=== PATIENT | female | born 2000 | race Caucasian/White ===

== ENCOUNTER 2024-02-28 20:05 | Inpatient (IN) ==
--- NOTE | 2024-02-28 20:31 | Emergency Department Note ---
Impression & Plan Recurrent seizures, Acute UTI (urinary tract infection), Acute hypokalemia, Elevated lactic acid level ED Provider Note HISTORY OF PRESENT ILLNESS: Patient is a 23-year-old female presenting with recurrent seizures. Patient reports that she has had 15-20 seizures today. She reports that she is on Dilantin. Reports she missed her dose earlier this afternoon and route to the hospital. She states that her last seizure was in the back of the car coming to [facility]. She states that she went to [facility] 3 times in the last week for the same issue. She states she was just there last night and "they did not do anything." She states that she has "grand mall seizures." She does not follow with a neurologist. Reports that her Dilantin as prescribed by her psychiatrist. She states that her last EEG was "a few months ago at [facility]." Denies any recent medication changes. Denies any chest pain or shortness of breath. Denies any nausea or vomiting. Denies any recent head injury or chiropractic manipulation of her neck. She denies any bowel or bladder incontinence during the seizure episodes. Reportedly comes to shortly after the seizure. Only has about 60 seconds of "confusion." Patient denies any abdominal pain. Denies any recent fevers. ROS: as above PHYSICAL EXAM: Constitutional: Patient appears in no acute distress. HENT: Head: Normocephalic and atraumatic. Eyes: EOMI, PERRL Mouth/Throat: Mucous membranes moist. Neck: Trachea midline. Neck supple. Cardiovascular: RRR, No murmurs, rubs or gallops. Intact distal pulses. Pulmonary/Chest: No respiratory distress. Breath sounds clear and equal bilaterally. No wheezes or rales. Abdominal: Abdomen soft, no tenderness, rebound or guarding. Musculoskeletal: No edema, tenderness or deformity noted. Skin: Warm and dry. No rash, erythema, pallor or cyanosis Psychiatric: Appropriate mood and affect for situation. Neurological: Alert and keenly responsive. CN II-XII grossly intact, moving all extremities equally and fully. MDM: - Vitals signs showed hypertension - History obtained via patient. History as above. - Chronic conditions affecting care: Seizure disorder - Differential diagnoses include, but are not limited to: PNES; epilepsy; electrolyte abnormality; dysrhythmia; status epilepticus; missed medication; intracranial hemorrhage - Order placed for continuous cardiac monitoring. At this time, monitor showed rate of 88 bpm with normal sinus rhythm, per my interpretation. - External medical records reviewed. Showed [facility] ER visit note dated 02/27/2024 was reviewed. Patient was seen there for seizure activity during fireworks. Also reviewed a note from 02/25/2024 in which the patient had 5 seizures on 24 February. - EKG interpreted by myself showed normal sinus rhythm. Rate 71 bpm. QT 370. No acute ischemic changes. - Laboratory workup interpreted by myself showed normal WBC; normal PT/INR; hypokalemia (K 3.1); elevated lactate (2.1); normal troponin; normal lipase; negative hCG - UA showed evidence of infection. Given 2g IV rocephin - UDS negative - VBG normal - CXR negative for pneumonia, per my interpretation - I was called to patient's bedside by nursing staff, as they report the patient was having a seizure. She reportedly had a 10-second episode of "jerking motion." On my arrival to the room, the patient was no longer having any shaking. She was answering questions and alert and orientated immediately after the episode. -On review of patient's [facility] chart, she has not had an EEG in their system. It has been ordered but she has not been able to make it. When prompted about this, the patient reports he has not had transport to the hospital for the EEG. - Patient given 10 mEq IV potassium for electrolyte replacement and 1L NS. - Given patient's recurrent seizures today, her family is uncomfortable with taking her home. Will admit to hospital service for neurology consult and potential EEG in the morning. - Discussion was had with caser in about patient's case and need for admission - Hospitalist, Dr. Aviles, consulted for admission - Patient admitted to [facility] service for further evaluation and management. ASSESSMENT AND PLAN: Diagnosis: Recurrent seizures; acute hypokalemia; elevated lactic acid; acute UTI Plan: Admit Past Med/Surg History Problem List (Updated 02/28/24 @ 23:26 by Yu Van MD) Elevated lactic acid level (Acute) Acute hypokalemia (Acute) Acute UTI (urinary tract infection) (Acute) Recurrent seizures (Acute) Social History Smoking Status: Current every day smoker Tobacco Type: E-cigarettes / Vaping Preferred Language: Montserratian Feels Safe at Home: Yes Allergies Allergies Allergy/AdvReac Type Severity Reaction Status Date / Time honey Allergy Severe Anaphylaxis Verified 02/28/24 21:51 bee pollen Allergy Unknown Verified 02/28/24 21:51 bee venom protein (honey bee) Allergy Unknown Verified 02/28/24 21:51 bupropion [From Wellbutrin] Allergy Unknown Verified 02/28/24 21:51 Sulfa (Sulfonamide Allergy Unknown Verified 02/28/24 21:51 Antibiotics) levetiracetam AdvReac Vomiting Verified 02/28/24 21:51 Home Meds Home Medications Medication Instructions Recorded Confirmed albuterol sulfate 90 mcg/actuation 2 puff inhalation Q4 PRN 02/28/24 02/28/24 aerosol inhaler cough,wheezing or SOB epinephrine 0.3 mg/0.3 mL 0.3 mg IM UD PRN severe reaction 02/28/24 02/28/24 injection, auto-injector (EpiPen 2-Obie) escitalopram oxalate 5 mg tablet 5 mg PO QAM 02/28/24 02/28/24 ondansetron HCl 4 mg tablet 4 mg PO Q6H PRN Nausea 02/28/24 02/28/24 phenytoin sodium extended 100 mg 200 mg PO TID 02/28/24 02/28/24 capsule potassium chloride 20 mEq 20 meq PO AMHS 02/28/24 02/28/24 tablet,extended release(part/cryst) trazodone 50 mg tablet 50 mg PO HS 02/28/24 02/28/24 Results & Data (ED) Vital Signs Vital Signs - 24 hr 02/28/24 20:11 02/28/24 20:31 02/28/24 21:15 Temperature 36.4 C L Temperature Source Temporal Artery Scan Pulse Rate 94 H 82 Pulse Rate [Apical] Respiratory Rate 20 Blood Pressure 93/64 L Blood Pressure [Left Arm] Blood Pressure Mean 73 Blood Pressure Mean [Left Arm] Blood Pressure Position [Left Arm] Pulse Oximetry 96 97 Oxygen Delivery Method Room Air Room Air Sepsis Recent Fever Within 48 Hours No Sepsis New/Unexplained Change in Mental Status No Sepsis Action Taken by Nursing No Action Required 02/28/24 21:15 02/28/24 22:28 Temperature Temperature Source Pulse Rate 71 Pulse Rate [Apical] 88 Respiratory Rate 18 20 Blood Pressure Blood Pressure [Left Arm] 97/62 L Blood Pressure Mean Blood Pressure Mean [Left Arm] 73 Blood Pressure Position [Left Arm] Lying Pulse Oximetry 97 98 Oxygen Delivery Method Room Air Room Air Sepsis Recent Fever Within 48 Hours Sepsis New/Unexplained Change in Mental Status Sepsis Action Taken by Nursing Laboratory Data 02/28/24 20:35 02/28/24 21:33 Lab Results 02/28/24 02/28/24 02/28/24 Range/Units 20:35 20:47 21:33 WBC 7.61 (4.8-10.8) K/ul RBC 4.92 (4.20-5.40) M/uL Hgb 14.2 (12.0-16.0) g/dl Hct 42.3 (37.0-47.0) % MCV 86.0 (80.0-100.0) fL MCH 28.9 (25.0-34.0) pg MCHC 33.6 (32.0-36.0) g/dL RDW Std Deviation 37.3 (36.4-46.3) fL RDW Coeff of Denisa 11.9 (11.5-14.5) % Plt Count 233 (130-400) K/uL MPV 10.3 (9.4-12.4) fL Immature Gran % (Auto) 0.1 % Neut % (Auto) 42.6 % Lymph % (Auto) 45.3 % [place] % (Auto) 5.7 % Eos % (Auto) 5.8 % Baso % (Auto) 0.5 % Neut # (Auto) 3.24 (1.40-6.50) K/uL Lymph # (Auto) 3.45 H (1.20-3.40) K/uL [place] # (Auto) 0.43 (0.11-0.59) K/uL Eos # (Auto) 0.44 (0.00-0.50) K/uL Baso # (Auto) 0.04 (0.00-0.20) K/uL Immature Gran # (Auto) 0.01 (0.01-0.20) K/uL PT Cancelled 10.9 INR Cancelled 1.0 VBG pH 7.38 (7.36-7.41) VBG pCO2 44 (38-50) mmHg VBG pO2 50 mmHg VBG HCO3 26 mmol/L VBG O2 Saturation 83.0 % VBG Base Excess 0.5 mEq/L Sodium 142 (136-145) mmol/L Potassium TNP 3.1 L Chloride 107 (98-107) mmol/L Carbon Dioxide 26 (21-32) mmol/L Anion Gap 9 (3-11) BUN 8 (6-23) mg/dl Creatinine 0.71 (0.6-1.2) mg/dl Est Cr Clr Drug Dosing Not Reportable Est GFR ( Amer) 138.2 ml/min Est GFR (Non-Af Amer) 119.2 ml/min BUN/Creatinine Ratio 11.3 (10-20) Glucose 110 H (70-99(Fasting)) mg/dl Lactate 2.1 H* (0.4-2.0) mmol/L Calcium 9.5 (8.6-10.3) mg/dl Magnesium 2.0 (1.7-2.4) mg/dl Total Bilirubin 0.2 (0.2-1.0) mg/dl AST TNP 18 ALT 23 (7-52) U/L Alkaline Phosphatase 89 (34-104) U/L Troponin I High Sens < 2.3 (0-14) pg/ml Total Protein 7.2 (6.0-8.3) gm/dl Albumin 4.6 (3.4-5.0) gm/dl Globulin 2.6 (2.5-4.0) gm/dl Albumin/Globulin Ratio 1.8 (0.9-2) Lipase 26 (11-82) U/L HCG, Qual Negative (Negative) Urine Color Dark Yellow Urine Appearance Cloudy A (Clear) Urine pH 5.5 (4.5-7.5) Ur Specific [place] 1.028 (1.000-1.030) Urine Protein Trace H (Negative) Urine Glucose (UA) Negative (Negative) Urine Ketones 1+ H (Negative) Urine Blood Negative (Negative) Urine Nitrite Negative (Negative) Urine Bilirubin 1+ H (Negative) Urine Urobilinogen Negative (Negative) Ur Leukocyte Esterase Trace H (Negative) Urine WBC (Auto) 6-10 H (0-5) /hpf Urine RBC (Auto) 0-2 (0-2) /hpf U Hyaline Cast (Auto) 0-2 (0-2) /lpf U Epithel Cells (Auto) 6-10 H (0-2) /hpf Urine Bacteria (Auto) 2+ H (None Seen) Urine Opiates Screen Neg (Neg) Ur Methadone, Qual Neg (Neg) Urine Fentanyl Screen Neg (Neg) Urine Barbiturates Neg (Neg) Ur Phencyclidine (PCP) Neg (Neg) U Amphetamin/Meth Scrn Neg (Neg) MDMA (Ecstasy) Screen Neg (Neg) U Benzodiazepines Scrn Neg (Neg) Ur Cocaine Metabolite Neg (Neg) U Marijuana (THC) Screen Neg (Neg) Administered Medications Discontinued Medications Sodium Chloride (Nss) 1,000 mls @ 999 mls/hr IV .Q1H1M ONE Stop: 02/28/24 22:25 Last Infusion: 02/28/24 22:27 Dose: Infused Documented By: Admin: 02/28/24 21:46 Dose: 999 mls/hr Documented By: Ceftriaxone Sodium (Rocephin) 2,000 mg in 50 mls @ 100 mls/hr IV NOW STA Stop: 02/28/24 21:54 Last Infusion: 02/28/24 22:27 Dose: Infused Documented By: Admin: 02/28/24 21:50 Dose: 100 mls/hr Documented By: Discharge Plan Visit Data Chief Complaint: Seizure Stated Complaint: SEIZURES/RECENT, FOAMING OUT MOUTH ED Provider: Yu Van Discharge Problem: Recurrent seizures, Acute UTI (urinary tract infection), Acute hypokalemia, Elevated lactic acid level Forms Stand Alone Forms: My [facility] Prescriptions Prescriptions: No Action trazodone 50 mg Tablet 50 mg PO HS ondansetron HCl 4 mg Tablet 4 mg PO Q6H PRN (Reason: Nausea) phenytoin sodium extended 100 mg Capsule 200 mg PO TID Rx Instructions: take 2 capsules in the morning,afternoon and evening potassium chloride 20 mEq Tablet,Er Particles/Crystals 20 meq PO AMHS escitalopram oxalate 5 mg Tablet 5 mg PO QAM epinephrine [EpiPen 2-Obie] 0.3 mg/0.3 mL Auto-Injector 0.3 mg IM UD PRN (Reason: severe reaction) albuterol sulfate 90 mcg/actuation Hfa Aerosol Inhaler 2 puff INHALATION Q4 PRN (Reason: cough,wheezing or SOB) Referrals Referrals: PCP,NO [Physician] -
[2024-02-28 20:55] LABS: Basophils # (auto) 0.04 K/uL (0.00-0.20); Basophils % (auto) 0.5 %; Eosinophils # (auto) 0.44 K/uL (0.00-0.50); Eosinophils % (auto) 5.8 %; Hematocrit (blood only) 42.3 % (37.0-47.0); Hemoglobin 14.2 g/dl (12.0-16.0); Immature Granulocytes # (auto) 0.01 K/uL (0.01-0.20); Immature Granulocytes % (auto) 0.1 %; Lymphocytes # (auto) 3.45 K/uL (1.20-3.40); Lymphocytes % (auto) 45.3 %; Mean Corpuscular Hemoglobin 28.9 pg (25.0-34.0); Mean Corpuscular Hgb Conc 33.6 g/dL (32.0-36.0); Mean Platelet Volume 10.3 fL (9.4-12.4); Monocytes # (auto) 0.43 K/uL (0.11-0.59); Monocytes % (auto) 5.7 %; Neutrophils # (auto) 3.24 K/uL (1.40-6.50); Neutrophils % (auto) 42.6 %; Platelet Count 233 K/uL (130-400); RDW Coefficient of Variation 11.9 % (11.5-14.5); RDW Standard Deviation 37.3 fL (36.4-46.3); Red Blood Count 4.92 M/uL (4.20-5.40); White Blood Count 7.61 K/ul (4.8-10.8)
[2024-02-28 21:05] LABS: Pregnancy Test, Serum Negative (Negative)
[2024-02-28 21:07] LABS: Appearance Urine Cloudy (Clear); Bacteria Urine Automated 2+ (None Seen); Bilirubin Urine 1+ (Negative); Blood Urine Negative (Negative); Cast Urine Automated 0-2 /lpf (0-2); Color Urine Dark Yellow; Glucose Urine UA Negative (Negative); Ketones Urine 1+ (Negative); Leukocyte Esterase Urine Trace (Negative); Nitrite Urine Negative (Negative); Protein Urine Trace (Negative); RBC Urine Automated 0-2 /hpf (0-2); Specific Gravity Urine 1.028 (1.000-1.030); Urobilinogen Urine Negative (Negative); pH Urine 5.5 (4.5-7.5)
[2024-02-28 21:12] LABS: Alanine Aminotransferase 23 U/L (7-52); Albumin Globulin Ratio 1.8 (0.9-2); Albumin Level 4.6 gm/dl (3.4-5.0); Alkaline Phosphatase 89 U/L (34-104); Anion Gap 9 (3-11); BUN Creatinine Ratio 11.3 (10-20); Bilirubin,Total 0.2 mg/dl (0.2-1.0); Blood Urea Nitrogen 8 mg/dl (6-23); Calcium 9.5 mg/dl (8.6-10.3); Carbon Dioxide 26 mmol/L (21-32); Chloride 107 mmol/L (98-107); Est GFR (African American) 138.2 ml/min; Est GFR (Non-African American) 119.2 ml/min; Globulin 2.6 gm/dl (2.5-4.0); Glucose 110 mg/dl (70-99(Fasting)); Lipase 26 U/L (11-82); Sodium 142 mmol/L (136-145); Total Protein 7.2 gm/dl (6.0-8.3)
[2024-02-28 21:23] LABS: Troponin I High Sensitivity < 2.3 pg/ml (0-14)
[2024-02-28 21:34] LABS: Amphetamines+Metham, Urine Neg (Neg); Barbiturates, Urine Neg (Neg); Benzodiazepine, Urine Neg (Neg); Cocaine, Urine Neg (Neg); Fentanyl, Urine Neg (Neg); MDMA (Ecstacy), Urine Neg (Neg); Marijuana, Urine Neg (Neg); Methadone, Urine Neg (Neg); Opiate, Urine Neg (Neg); Phencyclidine, Urine Neg (Neg)
[2024-02-28] MEDS: SODIUM CHLORIDE 0.9% 1,000 ML IV ONE (21:46)
[2024-02-28] MEDS: cefTRIAXone SODIUM 2,000 MG/50 ML BAG IV STA (21:50)
[2024-02-28 21:51] LABS: Base Excess VBG 0.5 mEq/L; HCO3 VBG 26 mmol/L; PCO2 VBG 44 mmHg (38-50); PO2 VBG 50 mmHg; pH VBG 7.38 (7.36-7.41)
[2024-02-28 22:40] LABS: Potassium 3.1 mmol/L (3.5-5.1)
[2024-02-28 23:03] LABS: Prothrombin Time 10.9 Seconds (9.0-12.0)
[2024-02-29] MEDS: POTASSIUM CHLORIDE / WTR 10 MEQ/100 ML PLCT IV SCH (00:05)
[2024-02-29] MEDS ORDERED: ALBUTEROL HFA 8 GM INHALER INH PRN (00:11)
[2024-02-29] MEDS ORDERED: POLYETHYLENE (MIRALAX) 17 GM PACK PO PRN (00:11)
[2024-02-29] MEDS ORDERED: LORazepam 1 MG in SYRINGE 0.5 ML IV PRN (00:11)
[2024-02-29] MEDS ORDERED: NITROGLYCERIN SL 0.4 MG/TAB TAB SL PRN (00:11)
[2024-02-29] MEDS ORDERED: ACETAMINOPHEN 325 MG TAB PO PRN (00:11)
--- NOTE | 2024-02-29 00:11 | History & Physical Report ---
Date of Service February 28, 2024 Assessment & Plan (1) Recurrent seizures: Plan: 23-year-old female with past medical history significant for malnutrition of moderate degree, non-intractable epilepsy, mixed hearing loss bilateral, iron deficiency anemia, attention deficit hyperactive disorder, tobacco disorder, opiate use, borderline personal disorder, PTSD, autism spectrum disorder, history of substance abuse, depression bipolar 2 disorder, presents with seizure episodes. Patient states recently having lot of seizures. She was yesterday in [facility] after she experienced seizure during fireworks.She was discharged home from ER. Family States she was in the ER 3 times in last 1 week. Today she she had 15-20 seizures as per family. Seems shakes her extremities and head during the episodes. No biting of tongue or incontinence during episode. As per family after seizure is over she comes back to normal then again she goes back to another seizure episode. En route to the hospital she had couple episodes.Patient says sometimes she looses consciousness and sometimes not during the episodes She did not take her tonight Dilantin dose. States otherwise she is taking her medications regularly. Currently alert and oriented. Family in the room. Has some headache. Denies any dizziness. No blurred visions. Has some stuffy nose. Currently no cough. No difficulty swallowing. Appetite is not great. Denies any shortness of breath. Currently no chest pain. No nausea. No abdominal pain. Normal bowel and bladder movements. Hemodynamics are okay. Recurrent seizures currently alert and oriented we will continue home Dilantin. IV Ativan as needed for breakthrough seizures will check Dilantin levels seizure precautions EEG in a.m. neurology consult in a.m. further recommendations elevated lactic acid will follow repeat levels IV fluids UTI Rocephin will follow cultures. bipolar depression PTSD continue home Lexapro and trazodone follow-up with psychiatry DVT prophylaxis SCDs disposition telemetry full code History of Present Illness Chief Complaint: Seizures Primary Care Provider: GELACIO Emery 23-year-old female with past medical history significant for malnutrition of moderate degree, non-intractable epilepsy, mixed hearing loss bilateral, iron deficiency anemia, attention deficit hyperactive disorder, tobacco disorder, opiate use, borderline personal disorder, PTSD, autism spectrum disorder, history of substance abuse, depression bipolar 2 disorder, presents with seizure episodes. Patient states recently having lot of seizures. She was yesterday in [facility] after she experienced seizure during fireworks.She was discharged home from ER. Family States she was in the ER 3 times in last 1 week. Today she she had 15-20 seizures as per family. Seems shakes her extremities and head during the episodes. No biting of tongue or incontinence during episode. As per family after seizure is over she comes back to normal then again she goes back to another seizure episode. En route to the hospital she had couple episodes.Patient says sometimes she looses consciousness and sometimes not during the episodes She did not take her tonight Dilantin dose. States otherwise she is taking her medications regularly. Currently alert and oriented. Family in the room. Has some headache. Denies any dizziness. No blurred visions. Has some stuffy nose. Currently no cough. No difficulty sw allowing. Appetite is not great. Denies any shortness of breath. Currently no chest pain. No nausea. No abdominal pain. Normal bowel and bladder movements. Hemodynamics are okay. Past medical history. As mentioned above past surgical history. Tonsillectomy and adenoidectomy. Social history. Former smoker smoked 1 pack a day for 0.3 years. Not drinking alcohol currently. History of methamphetamines and marijuana. Currently not using. As per recent PCP Notes 2 years clean from methamphetamine. Allergies Allergy/AdvReac Type Severity Reaction Status Date / Time honey Allergy Severe Anaphylaxis Verified 02/28/24 21:51 bee pollen Allergy Unknown Verified 02/28/24 21:51 bee venom protein (honey bee) Allergy Unknown Verified 02/28/24 21:51 bupropion [From Wellbutrin] Allergy Unknown Verified 02/28/24 21:51 Sulfa (Sulfonamide Allergy Unknown Verified 02/28/24 21:51 Antibiotics) levetiracetam AdvReac Vomiting Verified 02/28/24 21:51 Home Medications Medication Instructions Recorded Confirmed Type albuterol sulfate 90 mcg/actuation 2 puff inhalation Q4 PRN 02/28/24 02/28/24 History aerosol inhaler cough,wheezing or SOB epinephrine 0.3 mg/0.3 mL 0.3 mg IM UD PRN severe reaction 02/28/24 02/28/24 History injection, auto-injector (EpiPen 2-Obie) escitalopram oxalate 5 mg tablet 5 mg PO QAM 02/28/24 02/28/24 History ondansetron HCl 4 mg tablet 4 mg PO Q6H PRN Nausea 02/28/24 02/28/24 History phenytoin sodium extended 100 mg 200 mg PO TID 02/28/24 02/28/24 History capsule potassium chloride 20 mEq 20 meq PO AMHS 02/28/24 02/28/24 History tablet,extended release(part/cryst) trazodone 50 mg tablet 50 mg PO HS 02/28/24 02/28/24 History Past Med/Surg History Problem List (Updated 02/28/24 @ 23:26 by Yu Van MD) Elevated lactic acid level (Acute) Acute hypokalemia (Acute) Acute UTI (urinary tract infection) (Acute) Recurrent seizures (Acute) Social History Smoking Status: Current every day smoker Tobacco Type: E-cigarettes / Vaping Second Hand Exposure: Yes; Do You Dip or Chew Tobacco: No; Hx Alcohol Use: No Hx Substance Use: No Preferred Language: Tamazight Chemical Preparer Required: No Beliefs That Will Affect Care: None Current Living Situation: Significant Other Other Information That Helps Us Care for You: No Feels Safe at Home: Yes Safety Concerns: Feels Safe At This Time Assistive Devices: Glasses Review of Systems Review of Systems: All systems reviewed & are unremarkable except as noted in HPI & below Physical Exam Physical Exam: General- Not in distress Head- atraumatic Eyes- PERRL. ENT- oropharynx clear Neck- supple, no JVD. Lungs- clear to auscultation no wheezing or crackles. Heart- regular rate and rhythm; no murmur, no gallop. Abdomen- normal bowel sounds, soft, nontender, no distension. Extremities- no pretibial edema, no erythema seen. Neuro- alert, oriented x 3; PERRL, no facial palsy; no dysarthria; co ordination of movements normal. moves extremities. Results & Data Results & Data Vital Signs (Past 12 Hours) Vital Signs Temp Pulse Pulse Resp BP BP Pulse Ox 02/28/24 22:28 88 20 97/62 L 98 02/28/24 21:15 71 18 97 02/28/24 21:15 97 02/28/24 20:31 82 02/28/24 20:11 36.4 C L 94 H 20 93/64 L 96 O2 Del Method 02/28/24 22:28 Room Air 02/28/24 21:15 Room Air 02/28/24 21:15 Room Air 02/28/24 20:31 02/28/24 20:11 Room Air Diagnostic Findings Laboratory Results WBC 7.61 K/ul (4.8-10.8) 02/28/24 20:35 RBC 4.92 M/uL (4.20-5.40) 02/28/24 20:35 Hgb 14.2 g/dl (12.0-16.0) 02/28/24 20:35 Hct 42.3 % (37.0-47.0) 02/28/24 20:35 MCV 86.0 fL (80.0-100.0) 02/28/24 20:35 MCH 28.9 pg (25.0-34.0) 02/28/24 20:35 MCHC 33.6 g/dL (32.0-36.0) 02/28/24 20:35 RDW Std Deviation 37.3 fL (36.4-46.3) 02/28/24 20:35 RDW Coeff of Denisa 11.9 % (11.5-14.5) 02/28/24 20:35 Plt Count 233 K/uL (130-400) 02/28/24 20:35 MPV 10.3 fL (9.4-12.4) 02/28/24 20:35 Immature Gran % (Auto) 0.1 % 02/28/24 20:35 Neut % (Auto) 42.6 % 02/28/24 20:35 Lymph % (Auto) 45.3 % 02/28/24 20:35 [place] % (Auto) 5.7 % 02/28/24 20:35 Eos % (Auto) 5.8 % 02/28/24 20:35 Baso % (Auto) 0.5 % 02/28/24 20:35 Neut # (Auto) 3.24 K/uL (1.40-6.50) 02/28/24 20:35 Lymph # (Auto) 3.45 K/uL (1.20-3.40) H 02/28/24 20:35 [place] # (Auto) 0.43 K/uL (0.11-0.59) 02/28/24 20:35 Eos # (Auto) 0.44 K/uL (0.00-0.50) 02/28/24 20:35 Baso # (Auto) 0.04 K/uL (0.00-0.20) 02/28/24 20:35 Immature Gran # (Auto) 0.01 K/uL (0.01-0.20) 02/28/24 20:35 PT 10.9 Seconds (9.0-12.0) 02/28/24 21:33 INR 1.0 (0.9-1.1) 02/28/24 21:33 VBG pH 7.38 (7.36-7.41) 02/28/24 21:33 VBG pCO2 44 mmHg (38-50) 02/28/24 21:33 VBG pO2 50 mmHg 02/28/24 21:33 VBG HCO3 26 mmol/L 02/28/24 21:33 VBG O2 Saturation 83.0 % 02/28/24 21:33 VBG Base Excess 0.5 mEq/L 02/28/24 21:33 Sodium 142 mmol/L (136-145) 02/28/24 20:35 Potassium 3.1 mmol/L (3.5-5.1) L 02/28/24 21:33 Chloride 107 mmol/L (98-107) 02/28/24 20:35 Carbon Dioxide 26 mmol/L (21-32) 02/28/24 20:35 Anion Gap 9 (3-11) 02/28/24 20:35 BUN 8 mg/dl (6-23) 02/28/24 20:35 Creatinine 0.71 mg/dl (0.6-1.2) 02/28/24 20:35 Est Cr Clr Drug Dosing Not Reportable 02/28/24 20:35 Est GFR ( Amer) 138.2 ml/min 02/28/24 20:35 Est GFR (Non-Af Amer) 119.2 ml/min 02/28/24 20:35 BUN/Creatinine Ratio 11.3 (10-20) 02/28/24 20:35 Glucose 110 mg/dl (70-99(Fasting)) H 02/28/24 20:35 Lactate 2.1 mmol/L (0.4-2.0) H* 02/28/24 21:33 Calcium 9.5 mg/dl (8.6-10.3) 02/28/24 20:35 Magnesium 2.0 mg/dl (1.7-2.4) 02/28/24 20:35 Total Bilirubin 0.2 mg/dl (0.2-1.0) 02/28/24 20:35 AST 18 U/L (13-39) 02/28/24 21:33 ALT 23 U/L (7-52) 02/28/24 20:35 Alkaline Phosphatase 89 U/L (34-104) 02/28/24 20:35 Troponin I High Sens < 2.3 pg/ml (0-14) 02/28/24 20:35 Total Protein 7.2 gm/dl (6.0-8.3) 02/28/24 20:35 Albumin 4.6 gm/dl (3.4-5.0) 02/28/24 20:35 Globulin 2.6 gm/dl (2.5-4.0) 02/28/24 20:35 Albumin/Globulin Ratio 1.8 (0.9-2) 02/28/24 20:35 Lipase 26 U/L (11-82) 02/28/24 20:35 HCG, Qual Negative (Negative) 02/28/24 20:35 Urine Color Dark Yellow 02/28/24 20:47 Urine Appearance Cloudy (Clear) A 02/28/24 20:47 Urine pH 5.5 (4.5-7.5) 02/28/24 20:47 Ur Specific [place] 1.028 (1.000-1.030) 02/28/24 20:47 Urine Protein Trace (Negative) H 02/28/24 20:47 Urine Glucose (UA) Negative (Negative) 02/28/24 20:47 Urine Ketones 1+ (Negative) H 02/28/24 20:47 Urine Blood Negative (Negative) 02/28/24 20:47 Urine Nitrite Negative (Negative) 02/28/24 20:47 Urine Bilirubin 1+ (Negative) H 02/28/24 20:47 Urine Urobilinogen Negative (Negative) 02/28/24 20:47 Ur Leukocyte Esterase Trace (Negative) H 02/28/24 20:47 Urine WBC (Auto) 6-10 /hpf (0-5) H 02/28/24 20:47 Urine RBC (Auto) 0-2 /hpf (0-2) 02/28/24 20:47 U Hyaline Cast (Auto) 0-2 /lpf (0-2) 02/28/24 20:47 U Epithel Cells (Auto) 6-10 /hpf (0-2) H 02/28/24 20:47 Urine Bacteria (Auto) 2+ (None Seen) H 02/28/24 20:47 Urine Opiates Screen Neg (Neg) 02/28/24 20:47 Ur Methadone, Qual Neg (Neg) 02/28/24 20:47 Urine Fentanyl Screen Neg (Neg) 02/28/24 20:47 Urine Barbiturates Neg (Neg) 02/28/24 20:47 Ur Phencyclidine (PCP) Neg (Neg) 02/28/24 20:47 U Amphetamin/Meth Scrn Neg (Neg) 02/28/24 20:47 MDMA (Ecstasy) Screen Neg (Neg) 02/28/24 20:47 U Benzodiazepines Scrn Neg (Neg) 02/28/24 20:47 Ur Cocaine Metabolite Neg (Neg) 02/28/24 20:47 U Marijuana (THC) Screen Neg (Neg) 02/28/24 20:47 ECG Additional Comments: ECG normal sinus rhythm with sinus arrhythmia rate of 71. Nonspecific T wave abnormality. QTc 402. Code Status & VTE Plan VTE Prophylaxis Plan VTE Prophylaxis will be ordered: Yes
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
--- OUTSIDE RECORDS SUMMARY | 2024-02-29 00:16 | External Medical Summary ---
Author Name Unknown Address Unknown Organization : Laboratory Report Ordering Provider Test Date Status SIGRID FONSECA 02/27/2024 23:05:24 Final Observation Date Value Abnormality Reference (Units ) Status Glucose Point of Care 02/27/2024 23:05:24 92 70-120 (mg/dL) Final Performing Location
--- OUTSIDE RECORDS SUMMARY | 2024-02-29 00:17 | External Medical Summary ---
Author Name Unknown Address Unknown Organization K1F:LABORATORY [facility] - [address] [address] Laboratory Report Ordering Provider Test Date Status DARLINE FONSECACHARLYTony 02/25/2024 21:08:00 Final Observation Date Value Abnormality Reference (Units ) Status WBC, Total 02/25/2024 21:08:00 7.32 4.00-10.80 (K/uL) Final RBC 02/25/2024 21:08:00 4.66 3.85-5.15 (M/uL) Final Hemoglobin 02/25/2024 21:08:00 13.5 12.0-15.3 (g/dL) Final HCT 02/25/2024 21:08:00 39.7 36.0-45.2 (%) Final MCV 02/25/2024 21:08:00 85.2 81.5-97.5 (fL) Final MCH 02/25/2024 21:08:00 29.0 27.0-34.0 (pg) Final MCHC 02/25/2024 21:08:00 34.0 32.0-36.0 (g/dL) Final RDW 02/25/2024 21:08:00 11.9 11.5-15.5 (%) Final Platelets 02/25/2024 21:08:00 231 140-400 (K/uL) Final MPV 02/25/2024 21:08:00 9.6 6.6-11.1 (fL) Final Nucleated erythrocytes/100 leukocytes [Ratio] in Blood by Automated count 02/25/2024 21:08:00 0 <=0 (/100 WBCs) Final Performing Location LABORATORY [facility] - [address] [place] [address]
--- OUTSIDE RECORDS SUMMARY | 2024-02-29 00:17 | External Medical Summary ---
Author Name Unknown Address Unknown Organization K1F:LABORATORY [facility] - [address] [place] [address] Laboratory Report Ordering Provider Test Date Status FIDEL WALLS 02/18/2024 20:17:00 Final Observation Date Value Abnormality Reference (Units ) Status Lipase 02/18/2024 20:17:00 44 13-60 (U/L ) Final Performing Location LABORATORY [facility] - [address] [address]
--- OUTSIDE RECORDS SUMMARY | 2024-02-29 00:17 | External Medical Summary ---
Author Name Unknown Address Unknown Organization K1F:LABORATORY [facility] - [address] [facility] [place] [address] Laboratory Report Ordering Provider Test Date Status SIGRID FONSECA 02/25/2024 22:09:04 Final Observation Date Value Abnormality Reference (Units ) Status Color of Urine by Auto 02/25/2024 22:09:04 Yellow Colorless, Light Yellow, Yellow, Dark Yellow Final Clarity, Urine 02/25/2024 22:09:04 Clear Clear Final Glucose [Mass/volume] in Urine by Automated test strip 02/25/2024 22:09:04 Negative Negative (mg/dL) Final Bilirubin.total [Presence] in Urine by Automated test strip 02/25/2024 22:09:04 Negative Negative Final Ketones [Mass/volume] in Urine by Automated test strip 02/25/2024 22:09:04 Negative Negative (mg/dL) Final Specific gravity, Urine 02/25/2024 22:09:04 1.016 1.003-1.030 Final Hemoglobin [Presence] in Urine by Automated test strip 02/25/2024 22:09:04 Small Abnormal Negative Final pH, Urine 02/25/2024 22:09:04 6.0 5.0-7.5 (Units) Final Protein [Mass/volume] in Urine by Automated test strip 02/25/2024 22:09:04 Negative Negative (mg/dL) Final Urobilinogen [Mass/volume] in Urine by Automated test strip 02/25/2024 22:09:04 0.2 0.2, 1.0 (mg/dL) Final Nitrite [Presence] in Urine by Automated test strip 02/25/2024 22:09:04 Negative Negative Final Leukocyte esterase [Presence] in Urine by Automated test strip 02/25/2024 22:09:04 Small Abnormal Negative Final RBC, Urine 02/25/2024 22:09:04 0-2 0-2 (/HPF) Final WBC, Urine 02/25/2024 22:09:04 6-9 Abnormal 0-2 (/HPF) Final Bacteria [#/area] in Urine sediment by Microscopy high power field 02/25/2024 22:09:04 >200 Abnormal 0-25 (/HPF) Final Epithelial cells.squamous [#/area] in Urine sediment by Microscopy high power field 02/25/2024 22:09:04 Many Abnormal None (/HPF) Final CULTURE, URINE - [facility] 02/25/2024 22:09:04 Final Quantitative urine culture t o be performed Performing Location LABORATORY [facility] - [address] [place] [address] [place] [address]
--- OUTSIDE RECORDS SUMMARY | 2024-02-29 00:17 | External Medical Summary ---
Author Name Unknown Address Unknown Organization K1F:LABORATORY [facility] - [address] [facility] [place] [address] Laboratory Report Ordering Provider Test Date Status FIDEL WALLS 02/18/2024 21:23:25 Final Observation Date Value Abnormality Reference (Units ) Status Color of Urine by Auto 02/18/2024 21:23:25 Yellow Light Yellow, Yellow, Dark Yellow Final Clarity, Urine 02/18/2024 21:23:25 Clear Clear Final Glucose [Mass/volume] in Urine by Automated test strip 02/18/2024 21:23:25 Negative Negative (mg/dL) Final Bilirubin.total [Presence] in Urine by Automated test strip 02/18/2024 21:23:25 Negative Negative Final Ketones [Mass/volume] in Urine by Automated test strip 02/18/2024 21:23:25 Negative Negative (mg/dL) Final Specific gravity, Urine 02/18/2024 21:23:25 1.020 1.003-1.030 Final Hemoglobin [Presence] in Urine by Automated test strip 02/18/2024 21:23:25 Negative Negative Final pH, Urine 02/18/2024 21:23:25 6.0 5.0-7.5 (Units) Final Protein [Mass/volume] in Urine by Automated test strip 02/18/2024 21:23:25 Negative Negative (mg/dL) Final Urobilinogen [Mass/volume] in Urine by Automated test strip 02/18/2024 21:23:25 0.2 0.2, 1.0 (mg/dL) Final Nitrite [Presence] in Urine by Automated test strip 02/18/2024 21:23:25 Negative Negative Final Leukocyte esterase [Presence] in Urine by Automated test strip 02/18/2024 21:23:25 Negative Negative Final RBC, Urine 02/18/2024 21:23:25 0-2 0-2 (/HPF) Final WBC, Urine 02/18/2024 21:23:25 3-5 Abnormal 0-2 (/HPF) Final Bacteria [#/area] in Urine sediment by Microscopy high power field 02/18/2024 21:23:25 26-50 Abnormal 0-25 (/HPF) Final Epithelial cells.squamous [#/area] in Urine sediment by Microscopy high power field 02/18/2024 21:23:25 Many Abnormal None (/HPF) Final Mucus, Urine 02/18/2024 21:23:25 Many Abnormal None (/HPF) Final CULTURE, URINE - [facility] 02/18/2024 21:23:25 Final Quantitative urine culture t o be performed Performing Location LABORATORY [facility] - [address] [place], [place] [address] [place] [address]
--- OUTSIDE RECORDS SUMMARY | 2024-02-29 00:17 | External Medical Summary | Summary of Care ---
Author Name Unknown Organization [facility] Address [address] [place] [address] Phone [phone] Care Team Providers Care Director Learning And Development Name Role Phone RizzoShannen Primary Care Provider Reason for Visit * Reason Comments Abdominal Pain * Auth/Cert Specialty Diagnoses / Procedures Referred By Contchloe t Referred To Contact [facility] [address] [place] [address] Phone: [phone] Emergency Medicine [facility] [address] [place] [address] Referral ID Status Reason Start Date Expiration Date Visits Re quested Visits Authorized [id number] Encounter Details Date Type Department Care Team (Late st Contact Info) Description 02/18/2024 7:27 PM EDT - 02/18/2024 9:47 PM EDT Emergency [facility] Emergency Department ([facility]) [address] [place] [address] Emerson Briggs MD [address] [place] [address] Acute gastroenteritis (Primary Dx) Discharge Disposition: Home - Self Care Allergies Active Allergy Reactions Criticality Noted Date Comments Bee Pollen 08/13/2020 Bee Venom 05/01/2015 Honey Anaphylaxis High 02/12/2019 Levetiracetam 01/14/2021 Other reaction(s): Vomiting Sulfa Antibiotics 12/17/2022 Bupropion 12/17/2022 documented as of this encounter (statuses as of 02/19/2024) Medications Medication Sig Dispensed Refills Start Date End Date Status EpiPen 2-Obie 0.3 MG/0.3ML Injection Solution Auto-injector For a severe reaction: Inject in outer thigh following instructions on package and go to the Emergency room. 2 Each 12/25/2023 Active Escitalopram Oxalate 10 MG Oral Tablet (Lexapro) Take 1 Tablet by mouth in the morning. 5 Tablet 02/09/2024 Active traZODone HCl 50 MG Oral Tablet [...] needed for Nausea. 20 Tablet 02/18/2024 Active documented as of this encounter (statuses as of 02/19/2024) Active Problems Problem Noted Date Diagnosed Date [...] States she was being seen in [place] per discussions with [facility], she had only shown for anatomy US, cancelled/no showed all her visits Anemia of mother in , antepartum, third trimester 12/17/2022 Overview: Blood management referral for venofer Vitmain b12 1000mcg daily Trichomonal vulvovaginitis 12/17/2022 Overview: Treated 12/17/22 Positive 01/26/23 treated THANG due 39w Chlamydia infection affecting in secon d trimester 12/17/2022 Overview: Noted in labs from [place], unsure if she was treated. 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 Overview: Last use 11/23/22 per patient Seizure 07/30/2020 03/19/2023 Recurrent major depressive disorder 02/12/2019 03/30/2023 CHR SEROUS OM NEC 05/25/2006 01/08/2023 documented as of this encounter (statuses as of 02/19/2024) Immunizations Name Administration Dates Next Due HPV Vaccine, 4-Valent 07/24/2011,01/22/2011,10/23 Hepatitis A, Ped/Adol., 18 y ear and below, 2-Dose 04/11/2009,10/08/2008,05/07/2000 Hepatitis B, 0-19 yrs 05/07/2000,1999 IPV - Polio Virus Vaccine (Inact) 2003,12/02/2000,01/27/2000,11/21 MMR - Measles/Mumps/Rubella Vaccine 07/25/2004,0 12/02/2000 Meningococcal B, OMV AJD, 2- Dose Series (BEXSERO) 07/01/2016,05/28/2016 Meningococcal MCV4P Conjugat e Vaccine (Menactra) 05/28/2016,11/11/2010 PPD 11/06/2022,12/01/2021,09/29/2021 Rabies Vaccine (Rabavert) 02/22/2018,,02/11/2018,06/18 /2018 Seasonal Influenza Virus Vac cine, Unspecified Formulation [...] money to get more. Never true 03/19/2023 Bristow Depression Scale Answer Date Recorded Bristow Depression Scale Total 22 07/08/2023 The thought [...] Sign Reading Time Taken Comments Blood Pressure 103/70 02/18/2024 9:45 PM EDT Pulse 68 02/18/2024 9:45 PM EDT Temperature 36.5 C (97.7 F) 02/18/2024 9:45 PM ED T Respiratory Rate 18 02/18/2024 9:45 PM EDT Oxygen Saturation 100% 02/18/2024 9:45 PM EDT Inhaled Oxygen Concentration - - Weight 52.3 kg (115 lb 4.8 oz) 02/18/2024 7:21 P M EDT Height 149.9 cm (4' 11") 02/18/2024 7:21 PM EDT Body Mass Index 23.29 02/18/2024 7:21 PM EDT documented in this encounter Functional [...] this encounter Discharge Instructions * Discharge Instructions* Emerson Briggs MD - 02/18/2024 9:38 PM EDT Tylenol may be used for pain documented in this encounter ED Notes * Emerson Briggs MD - 02/18/2024 7:37 PM EDT HISTORY OF PRESENT ILLNESS Yu Lopez is a 23 year old female who presents to the ED for evaluation of Abdominal Pain. The patient was seen at 02/18/24 1933. Patient reports onset of illness yesterday. Vomiting with 5 episodes today. Diarrhea with multiple episodes today. A diffuse abdominal pain. She also notes that she had a home positive test. She has never had any surgery in her belly. No urgency frequency dysuria hematuria. She has a painin her lower belly which seems to radiate to her back NVD starting yesterday. Generalized Abd pain all over and lower back pain bilaterally. Reports weakness started today as well. Reports she may be , unknown. Pt reports home test was +. DeniesUTI symptoms. +gallbladder. +appendix. Denies fevers or chills. Abdominal Pain Review of Systems Gastrointestinal: Positive for abdominal pain. The patient's allergies, past history, and medications were reviewed. PHYSICAL EXAM Initial Vitals (see all): BP 105/62 | Pulse 72 | Resp 19 | Temp 97.7 | O2 98 %, Room Air, None | Weight 52.3 kg | Height 149.9 cm | BMI 23.29 kg/m2 Initial Pain Assessment (see all): 8 (severe pain)/10 ([facility] Adult Scale 0-10) General: Alert. appropriate for age. no acute distress. nontoxic. Skin: Warm, dry. Head: Atraumatic. Neck: trachea midline. No distended neck veins supple Eye: Normal conjunctiva. PERRL, EOMI, Ears, nose, mouth and throat: airway patent. No inflammation Cardiovascular: Normal peripheral perfusion. Regular rate and rhythm without murmurs or extra sounds. No distended neck veins. . Respiratory: no respiratory distress. The lungs are clear to auscultation without rales wheezes or rhonchi. Breath sounds equal and present bilaterally. Gastrointestinal: Non distended. Abdomen is soft and minimally diffusely tender. No guarding. No rebound. No organomegaly. Musculoskeletal: No deformity. Neurological: No focal neurological deficit observed. alert. Psychiatric: Cooperative. Differential diagnosis Gastroenteritis, dehydration, PROCEDURES AND TREATMENTS ED Orders | ED Results MEDICAL DECISION MAKING Nursing notes and vital signs were reviewed. ED Course as of 02/18/242138 Jewels Feb 18, 20241940 EKG reviewed by ER physician. Normal sinus rhythm [DR] ED Course User Index [DR] Emerson Briggs MD Risk Prescription drug management. Clinical Impressions Acute gastroenteritis Disposition Discharged. The patient's condition at disposition was: stable. Discharge Medications Disp Refills Start End Ondansetron HCl 4 MG Oral Tablet (Zofran) 20 Tablet 0 02/18/2024 -- Sig - Route: Take 1 Tablet by mouth every 6 hours as needed for Nausea. - Oral Class: ePrescribing Renewals Renewal requests to authorizing provider (Emerson Briggs MD) <b>prohibited</b> Emerson Briggs * Lisa Almodovar RN - 02/18/2024 7:21 PM EDT NVD starting yesterday. Generalized Abd pain all over and lower back pain bilaterally. Reports weakness started today as well. Reports she may be , unknown. Pt reports home test was +. DeniesUTI symptoms. +gallbladder. +appendix. Denies fevers or chills. documented in this encounter Miscellaneous Notes * Pt Handout (on AVS) - Emerson Briggs MD - 02/18/2024 9:38 PM EDT Images from the original note were not included. [id number] Viral Gastroenteritis (Adult) Gastroenteritis is often called the stomach flu. But it has nothing to do with influenza. It's mostoften caused by a virus that affects the stomach and intestinal tract. Most bouts last from 2 to 7 days. Common viruses causing gastroenteritis include norovirus, rotavirus, and hepatitis A. Nonviralcauses of gastroenteritis include bacteria, parasites, and toxins. The danger from repeated vomiting or diarrhea is dehydration. This is when the body loses too much fluid. When this occurs, you must replace the body fluids. Antibiotics aren't an effective treatment for this condition because it's caused by a virus. Symptoms of viral gastroenteritis may include: Watery, loose stools Stomach pain or belly (abdominal) cramps Fever and chills Nausea and vomiting Loss of bowel control Headache Home care Gastroenteritis is spread by contact with the stool or vomit of an infected person. This can occur from person to person or from contact with a contaminated surface. Follow these guidelines when caring for yourself at home: If symptoms are severe, rest at home for the next 24 hours or until you are feeling better. Wash your hands with soap and clean, running water or use alcohol-based cash management coordinator to prevent thespread of infection. Wash your hands after touching anyone who is sick. Wash your hands or use alcohol-based cash management coordinator after using the toilet and before meals. Clean the toilet after each use. Remember these tips when preparing food: People with diarrhea should not prepare or serve food to others. When preparing foods, wash yourhands before and after. Wash your hands after using cutting boards, counter tops, knives, or utensils that have been in contact with raw food. Dry your hands with a single-use disposable towel. Keep uncooked meats away from cooked and kemam-jc-pia foods. Medicine Use acetaminophen or nonsteroidal anti-inflammatory drugs (NSAID) such as ibuprofen or naproxen to control fever, unless another medicine was given. If you have chronic liver or kidney disease, talk with your healthcare provider before using these medicines. Also talk with your provider if you've had a stomach ulcer or gastrointestinal bleeding. Don't give aspirin to anyone under 18 years of age who is ill with a fever. It may result in a serious illness called Nataly syndrome that may cause severe liver damage or even . Don't use NSAIDS if you're already taking one for another condition (like arthritis) or are on aspirin (such as for heart disease or after a stroke). If medicines for vomiting or diarrhea are prescribed, take these only as directed. Nausea and diarrhea medicines are generally OK unless you have bleeding, fever, or severe abdominal pain. Diet Follow these guidelines for food: Water and liquids are important so you don't get dehydrated. Drink small amounts often or suck on ice chips as tolerated if you are vomiting. If you eat, stay away from fatty, greasy, spicy, or fried foods. Don't eat dairy if you have diarrhea. This can make diarrhea worse. Avoid tobacco, alcohol, and caffeine. These may worsen symptoms. During the first 24 hours (the first full day), follow the diet below: Beverages. Sip sports drinks, soft drinks without caffeine, callie charu, mineral water (plain or flavored), decaffeinated tea and coffee. If you are very dehydrated, sports drinks aren't a good choice. They have too much sugar and not enough electrolytes. In this case, use products called oral rehydration solutions. You can buy these at pharmacies and grocery stores. Soups. Eat clear broth, consomm, and bouillon. Desserts. Eat gelatin, ice pops, and fruit juice bars. During the next 24 hours (the second day), you may add the following to the above: Hot cereal, plain toast, bread, rolls, and crackers Plain noodles, rice, mashed potatoes, chicken noodle or rice soup Unsweetened canned fruit (avoid pineapple), bananas Limit fat intake to less than 15 grams per day. Do this by avoiding margarine, butter, oils, mayonnaise, sauces, gravies, fried foods, peanut butter, meat, poultry, and fish. Limit fiber and avoid raw or cooked vegetables, fresh fruits (except bananas), and bran cereals. Limit caffeine and chocolate. Don't use spices or seasonings other than salt. Limit dairy products. Avoid alcohol. During the next 24 hours: Gradually resume a normal diet as you feel better and your symptoms improve. If at any time it starts getting worse again, go back to clear liquids until you feel better. Follow-up care Follow up with your healthcare provider, or as advised. Call your provider if you don't get better within 24 hours or if diarrhea lasts more than a few days. It's also important to follow up if you can't keep down liquids, which can lead to becoming dehydrated. If a stool (diarrhea) sample was taken, call as directed for the results. Call 911 Call 911 if any of these occur: Trouble breathing Chest pain Confused Severe drowsiness or trouble awakening Fainting or loss of consciousness Rapid heart rate Seizure Stiff neck When to get medical advice Call your healthcare provider right away if any of these occur: Abdominal pain that gets worse Continued vomiting (can't keep liquids down) Frequent diarrhea (more than 5 times a day) Blood in vomit or stool (black or red color) Dark urine, reduced urine output, or extreme thirst Weakness or dizziness Drowsiness Fever of 100.4F (38C) or higher, or as advised by your provider New rash Last Reviewed Date: 10/22/202119994843-9271 [employer]. All rights reserved. This information is not intended as a substitute for professional medical care. Always follow your healthcare professional's instructions. * ED Thread Cutter Note - Katja Doyle LPN - 02/18/2024 8:07 PM EDT Patient presents with complaints of back pain, nausea, vomiting, and diarrhea. States she Vomited 5x today.States the nausea vomiting and diarrhea started yesterday. Denies chest pain or shortness ofbreath. State that is a possibility. Assessment completed, see flowsheets for complete details. Patient oriented to surroundings and call sánchez system. 2024: Patient medicated per OCT by Criss PHAM see OCT for details. 2119: Rounded on patient, nausea has improved since administration of Zofran. UA collected and sentper order. 2145: PIV removed. Reviewed discharge instructions with patient. Patient verbalized understanding of information provided. documented in this encounter Plan of Treatment Upcoming Encounters Date Type Department Care Team ([facility] st Contact Info) Description 09/19/2024 2:00 PM EST [facility] [address] [id number] Shannen Rizzo CRNP [address] [id number] Pending Results Name Type Priority Associated Diagnoses Date /Time CULTURE, URINE, QUANTITATIVE Lab STAT 02/18/2024 9:23 PM EDT Scheduled Orders Name Type Priority Associated Diagnoses Orde r Schedule CULTURE, URINE, QUANTITATIVE Lab STAT One Time for 1 Occurrences starting 02/18/2024 until 02/18/2024 Health Maintenance Due Date Last Done Comments Pneumococcal Vaccine: Pediat rics (0 to 5 Years) and At-Risk Patients (6 to 64 Years) (1 of 2 - PCV) 2005 COVID-19 Vaccine ( - 2022-2 4 season) 2023 Gonorrhea / Chlamydia Screen 10/01/202403/2024, 09/17/2023, 08/19/2023, Additional history exists Pap Smear 04/08/2026 04/08/2023 DTaP,Tdap,and Td Vaccines (3 - Td or Tdap) 01/22/2033 01/22/2023, 02/08/2018 Hepatitis B Completed 05/07/2000, 10/24, 1999 GARDASIL-HPV IMMUNIZATION SERIES Completed 07/24/2011, 01/22/2011, 11/11/2010 MENINGOCOCCAL (MENACTRA/MENVEO) Completed , 11/11/2010 Influenza Vaccine (FLU shot) Completed 06/2023, 05/25/2020, 06/14/2019, Additional history exists documented as of this encounter Medical Devices Not on filedocumented as of this encounter Procedures Procedure Name Priority Date/Time Associated Diagnosis Comments URINALYSIS, REFLEX TO CULTURE STAT 02/18/2024 9:23 PM EDT URINALYSIS, REFLEX TO CULTURE (CUP ONLY) STAT 02/18/2024 9:23 PM EDT URINALYSIS, REFLEX TO CULTURE (NOT FOR NEUTROPENIC PATIENTS) STAT 02/18/2024 9:23 PM EDT EXTRA VILLANUEVA TOP Routine 02/18/2024 8:17 PM EDT EXTRA LIGHT BLUE TOP STAT 02/18/2024 8:17 PM EDT EXTRA TUBES Routine 02/18/2024 8:17 PM EDT DIFFERENTIAL, AUTOMATED STAT 02/18/2024 8:17 PM EDT BETA-HCG, QUANTITATIVE STAT 8:17 PM EDT COMPREHENSIVE METABOLIC PANEL STAT 02/18/2024 8:17 PM EDT CBC STAT 02/18/2024 8:17 PM EDT LIPASE STAT 02/18/2024 8:17 PM EDT CBC STAT 02/18/2024 8:17 PM EDT documented in this encounter Results * (ABNORMAL) URINALYSIS, REFLEX TO CULTURE (02/18/2024 9:23 PM EDT) Color, Urine Yellow Light Yellow, Yellow, Dark Yellow 02/18/2024 9:42 PM EDT LABORATORY [facility] Clarity, Urine Clear Clear 02/18/2024 9:42 PM EDT [facility] Glucose, Urine Negative Negative mg/dL 02/18/2024 9:42 PM EDT LAB[facility] Bilirubin, Urine Negative Negative 02/18/2024 9:42 PM EDT [facility] Ketone, Urine Negative Negative mg/dL 02/18/2024 9:42 PM EDT LAB[facility] Specific [place], Urine 1.020 1.003 - 1.030 02/18/2024 9:42 PM EDT LABORATORY [facility] Blood, Urine Negative Negative 02/18/2024 9:42 PM EDT LABORATORY [facility] pH, Urine 6.0 5.0 - 7.5 Units 02/18/2024 9:42 PM EDT LABORATORY [facility] Protein, Urine Negative Negative mg/dL 02/18/2024 9:42 PM EDT LABORATORY [facility] Urobilinogen, Urine 0.2 0.2, 1.0 mg/dL 02/18/2024 9:42 PM EDT LABORATORY [facility] Nitrite, Urine Negative Negative 02/18/2024 9:42 PM EDT LABORATORY [facility] Esterase, Urine Negative Negative 02/18/2024 9:42 PM EDT LABORATORY [facility] RBC, Urine 0-2 0 - 2 /HPF 02/18/2024 9:42 PM EDT LABORATORY [facility] WBC, Urine 3-5(A) 0 - 2 /HPF 02/18/2024 9:42 PM EDT LABORATORY [facility] Bacteria, Urine 26-50(A) 0 - 25 /HPF 02/18/2024 9:42 PM EDT LABORATORY [facility] Squamous Epithelial Cells, Urine Many(A) None /HPF 02/18/2024 9:42 PM EDT LABORATORY [facility] Mucus, Urine Many(A) None /HPF 02/18/2024 9:42 PM EDT LABORATORY [facility] Culture, Urine 02/18/2024 9:42 PM EDT LABORATORY [facility] Comment:Quantitative urine c ulture to be performed Urine Urine specimen / Unknown Non-blood Collection / Unknown 02/18/2024 9:23 PM EDT 02/18/2024 9:28 PM EDT Chase Shukla MD LAB URINE ORDERABLES LABORATORY [facility] [address] [place] [address] * URINALYSIS, REFLEX TO CULTURE (CUP ONLY) (02/18/2024 9:23 PM EDT) Urinalysis, Reflex to Culture Specimen Specimen collected and received 02/18/2024 11:02 PM EDT LABORATORY [facility] Urine Urine specimen / Unknown Non-blood Collection / Unknown 02/18/2024 9:23 PM EDT 02/18/2024 9:28 PM EDT Chase Shukla MD LAB URINE ORDERABLES Performing Organization Address City/[facility]/ZIP Co de Phone Number LABORATORY [address] [address] * EXTRA VILLANUEVA TOP (02/18/2024 8:17 PM EDT) Blood Venous blood specimen / Unknown 02/18/2024 8:17 PM EDT 02/18/2024 8:20 PM EDT Emerson Briggs MD LAB BLOOD ORDERABLES Performing Organization Address City/[facility]/ZIP Co de Phone Number LABORATORY [address] [address] * (ABNORMAL) DIFFERENTIAL, AUTOMATED (02/18/2024 8:17 PM EDT) WBC 8.62 4.00 - 10.80 K/uL 02/18/2024 8:25 PM EDT LABORATORY [facility] Neutrophils % 45.4 40.0 - 75.0 % 02/18/2024 8:25 PM EDT LABORATORY [facility] Lymphocytes % 43.9(H) 18.0 - 42.0 % 02/18/2024 8:25 PM EDT LABORATORY [facility] Monocytes % 5.8 1.0 - 11.0 % 02/18/2024 8:25 PM EDT LABORATORY [facility] Eosinophils % 4.1 0.0 - 6.0 % 02/18/2024 8:25 PM EDT LAB[facility]ATORY [facility] Basophils % 0.6 0.0 - 2.0 % 02/18/2024 8:25 PM EDT LABORATORY GL Immature Granulocytes % 0.2 0.0 - 2.0 % 02/18/2024 8:25 PM EDT LABORATORY [facility] Absolute Neutrophils 3.92 1.80 - 7.70 K/uL 02/18/2024 8:25 PM EDT LABORATORY [facility] Absolute Lymphocytes 3.78 1.00 - 4.80 K/ul 02/18/2024 8:25 PM EDT LABORATORY [facility] Absolute Monocytes 0.50 0.00 - 1.10 K/uL 02/18/2024 8:25 PM EDT LABORATORY [facility] Absolute Eosinophils 0.35 0.00 - 0.70 K/uL 02/18/2024 8:25 PM EDT LABORATORY [facility] Absolute Basophils 0.05 0.00 - 0.20 K/uL 02/18/2024 8:25 PM EDT LABORATORY [facility] Absolute Immature Granulocytes 0.02 0.00 - 0.20 K/uL 02/18/2024 8:25 PM EDT LABORATORY [facility] Blood Venous blood specimen / Unknown Venipuncture / Unknown 02/18/2024 8:17 PM EDT 02/18/2024 8:20 PM EDT Chase Shukla MD LAB BLOOD ORDERABLES LABORATORY [facility] [address] [place] [address] * CBC (02/18/2024 8:17 PM EDT) Pathologist [facility] WBC 8.62 4.00 - 10.80 K/uL 02/18/2024 8:25 PM EDT LABORATORY [facility] RBC 4.82 3.85 - 5.15 M/uL 02/18/2024 8:25 PM EDT LABORATORY [facility] HGB 14.4 12.0 - 15.3 g/dL 02/18/2024 8:25 PM EDT LABORATORY [facility] HCT 41.8 36.0 - 45.2 % 02/18/2024 8:25 PM EDT LABORATORY [facility] MCV 86.7 81.5 - 97.5 fL 02/18/2024 8:25 PM EDT LABORATORY [facility] MCH 29.9 27.0 - 34.0 pg 02/18/2024 8:25 PM EDT LABORATORY [facility] MCHC 34.4 32.0 - 36.0 g/dL 02/18/2024 8:25 PM EDT LABORATORY [facility] RDW 12.0 11.5 - 15.5 % 02/18/2024 8:25 PM EDT LABORATORY [facility] PLT 298 140 - 400 K/uL 02/18/2024 8:25 PM EDT LABORATORY [facility] MPV 9.4 6.6 - 11.1 fL 02/18/2024 8:25 PM EDT LABORATORY [facility] nRBCs 0 <=0 /100 WBCs 02/18/2024 8:25 PM EDT LABORATORY [facility] Blood Venous blood specimen / Unknown Venipuncture / Unknown 02/18/2024 8:17 PM EDT 02/18/2024 8:20 PM EDT Chase Shukla MD LAB BLOOD ORDERABLES Performing Organization Address [facility] Co de Phone Number LABORATORY [address] [address] * BETA-HCG, QUANTITATIVE (02/18/2024 8:17 PM EDT) [facility] Beta-HCG, Quantitative <0.3 <=1.0 mIU/mL 02/18/2024 8:48 PM EDT LABORATORY [facility] Blood Venous blood specimen / Unknown Venipuncture / Unknown 02/18/2024 8:17 PM EDT 02/18/2024 8:20 PM EDT Narrative LABORATORY [facility] - 02/18/2024 8:48 PM EDT hCG can serve as a screening assay for . However, early may not give a positive hCG test result. In addition, some non- women may have a hCG result slightly higher than the reference limit. Careful interpretation of the hCG with clinical history is required to determine whether the patient may be . Chase Shukla MD LAB BLOOD ORDERABLES Performing Organization Address [facility] de Phone Number LABORATORY [address] [address] * EXTRA LIGHT BLUE TOP (02/18/2024 8:17 PM EDT) Blood Venous blood specimen / Unknown Venipuncture / Unknown 02/18/2024 8:17 PM EDT 02/18/2024 8:20 PM EDT Chase Shukla MD LAB BLOOD ORDERABLES Performing Organization Address City/[facility] Co de Phone Number LABORATORY [address] [address] * LIPASE (02/18/2024 8:17 PM EDT) Pathologist [facility] Lipase 44 13 - 60 U/L 02/18/2024 8:43 PM EDT LABORATORY [facility] Blood Venous blood specimen / Unknown Venipuncture / Unknown 02/18/2024 8:17 PM EDT 02/18/2024 8:20 PM EDT Chase Shukla MD LAB BLOOD ORDERABLES LABORATORY [facility] [address] [place], [place] [id number] * COMPREHENSIVE METABOLIC PANEL (02/18/2024 8:17 PM EDT) Pathologist [facility] BUN 11 6 - 20 mg/dL 02/18/2024 8:43 PM EDT LAB[facility]ATORY [facility] Creatinine 0.8 0.5 - 1.0 mg/dL 02/18/2024 8:43 PM EDT LAB[facility] Estimated Glomerular Filtration Rate >90 >=60 mL/min 02/18/2024 8:43 PM EDT LAB[facility] Comment:eGFR is calculated b ased on the CKD-EPI 2020 equation Sodium 141 135 - 146 mmol/L 02/18/2024 8:43 PM EDT LAB[facility] Potassium 3.8 3.5 - 5.1 mmol/L 02/18/2024 8:43 PM EDT LAB[facility] Chloride 105 98 - 107 mmol/L 02/18/2024 8:43 PM EDT LAB[facility]ATORY [facility] CO2 23 22 - 32 mmol/L 02/18/2024 8:43 PM EDT LAB[facility]ATORY [facility] Anion Gap 13 7 - 15 mmol/L 02/18/2024 8:43 PM EDT LAB[facility]ATORY [facility] Glucose 99 70 - 120 mg/dL 02/18/2024 8:43 PM EDT [facility] Albumin 4.3 3.8 - 5.0 g/dL 02/18/2024 8:43 PM EDT [facility] AST 15 10 - 35 U/L 02/18/2024 8:43 PM EDT [facility] Alkaline Phosphatase 91 35 - 130 U/L 02/18/2024 8:43 PM EDT [facility] Bilirubin, Total <0.2 <=1.2 mg/dL 02/18/2024 8:43 PM EDT [facility] Calcium 9.1 8.4 - 10.2 mg/dL 02/18/2024 8:43 PM EDT [facility] Protein 6.9 6.0 - 8.3 g/dL 02/18/2024 8:43 PM EDT [facility] ALT 33 10 - 35 U/L 02/18/2024 8:43 PM EDT [facility] Blood Venous blood specimen / Unknown Venipuncture / Unknown 02/18/2024 8:17 PM EDT 02/18/2024 8:20 PM EDT Chase Shukla MD LAB BLOOD ORDERABLES [facility] [address] [place] [address] documented in this encounter Visit Diagnoses Diagnosis Acute gastroenteritis- Primary Other and unspecified noninfectious gastroenteritis and colitis documented in this encounter Administered Medications Inactive Administered Medications - up to 3 most recent administrations Medication Order MAR Action Action Date Dose Rate Site NSS 0.9% 1,000 mL bolus infusion Peripheral IV, at 1,000 mL/hr Administer over 60 Minutes, Administer entire volume within 60 minutes or less., ONCE, 1 dose, On Jewels 02/18/24 at 2014 New Bag 02/18/2024 8:25 PM EDT 1,000 mL 1000 mL/hr ondansetron (Zofran) inj 4 mg 4 mg, IV Push, ONCE, On Jewels 02/18/24 at 2014, For 1 dose Given 02/18/2024 8:25 PM EDT 4 mg documented in this encounter Active and Recently Administered Medications Times are shown in EDT. Scheduled Medication Order 02/16/2024 02/17/2024 02/18/2024 NSS 0.9% 1,000 mL bolus infusion (COMPLETED) Peripheral IV, at 1,000 mL/hr Administer over 60 Minutes, Administer entire volume within 60 minutes or less., ONCE, 1 dose, On Jewels 02/18/24 at 2014 2024 (New Bag - Prov ider: Larisa Gomez RN)[id number] (Stopped - Provider: Katja Doyle LPN) ondansetron (Zofran) inj 4 mg (COMPLETED) 4 mg, IV Push, ONCE, On Jewels 02/18/24 at 2014, For 1 dose 2024 (Given - Provid er: Larisa Gomez RN) documented in this encounter Advance Directives * [...] the patient have Health Care Power of Import Export Coordinator? No * Full Code Date Activated Date Inactivated Comments 03/27/2023 10:31 PM 04/01/2023 5:17 PM This order re flects the patients wishes and were consensually agreed upon. Question Answer Comments Discussion of Advance Direct deisy occurred with: Not Discussed due to patient's condition Does the patient have a Living Will? No Does the patient have Health Care Power of Import Export Coordinator? No * Full Code Date Activated Date Inactivated Comments 02/22/2023 3:52 PM 02/24/2023 9:44 PM This order ref lects the patients wishes and were consensually agreed upon. Question Answer Comments Discussion of Advance Direct deisy occurred with: Not Discussed due to patient's condition Does the patient have a Living Will? No Does the patient have Health Care Power of Import Export Coordinator? No Care Teams Director Learning And Development Relationship Specialty Start Date End Date Shannen Rizzo CRNP [address] [id number] PCP - General Nurse Practitioner 04/20/23 documented as of this encounter
--- OUTSIDE RECORDS SUMMARY | 2024-02-29 00:17 | External Medical Summary ---
Author Name Unknown Address Unknown Organization K1F:[facility] - [address] [facility]. [place] [address] Laboratory Report Ordering Provider Test Date Status RAYMUNDOSIGRID 02/25/2024 21:08:00 Final Observation Date Value Abnormality Reference (Units ) Status BUN 02/25/2024 21:08:00 8 6-20 (mg/dL) Final Creatinine 02/25/2024 21:08:00 0.7 0.5-1.0 (mg/dL) Final Glomerular filtration rate/1.73 sq M.predicted [Volume Rate/Area] in Serum, Plasma or Blood by Creatinine-based formula (CKD-EPI) 02/25/2024 21:08:00 >90 >=60 (mL/min) Final eGFR is calculated based on the CKD-EPI 2020 equation Sodium 02/25/2024 21:08:00 142 135-146 (m mol/L) Final Potassium 02/25/2024 21:08:00 3.0 Below low normal 3.5 -5.1 (mmol/L) Final Cl 02/25/2024 21:08:00 107 98-107 (mm ol/L) Final CO2 02/25/2024 21:08:00 25 22-32 (mmo l/L) Final Anion gap 02/25/2024 21:08:00 10 7-15 (mmol /L) Final Glucose 02/25/2024 21:08:00 91 70-120 (mg /dL) Final Albumin 02/25/2024 21:08:00 4.2 3.8-5.0 (g /dL) Final AST (Aspartate aminotransferase) 02/25/2024 21:08:00 19 10-35 (U/L) Fin al Alk Phos 02/25/2024 21:08:00 96 35-130 (U/ L) Final Bilirubin, Total 02/25/2024 21:08:00 0.4 <=1 .2 (mg/dL) Final Calcium 02/25/2024 21:08:00 9.0 8.4-10.2 ( mg/dL) Final Protein 02/25/2024 21:08:00 6.6 6.0-8.3 (g /dL) Final ALT (Alanine aminotransferase) 02/25/2024 21:08:00 18 10-35 (U/L) Sudhir arias Performing Location LAB[facility]ATORY [facility] - [address] [place], [place] [address] [id number]
--- OUTSIDE RECORDS SUMMARY | 2024-02-29 00:17 | External Medical Summary ---
Author Name Unknown Address Unknown Organization K1F:LABORATORY [facility] - [address] [facility] [address] Laboratory Report Ordering Provider Test Date Status SIGRID FONSECA 02/25/2024 21:08:00 Final hCG can serve as a screening assay for . However, early may not give a positive hCG test result. In addition, some non- women may have a hCG result slightly higher than the reference limit. Careful interpretation of the hCG with clinical history is required to determine whether the patient may be . Observation Date Value Abnormality Reference (Units ) Status Choriogonadotropin.intact +Beta subunit [Units/volume] in Serum or Plasma 02/25/2024 21:08:00 <0.3 <=1.0 (mIU/mL) Final Performing [facility] [address] [facility] [address]
--- OUTSIDE RECORDS SUMMARY | 2024-02-29 00:17 | External Medical Summary | Summary of Care ---
Author Name Unknown Organization [facility] Address [address] [place] [address] Phone [phone] Care Team Providers Care Snow Shoveler Name Role Phone Shannen Rizzo Primary Care Provider Reason for Referral * Evaluate & Treat - Unlimited Visits (Within 3 days (urgent)) - Authorized Specialty Diagnoses / Procedures Referred By Rosanna stinson Referred To Contact Neurology Diagnoses Recurrent seizures (HCC) Hypokalemia Lennox Rivas MD [address] [place] [id number] Referral ID Status Reason Start Date Expiration Date Visits Requested Visits Authorized [id number] Authorized Specialty Services Required 02/25/2024 999 [id number] Question Answer Referral Priority Within 3 days (urgent) Where should this appointment be scheduled? [facility] This patient already has care established with Neurology. Do not place this order. Please use Ask A Doc to expedite care. Acknowledge Is this referral being placed for insurance purposes ONLY No, patient needs appointment [facility] NE[facility]OLOGY REFERRAL QUESTIONS Seizure If this is for an initial diagnosis of a new seizure disorder, please place an order for an updated EEG Routine [[id number]] Acknowledge Comments To [facility] ER on February 25, 2024 reporting what bystanders described as generalized seizures lasting about a minute in duration total of 6 episodes in past 24 hours at times only 30 seconds between episodes. Patient reports sometimes she is unresponsive during these episodes and sometimes she retains alertness during these episodes. Takes phenytoin for seizure control. Historical phenytoin levels have all been subtherapeutic to date in our system, this has been since March 2023. Patient aware that neurology client care consultant recommended to stay in the hospital to accelerate workup but she decided to go home instead preferring to re-attempt outpatient office consultation, most recent scheduled office Neurology consultation was a missed appointment. Given additional phenytoin 300 mg orally this visit and phenytoin 200 mg a.m. phenytoin 100 mg noon phenytoin 100 mg p.m. to remain unchanged pending requested appointment. Discharge Order Reason for Visit * Reason Comments Seizure * Auth/Cert Specialty Diagnoses / Procedures Referred By Contac t Referred To Contact [address] [address] Phone: [phone] Emergency Medicine [address] [address] Referral ID Status Reason Start Date Expiration Date Visits Re quested Visits Authorized [id number] Encounter Details Date Type Department Care Team (Late st Contact Info) Description 02/25/2024 7:14 PM EDT - 02/26/2024 12:11 AM EDT Emergency [facility] Emergency Department ([facility]) [address] [place] [id number] Lennox Rivas MD [address] [place] [address] [id number] Recurrent seizures (HCC) (Primary Dx); Hypokalemia; Medication side effect Discharge Disposition: Home - Self Care Allergies Active Allergy Reactions Criticality Noted Date Comments Bee Pollen 08/13/2020 Bee Venom 05/01/2015 Honey Anaphylaxis High 02/12/2019 Levetiracetam 01/14/2021 Other reaction(s): Vomiting Sulfa Antibiotics 12/17/2022 Bupropion 12/17/2022 documented as of this encounter (statuses as of 02/26/2024) Medications Medication Sig Dispensed Refills Start Date [...] HFA 108 (90 Base) MCG/ACT Inhalation Aerosol SolutionIndicatio ns:Intermittent asthma with reliever use up to twice per week without complication Inhale 2 Puffs by mouth every 4 hours as needed for Wheezing, Shortness of Breath or Cough. 18 g 02/09/2024 Active Phenytoin Sodium Extended 100 MG Oral Capsule (Dilantin)Indicat ions:Nonintractab le epilepsy without status epilepticus, unspecified epilepsy type [...] in the morning. 30 Tablet 02/25/2024 Active Escitalopram Oxalate 10 MG Oral Tablet (Lexapro) Take 1 Tablet by mouth in the morning. 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 Never true 03/19/2023 Kinsey Depression Scale Answer Date Recorded Kinsey Depression Scale Total 22 07/08/2023 The thought [...] Sign Reading Time Taken Comments Blood Pressure 107/82 02/26/2024 12:08 AM EDT Pulse 66 02/26/2024 12:08 AM EDT Temperature 36.7 C (98.1 F) 02/26/2024 12:08 AM E DT Respiratory Rate 19 02/26/2024 12:08 AM EDT Oxygen Saturation 99% 02/26/2024 12:08 AM EDT Inhaled Oxygen Concentration - - Weight - - Height - - Body Mass Index - - documented in this encounter Functional Status Functional [...] (15 years old or older) No 05/20/20 Cognitive Status Response Date of Assessm ent Because of a physical, menta l, or emotional condition, do you have serious difficulty concentrating, remembering, or making decisions? (5 years old or older) No 05/20/2020 documented as of this encounter Discharge Instructions * Discharge Instructions* Lennox Rivas MD - 02/25/2024 11:49 PM EDT The ER doctor recommended that she be admitted to the hospital. You decided to go home instead and see neurologist at the office. Keep your phenytoin dosing unchanged (the seizure medicine). The ER doctor asked for a office consultation with Neurology about sure seizures, call the office if they donot call you next business day to arrange that. Eat more bananas, avocados and potatoes to get more potassium in your diet. Have your doctor recheck your potassium level this week Additionally you just started Lexapro/escitalopram recently, which can make it easier for you to have seizures, this is why the ER doctor reduced your dose from 10 mg to 5 mg per day To your primary care this week to review recent symptoms and test results. Back to ER if any warning signs or problems. documented in this encounter ED Notes * Lesley Del Rio RN - 02/25/2024 7:14 PM EDT FAME ALS Report: Reports she had 5 seizures today. Witnessed by fiance and family. EMS arrived during 5th seizure, described as "twitching". Pt Aox3 on arrival. Takes Dilantin. BS 100 documented in this encounter Miscellaneous Notes * Pt Handout (on AVS) - Lennox Rivas MD - 02/26/2024 12:00 AM EDT Images from the original note were [...] the video go to this web address: [email or web address] Or, scan this QR code with your smart phone Last Reviewed Date: 2019 [employer]. All rights reserved. This information is not intended as a substitute for professional medical care. Always follow your healthcare professional's instructions. * Pt Handout (on AVS) - Lennox Rivas MD - 02/26/2024 12:00 AM EDT Images from the original note were not included. [id number] Safety During a Seizure Safety during a [...] Alcohol or drug withdrawal Last Reviewed Date: 03/24/202219990948-7256 [employer]. All rights reserved. This information is not intended as a substitute for professional medical care. Always follow your healthcare professional's instructions. * Pt Handout (on AVS) - Lennox Rivas MD - 02/26/2024 12:00 AM EDT [id number] Hypokalemia Hypokalemia means a low level of potassium in the blood. This most often occurs in people who take water pills (diuretics). It can also result from severe vomiting or diarrhea. You may also have it if you take laxatives for long periods of time. It sometimes happens if you have low magnesium (hypoma gnesemia). If you have this, your healthcare provider will treat the low magnesium first. A mild case of hypokalemia often causes no symptoms. It is only found with blood testing. More severe potassium loss causes: Overall weakness Muscle or stomach cramps Rapid or irregular heartbeats (heart palpitations) Low blood pressure Muscle weakness Short-term paralysis in some people Home care Take any potassium supplements as prescribed. Eat foods rich in potassium. High amounts of potassium are found in baked potatoes, baked sweet potatoes, spinach, cantaloupe, cod, halibut, salmon, and scallops. White, red, or joseph beans are also very good sources. So are avocados, orange juice, bananas, and tomato juice. If you take certain types of diuretics, you will also need to take potassium supplements. Talk with your healthcare provider. Follow-up care Follow up with your healthcare provider for a repeat blood test within the next week, or as advisedby our staff. When to get medical advice Call your healthcare provider right away if you have: Increased weakness, fatigue, or muscle cramps Dizziness Call 911 Call 911 if you have: Irregular heartbeat, extra beats, or very fast heart rate Loss of consciousness Last Reviewed Date: 07/24/202219997702-4719 [employer]. All rights reserved. This information is not intended as a substitute for professional medical care. Always follow your healthcare professional's instructions. * Communication - Pop Abbott MD - 02/25/2024 10:43 PM EDT Contacted by Dr. Rivas re: Ms. Lopez, 23 F with recurrent seizure-like spells starting in 2019, some of which have been terminated by telling her to stop, and with an EEG in May 2023 that showed occasional 3 Hz sharply-contoured and frontally-predominant bursts of activity. She carries a diagnosis of epilepsy (along with diagnoses of autism spectrum disorder, substance abuse, and a variety of mental health diagnoses of uncertain origins), but it's unclear how that diagnosis was made. She has only by seen by neurology once in 2019, which was for unrelated L arm numbness. She takes phenytoin 200mg in the morning/100mg midday/100mg at night. Today she reportedly had six spells characterized as eyes rolled back with bilateral arm jerking lasting ~1 minute, sometimes occurring in clusters with ~30 seconds between the events. Reportedly hadpreserved consciousness with some of these. Denies missed doses of phenytoin, changes in sleep, infection, or other stressors. Back to baseline in ED. Normal labs, including normal WBC and CO2 (lactate not sent). PHT level was drawn but will not be processed until the morning. Dr. Rivas reports that she has sustained end-gaze nystagmus but no beka ataxia. She does not want to stay for observation. Impression: Possible seizures vs PNEA. Preserved consciousness with bilateral convulsive movements would not be typical for epileptic events, although this could describe some frontal motor seizures. - Give a single supplemental dose of phenytoin 300mg. Can resume her normal dosing tomorrow. - Should be referred to neurology as an outpatient. Asked Dr. Rivas to impress upon her how important it is that she keep this appointment. - ED to submit initial reporting form to Megan and advise her of seizure precautions. * ED Fitter Mechanic Note - Katja Doyle LPN - 02/25/2024 7:15 PM EDT Patient presents, states she had a total of 5 seizures today. States she does have a history of seizures, takes dilantin. Denies missing any doses. Denies drug or alcohol use. Patient unsure of when last seizure occurred today, or how long any of the seizures lasted. Patient unsure of when her lastseizure was prior to today. VS assessed and patient placed on CCM. Assessment completed, see flowsheets for details. EKG obtained. Patient does c/o mild dyspnea at rest. States she used her inhaler four times today d/t asthma flare up. PIV started 20 g R. AC. Patient complaining of left shrestha pain, bruise is noted to shrestha, states she can feel the bone "popping out" Patient oriented to [facility] call sánchez system, call sánchez within reach and use reinforced. 2207: Patient medicated per OCT. See MAR for details. 2218: Patient medicated per MAR. See MAR for details. 2317: Patient medicated per MAR see MAR for details. 0005: PIV removed, cath intact. Reviewed discharge instructions with patient. Patient verbalized understanding of information provided. documented in this encounter Plan of Treatment Upcoming Encounters Date Type Department Care Team (Late st Contact Info) Description 09/19/2024 2:00 PM EST Office Visit [facility] [address] [phone] Shannen Rizzo CRNP [address] [id number] Pending Results Name Type Priority Associated Diagnoses Date /Time PHENYTOIN LEVEL Lab STAT 9:08 PM EDT CULTURE, URINE, QUANTITATIVE Lab STAT 02/25/2024 10:09 PM EDT Scheduled Orders Name Type Priority Associated Diagnoses Orde r Schedule PHENYTOIN LEVEL Lab STAT Perform N ow for 1 Occurrences starting 02/25/2024 until 02/25/2024 CULTURE, URINE, QUANTITATIVE Lab STAT One Time for 1 Occurrences starting 02/25/2024 until 02/25/2024 EEG ROUTINE Procedures Routine Recurrent seizures (HCC) Ordered: 02/25/2024 Scheduled Referrals Name Type Priority Associated Diagnoses Orde r Schedule ADULT NEUROLOGY REFERRAL OP Referral Within 3 days (urgent) Recurrent seizures (HCC) Hypokalemia Ordered: 02/25/2024 Health Maintenance Due Date Last Done Comments [...] 05/07/2000, 1999, 1999 HPV (Gardasil) Vaccine Completed 1, 01/22/2011, 11/11/2010 MENINGOCOCCAL (MENACTRA/MENVEO) Completed 6, 11/11/2010 documented as of this encounter Medical Devices Not on filedocumented as of this encounter Procedures Procedure Name Priority Date/Time Associated Diagnosis Comments URINALYSIS, REFLEX TO CULTURE STAT 02/25/2024 10:09 PM EDT URINALYSIS, REFLEX TO CULTURE (CUP ONLY) STAT 02/25/2024 10:09 PM EDT URINALYSIS, REFLEX TO CULTURE (NOT FOR NEUTROPENIC PATIENTS) STAT 02/25/2024 10:09 PM EDT TOXICOLOGY, URINESCREEN W/O CONFIRMATION STAT 02/25/2024 10:09 PM EDT DIFFERENTIAL, AUTOMATED STAT 02/25/2024 9:08 PM EDT BETA-HCG, QUANTITATIVE STAT 9:08 PM EDT COMPREHENSIVE METABOLIC PANEL STAT 02/25/2024 9:08 PM EDT CBC STAT 02/25/2024 9:08 PM EDT PHOSPHORUS Routine 02/25/2024 9:08 PM EDT ETHANOL, MEDICAL STAT 02/25/2024 9:08 PM EDT CBC STAT 02/25/2024 9:08 PM EDT MAGNESIUM STAT 02/25/2024 9:08 PM EDT documented in this encounter Results * (ABNORMAL) URINALYSIS, REFLEX TO CULTURE (02/25/2024 10:09 PM EDT) Color, Urine Yellow Colorless, Light Yellow, Yellow, Dark Yellow 02/25/2024 11:02 PM EDT [facility] Clarity, Urine Clear Clear 02/25/2024 11:02 PM EDT [facility] Glucose, Urine Negative Negative mg/dL 02/25/2024 11:02 PM EDT [facility] Bilirubin, Urine Negative Negative 02/25/2024 11:02 PM EDT [facility] Ketone, Urine Negative Negative mg/dL 02/25/2024 11:02 PM EDT [facility] Specific [place], Urine 1.016 1.003 - 1.030 02/25/2024 11:02 PM EDT [facility] Blood, Urine Small(A) Negative 02/25/2024 11:02 PM EDT [facility] pH, Urine 6.0 5.0 - 7.5 Units 02/25/2024 11:02 PM EDT [facility] Protein, Urine Negative Negative mg/dL 02/25/2024 11:02 PM EDT [facility] Urobilinogen, Urine 0.2 0.2, 1.0 mg/dL 02/25/2024 11:02 PM EDT [facility] Nitrite, Urine Negative Negative 02/25/2024 11:02 PM EDT [facility] Esterase, Urine Small(A) Negative 02/25/2024 11:02 PM EDT [facility] RBC, Urine 0-2 0 - 2 /HPF 02/25/2024 11:02 PM EDT [facility] WBC, Urine 6-9(A) 0 - 2 /HPF 02/25/2024 11:02 PM EDT [facility] Bacteria, Urine >200(A) 0 - 25 /HPF 02/25/2024 11:02 PM EDT [facility] Squamous Epithelial Cells, Urine Many(A) None /HPF 02/25/2024 11:02 PM EDT [facility] Culture, Urine 02/25/2024 11:02 PM EDT [facility] Comment:Quantitative urine c ulture to be performed Urine Urine specimen obtained by clean catch procedure / Unknown Non-blood Collection / Unknown 02/25/2024 10:09 PM EDT 02/25/2024 10:15 PM EDT Lennox Rivas MD LAB URINE ORDER DEMARCO Performing Organization Address City/[facility]/ZIP Co de Phone Number LABORATORY [address] [address] * URINALYSIS, REFLEX TO CULTURE (CUP ONLY) (02/25/2024 10:09 PM EDT) Urinalysis, Reflex to Culture Specimen Specimen collected and received 02/26/2024 12:01 AM EDT [facility] Urine Urine specimen obtained by clean catch procedure / Unknown Non-blood Collection / Unknown 02/25/2024 10:09 PM EDT 02/25/2024 10:15 PM EDT Lennox Rivas MD LAB URINE ORDER DEMARCO Performing Organization Address [facility] Co de Phone Number LABORATORY [address] [address] * TOXICOLOGY, URINESCREEN W/O CONFIRMATION (02/25/2024 10:09 PM EDT) Amphetamines Screen, U Negative Negative 02/25/2024 11:06 PM EDT [facility] Benzodiazepines Screen, U Negative Negative 02/25/2024 11:06 PM EDT [facility] Cannabinoids Screen, U Negative Negative 02/25/2024 11:06 PM EDT [facility] Cocaine Metabolite Screen, U Negative Negative 02/25/2024 11:06 PM EDT [facility] Fentanyl Screen, U Negative Negative 2023 11:06 PM EDT [facility] Hydrocodone Screen, U Negative Negative 02/25/2024 11:06 PM EDT [facility] Methadone Metabolite Screen, U Negative Negative 02/25/2024 11:06 PM EDT [facility] Morphine/Codeine Screen, U Negative Negative 02/25/2024 11:06 PM EDT [facility] Oxycodone Screen, U Negative Negative 02/24 11:06 PM EDT [facility] Urine Urine specimen / Unknown Non-blood Collection / Unknown 02/25/2024 10:09 PM EDT 02/25/2024 10:16 PM EDT Narrative [facility] - 02/25/2024 11:06 PM EDT Cutoff Concentrations: Drug Level Amphetamines 500 ng/mL Benzodiazepines 100 ng/mL Cannabinoids 50 ng/mL Cocaine Metabolite 150 ng/mL Fentanyl 1 ng/mL Hydrocodone / Hydromorphone 300 ng/mL Methadone Metabolite 100 ng/mL Morphine / Codeine 300 ng/mL Oxycodone / Oxymorphone 100 ng/mL Screening results are presumptive and can only be used for medical purposes. Confirmatory testing is available upon request. Lennox Rivas MD LAB URINE ORDER DEMARCO [facility] [address] [place] [address] * (ABNORMAL) DIFFERENTIAL, AUTOMATED (02/25/2024 9:08 PM EDT) WBC 7.32 4.00 - 10.80 K/uL 02/25/2024 9:20 PM EDT [facility] Neutrophils % 42.8 40.0 - 75.0 % 02/25/2024 9:20 PM EDT [facility] Lymphocytes % 45.4(H) 18.0 - 42.0 % 02/25/2024 9:20 PM EDT [facility] Monocytes % 6.1 1.0 - 11.0 % 02/25/2024 9:20 PM EDT [facility] Eosinophils % 4.9 0.0 - 6.0 % 02/25/2024 9:20 PM EDT [facility] Basophils % 0.7 0.0 - 2.0 % 02/25/2024 9:20 PM EDT [facility] Immature Granulocytes % 0.1 0.0 - 2.0 % 02/25/2024 9:20 PM EDT [facility] Absolute Neutrophils 3.13 1.80 - 7.70 K/uL 02/25/2024 9:20 PM EDT [facility] Absolute Lymphocytes 3.32 1.00 - 4.80 K/ul 02/25/2024 9:20 PM EDT [facility] Absolute Monocytes 0.45 0.00 - 1.10 K/uL 02/25/2024 9:20 PM EDT [facility] Absolute Eosinophils 0.36 0.00 - 0.70 K/uL 02/25/2024 9:20 PM EDT [facility] Absolute Basophils 0.05 0.00 - 0.20 K/uL 02/25/2024 9:20 PM EDT [facility] Absolute Immature Granulocytes 0.01 0.00 - 0.20 K/uL 02/25/2024 9:20 PM EDT [facility] Blood Venous blood specimen / Unknown Venipuncture / Unknown 02/25/2024 9:08 PM EDT 02/25/2024 9:13 PM EDT Lennox Rivas MD LAB BLOOD ORDER DEMARCO [facility] [address] [place] [address] * CBC (02/25/2024 9:08 PM EDT) WBC 7.32 4.00 - 10.80 K/uL 02/25/2024 9:20 PM EDT [facility] RBC 4.66 3.85 - 5.15 M/uL 02/25/2024 9:20 PM EDT [facility] HGB 13.5 12.0 - 15.3 g/dL 02/25/2024 9:20 PM EDT [facility] HCT 39.7 36.0 - 45.2 % 02/25/2024 9:20 PM EDT [facility] MCV 85.2 81.5 - 97.5 fL 02/25/2024 9:20 PM EDT [facility] MCH 29.0 27.0 - 34.0 pg 02/25/2024 9:20 PM EDT [facility] MCHC 34.0 32.0 - 36.0 g/dL 02/25/2024 9:20 PM EDT [facility] RDW 11.9 11.5 - 15.5 % 02/25/2024 9:20 PM EDT [facility] PLT 231 140 - 400 K/uL 02/25/2024 9:20 PM EDT [facility] MPV 9.6 6.6 - 11.1 fL 02/25/2024 9:20 PM EDT [facility] nRBCs 0 <=0 /100 WBCs 02/25/2024 9:20 PM EDT [facility] Blood Venous blood specimen / Unknown Venipuncture / Unknown 02/25/2024 9:08 PM EDT 02/25/2024 9:13 PM EDT Lennox Rivas MD LAB BLOOD ORDER DEMARCO [facility] [address] [address] * ETHANOL, MEDICAL (02/25/2024 9:08 PM EDT) ETHANOL, MEDICAL Negative Negative 02/25/2024 9:45 PM EDT [facility] Blood Venous blood specimen / Unknown Venipuncture / Unknown 02/25/2024 9:08 PM EDT 02/25/2024 9:13 PM EDT Lennox Rivas MD LAB BLOOD ORDER DEMARCO Performing Organization Address City/[facility]/ZIP Co de Phone Number [facility] [address] [address] * PHOSPHORUS (02/25/2024 9:08 PM EDT) Phosphorus 3.5 2.5 - 4.8 mg/dL 02/25/2024 9:45 PM EDT [facility] Blood Venous blood specimen / Unknown Venipuncture / Unknown 02/25/2024 9:08 PM EDT 02/25/2024 9:13 PM EDT Lennox Rivas MD LAB BLOOD ORDER DEMARCO Performing Organization Address City/[facility]/ZIP Co de Phone Number [facility] [address] [address] * MAGNESIUM (02/25/2024 9:08 PM EDT) Magnesium 2.1 1.5 - 2.6 mg/dL 02/25/2024 9:45 PM EDT [facility] Blood Venous blood specimen / Unknown Venipuncture / Unknown 02/25/2024 9:08 PM EDT 02/25/2024 9:13 PM EDT Lennox Rivas MD LAB BLOOD ORDER DEMARCO [facility] [address] [place] [address] * (ABNORMAL) COMPREHENSIVE METABOLIC PANEL (02/25/2024 9:08 PM EDT) BUN 8 6 - 20 mg/dL 02/25/2024 9:45 PM EDT [facility] Creatinine 0.7 0.5 - 1.0 mg/dL 02/25/2024 9:45 PM EDT [facility] Estimated Glomerular Filtration Rate >90 >=60 mL/min 02/25/2024 9:45 PM EDT [facility] Comment:eGFR is calculated b ased on the CKD-EPI 2020 equation Sodium 142 135 - 146 mmol/L 02/25/2024 9:45 PM EDT [facility] Potassium 3.0(L) 3.5 - 5.1 mmol/L 02/25/2024 9:45 PM EDT [facility] Chloride 107 98 - 107 mmol/L 02/25/2024 9:45 PM EDT [facility] CO2 25 22 - 32 mmol/L 02/25/2024 9:45 PM EDT [facility] Anion Gap 10 7 - 15 mmol/L 02/25/2024 9:45 PM EDT [facility] Glucose 91 70 - 120 mg/dL 02/25/2024 9:45 PM EDT [facility] Albumin 4.2 3.8 - 5.0 g/dL 02/25/2024 9:45 PM EDT [facility] AST 19 10 - 35 U/L 02/25/2024 9:45 PM EDT [facility] Alkaline Phosphatase 96 35 - 130 U/L 02/25/2024 9:45 PM EDT [facility] Bilirubin, Total 0.4 <=1.2 mg/dL 02/25/2024 9:45 PM EDT [facility] Calcium 9.0 8.4 - 10.2 mg/dL 02/25/2024 9:45 PM EDT [facility] Protein 6.6 6.0 - 8.3 g/dL 02/25/2024 9:45 PM EDT [facility] ALT 18 10 - 35 U/L 02/25/2024 9:45 PM EDT [facility] Blood Venous blood specimen / Unknown Venipuncture / Unknown 02/25/2024 9:08 PM EDT 02/25/2024 9:13 PM EDT Lennox Rivas MD LAB BLOOD ORDER DEMARCO Performing Organization Address City/[facility]/ZIP Co de Phone Number [facility] [address] [phone] * BETA-HCG, QUANTITATIVE (02/25/2024 9:08 PM EDT) Beta-HCG, Quantitative <0.3 <=1.0 mIU/mL 02/25/2024 9:53 PM EDT [facility] Blood Venous blood specimen / Unknown Venipuncture / Unknown 02/25/2024 9:08 PM EDT 02/25/2024 9:14 PM EDT [facility]ative [facility] [facility] - 02/25/2024 9:53 PM EDT hCG can serve as a screening assay for . However, early may not give a positive hCG test result. In addition, some non- women may have a hCG result slightly higher than the reference limit. Careful interpretation of the hCG with clinical history is required to determine whether the patient may be . Lennox Rivas MD LAB BLOOD ORDER DEMARCO Performing Organization Address [facility]/ZIP Co de Phone Number LABORATORY [address] [phone] documented in this encounter Visit Diagnoses Diagnosis Recurrent seizures (HCC)- Primary Other forms of epilepsy and recurrent seizures without mention of intractable epilepsy Hypokalemia Hypopotassemia Medication side effect Unspecified adverse effect of unspecified drug, medicinal and biological substance documented in this encounter Administered Medications Inactive Administered Medications - up to 3 most recent administrations Medication Order MAR Action Action Date Dose Rate Site Phenytoin (Dilantin) chew tab 100 mg 100 mg, Oral, ONCE, On Jewels 02/25/24 at 2145, For 1 dose Given 02/25/2024 10:08 PM EDT 100 mg Phenytoin (Dilantin) chew tab 200 mg 200 mg, Oral, ONCE, On Jewels 02/25/24 at 2330, For 1 dose, Total of 300 mg for ER visit Given 02/25/2024 11:17 PM EDT 200 mg potassium chloride ER tab 20 mEq 20 mEq, Oral, ONCE, On Jewels 02/25/24 at 2245, For 1 dose, This med should NOT be Crushed or Chewed Given 02/25/2024 10:19 PM EDT 20 mEq documented in this encounter Active and Recently Administered Medications Times are shown in EDT. Scheduled Medication Order 02/24/2024 02/25/2024 02/26/2024 Phenytoin (Dilantin) chew tab 100 mg (COMPLETED) 100 mg, Oral, ONCE, On Jewels 02/25/24 at 2145, For 1 dose 220 (Given - Provider: Marielos Doyle LPN) Phenytoin (Dilantin) chew tab 200 mg (COMPLETED) 200 mg, Oral, ONCE, On Jewels 02/25/24 at 2330, For 1 dose, Total of 300 mg for ER visit 2317 (Given - Provider: Marielos Doyle LPN) potassium chloride ER tab 20 mEq (COMPLETED) 20 mEq, Oral, ONCE, On Jewels 02/25/24 at 2245, For 1 dose, This med should NOT be Crushed or Chewed 2219 (Given - Provider: Marielos Doyle LPN) documented in this encounter Advance Directives * [...] the patient have Health Care Power of Training And Development Project Leader? No * Full Code Date Activated Date Inactivated Comments 03/27/2023 10:31 PM 04/01/2023 5:17 PM This order re flects the patients wishes and were consensually agreed upon. Question Answer Comments Discussion of Advance Direct deisy occurred with: Not Discussed due to patient's condition Does the patient have a Living Will? No Does the patient have Health Care Power of Training And Development Project Leader? No * Full Code Date Activated Date Inactivated Comments 02/22/2023 3:52 PM 02/24/2023 9:44 PM This order ref lects the patients wishes and were consensually agreed upon. Question Answer Comments Discussion of Advance Direct deisy occurred with: Not Discussed due to patient's condition Does the patient have a Living Will? No Does the patient have Health Care Power of Training And Development Project Leader? No Care Teams Snow Shoveler Relationship Specialty Start Date End Date Shannen Rizzo CRNP [address] [id number] PCP - General Nurse Practitioner 04/20/23 documented as of this encounter
--- OUTSIDE RECORDS SUMMARY | 2024-02-29 00:17 | External Medical Summary ---
Author Name Unknown Address Unknown Organization K1F:LABORATORY [facility] - [address] [facility] [address] Laboratory Report Ordering Provider Test Date Status RAYMUNDOSIGRID 02/25/2024 22:09:04 Final Cutoff Concentrations:
Drug Level
Amphetamines 500 ng/mL
Benzodiazepines 100 ng/mL
Cannabinoids 50 ng/mL
Cocaine Metabolite 150 ng/mL
Fentanyl 1 ng/mL
Hydrocodone / Hydromorphone 300 ng/mL
Methadone Metabolite 100 ng/mL
Morphine / Codeine 300 ng/mL
Oxycodone / Oxymorphone 100 ng/mL

Screening results are presumptive and can only be used for medical purposes. Confirmatory testing is available upon request. Observation Date Value Abnormality Reference (Units ) Status Amphetamines, Urine screen 02/25/2024 22:09:04 Negative Negative Final Benzodiazepines, Urine screen 02/25/2024 22:09:04 Negative Negative Final Cannabinoids, Urine screen 02/25/2024 22:09:04 Negative Negative Final Cocaine Metabolite, Urine screen 02/25/2024 22:09:04 Negative Negative Final fentaNYL [Presence] in Urine by Screen method 02/25/2024 22:09:04 Negative Negative Final HYDROcodone [Presence] in Urine by Screen method 02/25/2024 22:09:04 Negative Negative Final 4-Khdpgmahul-0,5-Dimeth yl-3,3-Diphenylpyrrolid ine (EDDP) [Presence] in Urine 02/25/2024 22:09:04 Negative Negative Final Opiates, Urine screen 02/25/2024 22:09:04 Negative Negative Final oxyCODONE [Presence] in Urine by Screen method 02/25/2024 22:09:04 Negative Negative Final Performing Location LABORATORY [facility] - [address] [place] [address]
--- OUTSIDE RECORDS SUMMARY | 2024-02-29 00:17 | External Medical Summary ---
Author Name Unknown Address Unknown Organization K1F:LABORATORY [facility] - [address] [facility]. [place] [address] Laboratory Report Ordering Provider Test Date Status FIDEL WALLS 02/18/2024 20:17:00 Final Observation Date Value Abnormality Reference (Units ) Status BUN 02/18/2024 20:17:00 11 6-20 (mg/dL) Final Creatinine 02/18/2024 20:17:00 0.8 0.5-1.0 (mg/dL) Final Glomerular filtration rate/1.73 sq M.predicted [Volume Rate/Area] in Serum, Plasma or Blood by Creatinine-based formula (CKD-EPI) 02/18/2024 20:17:00 >90 >=60 (mL/min) Final eGFR is calculated based on the CKD-EPI 2020 equation Sodium 02/18/2024 20:17:00 141 135-146 (m mol/L) Final Potassium 02/18/2024 20:17:00 3.8 3.5-5.1 (m mol/L) Final Cl 02/18/2024 20:17:00 105 98-107 (mm ol/L) Final CO2 02/18/2024 20:17:00 23 22-32 (mmo l/L) Final Anion gap 02/18/2024 20:17:00 13 7-15 (mmol /L) Final Glucose 02/18/2024 20:17:00 99 70-120 (mg /dL) Final Albumin 02/18/2024 20:17:00 4.3 3.8-5.0 (g /dL) Final AST (Aspartate aminotransferase) 02/18/2024 20:17:00 15 10-35 (U/L) Final Alk Phos 02/18/2024 20:17:00 91 35-130 (U/ L) Final Bilirubin, Total 02/18/2024 20:17:00 <0.2 <=1 .2 (mg/dL) Final Calcium 02/18/2024 20:17:00 9.1 8.4-10.2 ( mg/dL) Final Protein 02/18/2024 20:17:00 6.9 6.0-8.3 (g /dL) Final ALT (Alanine aminotransferase) 02/18/2024 20:17:00 33 10-35 (U/L) Final Performing Location LABORATORY [facility] - [address] [place] [address]
--- OUTSIDE RECORDS SUMMARY | 2024-02-29 00:17 | External Medical Summary ---
Author Name Unknown Address Unknown Organization K1F:LABORATORY [facility] - [address] [address] Laboratory Report Ordering Provider Test Date Status SIGRID FONSECA 02/25/2024 21:08:00 Final Observation Date Value Abnormality Reference (Units ) Status Ethanol 02/25/2024 21:08:00 Negative Negative Final Performing Location LABORATORY [facility] - [address] [address]
--- OUTSIDE RECORDS SUMMARY | 2024-02-29 00:17 | External Medical Summary ---
Author Name Unknown Address Unknown Organization K01:LABORATORY [facility] - [address] [place] [address] Laboratory Report Ordering Provider Test Date Status SIGRID FONSECA 02/25/2024 21:08:00 Final Observation Date Value Abnormality Reference (Units ) Status Phenytoin level 02/25/2024 21:08:00 8.6 Below low norm al 10.0-20.0 (ug/mL) Final Performing Location LABORATORY [facility] - [address] [place] [address]
--- OUTSIDE RECORDS SUMMARY | 2024-02-29 00:17 | External Medical Summary ---
Author Name Unknown Address Unknown Organization K1F:LABORATORY [facility] - [address] [address] Laboratory Report Ordering Provider Test Date Status FIDEL WALLS 02/18/2024 20:17:00 Final Observation Date Value Abnormality Reference (Units ) Status WBC, Total 02/18/2024 20:17:00 8.62 4.00-10.80 (K/uL) Final RBC 02/18/2024 20:17:00 4.82 3.85-5.15 (M/uL) Final Hemoglobin 02/18/2024 20:17:00 14.4 12.0-15.3 (g/dL) Final HCT 02/18/2024 20:17:00 41.8 36.0-45.2 (%) Final MCV 02/18/2024 20:17:00 86.7 81.5-97.5 (fL) Final MCH 02/18/2024 20:17:00 29.9 27.0-34.0 (pg) Final MCHC 02/18/2024 20:17:00 34.4 32.0-36.0 (g/dL) Final RDW 02/18/2024 20:17:00 12.0 11.5-15.5 (%) Final Platelets 02/18/2024 20:17:00 298 140-400 (K/uL) Final MPV 02/18/2024 20:17:00 9.4 6.6-11.1 (fL) Final Nucleated erythrocytes/100 leukocytes [Ratio] in Blood by Automated count 02/18/2024 20:17:00 0 <=0 (/100 WBCs) Final Performing Location LABORATORY [facility] - [address] [address]
--- OUTSIDE RECORDS SUMMARY | 2024-02-29 00:17 | External Medical Summary ---
Author Name Unknown Address Unknown Organization K1F:LABORATORY [facility] - [address] [facility]. [place] [address] Laboratory Report Ordering Provider Test Date Status FIDEL WALLS 02/18/2024 20:17:00 Final Observation Date Value Abnormality Reference (Units ) Status SYNC LEUKOCYTES IN BLOOD BY AUTOMATED COUNT 02/18/2024 20:17:00 8.62 4.00-10.80 (K/uL) Final Segs 02/18/2024 20:17:00 45.4 40.0-75.0 (%) Final Lymphs % 02/18/2024 20:17:00 43.9 Above high normal 18.0-42.0 (%) Final Monos 02/18/2024 20:17:00 5.8 1.0-11.0 (%) Final Eosinophils 02/18/2024 20:17:00 4.1 0.0-6.0 (%) Final Basos 02/18/2024 20:17:00 0.6 0.0-2.0 (%) Final Immature Granulocyte, Percent 02/18/2024 20:17:00 0.2 0.0-2.0 (%) Final Absolute Segs 02/18/2024 20:17:00 3.92 1.80-7.70 (K/uL) Final Lymphs, absolute 02/18/2024 20:17:00 3.78 1.00-4.80 (K/ul) Final Monos, Abs 02/18/2024 20:17:00 0.50 0.00-1.10 (K/uL) Final Eos, Abs 02/18/2024 20:17:00 0.35 0.00-0.70 (K/uL) Final Basos, Abs 02/18/2024 20:17:00 0.05 0.00-0.20 (K/uL) Final Immature Granulocytes, Number 02/18/2024 20:17:00 0.02 0.00-0.20 (K/uL) Final Performing Location LABORATORY [facility] - [address] [place] [address]
--- OUTSIDE RECORDS SUMMARY | 2024-02-29 00:17 | External Medical Summary ---
Author Name Unknown Address Unknown Organization K1F:LABORATORY [facility] - [address] [facility] [address] Laboratory Report Ordering Provider Test Date Status TITIFIDEL 02/18/2024 20:17:00 Final hCG can serve as a screening [...] +Beta subunit [Units/volume] in Serum or Plasma 02/18/2024 20:17:00 <0.3 <=1.0 (mIU/mL) Final Performing Location [facility] [address] [facility] [address]
--- OUTSIDE RECORDS SUMMARY | 2024-02-29 00:17 | External Medical Summary ---
Author Name Unknown Address Unknown Organization K01:LABORATORY [facility] - [address] [place] [id number] Laboratory Report Ordering Provider Test Date Status FIDEL WALLS 02/18/2024 21:23:25 Final Observation Date Value Abnormality Reference (Units) Status Bacteria identified in Specimen by Culture 02/18/2024 21:23:25 No significant growth Final Test: Culture, Urine, Quanti tative
Specimen Source: Urine, Unspecified
Specimen Type: Urine
Specimen Date: 02/18/20242122
Result Date: 02/20/2024 0729
Result Status: Final result
Resulting Lab: LABORATORY [facility]
[address]
[place] [address]

CULTURE

No significant growth

null Performing Location LABORATORY [facility] - [address] [facility] [address]
--- OUTSIDE RECORDS SUMMARY | 2024-02-29 00:17 | External Medical Summary ---
Author Name Unknown Address Unknown Organization K1F:LABORATORY [facility] - [address] [address] Laboratory Report Ordering Provider Test Date Status SIGRID FONSECA 02/25/2024 21:08:00 Final Observation Date Value Abnormality Reference (Units ) Status Magnesium 02/25/2024 21:08:00 2.1 1.5-2.6 (m g/dL) Final Performing Location LABORATORY [facility] - [address] [address]
--- OUTSIDE RECORDS SUMMARY | 2024-02-29 00:17 | External Medical Summary ---
Author Name Unknown Address Unknown Organization K01:LABORATORY [facility] - [address] [place] [address] Laboratory Report Ordering Provider Test Date Status SIGRID FONSECA 02/25/2024 22:09:04 Final Observation Date Value Abnormality Reference (Units) Status Bacteria identified in Specimen by Culture 02/25/2024 22:09:04 No significant growth Final Test: Culture, Urine, Quanti tative
Specimen Source: Urine, Clean Catch
Specimen Type: Urine
Specimen Date: 02/25/20242208
Result Date: 02/27/2024738
Result Status: Final result
Resulting Lab: LABORATORY [facility]
[address]
[place] [address]

CULTURE

No significant growth

null Performing Location LABORATORY [facility] - [address] [place] [id number]
--- OUTSIDE RECORDS SUMMARY | 2024-02-29 00:17 | External Medical Summary | Summary of Care ---
Author Name Unknown Organization [facility] Address [address] [place] [address] Phone [phone] Care Team Providers Care Radio Assembler Name Role Phone Shannen Rizzo Primary Care Provider Reason for Visit * Reason Onset Date Comments Hospital Follow-Up [facility] 02/06-02/09 7A Hospital Follow-Up 02/15/2024 Encounter Details Date Type Department Care Team (Late st Contact Info) Description 02/15/2024 9:00 AM EDT [facility] [address] [facility] [address] [phone] Shannen Rizzo CRNP [address] [facility] [place] [address] Hospital discharge follow-up*; Other psychoactive substance dependence, uncomplicated (HCC); History of substance abuse (HCC); Nonintractable epilepsy without status epilepticus, unspecified epilepsy type (HCC) Allergies Active Allergy Reactions Criticality Noted Date Comments Bee Pollen 08/13/2020 Bee Venom 05/01/2015 Honey Anaphylaxis High 02/12/2019 Levetiracetam 01/14/2021 Other reaction(s): Vomiting Sulfa Antibiotics 12/17/2022 Bupropion 12/17/2022 documented as of this encounter (statuses as of 02/15/2024) Medications Medication Sig Dispensed Refills Start Date [...] IN THE EVENING. 24 Capsule 02/15/2024 Active Phenytoin Sodium Extended 100 MG Oral Capsule (Dilantin)Indicat ions:Nonintractab le epilepsy without status epilepticus, unspecified epilepsy type (HCC) TAKE 2 CAPSULES BY MOUTH IN THE MORNING, ONE IN THE AFTERNOON, AND ONE IN THE EVENING. 24 Capsule 02/09/2024 4 Discontinue d(Refill) documented as of this encounter (statuses as of 02/15/2024) Active Problems Problem Noted Date Diagnosed Date [...] 28weeks, States she was being seen in [place] per discussions with [facility], she had only shown for anatomy US, cancelled/no showed all her visits Anemia of mother in , antepartum, third trimester 12/17/2022 Overview: Blood management referral for venofer Vitmain b12 1000mcg daily Trichomonal vulvovaginitis 12/17/2022 Overview: Treated 12/17/22 Positive 01/26/23 treated THANG due 39w Chlamydia infection affecting in secon d trimester 12/17/2022 Overview: Noted in labs from [place], unsure if she was treated. R/p completed [...] as of this encounter (statuses as of 02/15/2024) Resolved Problems Problem Noted Date Diagnosed Date Resolved Date Suicidal ideation 09/04/2023 09/09/2023 Methamphetamine use 12/17/2022 03/19/20 Overview: Last use 11/23/22 per patient Seizure 07/30/2020 03/19/2023 Recurrent major depressive disorder 02/12/2019 03/30/2023 CHR SEROUS OM NEC 05/25/2006 01/08/2023 documented as of this encounter (statuses as of 02/15/2024) Immunizations Name Administration Dates Next Due HPV Vaccine, 4-Valent 07/24/2011,01/22/2011,10/23 Hep A - Hepatitis A (ped/ado le, 1-18 Yrs) 04/11/2009,10/08/2008,05/07/2000 Hepatitis B, 0-19 yrs 05/07/2000,1999 IPV [...] money to get more. Never true 03/19/2023 Stone Depression Scale Answer Date Recorded Stone Depression Scale Total 22 07/08/2023 The thought [...] Sign Reading Time Taken Comments Blood Pressure 102/74 02/15/2024 9:11 AM EDT Pulse 87 02/15/2024 9:11 AM EDT Temperature 36.7 C (98.1 F) 02/15/2024 9:11 AM ED T Respiratory Rate 18 02/15/2024 9:11 AM EDT Oxygen Saturation 98% 02/15/2024 9:11 AM EDT Inhaled Oxygen Concentration - - Weight 52.2 kg (115 lb 1.6 oz) 02/15/2024 9:11 A M EDT Height - - Body Mass Index 23.25 10/01/2023 2:24 PM EST documented in this encounter Functional Status Functional [...] No 05/20/2020 documented as of this encounter Progress Notes * Shannen Rizzo CRNP - 02/15/2024 9:15 AM EDT SUBJECTIVE: Yu Lopez is a 23 year old female. Chief Complaint Patient presents with Hospital Follow-Up [facility] 02/06-02/09 7A Hospital Follow-Up Recent Admission: Patient was recently admitted to [facility]. The date of discharge was 02/10/24. Discharge report received and reviewed. HPI: Yu presents to the clinic for a hospital discharge follow up. She reports that she was in a bad relationship and was being confined to her apartment. She waited until he was sleeping, packeda bag and ran to her cousins house. She told her cousin that she was suicidal and they took her to the ER. In the ER she had bloodwork and she voluntarily signed herself in for treatment. She was admitted to the psychiatric unit where she started taking her normal medications again. She had been off her medication for almost two weeks due to the medication being hidden from her. She feels safe now and is considering having the police involved. She is back in her apartment and her ex is gone. She hasn't been taking her Dilantin because she needs to get it refilled. She has an appointment with [facility] tomorrow and will get her medications refilled. She was started on trazadone for sleep andhas been taking it and it is effective. Patient Active Problem List Diagnosis Mixed hearing loss, bilateral Sensorineural hearing loss, bilateral ADHD (attention deficit hyperactivity disorder), combined type Tobacco use disorder Limited care in third trimester Anemia of mother in , antepartum, third trimester Trichomonal vulvovaginitis Chlamydia infection affecting in second trimester Opiate use Borderline personality disorder (HCC) Impulse control disorder in adult Maternal gonorrhea in second trimester Iron deficiency anemia BV (bacterial vaginosis) Positive GBS test Ultrasound for screening for growth restriction 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) Other psychoactive substance dependence, uncomplicated (HCC) PTSD (post-traumatic stress disorder) Autism spectrum disorder Transient alteration of awareness Abnormal electroencephalogram (EEG) History of substance abuse (HCC) Depressed bipolar II disorder ([facility]) Tobacco use Malnutrition of moderate degree ([facility]) Current Outpatient Medications Medication Sig Dispense Refill Escitalopram Oxalate 10 MG Oral Tablet (Lexapro) Take 1 Tablet by mouth in the morning. 5 Tablet 0 traZODone HCl 50 MG Oral Tablet (Desyrel) Take 1 Tablet by mouth every night at bedtime. 5 Tablet 0 Ventolin HFA 108 (90 Base) MCG/ACT Inhalation Aerosol Solution Inhale 2 Puffs by mouth every 4 hours as needed for Wheezing, Shortness of Breath or Cough. 18 g 0 Phenytoin Sodium Extended 100 MG Oral Capsule (Dilantin) TAKE 2 CAPSULES BY MOUTH IN THE MORNING, ONE IN THE AFTERNOON, AND ONE IN THE EVENING. 24 Capsule 0 EpiPen 2-Obie 0.3 MG/0.3ML Injection Solution Auto-injector For a severe reaction: Inject in outer thigh following instructions on package and go to the Emergency room. 2 Each 0 No current facility-administered medications for this visit. Current and discharge medications have been reconciled. Review of patient's allergies indicates: Allergen Reactions Honey Anaphylaxis Bee Pollen Bee Venom Levetiracetam Other reaction(s): Vomiting Sulfa Antibiotics Wellbutrin [Bupropion] OBJECTIVE: BP 102/74 | Pulse 87 | Temp 36.7 C (98.1 F) (Tympanic) | Resp 18 | Wt 52.2 kg (115 lb 1.6 oz) |LMP 01/22/2024 | SpO2 98% | BMI 23.25 kg/m | BSA 1.47 m REVIEW OF SYSTEMS: Review of Systems Constitutional: Negative for appetite change. Respiratory: Positive for wheezing. Cardiovascular: Negative for chest pain. Neurological: Negative for seizures. Last seizure a few days ago Psychiatric/Behavioral: Negative for behavioral problems and sleep disturbance. The patient is not hyperactive. PHYSICAL EXAM: BP 102/74 | Pulse 87 | Temp 36.7 C (98.1 F) (Tympanic) | Resp 18 | Wt 52.2 kg (115 lb 1.6 oz) |LMP 01/22/2024 | SpO2 98% | BMI 23.25 kg/m | BSA 1.47 m Physical Exam Vitals and nursing note reviewed. Constitutional: Appearance: Normal appearance. HENT: Right Ear: External ear normal. Left Ear: External ear normal. Cardiovascular: Rate and Rhythm: Normal rate and regular rhythm. Pulmonary: Effort: Pulmonary effort is normal. Neurological: Mental Status: She is alert and oriented to person, place, and time. GCS: GCS eye subscore is 4. GCS verbal subscore is 5. GCS motor subscore is 6. Psychiatric: Attention and Perception: Attention normal. Mood and Affect: Mood normal. Speech: Speech normal. Behavior: Behavior normal. Thought Content: Thought content normal. Cognition and Memory: Cognition normal. 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 PLAN: Continue present medication(s):take dilantin as prescribed Follow up as scheduled with Pam and with Shannen for routine follow up I spent a total of 40-54 minutes (exact time 40 mins) minutes on the date of service in preparation, delivery, and documentation of the care provided to Yu Lopez excluding any time spent in performance of separately billed services. GELACIO Short documented in this encounter Nursing Notes * Larisa Sarah LPN - 02/15/2024 9:10 AM EDT Chief Complaint Patient presents with Hospital Follow-Up [facility] 02/06-02/09 7A documented in this encounter Plan of Treatment Upcoming Encounters Date Type Department Care Team (Late st Contact Info) Description 09/19/2024 2:00 PM EST Office Visit [facility] [address] [phone] Shannen Rizzo CRNP [address] [id number] Health Maintenance Due Date Last Done Comments Pneumococcal Vaccine: Pediat rics (0 to 5 Years) and At-Risk Patients (6 to 64 Years) (1 of 2 - PCV) 2005 COVID-19 Vaccine (2022-2 4 season) 2023 Gonorrhea / Chlamydia Screen [...] Not on filedocumented as of this encounter Visit Diagnoses Diagnosis Hospital discharge follow-up- Primary Other follow-up examination Other psychoactive substance dependence, uncomplicated (HCC) History of substance abuse (HCC) Other, mixed, or unspecified nondependent drug abuse, unspecified Nonintractable epilepsy without status epilepticus, unspecified epilepsy type (HCC) documented in this encounter Advance Directives * [...] the patient have Health Care Power of Milk Receiver? No * Full Code Date Activated Date Inactivated Comments 03/27/2023 10:31 PM 04/01/2023 5:17 PM This order re flects the patients wishes and were consensually agreed upon. Question Answer Comments Discussion of Advance Direct deisy occurred with: Not Discussed due to patient's condition Does the patient have a Living Will? No Does the patient have Health Care Power of Milk Receiver? No * Full Code Date Activated Date Inactivated Comments 02/22/2023 3:52 PM 02/24/2023 9:44 PM This order ref lects the patients wishes and were consensually agreed upon. Question Answer Comments Discussion of Advance Direct deisy occurred with: Not Discussed due to patient's condition Does the patient have a Living Will? No Does the patient have Health Care Power of Milk Receiver? No Care Teams Radio Assembler Relationship Specialty Start Date End Date Shannen Rizzo CRNP [address] [id number] PCP - General Nurse Practitioner 04/20/23 documented as of this encounter
--- OUTSIDE RECORDS SUMMARY | 2024-02-29 00:17 | External Medical Summary ---
Author Name Unknown Address Unknown Organization K1F:[facility] - [address] [address] Laboratory Report Ordering Provider Test Date Status SIGRID FONSECA 02/25/2024 21:08:00 Final Observation Date Value Abnormality Reference (Units ) Status Phosphate 02/25/2024 21:08:00 3.5 2.5-4.8 (m g/dL) Final Performing Location [facility] - [address] [address]
--- OUTSIDE RECORDS SUMMARY | 2024-02-29 00:17 | External Medical Summary ---
Author Name Unknown Address Unknown Organization K1F:[facility] - [address] [facility] [place] [address] Laboratory Report Ordering Provider Test Date Status RAYMUNDOSIGRID 02/25/2024 21:08:00 Final Observation Date Value Abnormality Reference (Units ) Status SYNC LEUKOCYTES IN BLOOD BY AUTOMATED COUNT 02/25/2024 21:08:00 7.32 4.00-10.80 (K/uL) Final Segs 02/25/2024 21:08:00 42.8 40.0-75.0 (%) Final Lymphs % 02/25/2024 21:08:00 45.4 Above high normal 18.0-42.0 (%) Final Monos 02/25/2024 21:08:00 6.1 1.0-11.0 (%) Final Eosinophils 02/25/2024 21:08:00 4.9 0.0-6.0 (%) Final Basos 02/25/2024 21:08:00 0.7 0.0-2.0 (%) Final Immature Granulocyte, Percent 02/25/2024 21:08:00 0.1 0.0-2.0 (%) Final Absolute Segs 02/25/2024 21:08:00 3.13 1.80-7.70 (K/uL) Final Lymphs, absolute 02/25/2024 21:08:00 3.32 1.00-4.80 (K/ul) Final Monos, Abs 02/25/2024 21:08:00 0.45 0.00-1.10 (K/uL) Final Eos, Abs 02/25/2024 21:08:00 0.36 0.00-0.70 (K/uL) Final Basos, Abs 02/25/2024 21:08:00 0.05 0.00-0.20 (K/uL) Final Immature Granulocytes, Number 02/25/2024 21:08:00 0.01 0.00-0.20 (K/uL) Final Performing Location [facility]ATORY [facility] - [address] [place] [address]
--- OUTSIDE RECORDS SUMMARY | 2024-02-29 00:18 | External Medical Summary ---
Author Name Unknown Address Unknown Organization K1F:[facility] - [address] [place] [address] Laboratory Report Ordering Provider Test Date Status FIDEL WALLS 02/06/2024 22:21:46 Final Observation Date Value Abnormality Reference (Units ) Status WBC, Total 02/06/2024 22:21:46 6.59 4.00-10.80 (K/uL) Final RBC 02/06/2024 22:21:46 4.69 3.85-5.15 (M/uL) Final Hemoglobin 02/06/2024 22:21:46 13.9 12.0-15.3 (g/dL) Final HCT 02/06/2024 22:21:46 40.8 36.0-45.2 (%) Final MCV 02/06/2024 22:21:46 87.0 81.5-97.5 (fL) Final MCH 02/06/2024 22:21:46 29.6 27.0-34.0 (pg) Final MCHC 02/06/2024 22:21:46 34.1 32.0-36.0 (g/dL) Final RDW 02/06/2024 22:21:46 12.1 11.5-15.5 (%) Final Platelets 02/06/2024 22:21:46 209 140-400 (K/uL) Final MPV 02/06/2024 22:21:46 9.6 6.6-11.1 (fL) Final Nucleated erythrocytes/100 leukocytes [Ratio] in Blood by Automated count 02/06/2024 22:21:46 0 <=0 (/100 WBCs) Final Performing Location [facility] - [address] [address]
--- OUTSIDE RECORDS SUMMARY | 2024-02-29 00:18 | External Medical Summary ---
Author Name Unknown Address Unknown Organization K1F:LABORATORY [facility] - [address] [facility] [address] Laboratory Report Ordering Provider Test Date Status FIDEL WALLS 02/06/2024 22:22:45 Final RAPID SURVEILLANCE Observation Date Value Abnormality Reference (Units ) Status SARS Coronavirus 2 02/06/2024 22:22:45 Negative N egative Final 2018 Novel Coronavirus not d etected.

This express test was developed and its performance characteristics determined by [facility]. It has not been cleared or approved by the U.S. Food and Drug Administration (FDA). FDA does not require this test to go thru premarket FDA review. This test is used for clinical purposes. It should not be regarded as investigational or for research. This laboratory is certified under the Clinical Laboratory Improvement Amendments (CLIA) as qualified to perform high complexity clinical laboratory testing.

This test is a nucleic acid amplification test (NAAT), a reverse transcriptase polymerase chain reaction (RT-PCR) test, or a Centers for Disease Control-acceptable equivalent. The test is performed in a high complexity Clinical Laboratory Improvement Amendments-(CLIA) certified laboratory. The test is acceptable for SARS-CoV-2 diagnosis, surveillance, and travel within the [place] and to most countries. Please check with local testing authorities about requirements before travel.

The validation of bronchial specimens, tracheal aspirates, and sputum for this assay was developed and performance characteristics determined by [facility]. The validation of alternate specimen types has not been cleared or approved by the U.S. Food and Drug Administration (FDA). It has been determined that such clearance is not necessary. Performing Location [facility] [address] [facility] [address]
--- OUTSIDE RECORDS SUMMARY | 2024-02-29 00:18 | External Medical Summary | Summary of Care ---
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 Phone Number LABORATORY [address] [address] * EKG (02/06/2024 10:03 PM EDT) 02/06/2024 10:0 3 PM EDT Narrative Procedure Note Omer Simon DO - 02/06/2024 10:03 PM EDT REASON FOR STUDY: Screening for cardiovascular condition CONCLUSIONS: Normal sinus rhythm Low voltage QRS, consider pulmonary disease, pericardial effusion, ornormal variant Borderline ECG When compared with ECG of 12-Nov-2023 14:48, No significant change was found Ventricular Rate: 83 Atrial Rate: 83 OK Interval: 174 QRS Duration: 72 QT/QTc: 338/397 ms P-R-T [place]: 47 : 12 : 39 degrees Chase Shukla MD EKG [facility] documented in this encounter Visit Diagnoses Diagnosis Depressed bipolar II disorder (HCC)- Primary Other bipolar disorders Screening for cardiovascular condition Screening for other and unspecified cardiovascular conditions Suicidal ideations Suicidal ideation Intermittent asthma with reliever use up to twice per week without complication Nonintractable epilepsy without status epilepticus, unspecified epilepsy type (HCC) Autism spectrum disorder Autistic disorder, current or active state PTSD (post-traumatic stress disorder) Posttraumatic stress disorder Borderline personality disorder (HCC) Borderline personality disorder History of substance abuse (HCC) Other, mixed, or unspecified nondependent drug abuse, unspecified Malnutrition of moderate degree (HCC) Malnutrition of moderate degree documented in this encounter Administered Medications Inactive Administered Medications - up to 3 most recent administrations Medication Order MAR Action Action Date Dose Rate Site Acetaminophen (Tylenol) tab 325 mg 325 mg, Oral, Q4H PRN Pain, Mild, Starting on 02/07/24 at 0005, Until Thu02/10/24 at 1539, Maximum of 4 grams (4000 mg) per day. Acetaminophen (Tylenol) tab 650 mg 650 mg, Oral, Q6H PRN Pain, Moderate, Fever >38C(100.5F), Starting on 02/07/24 at 0005, Until Thu02/10/24 at 1539, Maximum of 4 grams (4000 mg) per day. Given 02/07/2024 4:54 PM EDT 650 mg Acetaminophen (Tylenol) tab 975 mg 975 mg, Oral, ONCE, On 02/06/24 at 2345, For 1 dose, Maximum of 4 grams (4000 mg) per day. Given 02/06/2024 11:18 PM EDT 975 mg Acetaminophen (Tylenol) tab 975 mg 975 mg, Oral, Q6H PRN Pain, Severe, Starting on 02/07/24 at 0005, Until Thu02/10/24 at 1539, Maximum of 4 grams (4000 mg) per day. Given 02/08/2024 12:29 PM EDT 975 mg Given 02/08/2024 6:14 AM EDT 975 mg escitalopram (Lexapro) tab 10 mg 10 mg, Oral, Daily(AM), First dose on 02/07/24 at 1015, Until Discontinued Given 02/10/2024 8:35 AM EDT 10 mg Given 02/09/2024 8:55 AM EDT 10 mg Given 02/08/2024 8:23 AM EDT 10 mg house antacid (Mi-Acid II) oral susp 15 mL 15 mL, Oral, Q4H PRN Indigestion, Nausea, Starting on 02/07/24 at 0004, Until Thu02/10/24 at 1539, SHAKE WELL milk of magnesia (Mom) oral susp 30 mL 30 mL, Oral, DAILY PRN Constipation, Starting on 02/07/24 at 0004, Until Thu02/10/24 at 1539 Nicotine (Nicoderm CQ) 21 MG/24HR patch 1 Patch 1 Patch, Transdermal, ONCE, On 02/07/24 at 0030, For 1 dose, Do NOT cut the patch. Remove any Nicotine patches the patient may currently be wearing prior to applying the new patch. Place on clean hairless area. Remove for patient showers. WASTE INFO: Return packaging and waste medication in zip lock bag to pharmacy [facility] container. Patch Applied 02/07/2024 12:06 AM EDT 1 Patch Deltoid Left Upper Nicotine (Nicoderm CQ) 21 MG/24HR patch 1 Patch 1 Patch, Transdermal, ONCE, On 02/07/24 at 1615, For 1 dose, Do NOT cut the patch. Remove any Nicotine patches the patient may currently be wearing prior to applying the new patch. Place on clean hairless area. Remove for patient showers. WASTE INFO: Return packaging and waste medication in zip lock bag to pharmacy [facility] container. Patch Applied 02/08/2024 8:23 AM EDT 1 Patch Arm Left Upper Patch Applied 02/07/2024 4:53 PM EDT 1 Patch Arm Right Upper Nicotine (Nicoderm CQ) 21 MG/24HR patch 1 Patch 1 Patch, Transdermal, Daily(AM), First dose on 02/08/24 at 0900, Until Discontinued, Do NOT cut the patch. Remove any Nicotine patches the patient may currently be wearing prior to applying the new patch. Place on clean hairless area. Remove for patient showers. WASTE INFO: Return packaging and waste medication in zip lock bag to pharmacy [facility] container. Patch Applied 02/09/2024 8:55 AM EDT 1 Patch Arm Right Upper phenytoin ER (Dilantin) cap 100 mg 100 mg, Oral, BID (INP ADJ TIME), First dose on 02/07/24 at 1400, Until Discontinued Given 02/09/2024 8:16 PM EDT 100 mg Given 02/09/2024 3:27 PM EDT 100 mg Given 02/08/2024 8:42 PM EDT 100 mg phenytoin ER (Dilantin) cap 200 mg 200 mg, Oral, Daily(AM), First dose on 02/07/24 at 1015, Until Discontinued Given 02/10/2024 8:35 AM EDT 200 mg Given 02/09/2024 8:55 AM EDT 200 mg Given 02/08/2024 8:23 AM EDT 200 mg traZODone (Desyrel) tab 50 mg 50 mg, Oral, QHS, First dose on 02/07/24 at 2200, Until Discontinued Given 02/09/2024 8:16 PM EDT 50 mg Given 02/08/2024 8:42 PM EDT 50 mg Given 02/07/2024 8:35 PM EDT 50 mg documented in this encounter Active and Recently Administered Medications Times are shown in EDT. Scheduled Medication Order 02/08/2024 02/09/2024 02/10/2024 escitalopram (Lexapro) tab 10 mg 10 mg, Oral, Daily(AM), First dose on 02/07/24 at 1015, Until Discontinued 0823 (Given - Provider: Matthieu Blackmon RN) 0855 (Given - Provider: Ramón Berg RN) 0835 (Given - Provider: Matthieu Blackmon RN) Nicotine (Nicoderm CQ) 21 MG/24HR patch 1 Patch (COMPLETED) 1 Patch, Transdermal, ONCE, On 02/07/24 at 1615, For 1 dose, Do NOT cut the patch. Remove any Nicotine patches the patient may currently be wearing prior to applying the new patch. Place on clean hairless area. Remove for patient showers. WASTE INFO: Return packaging and waste medication in zip lock bag to pharmacy - [facility] container. 0823 (Patch Applied - Provider: Matthieu Blackmon RN) 0823 (Patch Removed - Provider: Ramón Berg RN) Nicotine (Nicoderm CQ) 21 MG/24HR patch 1 Patch 1 Patch, Transdermal, Daily(AM), First dose on 02/08/24 at 0900, Until Discontinued, Do NOT cut the patch. Remove any Nicotine patches the patient may currently be wearing prior to applying the new patch. Place on clean hairless area. Remove for patient showers. WASTE INFO: Return packaging and waste medication in zip lock bag to pharmacy - [facility] container. 0900 (Not Given - Provider: Matthieu Blackmon RN - Reason: Refused-Notify Provider) 0855 (Patch Applied - Provider: Ramón Berg RN)2016 (Patch Removed - Provider: Emily Lamb RN) 0900 (Not Given - Provider: Matthieu Blackmon RN - Reason: Refused-Notify Provider) phenytoin ER (Dilantin) cap 100 mg(Linked Group 1) 100 mg, Oral, BID (INP ADJ TIME), First dose on 02/07/24 at 1400, Until Discontinued 1453 (Given - Provider: Ramón Berg RN)2041 (Given - Provider: Elizabeth Diaz, RN) 152 (Given - Provider: Ramón Berg RN)2015 (Given - Provider: Emily Lamb, VERO) phenytoin ER (Dilantin) cap 200 mg(Linked Group 1) 200 mg, Oral, Daily(AM), First dose on 02/07/24 at 1015, Until Discontinued 08 (Given - Provider: Matthieu Blackmon RN) 0855 (Given - Provider: Ramón Berg, VERO) 0835 (Given - Provider: Matthieu Blackmon, RN) traZODone (Desyrel) tab 50 mg 50 mg, Oral, QHS, First dose on 02/07/24 at 2200, Until Discontinued 2041 (Given - Provider: Elizabeth Diaz, VERO) 2015 (Given - Provider: Emily Lamb, RN) PRN Medication Order 02/08/2024 02/09/2024 02/10/2024 Acetaminophen (Tylenol) tab 325 mg(Linked Group 2) 325 mg, Oral, Q4H PRN Pain, Mild, Starting on 02/07/24 at 0005, Until 02/10/24 at 1539, Maximum of 4 grams (4000 mg) per day. 0614 (See Alternative - Provider: Willow Stovall RN)1229 (See Alternative - Provider: Ramón H Otis, RN) Acetaminophen (Tylenol) tab 650 mg(Linked Group 2) 650 mg, Oral, Q6H PRN Pain, Moderate, Fever >38C(100.5F), Starting on 02/07/24 at 0005, Until Thu02/10/24 at 1539, Maximum of 4 grams (4000 mg) per day. 06 (See Alternative - Provider: Willow Stovall RN)1228 (See Alternative - Provider: Ramón Berg RN) Acetaminophen (Tylenol) tab 975 mg(Linked Group 2) 975 mg, Oral, Q6H PRN Pain, Severe, Starting on 02/07/24 at 0005, Until Thu02/10/24 at 1539, Maximum of 4 grams (4000 mg) per day. 06 (Given - Provider: Willow Stovall RN)1228 (Given - Provider: Ramón Berg RN) albuterol (VENTOLIN HFA/PROVENTIL HFA) inhaler 2 Puff, Inhalation, Q6H PRN Dyspnea, Starting on 02/07/24 at 0929, Until Thu02/10/24 at 1539, SEND INHALER WITH PATIENT! WASTE INFO ( IF NOT SENT HOME WITH PATIENT) : Return unused medication to pharmacy in zip lock bag for disposal into black container labeled SP. house antacid (Mi-Acid II) oral susp 15 mL 15 mL, Oral, Q4H PRN Indigestion, Nausea, Starting on 02/07/24 at 0004, Until Thu02/10/24 at 1539, SHAKE WELL milk of magnesia (Mom) oral susp 30 mL 30 mL, Oral, DAILY PRN Constipation, Starting on 02/07/24 at 0004, Until Thu02/10/24 at 1539 Linked Groups Order Group 1: phenytoin ER (Dilantin) cap 200 mgJump to med 200 mg, Oral, Daily(AM), First dose on 02/07/24 at 1015, Until Discontinued And phenytoin ER (Dilantin) cap 100 mgJump to med 100 mg, Oral, BID (INP ADJ TIME), First dose on 02/07/24 at 1400, Until Discontinued Group 2: Acetaminophen (Tylenol) tab 325 mgJump to med 325 mg, Oral, Q4H PRN Pain, Mild, Starting on 02/07/24 at 0005, Until 02/10/24 at 1539, Maximum of 4 grams (4000 mg) per day. Or Acetaminophen (Tylenol) tab 650 mgJump to med 650 mg, Oral, Q6H PRN Pain, Moderate, Fever >38C(100.5F), Starting on 02/07/24 at 0005, Until 02/10/24 at 1539, Maximum of 4 grams (4000 mg) per day. Or Acetaminophen (Tylenol) tab 975 mgJump to med 975 mg, Oral, Q6H PRN Pain, Severe, Starting on 02/07/24 at 0005, Until Thu02/10/24 at 1539, Maximum of 4 grams (4000 mg) per day. documented in this encounter Advance Directives * [...] the patient have Health Care Power of Die Setter? No * Full Code Date Activated Date Inactivated Comments 03/27/2023 10:31 PM 04/01/2023 5:17 PM This order re flects the patients wishes and were consensually agreed upon. Question Answer Comments Discussion of Advance Direct deisy occurred with: Not Discussed due to patient's condition Does the patient have a Living Will? No Does the patient have Health Care Power of Die Setter? No * Full Code Date Activated Date Inactivated Comments 02/22/2023 3:52 PM 02/24/2023 9:44 PM This order ref lects the patients wishes and were consensually agreed upon. Question Answer Comments Discussion of Advance Direct deisy occurred with: Not Discussed due to patient's condition Does the patient have a Living Will? No Does the patient have Health Care Power of Die Setter? No Care Teams Campus Recruiter Relationship Specialty Start Date End Date Shannen Rizzo CRNP [address] [id number] PCP - General Nurse Practitioner 04/20/23 documented as of this encounter
--- OUTSIDE RECORDS SUMMARY | 2024-02-29 00:18 | External Medical Summary ---
Author Name Unknown Address Unknown Organization K1F:LABORATORY [facility] - [address] [address] Laboratory Report Ordering Provider Test Date Status FIDEL WALLS 02/06/2024 22:21:46 Final Observation Date Value Abnormality Reference (Units ) Status Salicylates 02/06/2024 22:21:46 <1.0 Below low normal 5 .0-30.0 (mg/dL) Final Performing Location [facility] - [address] [address]
--- OUTSIDE RECORDS SUMMARY | 2024-02-29 00:18 | External Medical Summary ---
Author Name Unknown Address Unknown Organization K1F:LABORATORY [facility] - [address] [facility] [address] Laboratory Report Ordering Provider Test Date Status TITIFIDEL 02/06/2024 22:21:46 Final hCG can serve as a screening [...] +Beta subunit [Units/volume] in Serum or Plasma 02/06/2024 22:21:46 <0.3 <=1.0 (mIU/mL) Final Performing Location [facility] [address] [facility] [facility] [address]
--- OUTSIDE RECORDS SUMMARY | 2024-02-29 00:18 | External Medical Summary ---
Author Name Unknown Address Unknown Organization K1F:LABORATORY [facility] - [address] [address] Laboratory Report Ordering Provider Test Date Status FIDEL WALLS 02/06/2024 22:21:46 Final Observation Date Value Abnormality Reference (Units ) Status Acetaminophen 02/06/2024 22:21:46 <5.0 Below low normal 10.0-30.0 (ug/mL) Final Performing Location [facility] - [address] [address]
--- OUTSIDE RECORDS SUMMARY | 2024-02-29 00:18 | External Medical Summary ---
Author Name Unknown Address Unknown Organization K1F:LABORATORY [facility] - [address] [address] Laboratory Report Ordering Provider Test Date Status FIDEL WALLS 02/06/2024 22:21:46 Final Observation Date Value Abnormality Reference (Units ) Status Ethanol 02/06/2024 22:21:46 Negative Negative Final Performing Location [facility] - [address] [address]
--- OUTSIDE RECORDS SUMMARY | 2024-02-29 00:18 | External Medical Summary ---
Author Name Unknown Address Unknown Organization K1F:LABORATORY [facility] - [address] [facility] [address] Laboratory Report Ordering Provider Test Date Status FIDEL WALLS 02/06/2024 23:19:47 Final Cutoff Concentrations:
Drug Level
Amphetamines 500 [...] Reference (Units ) Status Amphetamines, Urine screen 02/06/2024 23:19:47 Negative Negative Final Benzodiazepines, Urine screen 02/06/2024 23:19:47 Negative Negative Final Cannabinoids, Urine screen 02/06/2024 23:19:47 Negative Negative Final Cocaine Metabolite, Urine screen 02/06/2024 23:19:47 Negative Negative Final fentaNYL [Presence] in Urine by Screen method 02/06/2024 23:19:47 Negative Negative Final HYDROcodone [Presence] in Urine by Screen method 02/06/2024 23:19:47 Negative Negative Final 7-Whhdpxhzuq-5,5-Dimeth yl-3,3-Diphenylpyrrolid ine (EDDP) [Presence] in Urine 02/06/2024 23:19:47 Negative Negative Final Opiates, Urine screen 02/06/2024 23:19:47 Negative Negative Final oxyCODONE [Presence] in Urine by Screen method 02/06/2024 23:19:47 Negative Negative Final Performing Location LAB[facility]ATORY [facility] - [address] [facility] [address]
--- OUTSIDE RECORDS SUMMARY | 2024-02-29 00:18 | External Medical Summary ---
Author Name Unknown Address Unknown Organization K1F:[facility] - [address] [facility]. [place] [address] Laboratory Report Ordering Provider Test Date Status FIDEL WALLS 02/06/2024 22:21:46 Final Observation Date Value Abnormality Reference (Units ) Status BUN 02/06/2024 22:21:46 12 6-20 (mg/dL) Final Creatinine 02/06/2024 22:21:46 0.7 0.5-1.0 (mg/dL) Final Glomerular filtration rate/1.73 sq M.predicted [Volume Rate/Area] in Serum, Plasma or Blood by Creatinine-based formula (CKD-EPI) 02/06/2024 22:21:46 >90 >=60 (mL/min) Final eGFR is calculated based on the CKD-EPI 2020 equation Sodium 02/06/2024 22:21:46 142 135-146 (m mol/L) Final Potassium 02/06/2024 22:21:46 3.4 Below low normal 3.5 -5.1 (mmol/L) Final Cl 02/06/2024 22:21:46 108 Above high normal 98 -107 (mmol/L) Final CO2 02/06/2024 22:21:46 24 22-32 (mmo l/L) Final Anion gap 02/06/2024 22:21:46 10 7-15 (mmol /L) Final Glucose 02/06/2024 22:21:46 113 70-120 (mg /dL) Final Albumin 02/06/2024 22:21:46 4.1 3.8-5.0 (g /dL) Final AST (Aspartate aminotransferase) 02/06/2024 22:21:46 13 10-35 (U/L) Fin al Alk Phos 02/06/2024 22:21:46 65 35-130 (U/ L) Final Bilirubin, Total 02/06/2024 22:21:46 0.4 <=1 .2 (mg/dL) Final Calcium 02/06/2024 22:21:46 9.4 8.4-10.2 ( mg/dL) Final Protein 02/06/2024 22:21:46 6.5 6.0-8.3 (g /dL) Final ALT (Alanine aminotransferase) 02/06/2024 22:21:46 8 Below low normal 10-35 (U/L) Final Performing Location LABORATORY [facility] - [address] [place] [address]
--- OUTSIDE RECORDS SUMMARY | 2024-02-29 00:19 | External Medical Summary ---
Author Name Unknown Address Unknown Organization : Laboratory Report Ordering Provider Test Date Status NO,UNKNOWN 11/12/2023 14:45:22 Final Observation Date Value Abnormality Reference (Units ) Status Glucose Point of Care 11/12/2023 14:45:22 156 Above high normal 70-120 (mg/dL) Final Performing Location
--- OUTSIDE RECORDS SUMMARY | 2024-02-29 00:19 | External Medical Summary | Summary of Care ---
Author Name Unknown Organization [facility] Address [address] [place] [address] Phone [phone] Care Team Providers Care Compliance Auditor Name Role Phone RizzoShannen Primary Care Provider Encounter Details Date Type Department Care Team (Late st Contact Info) Description 10/13/[address] [facility] [address] [facility] [place] [phone] Chuy Galvan MD [address] [place] [place] [address] Allergies Active Allergy Reactions Criticality Noted Date Comments Bee Pollen 08/13/2020 Bee Venom 05/01/2015 Honey Anaphylaxis High 02/12/2019 Levetiracetam 01/14/2021 Other reaction(s): Vomiting Sulfa Antibiotics 12/17/2022 Bupropion 12/17/2022 documented as of this encounter (statuses as of 10/13/2023) Medications Medication Sig Dispensed Refills Start Date End Date Status EpiPen 2-Obie 0.3 MG/0.3ML Injection Solution Auto-injector For a severe reaction: Inject in outer thigh following instructions on package and go to the Emergency room. 2 Each 0 03/21/2023 Active Show Low-3 Fish Oil 1000 MG Oral Capsule (Show Low-3) Take 1 Capsule by mouth in the morning. Do not start before June 12, 2023. 15 Capsule 0 06/12/2023 Active Additional Information Patient not taking.Reported on 09/17/2023 Nitrofurantoin Monohyd Macro 100 MG Oral Capsule (Macrobid) Take 1 Capsule by mouth in the morning and 1 Capsule before bedtime. 1 Capsule 0 09/09/2023 Active Additional Information Patient not taking.Reported on 09/17/2023 Escitalopram Oxalate 10 MG Oral Tablet (Lexapro) Take 1 Tablet by mouth in the morning. 10 Tablet 0 09/09/2023 Active Nicotine 14 MG/24HR Transdermal Patch 24 Hour (Nicoderm CQ) Place 1 Patch over 24 hours topically on the skin in the morning. 0 09/09/2023 Active Additional Information Patient not taking.Reported on 09/17/2023 Ondansetron 4 MG Oral Tablet Disintegrating (Zofran) Place 1 Tablet on tongue every 8 hours as needed for Nausea. dissolve on tongue. 2 Tablet 0 10/01/2023 Active Emtricitabine-Tenofo vir DF 200-300 MG Oral Tablet (Truvada) Take 1 Tablet by mouth in the morning. 30 Tablet 0 10/01/2023 4 Active Raltegravir Potassium 400 MG Oral Tablet (Isentress) Take 1 Tablet by mouth in the morning and 1 Tablet before bedtime. Do all this for 28 days. 56 Tablet 0 10/01/2023 4 Active Ondansetron 4 MG Oral Tablet Disintegrating (Zofran) Place 1 Tablet on tongue every 8 hours as needed for Nausea. dissolve on tongue. 12 Tablet 0 10/01/2023 Active Phenytoin Sodium Extended 100 MG Oral Capsule (Dilantin)Indication s:Nonintractable epilepsy without status epilepticus, unspecified epilepsy type (HCC) TAKE 2 CAPSULES BY MOUTH IN THE MORNING, ONE IN THE AFTERNOON, AND ONE IN THE EVENING. 40 Capsule 0 10/06/2023 Active Cephalexin 500 MG Oral Capsule (Keflex)Indications: Encounter for Nexplanon removal Take 1 Capsule by mouth in the morning and 1 Capsule before bedtime. Do all this for 10 days. Until gone.. 20 Capsule 0 10/08/2023 4 Active documented as of this encounter (statuses as of 10/13/2023) Active Problems Problem Noted Date Diagnosed Date Major depressive disorder, r ecurrent, severe with psychotic symptoms 09/17/2023 Depressed bipolar II disorder 09/04/2023 Tobacco use 09/04/2023 Severe episode of recurrent major depressive disorder, without psychotic features 09/03/2023 Transient alteration of awareness 06/09/2023 Abnormal electroencephalogram [...] 28weeks, States she was being seen in [place] per discussions with [facility], she had only shown for anatomy US, cancelled/no showed all her visits Anemia of mother in , antepartum, third trimester 12/17/2022 Overview: Blood management referral for venofer Vitmain b12 1000mcg daily Trichomonal vulvovaginitis 12/17/2022 Overview: Treated 12/17/22 Positive 01/26/23 treated THANG due 39w Chlamydia infection affecting in secon d trimester 12/17/2022 Overview: Noted in labs from [place], unsure if she was treated. R/p completed [...] as of this encounter (statuses as of 10/13/2023) Resolved Problems Problem Noted Date Diagnosed Date Resolved Date Suicidal ideation 09/04/2023 09/09/2023 History of substance abuse 09/04/2023 0 09/17/2023 Methamphetamine use 12/17/2022 03/19/20 Overview: Last use 11/23/22 per patient Seizure 07/30/2020 03/19/2023 Recurrent major depressive disorder 02/12/2019 03/30/2023 CHR SEROUS OM NEC 05/25/2006 01/08/2023 documented as of this encounter (statuses as of 10/13/2023) Immunizations Name Administration Dates Next Due HPV [...] Tobacco: Former Alcohol Use Standard Drinks/Week Comments Yes 0 (1 standard drink = 0.6 oz pure alcohol) drinnks 6 or more wine coolers "every once in a while" PHQ-2 Answer Date Recorded PHQ Adult Total Score 3 09/09/2023 Hunger Vital Sign Answer Date Recorded Within the past 12 months, y ou worried that your food would run out before you got the money to buy more. Never true 03/19/20 23 Within the past 12 months, t he food you bought just didn't last and you didn't have money to get more. Never true 03/19/2023 [place] Depression Scale Answer Date Recorded [place] Depression Scale Total 22 07/08/2023 The thought of harming myself has occurred to me . Never 07/08/2023 Sex and Gender Information Value Date Recorded Sex Assigned at Female 12/17/2022 11:49 AM EDT Gender Identity Female 12/17/2022 11:49 AM EDT Sexual Orientation Straight 12/17/2022 11 :49 AM EDT Job Start Date Occupation Industry Not on file Not on file Not on file documented as of this encounter Functional Status Functional Status Response [...] No 05/20/2020 documented as of this encounter Plan of Treatment Upcoming Encounters Date Type Department Care Team (Late st Contact Info) Description 10/22/2023 1:00 PM EST Office Visit Neurology, [facility] [address] [place] [id number] Gautam Bragg DO [address] [place] [address] 03/24/2024 3:30 PM EDT Office Visit Oral Maxillofacial Surgery, [facility] [address] [place] [address] Eliseo Ram DDS [address] [place] [address] 09/19/2024 2:00 PM EST Office Visit [facility] [place] [address] [phone] Shannen Rizzo CRNP [address] [address] Health Maintenance Due Date Last Done Comments COVID-19 Vaccine (1 - 2023-24 season) 2023 Depression Screening 09/09/2024 09/09/2023 Gonorrhea / Chlamydia Screen 10/01/202403/2024, 09/17/2023, 08/19/2023, Additional history exists Pap Smear 04/08/2026 04/08/2023 DTaP,Tdap,and Td Vaccines (3 - Td or Tdap) 01/22/2033 01/22/2023, 02/08/2018 Hepatitis B Completed 05/07/2000, 10/24, 1999 GARDASIL-HPV IMMUNIZATION SERIES Completed 07/24/2011, 01/22/2011, 11/11/2010 MENINGOCOCCAL (MENACTRA/MENVEO) Completed 05/28/2016, 11/11/2010 Influenza Vaccine (FLU shot) Completed 06/2023, 05/25/2020, 06/14/2019, Additional history exists Pneumococcal Vaccine: Pediatrics (0 to 5 Years) and At-Risk Patients (6 to 64 Years) Aged Out No longer eligible based on patient's age to complete this topic documented as of this encounter Medical Devices Not on filedocumented as of this encounter Advance Directives Latest Code Status on File Code Status Date Activated Date Inactivated Comments Full Code 09/03/2023 5:43 PM 09/09/2023 3:08 PM This order reflects the patients wishes and were consensually agreed upon. Question Answer Comments Discussion of Advance Directives occurred with: Not Discussed due to patient's condition Code Status History Code Status Date Activated Date Inactivated Comments Full Code 06/06/2023 6:25 PM 06/12/2023 3:15 PM Thi s order reflects the patients wishes and were consensually agreed upon. Question Answer Comments Discussion of Advance Directives occurred with: Not Discussed due to patient's condition Does the patient have a Living Will? No Does the patient have Health Care Power of Wholesale Manager? No Full Code 03/27/2023 10:31 PM 04/01/2023 5:17 PM This o rder reflects the patients wishes and were consensually agreed upon. Question Answer Comments Discussion of Advance Directives occurred with: Not Discussed due to patient's condition Does the patient have a Living Will? No Does the patient have Health Care Power of Wholesale Manager? No Full Code 02/22/2023 3:52 PM 02/24/2023 9:44 PM This or noa reflects the patients wishes and were consensually agreed upon. Question Answer Comments Discussion of Advance Directives occurred with: Not Discussed due to patient's condition Does the patient have a Living Will? No Does the patient have Health Care Power of Wholesale Manager? No Full Code 02/17/2023 12:08 AM 02/17/2023 1:32 PM This order reflects the patients wishes and were consensually agreed upon. Question Answer Comments Discussion of Advance Directives occurred with: Not Discussed due to patient's condition Care Teams Compliance Auditor Relationship Specialty Start Date End Date Shannen Rizzo CRNP [address] [id number] PCP - General Nurse Practitioner 04/20/23 documented as of this encounter
--- OUTSIDE RECORDS SUMMARY | 2024-02-29 00:19 | External Medical Summary | Summary of Care ---
Author Name Unknown Organization [facility] Address [address] [place] [address] Phone [phone] Care Team Providers Care Table Games Shift Manager Name Role Phone Shannen Rizzo Primary Care Provider Reason for Visit * Reason Onset Date Comments Medication Refill 11/11/2023 Encounter Details Date Type Department Care Team (Late st Contact Info) Description 11/11/2023 Refill [facility] [address] [facility] [place] [place] [address] Shannen Rizzo CRNP [address] [place] [address] Nonintractable epilepsy without status epilepticus, unspecified epilepsy type (HCC) Allergies Active Allergy Reactions Criticality Noted Date Comments Bee Pollen 08/13/2020 Bee Venom 05/01/2015 Honey Anaphylaxis High 02/12/2019 Levetiracetam 01/14/2021 Other reaction(s): Vomiting Sulfa Antibiotics 12/17/2022 Bupropion 12/17/2022 documented as of this encounter (statuses as of 11/11/2023) Medications Medication Sig Dispensed Refills Start Date End Date Status EpiPen 2-Obie 0.3 MG/0.3ML Injection Solution Auto-injector For a severe reaction: Inject in outer thigh following instructions on package and go to the Emergency room. 2 Each 0 3 Active Ramona-3 Fish Oil 1000 MG Oral Capsule (Ramona-3) Take 1 Capsule by mouth in the morning. Do not start before June 12, 2023. 15 Capsule 0 3 Active Additional Information Patient not taking.Reported on 09/17/2023 Nitrofurantoin Monohyd Macro 100 MG Oral Capsule (Macrobid) Take 1 Capsule by mouth in the morning and 1 Capsule before bedtime. 1 Capsule 0 4 Active Additional Information Patient not taking.Reported on 09/17/2023 Escitalopram Oxalate 10 MG Oral Tablet (Lexapro) Take 1 Tablet by mouth in the morning. 10 Tablet 0 4 Active Nicotine 14 MG/24HR Transdermal Patch 24 Hour (Nicoderm CQ) Place 1 Patch over 24 hours topically on the skin in the morning. 0 4 Active Additional Information Patient not taking.Reported on 09/17/2023 Ondansetron 4 MG Oral Tablet Disintegrating (Zofran) Place 1 Tablet on tongue every 8 hours as needed for Nausea. dissolve on tongue. 2 Tablet 0 4 Active Ondansetron 4 MG Oral Tablet Disintegrating (Zofran) Place 1 Tablet on tongue every 8 hours as needed for Nausea. dissolve on tongue. 12 Tablet 0 4 Active Phenytoin Sodium Extended 100 MG Oral Capsule (Dilantin)Indicatio ns:Nonintractable epilepsy without status epilepticus, unspecified epilepsy type (HCC) TAKE 2 CAPSULES BY MOUTH IN THE MORNING, ONE IN THE AFTERNOON, AND ONE IN THE EVENING. 120 Capsule 3 4 Active Phenytoin Sodium Extended 100 MG Oral Capsule (Dilantin)Indicatio ns:Nonintractable epilepsy without status epilepticus, unspecified epilepsy type (HCC) TAKE 2 CAPSULES BY MOUTH IN THE MORNING, ONE IN THE AFTERNOON, AND ONE IN THE EVENING. 40 Capsule 0 4 11/11/19 24 Discontinu ed(Refill) documented as of this encounter (statuses as of 11/11/2023) Active Problems Problem Noted Date Diagnosed Date [...] 28weeks, States she was being seen in [place] per discussions with [facility], she had only shown for anatomy US, cancelled/no showed all her visits Anemia of mother in , antepartum, third trimester 12/17/2022 Overview: Blood management referral for venofer Vitmain b12 1000mcg daily Trichomonal vulvovaginitis 12/17/2022 Overview: Treated 12/17/22 Positive 01/26/23 treated THANG due 39w Chlamydia infection affecting in secon d trimester 12/17/2022 Overview: Noted in labs from [place], unsure if she was treated. R/p completed [...] as of this encounter (statuses as of 11/11/2023) Resolved Problems Problem Noted Date Diagnosed Date Resolved Date Suicidal ideation 09/04/2023 09/09/2023 History of substance abuse 09/04/2023 0 09/17/2023 Methamphetamine use 12/17/2022 03/19/20 Overview: Last use 11/23/22 per patient Seizure 07/30/2020 03/19/2023 Recurrent major depressive disorder 02/12/2019 03/30/2023 CHR SEROUS OM NEC 05/25/2006 01/08/2023 documented as of this encounter (statuses as of 11/11/2023) Immunizations Name Administration Dates Next Due HPV [...] money to get more. Never true 03/19/2023 [place] Depression Scale Answer Date Recorded [place] Depression Scale Total 22 07/08/2023 The thought [...] No 05/20/2020 documented as of this encounter Miscellaneous Notes * Telephone Encounter - Herb Quijano MD - 11/11/2023 3:22 PM EDTSigned Prescriptions: Disp Refills Phenytoin Sodium Extended 100 MG Oral Caps*120 Ca*3 Sig: TAKE 2 CAPSULES BY MOUTH IN THE MORNING, ONE IN THE AFTERNOON, AND ONE IN THE EVENING.Authorizing Provider:HERB QUIJANO * Telephone Encounter - Lisa De Santiago block paver - 11/11/2023 3:16 PM EDT Did you pend patient's preferred pharmacy and medication before forwarding?yes Pharmacy: [id number] [facility] Pending Prescriptions: Disp Refills Phenytoin Sodium Extended 100 MG Oral Cap*40 Cap*0 Sig: TAKE 2 CAPSULES BY MOUTH IN THE MORNING, ONE IN THE AFTERNOON, AND ONE IN THE EVENING. Last Visit: 09/17/2023 (in office), Visit date not found (telemedicine) Next Visit: 09/19/2024 If no future appointments scheduled, and last appointment is greater than a year ago, please schedule patient for a follow-up appointment Last date the medication was ordered: 10/06/23 Is this request for a controlled substance?No Urine Drug Screen: Results for orders placed or performed during the hospital encounter of 09/03/23 TOXICOLOGY, URINE SCREEN W/O CONFIRMATION Result Value Amphetamines Screen, U Negative Benzodiazepines Screen, U Negative Cannabinoids Screen, U Negative Cocaine Metabolite Screen, U Negative Fentanyl Screen, U Negative Hydrocodone Screen, U Negative Methadone Metabolite Screen, U Negative Morphine/Codeine Screen, U Negative Oxycodone Screen, U Negative Narrative Cutoff Concentrations: Drug Level Amphetamines 500 ng/mL Benzodiazepines 100 ng/mL Cannabinoids 50 ng/mL Cocaine Metabolite 150 ng/mL Fentanyl 1 ng/mL Hydrocodone / Hydromorphone 300 ng/mL Methadone Metabolite 100 ng/mL Morphine / Codeine 300 ng/mL Oxycodone / Oxymorphone 100 ng/mL Screening results are presumptive and can only be used for medical purposes. Confirmatory testing is available upon request. Results for orders placed or performed during the hospital encounter of 02/22/23 TOXICOLOGY, URINE SCREEN W/ CONFIRMATION Result Value Amphetamines Screen, U Negative Benzodiazepines Screen, U Negative Cannabinoids Screen, U Negative Cocaine Metabolite Screen, U Negative Fentanyl Screen, U Positive (A) Hydrocodone Screen, U Negative Methadone Metabolite Screen, U Negative Morphine/Codeine Screen, U Negative Oxycodone Screen, U Negative Narrative Cutoff Concentrations: Drug Level Amphetamines 500 ng/mL Benzodiazepines 100 ng/mL Cannabinoids 50 ng/mL Cocaine Metabolite 150 ng/mL Fentanyl 1 ng/mL Hydrocodone / Hydromorphone 300 ng/mL Methadone Metabolite 100 ng/mL Morphine / Codeine 300 ng/mL Oxycodone / Oxymorphone 100 ng/mL Screening results are presumptive and can only be used for medical purposes. Positive screening results are reflexed to confirmatory testing. Patient Phone Numbers Labs: Lab Results Component Value Date/Time CREAT 0.8 10/01/2023 02:58 PM CREAT 0.8 07/29/2020 05:42 PM POTASSIUM 3.4 (L) 10/01/2023 02:58 PM POTASSIUM 3.6 07/29/2020 05:42 PM TSH 0.96 09/03/2023 01:35 PM TSH 0.34 06/27/2020 08:52 AM LDLCALC 113 09/03/2023 01:35 PM LDLCALC 153 (H) 05/22/2020 06:47 AM LDLDIRECT NOT APPLICABLE 05/22/2020 06:47 AM ALT 48 (H) 10/01/2023 02:58 PM ALT 37 (H) 06/27/2020 08:52 AM HGBA1C 5.1 09/03/2023 01:35 PM HGBA1C 5.4 05/22/2020 06:47 AM documented in this encounter Plan of Treatment Upcoming Encounters Date Type Department Care Team (Late st Contact Info) Description 09/19/2024 2:00 PM EST [facility] [address] [phone] Shannen Rizzo CRNP [address] [phone] Health Maintenance Due Date Last Done Comments COVID-19 Vaccine (2022- season) 2023 Depression Screening 09/09/2024 09/09/2023 Gonorrhea [...] as of this encounter Visit Diagnoses Diagnosis Nonintractable epilepsy without status epilepticus, unspecified epilepsy type (HCC) documented in this encounter Advance Directives Latest Code Status [...] the patient have Health Care Power of Magazine Designer? No Full Code 03/27/2023 10:31 PM 04/01/2023 5:17 PM This o rder reflects the patients wishes and were consensually agreed upon. Question Answer Comments Discussion of Advance Directives occurred with: Not Discussed due to patient's condition Does the patient have a Living Will? No Does the patient have Health Care Power of Magazine Designer? No Full Code 02/22/2023 3:52 PM 02/24/2023 9:44 PM This or noa reflects the patients wishes and were consensually agreed upon. Question Answer Comments Discussion of Advance Directives occurred with: Not Discussed due to patient's condition Does the patient have a Living Will? No Does the patient have Health Care Power of Magazine Designer? No Full Code 02/17/2023 12:08 AM 02/17/2023 1:32 PM This order reflects the patients wishes and were consensually agreed upon. Question Answer Comments Discussion of Advance Directives occurred with: Not Discussed due to patient's condition Care Teams Table Games Shift Manager Relationship Specialty Start Date End Date Shannen Rizzo CRNP [address] [id number] PCP - General Nurse Practitioner 04/20/23 documented as of this encounter
--- OUTSIDE RECORDS SUMMARY | 2024-02-29 00:19 | External Medical Summary | Summary of Care ---
Author Name Unknown Organization [facility] Address [address] [place] [address] Phone [phone] Care Team Providers Care Etl Informatica Architect Name Role Phone Juan Rizzoori Teressamarlene BRIZUELA Primary Care Provider Reason for Visit * Reason Comments Dizziness * Auth/Cert Specialty Diagnoses / Procedures Referred By Rosanna stinson Referred To Contact [facility] [address] [place] [address] Phone: [phone] Emergency Medicine [facility] [address] [place] [address] Referral ID Status Reason Start Date Expiration Date Visits Re quested Visits Authorized [id number] Encounter Details Date Type Department Care Team ([facility] st Contact Info) Description 11/12/2023 4:01 PM EDT - 11/12/2023 5:22 PM EDT Emergency [facility] Emergency Department ([facility]) [address] [place] [address] Lennox Rivas MD [address], [place] [id number] Near syncope (Primary Dx) Discharge Disposition: Home - Self Care Allergies Active Allergy Reactions Criticality Noted Date Comments Bee Pollen 08/13/2020 Bee Venom 05/01/2015 Honey Anaphylaxis High 02/12/2019 Levetiracetam 01/14/2021 Other reaction(s): Vomiting Sulfa Antibiotics 12/17/2022 Bupropion 12/17/2022 documented as of this encounter (statuses as of 11/13/2023) Medications Medication Sig Dispensed Refills Start Date End Date Status EpiPen 2-Obie 0.3 MG/0.3ML Injection Solution Auto-injector For a severe reaction: Inject in outer thigh following instructions on package and go to the Emergency room. 2 Each 0 03/21/2023 Active [place]-3 Fish Oil 1000 MG Oral Capsule ([place]-3) Take 1 Capsule by mouth in the [...] on tongue. 2 Tablet 0 10/01/2023 Active Ondansetron 4 MG Oral Tablet Disintegrating [...] ONE IN THE EVENING. 120 Capsule 3 11/11/2023 Active documented as of this encounter (statuses as of 11/13/2023) Active Problems Problem Noted Date Diagnosed Date [...] being seen in [place] per discussions with [facility], she had only shown for anatomy US, cancelled/no showed all her visits Anemia of mother in , antepartum, third trimester 12/17/2022 Overview: Blood management referral for venofer Vitmain b12 1000mcg daily Trichomonal vulvovaginitis 12/17/2022 Overview: Treated 12/17/22 Positive 01/26/23 treated THANG due 39w Chlamydia infection affecting in secon d trimester 12/17/2022 Overview: Noted in labs from [place], unsure if she was treated. 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 Never true 03/19/2023 [place] Depression Scale Answer Date Recorded [place] Depression Scale Total 22 07/08/2023 The thought [...] Sign Reading Time Taken Comments Blood Pressure 116/83 11/12/2023 4:56 PM EDT Pulse 98 11/12/2023 4:56 PM EDT Temperature 37.1 C (98.8 F) 11/12/2023 2:46 PM ED T Respiratory Rate 18 11/12/2023 4:56 PM EDT Oxygen Saturation 97% 11/12/2023 4:56 PM EDT Inhaled Oxygen Concentration - - [...] this encounter Discharge Instructions * Discharge Instructions* Neo Talbert PA-C - 11/12/2023 5:19 PM EDT Please make sure you eat and drink throughout the day, least small snacks to help avoid fatigue, dizziness and lightheadedness. Follow-up with her primary care doctor as necessary, should he develop recurrent symptoms, you should sit down rest, eating and drink something, if your symptoms do not improve after this you may report back to the emergency department, report back to the ED sooner should he develop any new concerns. documented in this encounter ED Notes * Andres Muñoz RN - 11/12/2023 2:48 PM EDT Dizzy, was stressed about visiting boyfriend how is admitted to [facility], was on floor and was diaphoretic, on of the staff noticed and placed in wheelchair and took her to the ED documented in this encounter Miscellaneous Notes * Pt Handout (on AVS) - Neo Talbert PA-C - 11/12/2023 5:18 PM EDT [id number] Near-Fainting with Uncertain Cause Fainting (syncope) is a temporary loss of consciousness. It's often called passing out. It happens when blood flow to the brain is reduced. Near-fainting (near-syncope) is like fainting, but you don't fully pass out. Instead, you feel like you are going to pass out, but don't actually lose consciousness. Signs and symptoms These are symptoms of near-fainting or symptoms that can be associated with near-fainting: Feeling lightheaded or like you are going to faint Weak pulse Nausea Sweating Blurred vision or feeling like your vision is fading Palpitations Chest pain Trouble breathing Feeling cool and clammy Causes Fainting typically happens when your blood pressure or heart rate suddenly drops, and not enough blood flows to your brain. Common minor causes include: Sudden emotional stress such as fear, pain, panic, or the sight of blood Straining or overexertion, such as straining while using the toilet, vomiting, coughing, or sneezing Standing up too quickly, or standing up for too long a time More serious causes include: Very slow, fast, or irregular heart rate (arrhythmia) Dehydration Significant blood loss Medicines, or a recent change in medicines. Medicines that can cause fainting include blood pressure or heart medicines. Heart attack Heart valve problems Remember, even minor causes can become serious if you fall and injure yourself, or are driving. Youmay need more tests. It's very important that you follow up with your doctor as advised. Home care These guidelines will help you care for yourself at home: Rest today. You can resume most of your normal activities as soon as you are feeling back to normal. If you become lightheaded or dizzy, lie down right away or sit with your head between your knees. Drink plenty of fluids and don't skip meals. Because the exact cause of your near fainting spell is not known, another spell could occur withoutwarning. To stay safe, don't drive a car or use dangerous equipment. Don't take a bath alone. Don'tswim alone. You can resume these activities when your healthcare provider says that you are no longer in danger of having a near-fainting spell. Follow-up care Follow up with your healthcare provider, or as advised. Call 911 Call 911 or get emergency care if any of the following occur: Another near-fainting or full fainting spell occurs, and it's not explained by the common minor causes listed above Chest, arm, neck, jaw, back or abdominal pain Shortness of breath Weakness, tingling, or numbness in one side of the face, or in one arm or leg Slurred speech, confusion, trouble walking or seeing Seizure When to get medical advice Call your healthcare provider for advice if any of these occur: Changes in your medicines You start to have near fainting on a more frequent basis Last Reviewed Date: 10/22/202119992539-7169 [employer]. All rights reserved. This information is not intended as a substitute for professional medical care. Always follow your healthcare professional's instructions. * ED Soldering Machine Operator Helper Note - Bita Cabezas RN - 11/12/2023 4:58 PM EDT Ortho BP completed. Pt was negative for orthostatic hypotension. Pt independently to the bathroom and back. Pt denied dizziness, lightheadedness, sob, chest pain. Discharge instructions provided. Pt verbalized understanding. Pt rating pain 0/10 at this time. Pt discharged per physician order. Pt ambulated from this ED with steady gait. documented in this encounter Plan of Treatment Upcoming Encounters Date Type Department Care Team (Late st Contact Info) Description 09/19/2024 2:00 PM EST Office Visit Family Paul, [place] [address] [phone] RizzoShannen CRNP [address] [id number] Health Maintenance Due Date Last Done Comments [...] Procedure Name Priority Date/Time Associated Diagnosis Comments URINE SCREEN, POINT OF CARE (ENTER/EDIT) STAT 11/12/2023 5:22 PM EDT DIFFERENTIAL, AUTOMATED STAT 11/12/2023 3:09 PM EDT TROPONIN T, HIGH SENSITIVITY STAT 11/12/2023 3:09 PM EDT BETA-HCG, QUANTITATIVE STAT 3:09 PM EDT COMPREHENSIVE METABOLIC PANEL STAT 11/12/2023 3:09 PM EDT CBC STAT 11/12/2023 3:09 PM EDT CBC STAT 11/12/2023 3:09 PM EDT GLUCOSE METER, POINT OF CARE URSZULA 11/12/2023 2:45 PM EDT documented in this encounter Results * URINE SCREEN, POINT OF CARE (ENTER/EDIT) (11/12/2023 5:22 PM EDT) hCG Beta, Urine Negative Procedural Control Valid? Yes Urine Remedios Aguilar PA-C LAB POINT OF CARE T EST ENTER/EDIT ORDERABLES * DIFFERENTIAL, AUTOMATED (11/12/2023 3:09 PM EDT) WBC 6.80 4.00 - 10.80 K/uL 11/12/2023 3:17 PM EDT LABORATORY [facility] Neutrophils % 49.2 40.0 - 75.0 % 11/12/2023 3:17 PM EDT LAB[facility]ATORY [facility] Lymphocytes % 40.9 18.0 - 42.0 % 11/12/2023 3:17 PM EDT LAB[facility]ORY [facility] Monocytes % 6.9 1.0 - 11.0 % 11/12/2023 3:17 PM EDT LAB[facility]ORY [facility] Eosinophils % 2.5 0.0 - 6.0 % 11/12/2023 3:17 PM EDT LAB[facility]ORY [facility] Basophils % 0.4 0.0 - 2.0 % 11/12/2023 3:17 PM EDT LAB[facility]ATORY [facility] Immature Granulocytes % 0.1 0.0 - 2.0 % 11/12/2023 3:17 PM EDT LAB[facility]ATORY [facility] Absolute Neutrophils 3.34 1.80 - 7.70 K/uL 11/12/2023 3:17 PM EDT LAB[facility]ATORY [facility] Absolute Lymphocytes 2.78 1.00 - 4.80 K/ul 11/12/2023 3:17 PM EDT LABORATORY [facility] Absolute Monocytes 0.47 0.00 - 1.10 K/uL 11/12/2023 3:17 PM EDT LAB[facility]ORY [facility] Absolute Eosinophils 0.17 0.00 - 0.70 K/uL 11/12/2023 3:17 PM EDT LABORATORY [facility] Absolute Basophils 0.03 0.00 - 0.20 K/uL 11/12/2023 3:17 PM EDT LAB[facility]ATORY [facility] Absolute Immature Granulocytes 0.01 0.00 - 0.20 K/uL 11/12/2023 3:17 PM EDT LABORATORY [facility] Blood Venous blood specimen / Unknown Venipuncture / Unknown 11/12/2023 3:09 PM EDT 11/12/2023 3:12 PM EDT Remedios Aguilar PA-C LAB BLOOD ORDERABLE S LABORATORY [address] [address] * CBC (11/12/2023 3:09 PM EDT) WBC 6.80 4.00 - 10.80 K/uL 11/12/2023 3:17 PM EDT LABORATORY [facility] RBC 4.68 3.85 - 5.15 M/uL 11/12/2023 3:17 PM EDT LABORATORY [facility] HGB 13.8 12.0 - 15.3 g/dL 11/12/2023 3:17 PM EDT LABORATORY [facility] HCT 39.9 36.0 - 45.2 % 11/12/2023 3:17 PM EDT LABORATORY GL MCV 85.3 81.5 - 97.5 fL 11/12/2023 3:17 PM EDT LABORATORY GL MCH 29.5 27.0 - 34.0 pg 11/12/2023 3:17 PM EDT LABORATORY GL MCHC 34.6 32.0 - 36.0 g/dL 11/12/2023 3:17 PM EDT LABORATORY [facility] RDW 12.1 11.5 - 15.5 % 11/12/2023 3:17 PM EDT LABORATORY [facility] PLT 272 140 - 400 K/uL 11/12/2023 3:17 PM EDT LABORATORY [facility] MPV 8.9 6.6 - 11.1 fL 11/12/2023 3:17 PM EDT LABORATORY GL nRBCs 0 <=0 /100 WBCs 11/12/2023 3:17 PM EDT LABORATORY [facility] Blood Venous blood specimen / Unknown Venipuncture / Unknown 11/12/2023 3:09 PM EDT 11/12/2023 3:12 PM EDT Remedios Aguilar PA-C LAB BLOOD ORDERABLE S LABORATORY [address] [address] * TROPONIN T, HIGH SENSITIVITY (11/12/2023 3:09 PM EDT) Troponin T, High Sensitivity <6 <=14 ng/L 11/12/2023 3:37 PM EDT LABORATORY [facility] Blood Venous blood specimen / Unknown Venipuncture / Unknown 11/12/2023 3:09 PM EDT 11/12/2023 3:12 PM EDT Remedios Lauren PA-C LAB BLOOD ORDERABLE S LABORATORY [address] [address] * COMPREHENSIVE METABOLIC PANEL (11/12/2023 3:09 PM EDT) BUN 12 6 - 20 mg/dL 11/12/2023 3:42 PM EDT LABORATORY [facility] Creatinine 0.8 0.5 - 1.0 mg/dL 11/12/2023 3:42 PM EDT LABORATORY [facility] Estimated Glomerular Filtration Rate >90 >=60 mL/min 11/12/2023 3:42 PM EDT LABORATORY [facility] Comment:eGFR is calculated b ased on the CKD-EPI 2020 equation Sodium 140 135 - 146 mmol/L 11/12/2023 3:42 PM EDT LABORATORY [facility] Potassium 3.7 3.5 - 5.1 mmol/L 11/12/2023 3:42 PM EDT LAB[facility]ORY [facility] Chloride 106 98 - 107 mmol/L 11/12/2023 3:42 PM EDT LAB[facility]ATORY [facility] CO2 24 22 - 32 mmol/L 11/12/2023 3:42 PM EDT LAB[facility] Anion Gap 10 7 - 15 mmol/L 11/12/2023 3:42 PM EDT LAB[facility] Glucose 99 70 - 120 mg/dL 11/12/2023 3:42 PM EDT LAB[facility] Albumin 4.4 3.8 - 5.0 g/dL 11/12/2023 3:42 PM EDT LAB[facility]ORY [facility] AST 18 10 - 35 U/L 11/12/2023 3:42 PM EDT LAB[facility]ORY [facility] Alkaline Phosphatase 78 35 - 130 U/L 11/12/2023 3:42 PM EDT LAB[facility] Bilirubin, Total 0.5 <=1.2 mg/dL 11/12/2023 3:42 PM EDT LAB[facility] Calcium 9.2 8.4 - 10.2 mg/dL 11/12/2023 3:42 PM EDT LAB[facility]ORY [facility] Protein 6.8 6.0 - 8.3 g/dL 11/12/2023 3:42 PM EDT LAB[facility]ORY [facility] ALT 17 10 - 35 U/L 11/12/2023 3:42 PM EDT LAB[facility]ORY [facility] Blood Venous blood specimen / Unknown Venipuncture / Unknown 11/12/2023 3:09 PM EDT 11/12/2023 3:12 PM EDT Remedios Aguilar PA-C LAB BLOOD ORDERABLE S LAB[facility]ATORY [facility] [address] [place] [address] * BETA-HCG, QUANTITATIVE (11/12/2023 3:09 PM EDT) Beta-HCG, Quantitative <0.1 <=1.0 mIU/mL 11/12/2023 3:47 PM EDT LAB[facility]ATORY [facility] Blood Venous blood specimen / Unknown Venipuncture / Unknown 11/12/2023 3:09 PM EDT 11/12/2023 3:12 PM EDT Narrative LABORATORY [facility] - 11/12/2023 3:47 PM EDT hCG can serve as a screening assay for . However, early may not give a positive hCG test result. In addition, some non- women may have a hCG result slightly higher than the reference limit. Careful interpretation of the hCG with clinical history is required to determine whether the patient may be . Remedios Aguilar PA-C LAB BLOOD ORDERABLE S Performing Organization Address [facility] Co de Phone Number LABORATORY [facility] [address] [place] [address] * (ABNORMAL) GLUCOSE METER, POINT OF CARE (11/12/2023 2:45 PM EDT) [facility] Signature Glucose Meter 156(H) 70 - 120 mg/dL 11/12/2023 2:46 PM EDT [facility] LABOR[facility] Blood Whole blood specimen / Unknown 11/12/2023 2:45 PM EDT 11/12/2023 2:46 PM EDT No Physician Data Unknown LAB POINT OF C ARE TEST DOCKED DEVICE UNSOLICITED RESULTS Performing Organization Address [facility] [[email or web address]] de Phone Number [facility] LABORATORY [address] [place] [phone] documented in this encounter Visit Diagnoses Diagnosis Near syncope- Primary Syncope and collapse documented in this encounter Advance Directives Latest [...] the patient have Health Care Power of Deck Mate? No Full Code 03/27/2023 10:31 PM 04/01/2023 5:17 PM This o rder reflects the patients wishes and were consensually agreed upon. Question Answer Comments Discussion of Advance Directives occurred with: Not Discussed due to patient's condition Does the patient have a Living Will? No Does the patient have Health Care Power of Deck Mate? No Full Code 02/22/2023 3:52 PM 02/24/2023 9:44 PM This or noa reflects the patients wishes and were consensually agreed upon. Question Answer Comments Discussion of Advance Directives occurred with: Not Discussed due to patient's condition Does the patient have a Living Will? No Does the patient have Health Care Power of Deck Mate? No Full Code 02/17/2023 12:08 AM 02/17/2023 1:32 PM This order reflects the patients wishes and were consensually agreed upon. Question Answer Comments Discussion of Advance Directives occurred with: Not Discussed due to patient's condition Care Teams Etl Informatica Architect Relationship Specialty Start Date End Date Shannen Rizzo CRNP [address] [id number] PCP - General Nurse Practitioner 04/20/23 documented as of this encounter
--- OUTSIDE RECORDS SUMMARY | 2024-02-29 00:19 | External Medical Summary | Summary of Care ---
Author Name Unknown Organization [facility] Address [address] [place] [address] Phone [phone] Care Team Providers Care Lathe Machinist Name Role Phone Shannen Martinez Primary Care Provider Reason for Visit * Reason Onset Date Comments Medication Refill 12/25/202312/24 Encounter Details Date Type Department Care Team (Late st Contact Info) Description 12/25/2023 Refill [facility] [address] [facility] [address] [phone] Shannen Martinez CRNP [address] [place] [address] Allergies Active Allergy Reactions Criticality Noted Date Comments Bee Pollen 08/13/2020 Bee Venom 05/01/2015 Honey Anaphylaxis High 02/12/2019 Levetiracetam 01/14/2021 Other reaction(s): Vomiting Sulfa Antibiotics 12/17/2022 Bupropion 12/17/2022 documented as of this encounter (statuses as of 12/25/2023) Medications Medication Sig Dispensed Refills Start Date End Date Status [place]-3 Fish Oil 1000 MG Oral Capsule ([place]-3) Take 1 Capsule by mouth in the morning. Do not start before June 12, 2023. 15 Capsule 0 Active Additional Information Patient not taking.Reported on [...] THE EVENING. 120 Capsule 3 4 Active EpiPen 2-Obie 0.3 MG/0.3ML Injection Solution Auto-injector For a severe reaction: Inject in outer thigh following instructions on package and go to the Emergency room. 2 Each 0 4 Active EpiPen 2-Obie 0.3 MG/0.3ML Injection Solution Auto-injector For a severe reaction: Inject in outer thigh following instructions on package and go to the Emergency room. 2 Each 0 3 12/25/19 24 Discontinu ed(Refill) documented as of this encounter (statuses as of 12/25/2023) Active Problems Problem Noted Date Diagnosed Date [...] seen in [place] per discussions with [facility] center, she had only shown for anatomy US, cancelled/no showed all her visits Anemia of mother in , antepartum, third trimester 12/17/2022 Overview: Blood management referral for venofer Vitmain b12 1000mcg daily Trichomonal vulvovaginitis 12/17/2022 Overview: Treated 12/17/22 Positive 01/26/23 treated THANG due 39w Chlamydia infection affecting in secon d trimester 12/17/2022 Overview: Noted in labs from [place], unsure if she was treated. R/p completed [...] as of this encounter (statuses as of 12/25/2023) Resolved Problems Problem Noted Date Diagnosed Date Resolved Date Suicidal ideation 09/04/2023 09/09/2023 History of substance abuse 09/04/2023 0 09/17/2023 Methamphetamine use 12/17/2022 03/19/20 Overview: Last use 11/23/22 per patient Seizure 07/30/2020 03/19/2023 Recurrent major depressive disorder 02/12/2019 03/30/2023 CHR SEROUS OM NEC 05/25/2006 01/08/2023 documented as of this encounter (statuses as of 12/25/2023) Immunizations Name Administration Dates Next Due HPV [...] money to get more. Never true 03/19/2023 [place] Depression Scale Answer Date Recorded [place] Depression Scale Total 22 07/08/2023 The thought [...] encounter Miscellaneous Notes * Telephone Encounter - Shannen Martinez CRNP - 12/25/2023 1:51 PM EDT Signed Prescriptions: Disp Refills EpiPen 2-Obie 0.3 MG/0.3ML Injection Soluti*2 Each 0 Sig: For a severe reaction: Inject in outer thigh following instructions on package and go to the Emergency room. Authorizing Provider: SHANNEN MARTINEZ * Telephone Encounter - Shabana Cardoza LPN - 12/25/2023 1:27 PM EDT Epi-pen pended, please advise. * Telephone Encounter - Ana Barcenas CPhT - 12/25/2023 1:20 PM EDT Patient calling requesting refills for EpiPen . Upon chart review, medication was last prescribed by emergency room. Pt did schedule a hospital follow up visit. Please advise if you wish to continue this therapy for the patient. Patient is requesting high priority. Thank you, Ana Barcenas CPhT Supervisor [employer] [facility] ( Formerly Telepharmacy) 12/25/2023,1:21 PM documented in this encounter Plan of Treatment Upcoming Encounters Date Type Department Care Team (Late st Contact Info) Description 09/19/2024 2:00 PM EST Office Visit [facility] [address] [phone] Shannen Martinez CRNP [address] [address] Health Maintenance Due Date Last Done Comments COVID-19 Vaccine (2022- season) 2023 Gonorrhea / Chlamydia Screen 10/01/202403/2024, [...] the patient have Health Care Power of Visual Merchandising Manager? No Full Code 03/27/2023 10:31 PM 04/01/2023 5:17 PM This o rder reflects the patients wishes and were consensually agreed upon. Question Answer Comments Discussion of Advance Directives occurred with: Not Discussed due to patient's condition Does the patient have a Living Will? No Does the patient have Health Care Power of Visual Merchandising Manager? No Full Code 02/22/2023 3:52 PM 02/24/2023 9:44 PM This or ona reflects the patients wishes and were consensually agreed upon. Question Answer Comments Discussion of Advance Directives occurred with: Not Discussed due to patient's condition Does the patient have a Living Will? No Does the patient have Health Care Power of Visual Merchandising Manager? No Full Code 02/17/2023 12:08 AM 02/17/2023 1:32 PM This order reflects the patients wishes and were consensually agreed upon. Question Answer Comments Discussion of Advance Directives occurred with: Not Discussed due to patient's condition Care Teams Lathe Machinist Relationship Specialty Start Date End Date Shannen Martinez CRNP [address] [id number] PCP - General Nurse Practitioner 04/20/23 documented as of this encounter
--- OUTSIDE RECORDS SUMMARY | 2024-02-29 00:19 | External Medical Summary ---
Author Name Unknown Address Unknown Organization K1F:LABORATORY [facility] - [address] [facility]. [place] [address] Laboratory Report Ordering Provider Test Date Status JACQUELYN URIBE 11/12/2023 15:09:00 Final Observation Date Value Abnormality Reference (Units ) Status SYNC LEUKOCYTES IN BLOOD BY AUTOMATED COUNT 11/12/2023 15:09:00 6.80 4.00-10.80 (K/uL) Final Segs 11/12/2023 15:09:00 49.2 40.0-75.0 (%) Final Lymphs % 11/12/2023 15:09:00 40.9 18.0-42.0 (%) Final Monos 11/12/2023 15:09:00 6.9 1.0-11.0 (%) Final Eosinophils 11/12/2023 15:09:00 2.5 0.0-6.0 (%) Final Basos 11/12/2023 15:09:00 0.4 0.0-2.0 (%) Final Immature Granulocyte, Percent 11/12/2023 15:09:00 0.1 0.0-2.0 (%) Final Absolute Segs 11/12/2023 15:09:00 3.34 1.80-7.70 (K/uL) Final Lymphs, absolute 11/12/2023 15:09:00 2.78 1.00-4.80 (K/ul) Final Monos, Abs 11/12/2023 15:09:00 0.47 0.00-1.10 (K/uL) Final Eos, Abs 11/12/2023 15:09:00 0.17 0.00-0.70 (K/uL) Final Basos, Abs 11/12/2023 15:09:00 0.03 0.00-0.20 (K/uL) Final Immature Granulocytes, Number 11/12/2023 15:09:00 0.01 0.00-0.20 (K/uL) Final Performing Location LAB[facility]ATORY [facility] - [address] [place], [place] [address]. [place] [id number]
--- OUTSIDE RECORDS SUMMARY | 2024-02-29 00:19 | External Medical Summary ---
Author Name Unknown Address Unknown Organization K1F:LABORATORY [facility] - [address] [facility] [address] Laboratory Report Ordering Provider Test Date Status JACQUELYN URIBE 11/12/2023 15:09:00 Final hCG can serve as a screening [...] +Beta subunit [Units/volume] in Serum or Plasma 11/12/2023 15:09:00 <0.1 <=1.0 (mIU/mL) Final Performing Location LABORATORY [facility] - [address] [place] [address]
--- OUTSIDE RECORDS SUMMARY | 2024-02-29 00:19 | External Medical Summary | Summary of Care ---
Author Name Unknown Organization [facility] Address [address] [place] [address] Phone [phone] Care Team Providers Care Metal Tile Lather Name Role Phone Shannen Rizzo Primary Care Provider Reason for Visit * Reason Comments Acute Pt requesting inhale r for asthma-was mowing grass yesterday and started wheezing/SOB really badHas been getting nauseous and is requesting a test Encounter Details Date Type Department Care Team (Late st Contact Info) Description 01/22/2024 9:40 AM EDT Office Visit [facility] [place] [address] [id number] Sita Todd PA-C [address] [id number] Intermittent asthma with reliever use up to twice per week without complication*; Missed period Allergies Active Allergy Reactions Criticality Noted Date Comments Bee Pollen 08/13/2020 Bee Venom 05/01/2015 Honey Anaphylaxis High 02/12/2019 Levetiracetam 01/14/2021 Other reaction(s): Vomiting Sulfa Antibiotics 12/17/2022 Bupropion 12/17/2022 documented as of this encounter (statuses as of 01/22/2024) Medications Medication Sig Dispensed Refills Start Date End Date Status Escitalopram Oxalate 10 MG Oral Tablet (Lexapro) Take 1 Tablet by mouth in the morning. 10 Tablet 4 Active Ondansetron 4 MG Oral Tablet Disintegrating (Zofran) Place 1 Tablet on tongue every 8 hours as needed for Nausea. dissolve on tongue. 12 Tablet 4 Active Phenytoin Sodium Extended 100 MG [...] the Emergency room. 2 Each 4 Active Ventolin HFA 108 (90 Base) MCG/ACT Inhalation Aerosol SolutionIndications :Intermittent asthma with reliever use up to twice per week without complication Inhale 2 Puffs by mouth every 4 hours as needed for Wheezing, Shortness of Breath or Cough. 18 g 4 Active [place]-3 Fish Oil 1000 MG Oral Capsule ([place]-3) Take 1 Capsule by mouth in the morning. Do not start before June 12, 2023. 15 Capsule 3 01/22/20 24 Discontinu ed(Patient preference /discontin uation) Nitrofurantoin Monohyd Macro 100 MG Oral Capsule (Macrobid) Take 1 Capsule by mouth in the morning and 1 Capsule before bedtime. 1 Capsule 4 01/22/20 24 Discontinu ed(Patient preference /discontin uation) Nicotine 14 MG/24HR Transdermal Patch 24 Hour (Nicoderm CQ) Place 1 Patch over 24 hours topically on the skin in the morning. 4 01/22/20 24 Discontinu ed(Patient preference /discontin uation) Doxycycline Hyclate 100 MG Oral CapsuleIndications: Chlamydia infection Take 1 Capsule by mouth in the morning and 1 Capsule before bedtime. Do all this for 7 days. Until gone.. 14 Capsule 4 01/22/20 24 Discontinu ed(Patient preference /discontin uation) Ondansetron 4 MG Oral Tablet Disintegrating (Zofran) Place 1 Tablet on tongue every 8 hours as needed for Nausea. dissolve on tongue. 2 Tablet 4 01/22/20 24 Discontinu ed(Patient preference /discontin uation) metroNIDAZOLE 500 MG Oral Tablet (Flagyl) Take 1 Tablet by mouth in the morning and 1 Tablet before bedtime. Do all this for 13 doses. 13 Tablet 4 01/22/20 24 Discontinu ed(Patient preference /discontin uation) Doxycycline Hyclate 100 MG Oral Tablet Take 1 Tablet by mouth in the morning and 1 Tablet before bedtime. Do all this for 13 doses. 13 Tablet 4 01/22/20 24 Discontinu ed(Patient preference /discontin uation) Emtricitabine-Tenof ovir DF 200-300 MG Oral Tablet (Truvada) Take 1 Tablet by mouth in the morning. 30 Tablet 4 01/22/20 24 Discontinu ed(Patient preference /discontin uation) Raltegravir Potassium 400 MG Oral Tablet (Isentress) Take 1 Tablet by mouth in the morning and 1 Tablet before bedtime. Do all this for 28 days. 56 Tablet 4 01/22/20 Discontinu ed(Patient preference /discontin uation) Cephalexin 500 MG Oral Capsule (Keflex)Indications :Encounter for Nexplanon removal Take 1 Capsule by mouth in the morning and 1 Capsule before bedtime. Do all this for 10 days. Until gone.. 20 Capsule 4 01/22/20 Discontinu ed(Patient preference /discontin uation) Amoxicillin-Pot Clavulanate 875-125 MG Oral Tablet (Augmentin) Take 1 Tablet by mouth in the morning and 1 Tablet before bedtime. Do all this for 10 days. 20 Tablet 4 01/22/20 Discontinu ed(Patient preference /discontin uation) documented as of this encounter (statuses as of 01/22/2024) Active Problems Problem Noted Date Diagnosed Date [...] 28weeks, States she was being seen in [place] per discussions with [facility], she had only shown for anatomy US, cancelled/no showed all her visits Anemia of mother in , antepartum, third trimester 12/17/2022 Overview: Blood management referral for venofer Vitmain b12 1000mcg daily Trichomonal vulvovaginitis 12/17/2022 Overview: Treated 12/17/22 Positive 01/26/23 treated THANG due 39w Chlamydia infection affecting in secon d trimester 12/17/2022 Overview: Noted in labs from [place], unsure if she was treated. 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 Never true 03/19/2023 Seltzer Depression Scale Answer Date Recorded Seltzer Depression Scale Total 22 07/08/2023 The thought [...] Sign Reading Time Taken Comments Blood Pressure 112/72 01/22/2024 9:19 AM EDT Pulse 94 01/22/2024 9:19 AM EDT Temperature 36.5 C (97.7 F) 01/22/2024 9:19 AM ED T Respiratory Rate 18 01/22/2024 9:19 AM EDT Oxygen Saturation 98% 01/22/2024 9:19 AM EDT Inhaled Oxygen Concentration - - Weight 53.6 kg (118 lb 3.2 oz) 01/22/2024 9:19 A M EDT Height - - Body Mass Index 23.87 10/01/2023 2:24 PM EST documented in this [...] as of this encounter Progress Notes * Sita Todd PA-C - 01/22/2024 9:23 AM EDT Images from the original note were not included. History of Present Illness Chief Complaint Patient presents with Acute Pt requesting inhaler for asthma-was mowing grass yesterday and started wheezing/SOB really bad Has been getting nauseous and is requesting a test Pt presents complaining of wheezing and SOB after mowing grass yesterday. She has had asthma since child. She has never needed a maintenance inhaler. Asthma is triggered by allergies and heat. Pt also vapes a lot. LMP was in November. She didn't have a period in December. She missed Depo shot in November. She has been nauseated and tired. She has had more headaches and she is singleton. These are symptoms are typical for herwhen she is . Current Medications: Ventolin HFA 108 (90 Base) MCG/ACT Inhalation Aerosol Solution Phenytoin Sodium Extended 100 MG Oral Capsule (Dilantin) Escitalopram Oxalate 10 MG Oral Tablet (Lexapro) EpiPen 2-Obie 0.3 MG/0.3ML Injection Solution Auto-injector Ondansetron 4 MG Oral Tablet Disintegrating (Zofran) Physical Exam BP 112/72 | Pulse 94 | Temp 36.5 C (97.7 F) (Tympanic) | Resp 18 | Wt 53.6 kg (118 lb 3.2 oz) |SpO2 98% | BMI 23.87 kg/m | BSA 1.49 m Physical Exam Vitals and nursing note reviewed. Constitutional: General: She is not in acute distress. Appearance: Normal appearance. She is normal weight. She is not ill-appearing, toxic-appearing or diaphoretic. Cardiovascular: Rate and Rhythm: Normal rate and regular rhythm. Heart sounds: Normal heart sounds. Pulmonary: Effort: Pulmonary effort is normal. Breath sounds: Normal breath sounds. Musculoskeletal: Cervical back: Normal range of motion. Right lower leg: No edema. Left lower leg: No edema. Neurological: Mental Status: She is alert and oriented to person, place, and time. Psychiatric: Mood and Affect: Mood normal. Assessment and Plan Intermittent asthma with reliever use up to twice per week without complication Rx sent for albuterol inhaler for PRN use. - Ventolin HFA 108 (90 Base) MCG/ACT Inhalation Aerosol Solution; Inhale 2 Puffs by mouth every 4 hours as needed for Wheezing, Shortness of Breath or Cough. Missed period Pt unable to void today and declined serum HCG. She will go to pharmacy and get urine test. She will also follow up with research associate professor regarding restarting control if she is not . Wrap-Up Return if symptoms worsen or fail to improve. Time: I spent a total of 20-29 minutes (exact time 20 mins) on the date of service in preparation, delivery, and documentation of the care provided to Yu Lopez excluding any time spent in the performance of separately billed services. This note was completed using the dictation program Fluency Direct. As such, there may be misspellings, word substitutions, or other variations that should not change the essence of the clinical content of this encounter note. Please direct questions to me if need for clarification arises. documented in this encounter Plan of Treatment Upcoming Encounters Date Type Department Care Team (Late st Contact Info) Description 09/19/2024 2:00 PM EST Office Visit [facility] [place] [address] [phone] Shannen Rizzo CRNP [address] [id number] Health Maintenance Due Date Last Done Comments [...] as of this encounter Visit Diagnoses Diagnosis Intermittent asthma with reliever use up to twice per week without complication- Primary Missed period Irregular menstrual cycle documented in this encounter Advance Directives * Full Code (Latest Code Status on File) Date Activated Date Inactivated Comments 09/03/2023 5:43 [...] the patient have Health Care Power of Information Systems Security Manager? No * Full Code Date Activated Date Inactivated Comments 03/27/2023 10:31 PM 04/01/2023 5:17 PM This order re flects the patients wishes and were consensually agreed upon. Question Answer Comments Discussion of Advance Direct deisy occurred with: Not Discussed due to patient's condition Does the patient have a Living Will? No Does the patient have Health Care Power of Information Systems Security Manager? No * Full Code Date Activated Date Inactivated Comments 02/22/2023 3:52 PM 02/24/2023 9:44 PM This order ref lects the patients wishes and were consensually agreed upon. Question Answer Comments Discussion of Advance Direct deisy occurred with: Not Discussed due to patient's condition Does the patient have a Living Will? No Does the patient have Health Care Power of Information Systems Security Manager? No * Full Code Date Activated Date Inactivated Comments 02/17/2023 12:08 AM 02/17/2023 1:32 PM This order reflects the patients wishes and were consensually agreed upon. Question Answer Comments Discussion of Advance Direct deisy occurred with: Not Discussed due to patient's condition Care Teams Metal Tile Lather Relationship Specialty Start Date End Date Shannen Rizzo CRNP [address] [id number] PCP - General Nurse Practitioner 04/20/23 documented as of this encounter
--- OUTSIDE RECORDS SUMMARY | 2024-02-29 00:19 | External Medical Summary ---
Author Name Unknown Address Unknown Organization K1[facility] - [address] [place] [address] Laboratory Report Ordering Provider Test Date Status JACQUELYN URIBE 11/12/2023 15:09:00 Final Observation Date Value Abnormality Reference (Units ) Status WBC, Total 11/12/2023 15:09:00 6.80 4.00-10.80 (K/uL) Final RBC 11/12/2023 15:09:00 4.68 3.85-5.15 (M/uL) Final Hemoglobin 11/12/2023 15:09:00 13.8 12.0-15.3 (g/dL) Final HCT 11/12/2023 15:09:00 39.9 36.0-45.2 (%) Final MCV 11/12/2023 15:09:00 85.3 81.5-97.5 (fL) Final MCH 11/12/2023 15:09:00 29.5 27.0-34.0 (pg) Final MCHC 11/12/2023 15:09:00 34.6 32.0-36.0 (g/dL) Final RDW 11/12/2023 15:09:00 12.1 11.5-15.5 (%) Final Platelets 11/12/2023 15:09:00 272 140-400 (K/uL) Final MPV 11/12/2023 15:09:00 8.9 6.6-11.1 (fL) Final Nucleated erythrocytes/100 leukocytes [Ratio] in Blood by Automated count 11/12/2023 15:09:00 0 <=0 (/100 WBCs) Final Performing Location [facility] - [address] [place] [id number]
--- OUTSIDE RECORDS SUMMARY | 2024-02-29 00:19 | External Medical Summary ---
Author Name Unknown Address Unknown Organization K1F:[facility] - [address] [place] [address] Laboratory Report Ordering Provider Test Date Status JACQUELYN URIBE 11/12/2023 15:09:00 Final Observation Date Value Abnormality Reference (Units ) Status Troponin T 11/12/2023 15:09:00 <6 <=14 (ng/ L) Final Performing Location [facility] - [address] [address]
--- OUTSIDE RECORDS SUMMARY | 2024-02-29 00:19 | External Medical Summary | Summary of Care ---
Author Name Unknown Organization [facility] Address [address] [place] [address] Phone [phone] Care Team Providers Care Pharmacometrician Name Role Phone Shannen Rizzo GELACIO Primary Care Provider Reason for Visit * Reason Comments Dog Bite Encounter Details Date Type Department Care Team ([facility] st Contact Info) Description 10/23/2023 4:36 PM EST - 10/23/2023 5:00 PM EST Emergency [facility] Emergency Department ([facility]) [address], [place] [id number] Dog bite, initial encounter (Primary Dx) Discharge Disposition: Home - Self Care Allergies Active Allergy Reactions Criticality Noted Date Comments Bee Pollen 08/13/2020 Bee Venom 05/01/2015 Honey Anaphylaxis High 02/12/2019 Levetiracetam 01/14/2021 Other reaction(s): Vomiting Sulfa Antibiotics 12/17/2022 Bupropion 12/17/2022 documented as of this encounter (statuses as of 10/24/2023) Medications Medication Sig Dispensed Refills Start Date End Date Status EpiPen 2-Obie 0.3 MG/0.3ML Injection Solution Auto-injector For a severe reaction: Inject in outer thigh following instructions on package and go to the Emergency room. 2 Each 0 03/21/2023 Active [place]-3 Fish Oil 1000 MG Oral Capsule ([place]-3) Take 1 Capsule by mouth in the [...] THE EVENING. 40 Capsule 0 10/06/2023 Active Amoxicillin-Pot Clavulanate 875-125 MG Oral Tablet (Augmentin) Take 1 Tablet by mouth in the morning and 1 Tablet before bedtime. Do all this for 10 days. 20 Tablet 0 10/23/2023 4 Active documented as of this encounter (statuses as of 10/24/2023) Active Problems Problem Noted Date Diagnosed Date [...] 28weeks, States she was being seen in [place] per discussions with [facility], she had only shown for [...] as of this encounter (statuses as of 10/24/2023) Resolved Problems Problem Noted Date Diagnosed Date Resolved Date Suicidal ideation 09/04/2023 09/09/2023 History of substance abuse 09/04/2023 0 09/17/2023 Methamphetamine use 12/17/2022 03/19/20 Overview: Last use 11/23/22 per patient Seizure 07/30/2020 03/19/2023 Recurrent major depressive disorder 02/12/2019 03/30/2023 CHR SEROUS OM NEC 05/25/2006 01/08/2023 documented as of this encounter (statuses as of 10/24/2023) Immunizations Name Administration Dates Next Due HPV [...] money to get more. Never true 03/19/2023 [place] Depression Scale Answer Date Recorded [place] Depression Scale Total 22 07/08/2023 The thought [...] Sign Reading Time Taken Comments Blood Pressure 102/76 10/23/2023 4:02 PM EST Pulse 95 10/23/2023 4:02 PM EST Temperature 36.1 C (97 F) 10/23/2023 4:02 PM EST Respiratory Rate 20 10/23/2023 4:02 PM EST Oxygen Saturation 100% 10/23/2023 4:02 PM EST Inhaled Oxygen Concentration - - Weight 55.8 kg (123 lb) 10/23/2023 4:02 PM EST Height - - Body Mass Index 24.84 10/01/2023 2:24 PM EST documented in this [...] this encounter Discharge Instructions * Discharge Instructions* Sury Antony PA-C - 10/23/2023 4:22 PM EST Wash wound twice daily with warm water and soap. Cover with a clean and dry dressing. Do not use antibiotics ointment on the area. Take medications twice daily with food for 10 days. Take a daily probiotics while on antibiotics. Quarantine the dog for 10 days. If the dog becomes ill, dies, runs away, etc, return to the ED for rabies vaccinations. See your PCP in5 days for wound recheck. Return to the Emergency Deparment if symptoms return, persist, or worsen. documented in this encounter ED Notes * Karina Vazquez MD - 10/23/2023 4:26 PM EST Images from the original note were not included. HISTORY OF PRESENT ILLNESS Yu Lopez is a 23 year old female who presents to the ED for evaluation of Dog Bite. The patient was seen at 10/23/23 1607. 23 year old female with PMH significant for epilepsy, borderline personality disorder c/o dog bite to the left thigh. Context: new puppy to her family. Patient was walking dog and it spotted another dog. Patient's boyfriend was attempting to control the dog, and it bit her on the thigh. Symptoms: abrasion, bite. 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 Review of Systems Skin: Positive for wound. The patient's allergies, past history, and medications were reviewed. PHYSICAL EXAM Initial Vitals (see all): BP 102/76 | Pulse 95 | Resp 20 | Temp 97 | O2 100 %Weight 55.79 kg | Height 149.9 cm | BMI 24.84 kg/m2 Initial Pain Assessment (see all): 5 (moderate pain)/10, location: l thigh ([facility] Adult Scale 0-10) Physical Exam Vitals and nursing note reviewed. Constitutional: General: She is awake. She is not in acute distress. Appearance: Normal appearance. She is well-developed and well-groomed. She is not ill-appearing, toxic-appearing or diaphoretic. Cardiovascular: Rate and Rhythm: Normal rate and regular rhythm. Heart sounds: Normal heart sounds. Pulmonary: Effort: Pulmonary effort is normal. Breath sounds: Normal breath sounds and air entry. Abdominal: General: Bowel sounds are normal. Palpations: Abdomen is soft. Tenderness: There is no abdominal tenderness. Musculoskeletal: Legs: Comments: Distal LLE: Sensation intact to light touch. Brisk capillary refill. DP and PT pulses +2 Skin: General: Skin is warm and dry. Capillary Refill: Capillary refill takes less than 2 seconds. Neurological: Mental Status: She is alert and oriented to person, place, and time. Psychiatric: Behavior: Behavior is cooperative. PROCEDURES AND TREATMENTS ED Orders | ED Results MEDICAL DECISION MAKING Nursing notes and vital signs were reviewed. ED Course as of 10/23/231909Oct 23, 2023 1348 Provider interpretation of XR: No acute osseous findings. No FB [JT] 1701 Reviewed recommendations with aptient. Agreeable to quarantining the dog x 10 days. Augmentin x 10 days. PCP Follow up in 5 days. Educated on strict return to ED instructions. Understanding verbalized by patient. [JT] 1702 Educated on wound care. PCP follow up in 5 days. Augmentin bid x 10 days. Educated on strict return to ED instructions. Understanding verbalized by patient. [JT] ED Course User Index [JT] Sury Antony PA-C Differential Diagnoses Based on my history, physical exam, and evaluation, the differential includes, but is not limited, to the following diagnoses: dog bite, open fracture, need for rabies vaccination, retained fB.. Amount and/or Complexity of Data Reviewed Radiology: ordered. Risk Prescription drug management. Clinical Impressions Dog bite, initial encounter Disposition Discharged. The patient's condition at disposition was: stable. - PCP follow up in 5 days. - Educate don quarantine of dog. -Educated on strict return to ED instructions. Understanding verbalized by patient. Discharge Medications Disp Refills Start End Amoxicillin-Pot Clavulanate 875-125 MG Oral Tablet (Augmentin) 20 Tablet 0 10/23/2023 11/02/2023 Sig - Route: Take 1 Tablet by mouth in the morning and 1 Tablet before bedtime. Do all this for 10 days. - Oral Class: ePrescribing Renewals Renewal requests to authorizing provider (Sury Antony PA-C) <b>prohibited</b> Karina Vazquez MD was the attending physician who supervised the care of this patient. Sury Antony PA-C ATTENDING ATTESTATION I reviewed this note. Karina Vazquez MD 10/23/2023 7:10 PM * Sara Cheung RN - 10/23/2023 4:06 PM EST Pt was bit by her dog today on l thigh, documented in this encounter Miscellaneous Notes * ED [employer] Retailer Sales Consultant Note - Sara Cheung RN - 10/23/2023 4:29 PM EST Wound was cleansed with Hibiclens, and dressed pt was given dc instructions, states understanding, pt walked otd w steady gait * Pt Handout (on AVS) - Sury Antony PA-C - 10/23/2023 4:21 PM EST Images from the original note were not included. [id number] Dog Bite A dog bite can cause a wound deep enough to break the skin. In such cases, the wound is cleaned andsometimes closed with stitches (sutures). Wounds would be closed if they're gaping open or in cosmetically important areas, such as the face. If the wound is closed, it usually isn't completely closed. This is so that fluid can drain if the wound becomes infected. Often, wounds will be left open toheal. In addition to wound care, a tetanus shot (injection) may be given, if needed. Home care Wash your hands well with soap and warm water before and after caring for the wound. This helps lower the risk of infection. Care for the wound as directed by your provider. If a dressing was applied to the wound, be sureto change it as directed. If the wound bleeds, place a clean, soft cloth on the wound. Then firmly apply pressure until the bleeding stops. This may take up to 5 minutes. Don't release the pressure and look at the wound during this time. Most wounds heal within 10 days. But an infection can occur even with correct treatment. So be sure to check the wound daily for signs of infection (see below). Antibiotics may be prescribed. These medicines help prevent or treat infection. If you?re given antibiotics, take them as directed. Also be sure to take all of the medicine. Rabies prevention Rabies is a virus that can be carried in certain animals. These can include domestic animals, such as dogs and cats. Pets fully vaccinated against rabies (2 shots) are at very low risk of infection. But because human rabies is almost always fatal, any biting pet should be confined for 10 days as anextra precaution. In general, if there's a risk for rabies, the following steps may need to be taken: If someone?s pet dog has bitten you, it should be kept in a secure area for the next 10 days to watch for signs of illness. (If the pet slat basket maker won?t allow this, contact your local animal control center.) Ask to see the pet's vaccination history records. If the dog becomes ill or dies during that time, contact your local animal control center at once so the animal can be tested for rabies. If the dog stays healthy for the next 10 days, there's no danger of rabies in the animal or you. o If a stray dog bit you, contact your local animal control center. They can give information on capture, quarantine, and animal rabies testing. o If you can?t find the animal that bit you in the next 2 days, and if rabies exists in your area, you may need to receive the rabies vaccine series. Call your healthcare provider or return to the emergency room right away. o All animal bites should be reported to the local animal control center. If you weren't given a form to fill out, you can report it yourself. Follow-up care Follow up with your healthcare provider, or as advised. When to get medical advice Call your provider or get medical care right away if any of these occur: Signs of infection: o Spreading redness or warmth from the wound o Increased pain or swelling o Fever of 100.4F (38C) or higher, or as directed by your provider o Colored fluid or pus draining from the wound Signs of rabies infection. Don't wait for any of the symptoms below to start. If you suspect that the dog that bit you is rabid or if the dog is lost and can't be found, you should get the vaccineseries. o Headache o Confusion o Strange behavior o Increased salivating and drooling o Seizure o Hallucination, anxiety, or agitation o Fever Decreased ability to move any body part near the wound Bleeding that can't be stopped after 5 minutes of firm pressure Last Reviewed Date: 12/22/202119995326-5938 [employer]. All rights reserved. This information is not intended as a substitute for professional medical care. Always follow your healthcare professional's instructions. documented in this encounter Plan of Treatment Upcoming Encounters Date Type Department Care Team (Late st Contact Info) Description 09/19/2024 2:00 PM EST Office Visit [facility], [place] [address] [phone] Shannen Rizzo CRNP [address] [address] Health Maintenance Due Date Last Done Comments COVID-19 Vaccine (2022-24 season) 2023 Depression Screening 09/09/2024 09/09/2023 Gonorrhea [...] Procedure Name Priority Date/Time Associated Diagnosis Comments XR KNEE 1-2 VIEWS Routine 10/23/2023 4:1 5 PM EST documented in this encounter Results * XR KNEE 1-2 VIEWS (10/23/2023 4:15 PM EST) Anatomical Region Laterality Modality Knee, Lower Extremity Digital Ra diography 10/23/2023 4:12 PM EST Impressions 10/23/2023 4:45 PM EST IMPRESSION: No acute osseous findings. No radiopaque foreign body. THIS DOCUMENT HAS BEEN ELECTRONICALLY SIGNED BY JOSE LAU DO Narrative 10/23/2023 4:45 PM EST PROCEDURE INFORMATION: Exam: XR Left Knee Exam date and time: 10/23/2023 4:12 PM Age: 23 years old Clinical indication: Other: Lt knee dog bite; Additional info: Eval for fb TECHNIQUE: Imaging protocol: Radiologic exam of the left knee. Views: 1 or 2 views. COMPARISON: VASC DUPLEX VENOUS LE UNILAT 02/11/2023 4:11 PM FINDINGS: Bones/joints: No acute fracture, dislocation, or bone destruction. Soft tissues: There is no significant soft tissue swelling. No radiopaque foreign body. Procedure Note Jose Lau DO - 10/23/2023 PROCEDURE INFORMATION: Exam: XR Left Knee Exam date and time: 10/23/2023 4:12 PM Age: 23 years old Clinical indication: Other: Lt knee dog bite; Additional info: Eval for fb TECHNIQUE: Imaging protocol: Radiologic exam of the left knee. Views: 1 or 2 views. COMPARISON: VASC DUPLEX VENOUS LE UNILAT 02/11/2023 4:11 PM FINDINGS: Bones/joints: No acute fracture, dislocation, or bone destruction. Soft tissues: There is no significant soft tissue swelling. No radiopaque foreign body. IMPRESSION IMPRESSION: No acute osseous findings. No radiopaque foreign body. THIS DOCUMENT HAS BEEN ELECTRONICALLY SIGNED BY JOSE LAU DO Sury Antony PA-C RADIOLOGY ([facility]) documented in this encounter Visit Diagnoses Diagnosis Dog bite, initial encounter- Primary documented in this encounter Advance Directives Latest [...] the patient have Health Care Power of Lotus Notes Administrator? No Full Code 03/27/2023 10:31 PM 04/01/2023 5:17 PM This o rder reflects the patients wishes and were consensually agreed upon. Question Answer Comments Discussion of Advance Directives occurred with: Not Discussed due to patient's condition Does the patient have a Living Will? No Does the patient have Health Care Power of Lotus Notes Administrator? No Full Code 02/22/2023 3:52 PM 02/24/2023 9:44 PM This or noa reflects the patients wishes and were consensually agreed upon. Question Answer Comments Discussion of Advance Directives occurred with: Not Discussed due to patient's condition Does the patient have a Living Will? No Does the patient have Health Care Power of Lotus Notes Administrator? No Full Code 02/17/2023 12:08 AM 02/17/2023 1:32 PM This order reflects the patients wishes and were consensually agreed upon. Question Answer Comments Discussion of Advance Directives occurred with: Not Discussed due to patient's condition Care Teams Pharmacometrician Relationship Specialty Start Date End Date Shannen Rizzo CRNP [address] [id number] PCP - General Nurse Practitioner 04/20/23 documented as of this encounter
--- OUTSIDE RECORDS SUMMARY | 2024-02-29 00:19 | External Medical Summary ---
Author Name Unknown Address Unknown Organization [facility] [address] [facility]. [place] [id number] Laboratory Report Ordering Provider Test Date Status JACQUELYN URIBE 11/12/2023 15:09:00 Final Observation Date Value Abnormality Reference (Units ) Status BUN 11/12/2023 15:09:00 12 6-20 (mg/dL) Final Creatinine 11/12/2023 15:09:00 0.8 0.5-1.0 (mg/dL) Final Glomerular filtration rate/1.73 sq M.predicted [Volume Rate/Area] in Serum, Plasma or Blood by Creatinine-based formula (CKD-EPI) 11/12/2023 15:09:00 >90 >=60 (mL/min) Final eGFR is calculated based on the CKD-EPI 2020 equation Sodium 11/12/2023 15:09:00 140 135-146 (m mol/L) Final Potassium 11/12/2023 15:09:00 3.7 3.5-5.1 (m mol/L) Final Cl 11/12/2023 15:09:00 106 98-107 (mm ol/L) Final CO2 11/12/2023 15:09:00 24 22-32 (mmo l/L) Final Anion gap 11/12/2023 15:09:00 10 7-15 (mmol /L) Final Glucose 11/12/2023 15:09:00 99 70-120 (mg /dL) Final Albumin 11/12/2023 15:09:00 4.4 3.8-5.0 (g /dL) Final AST (Aspartate aminotransferase) 11/12/2023 15:09:00 18 10-35 (U/L) Final Alk Phos 11/12/2023 15:09:00 78 35-130 (U/ L) Final Bilirubin, Total 11/12/2023 15:09:00 0.5 <=1 .2 (mg/dL) Final Calcium 11/12/2023 15:09:00 9.2 8.4-10.2 ( mg/dL) Final Protein 11/12/2023 15:09:00 6.8 6.0-8.3 (g /dL) Final ALT (Alanine aminotransferase) 11/12/2023 15:09:00 17 10-35 (U/L) Final Performing Location LABORATORY [facility] - [facility] [place]. [place] [id number]
--- OUTSIDE RECORDS SUMMARY | 2024-02-29 00:20 | External Medical Summary | Summary of Care ---
Author Name Unknown Organization [facility] Address [address] [place] [address] Phone [phone] Care Team Providers Care Open Hearth Laborer Name Role Phone Shannen Rizzo GELACIO Primary Care Provider Reason for Visit * Reason Onset Date Comments Abnormal Test Results 10/13/2023 Positive s yphilis testing Encounter Details Date Type Department Care Team (Late st Contact Info) Description 10/13/2023 Telephone [facility] Emergency Department ([facility]) [address] [place] [address] Chase Shukla MD [address], [place] [id number] Abnormal Test Results (Positive syphilis t... Allergies Active Allergy Reactions Criticality Noted Date [...] Emergency room. 2 Each 0 03/21/2023 Active [place]-3 Fish Oil 1000 MG Oral Capsule ([place]-3) Take 1 Capsule by mouth in the [...] 28weeks, States she was being seen in [place] per discussions with [facility] center, she had only shown for anatomy US, cancelled/no showed all her visits Anemia of mother in , antepartum, third trimester 12/17/2022 Overview: Blood management referral for venofer Vitmain b12 1000mcg daily Trichomonal vulvovaginitis 12/17/2022 Overview: Treated 12/17/22 Positive 01/26/23 treated THANG due 39w Chlamydia infection affecting in secon d trimester 12/17/2022 Overview: Noted in labs from [place], unsure if she was treated. R/p completed [...] money to get more. Never true 03/19/2023 [place] Depression Scale Answer Date Recorded [place] Depression Scale Total 22 07/08/2023 The thought [...] encounter Miscellaneous Notes * Telephone Encounter - Chase Shukla MD - 10/13/2023 7:39 AM EST Patient called back after I initially tried to call her with abnormal testing. I informed her of the positive syphilis screening test. Recommended she come back in for evaluationASAP. She states that she has not noticed any lesions on her genitals, but will come back in tomorrow for evaluation. I have informed her that she will need to be examined, and possibly treated for syphilis. We will likely need to discuss this matter with Infectious Disease service as well. Chase Shukla MD Emergency Medicine, [facility] documented in this encounter Plan of Treatment Upcoming Encounters Date Type Department Care Team (Late st Contact Info) Description 10/22/2023 1:00 PM EST Office Visit Neurology, [address] [phone] Gautam Bragg DO [address] [place] [address] 03/24/2024 3:30 PM EDT Office Visit Oral Maxillofacial Surgery, [place] [address] [place] [address] Yo Eliseo Gould, DDS [address] [place] [address] 09/19/2024 2:00 PM EST [facility] [address] [place] [address] Shannen Rizzo CRNP [address] [address] Health Maintenance Due Date Last Done [...] the patient have Health Care Power of Automotive Service Technician? No Full Code 03/27/2023 10:31 PM 04/01/2023 5:17 PM This o rder reflects the patients wishes and were consensually agreed upon. Question Answer Comments Discussion of Advance Directives occurred with: Not Discussed due to patient's condition Does the patient have a Living Will? No Does the patient have Health Care Power of Automotive Service Technician? No Full Code 02/22/2023 3:52 PM 02/24/2023 9:44 PM This or noa reflects the patients wishes and were consensually agreed upon. Question Answer Comments Discussion of Advance Directives occurred with: Not Discussed due to patient's condition Does the patient have a Living Will? No Does the patient have Health Care Power of Automotive Service Technician? No Full Code 02/17/2023 12:08 AM 02/17/2023 1:32 PM This order reflects the patients wishes and were consensually agreed upon. Question Answer Comments Discussion of Advance Directives occurred with: Not Discussed due to patient's condition Care Teams Open Hearth Laborer Relationship Specialty Start Date End Date Shannen Rizzo CRNP [address] [address] PCP - General Nurse Practitioner 04/20/23 documented as of this encounter
--- OUTSIDE RECORDS SUMMARY | 2024-02-29 00:20 | External Medical Summary | Summary of Care ---
Author Name Unknown Organization [facility] Address [address] [place] [address] Phone [phone] Care Team Providers Care Insurance Operations Rep Name Role Phone Shannen RizzoNP Primary Care Provider Encounter Details Date Type Department Care Team (Late st Contact Info) Description 10/01/2023 Orders Only [facility] Emergency Department ([facility]) [address] [place] [address] Chase Shukla MD [address] [place] [address] Allergies Active Allergy Reactions Criticality Noted Date Comments Bee Pollen 08/13/2020 Bee Venom 05/01/2015 Honey Anaphylaxis High 02/12/2019 Levetiracetam 01/14/2021 Other reaction(s): Vomiting Sulfa Antibiotics 12/17/2022 Bupropion 12/17/2022 documented as of this encounter (statuses as of 10/01/2023) Medications Medication Sig Dispensed Refills Start Date End Date Status EpiPen 2-Obie 0.3 MG/0.3ML Injection Solution Auto-injector For a severe reaction: Inject in outer thigh following instructions on package and go to the Emergency room. 2 Each 0 03/21/2023 Active Clark-3 Fish Oil 1000 MG Oral Capsule (Clark-3) Take 1 Capsule by mouth in the [...] Additional Information Patient not taking.Reported on 09/17/2023 Phenytoin Sodium Extended 100 MG Oral Capsule (Dilantin)Indication s:Nonintractable epilepsy without status epilepticus, unspecified epilepsy type (HCC) TAKE 2 CAPSULES BY MOUTH IN THE MORNING, ONE IN THE AFTERNOON, AND ONE IN THE EVENING. 40 Capsule 0 09/17/2023 Active Ondansetron 4 MG Oral Tablet Disintegrating (Zofran) Place 1 Tablet on tongue every 8 hours as needed for Nausea. dissolve on tongue. 2 Tablet 0 10/01/2023 Active metroNIDAZOLE 500 MG Oral Tablet (Flagyl) Take 1 Tablet by mouth in the morning and 1 Tablet before bedtime. Do all this for 13 doses. 13 Tablet 0 10/01/2023 4 Active Doxycycline Hyclate 100 MG Oral Tablet Take 1 Tablet by mouth in the morning and 1 Tablet before bedtime. Do all this for 13 doses. 13 Tablet 0 10/01/2023 4 Active Emtricitabine-Tenofo vir DF 200-300 MG Oral [...] on tongue. 12 Tablet 0 10/01/2023 Active documented as of this encounter (statuses as of 10/01/2023) Active Problems Problem Noted Date Diagnosed Date [...] being seen in [place] per discussions with [facility], she had only shown for anatomy US, cancelled/no showed all her visits Anemia of mother in , antepartum, third trimester 12/17/2022 Overview: Blood management referral for venofer Vitmain b12 1000mcg daily Trichomonal vulvovaginitis 12/17/2022 Overview: Treated 12/17/22 Positive 01/26/23 treated THANG due 39w Chlamydia infection affecting in secon d trimester 12/17/2022 Overview: Noted in labs from [place], unsure if she was treated. 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 Never true 03/19/2023 [place] Depression Scale Answer Date Recorded [place] Depression Scale Total 22 07/08/2023 The thought [...] Care Team (Late st Contact Info) Description 10/08/2023 10:00 AM EST Office Visit Gynecology/Obstetrics [facility] [address] [place] [address] Willow Contreras PA-C [address] [place] [address] 10/22/2023 1:00 PM EST Office Visit Neurology, [place] [address] [place] [facility] [place] [phone] Gautam Bragg DO [address] [facility] [place] [address] 03/24/2024 3:30 PM EDT Office Visit Oral Maxillofacial Surgery, [place] [address] [facility] [place] [phone] Eliseo Ram DDS [address] [facility] [address] 09/19/2024 2:00 PM EST Office Visit [facility] [place] [address] [phone] Matthias Shannen TeressaGELACIO rosario [address] [facility] [place] [address] Health Maintenance Due Date Last Done Comments COVID-19 Vaccine (#1) 03/26/2000 Depression Screening 09/09/2024 09/09/2023 Gonorrhea / Chlamydia Screen 09/17/2024, 08/19/2023, 04/08/2023, Additional history exists Pap Smear 04/08/2026 04/08/2023 [...] the patient have Health Care Power of Stock Tracer? No Full Code 03/27/2023 10:31 PM 04/01/2023 5:17 PM This o rder reflects the patients wishes and were consensually agreed upon. Question Answer Comments Discussion of Advance Directives occurred with: Not Discussed due to patient's condition Does the patient have a Living Will? No Does the patient have Health Care Power of Stock Tracer? No Full Code 02/22/2023 3:52 PM 02/24/2023 9:44 PM This or noa reflects the patients wishes and were consensually agreed upon. Question Answer Comments Discussion of Advance Directives occurred with: Not Discussed due to patient's condition Does the patient have a Living Will? No Does the patient have Health Care Power of Stock Tracer? No Full Code 02/17/2023 12:08 AM 02/17/2023 1:32 PM This order reflects the patients wishes and were consensually agreed upon. Question Answer Comments Discussion of Advance Directives occurred with: Not Discussed due to patient's condition Care Teams Insurance Operations Rep Relationship Specialty Start Date End Date Shannen Rizzo CRNP [address] [id number] PCP - General Nurse Practitioner 04/20/23 documented as of this encounter
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
--- OUTSIDE RECORDS SUMMARY | 2024-02-29 00:20 | External Medical Summary | Summary of Care ---
Author Name Unknown Organization [facility] Address [address] [place] [address] Phone [phone] Care Team Providers Care Blending Operator Name Role Phone Shannen Rizzo GELACIO Primary Care Provider Reason for Visit * Reason Comments Mangle Tender Cloth Return Nexplanon removal Encounter Details Date Type Department Care Team ([facility] st Contact Info) Description 10/08/2023 10:00 AM EST Office Visit Gynecology/Obstetric s [facility] [address] [place] [address] Willow Contreras PA-C [address] [place], [place] [phone] Encounter for Nexplanon removal [Z30.46]* Allergies Active Allergy Reactions Criticality Noted Date Comments Bee Pollen 08/13/2020 Bee Venom 05/01/2015 Honey Anaphylaxis High 02/12/2019 Levetiracetam 01/14/2021 Other reaction(s): Vomiting Sulfa Antibiotics 12/17/2022 Bupropion 12/17/2022 documented as of this encounter (statuses as of 10/08/2023) Medications Medication Sig Dispensed Refills Start Date End Date Status EpiPen 2-Obie 0.3 MG/0.3ML Injection Solution Auto-injector For a severe reaction: Inject in outer thigh following instructions on package and go to the Emergency room. 2 Each 0 03/21/2023 Active [place]-3 Fish Oil 1000 MG Oral Capsule ([place]-3) Take 1 Capsule by mouth in the [...] days. Until gone.. 20 Capsule 0 10/08/2023 Active Hospital, Clinic, or Other Facility Administered Medication Ordered Dose Route Frequency Start Date End Date Status lidocaine 2 % inj 30 mgIndications:Encounter for Nexplanon removal 30 mg SC ONCE 10/08/2023 10/08/2023 Active documented as of this encounter (statuses as of 10/08/2023) Active Problems Problem Noted Date Diagnosed Date [...] 28weeks, States she was being seen in [place] per discussions with [facility], she had only shown for anatomy [...] as of this encounter (statuses as of 10/08/2023) Resolved Problems Problem Noted Date Diagnosed Date Resolved Date Suicidal ideation 09/04/2023 09/09/2023 History of substance abuse 09/04/2023 0 09/17/2023 Methamphetamine use 12/17/2022 03/19/20 Overview: Last use 11/23/22 per patient Seizure 07/30/2020 03/19/2023 Recurrent major depressive disorder 02/12/2019 03/30/2023 CHR SEROUS OM NEC 05/25/2006 01/08/2023 documented as of this encounter (statuses as of 10/08/2023) Immunizations Name Administration Dates Next Due HPV [...] Not Answered Alcohol Use Standard Drinks/Week Comments Yes 0 [...] money to get more. Never true 03/19/2023 [place] Depression Scale Answer Date Recorded [place] Depression Scale Total 22 07/08/2023 The thought [...] Sign Reading Time Taken Comments Blood Pressure 100/62 10/08/2023 9:44 AM EST Pulse - - Temperature 36.8 C (98.2 F) 10/08/2023 9:44 AM ES T Respiratory Rate - - Oxygen Saturation - - Inhaled Oxygen Concentration - - Weight 56.2 kg (123 lb 12.8 oz) 10/08/2023 9:44 AM EST Height - - Body Mass Index 25 10/01/2023 2:24 PM EST documented in this [...] as of this encounter Progress Notes * Willow Contreras PA-C - 10/08/2023 10:08 AM EST Implant removal progress note Yu Lopez Yu Lopez 23 year old is here for removal of Nexplanon implant. Date of procedure: 10/08/2023 Preop Dx: Desired removal of Nexplanon subdermal implant Post op Dx: same Procedure: Removal of Nexplanon Surgeon: Willow Cnotreras PA-C Anesthesia: 1.5ml of 2% Lidocaine as local to medial proximal left upper extremity Findings: normal Complications: none Disposition: Return as needed, PRN. Procedure Details: Patient signed informed consent. A "time out" was initiated by Willow Contreras PA-C prior to procedure. The patient was identified by name and date of . The correct procedure, and correct site identified. Correct positioning (as applicable). There is availability of necessary equipment. Patient states she is not allergic to latex. The implant was palpated on the inner left upper arm. The area was cleansed with betadine and was injected with 2% Lidocaine for anesthesia. Sterile gloves and draping was applied. An 11 blade was used to make a small 1 cm incision at the entry site of the implant. The implant was grasped with forceps and easily removed. Steris strips were placed over the incision and a pressure dressing applied.She was instructed to leave her steri strips on but may take the pressure dressing off tomorrow. Nocomplications, patient tolerated the procedure well. [facility] for infection prophylaxis. Willow Contreras PA-C 10/08/2023 10:57 AM documented in this encounter Nursing Notes * Maryam Estrada LPN - 10/08/2023 9:45 AM EST Chief Complaint Patient presents with Mangle Tender Cloth Return Nexplanon removal Maryam Estrada LPN 10/08/2023 9:45 AM documented in this encounter Plan of Treatment Upcoming Encounters Date Type Department Care Team (Late st Contact Info) Description 10/22/2023 1:00 PM EST Office Visit Neurology, [place] [address] [place] [address] Gautam Bragg DO [address] [place], [place] [phone] 03/24/2024 3:30 PM EDT Office Visit Oral Maxillofacial Surgery, [place] [address] [place], [place] [phone] Eliseo Ram DDS [address] [place], [place] [phone] 09/19/2024 2:00 PM EST Office Visit [facility] [address] [place] [address] Shannen Rizzo CRNP [address] [place] [address] Scheduled Orders Name Type Priority Associated Diagnoses Orde r Schedule REMOVE DRUG IMPLANT DEVICE Procedures Routine Encounter for Nexplanon removal [Z30.46] Ordered: 10/08/2023 Health Maintenance Due Date Last Done Comments [...] as of this encounter Visit Diagnoses Diagnosis Encounter for Nexplanon removal [Z30.46]- Primary Surveillance of previously prescribed implantable subdermal contraceptive documented in this encounter Advance Directives Latest [...] the patient have Health Care Power of Wind Turbine Engineer? No Full Code 03/27/2023 10:31 PM 04/01/2023 5:17 PM This o rder reflects the patients wishes and were consensually agreed upon. Question Answer Comments Discussion of Advance Directives occurred with: Not Discussed due to patient's condition Does the patient have a Living Will? No Does the patient have Health Care Power of Wind Turbine Engineer? No Full Code 02/22/2023 3:52 PM 02/24/2023 9:44 PM This or noa reflects the patients wishes and were consensually agreed upon. Question Answer Comments Discussion of Advance Directives occurred with: Not Discussed due to patient's condition Does the patient have a Living Will? No Does the patient have Health Care Power of Wind Turbine Engineer? No Full Code 02/17/2023 12:08 AM 02/17/2023 1:32 PM This order reflects the patients wishes and were consensually agreed upon. Question Answer Comments Discussion of Advance Directives occurred with: Not Discussed due to patient's condition Care Teams Blending Operator Relationship Specialty Start Date End Date Shannen Rizzo CRNP [address] [phone] PCP - General Nurse Practitioner 04/20/23 documented as of this encounter
--- OUTSIDE RECORDS SUMMARY | 2024-02-29 00:20 | External Medical Summary | Summary of Care ---
Author Name Unknown Organization [facility] Address [address] [place] [address] Phone [phone] Care Team Providers Care Cage Shift Manager Name Role Phone Shannen Rizzo GELACIO Primary Care Provider Reason for Visit * Reason Onset Date Comments Abnormal Test Results 10/13/2023 Positive s yphilis testing Encounter Details Date Type Department Care Team (Late st Contact Info) Description 10/13/2023 Telephone [facility] Emergency Department ([facility]) [address] [place] [address] Chase Shukla MD [address] [place], [place] [phone] Abnormal Test Results (Positive syphilis t... Allergies [...] Emergency room. 2 Each 0 03/21/2023 Active [place]-3 Fish Oil 1000 MG Oral Capsule ([place]-3) Take 1 Capsule by mouth in [...] being seen in [place] per discussions with [facility], she had only shown for anatomy US, cancelled/no showed all her visits Anemia of mother in , antepartum, third trimester 12/17/2022 Overview: Blood management referral for venofer Vitmain b12 1000mcg daily Trichomonal vulvovaginitis 12/17/2022 Overview: Treated 12/17/22 Positive 01/26/23 treated THANG due 39w Chlamydia infection affecting in secon d trimester 12/17/2022 Overview: Noted in labs from [place], unsure if she was treated. R/p completed [...] 1-18 Yrs) 04/11/2009,10/08/2008,05/07/2000 Hepatitis B, 0-19 yrs 05/07/2000,1999,11/1999 IPV - Polio Virus Vaccine (Inact) 2003,12/02/2000,01/27/2000,11/21 [...] money to get more. Never true 03/19/2023 [place] Depression Scale Answer Date Recorded [place] Depression Scale Total 22 07/08/2023 The thought [...] encounter Miscellaneous Notes * Telephone Encounter - Neo Talbert PA-C - 10/13/2023 8:43 AM EST I spoke with Infectious Disease, Wesley Singh via tiger text about this patient's test results. This patient had a another positive test in February of 2023, and was treated with a single dose of penicillin G at that time. She then tested positive again a few days ago. He recommends if symptomatic at all would recommend Pen G single dose treatment, or if she has been engaged in a lot of high-riskbehaviors he would also recommend treatment, with penicillin G x1 dose. Neo Talbert PA-C * Telephone Encounter - Chase Shukla MD [...] as well. Chase Shukla MD Emergency Medicine, [facility] documented in this encounter Plan of Treatment Upcoming Encounters Date Type Department Care Team (Late st Contact Info) Description 10/22/2023 1:00 PM EST Office Visit Neurology, [facility] [address] [place] [address] Gautam Bragg DO [address] [place] [address] 03/24/2024 3:30 PM EDT Office Visit Oral Maxillofacial Surgery, [facility] [address] [place] [address] Eliseo Ram, [facility] [address], [place] [phone] 09/19/2024 2:00 PM EST Office Visit [facility] [address] [place] [address] Shannen Rizzo CRNP [address] [facility] [place] [phone] Health Maintenance Due Date Last Done Comments [...] the patient have Health Care Power of Byproduct Engineer? No Full Code 03/27/2023 10:31 PM 04/01/2023 5:17 PM This o rder reflects the patients wishes and were consensually agreed upon. Question Answer Comments Discussion of Advance Directives occurred with: Not Discussed due to patient's condition Does the patient have a Living Will? No Does the patient have Health Care Power of Byproduct Engineer? No Full Code 02/22/2023 3:52 PM 02/24/2023 9:44 PM This or noa reflects the patients wishes and were consensually agreed upon. Question Answer Comments Discussion of Advance Directives occurred with: Not Discussed due to patient's condition Does the patient have a Living Will? No Does the patient have Health Care Power of Byproduct Engineer? No Full Code 02/17/2023 12:08 AM 02/17/2023 1:32 PM This order reflects the patients wishes and were consensually agreed upon. Question Answer Comments Discussion of Advance Directives occurred with: Not Discussed due to patient's condition Care Teams Cage Shift Manager Relationship Specialty Start Date End Date Shannen Rizzo CRNP [address] [address] PCP - General Nurse Practitioner 04/20/23 documented as of this encounter
--- OUTSIDE RECORDS SUMMARY | 2024-02-29 00:21 | External Medical Summary ---
Author Name Unknown Address Unknown Organization [id number]:LABORATORY [facility] [place] - [address] [place] [address] Laboratory Report Ordering Provider Test Date Status FIDEL WALLS 10/01/2023 21:08:09 Final Observation Date Value Abnormality Reference (Units ) Status Hep B surface Ag 10/01/2023 21:08:09 Negative Neg ative Final Performing Location LABORATORY [facility] - [address] [place] [address]
--- OUTSIDE RECORDS SUMMARY | 2024-02-29 00:21 | External Medical Summary ---
Author Name Unknown Address Unknown Organization K01:LABORATORY [place] [address] [place] [address] Laboratory Report Ordering Provider Test Date Status FIDEL WALLS 10/01/2023 21:08:09 Final Observation Date Value Abnormality Reference (Units) Status Hepatitis B virus surface Ab [Units/volume] in Serum or Plasma by Immunoassay 10/01/2023 21:08:09 <3.5 (mIU/mL) Final Hepatitis B virus surface Ab [Presence] in Serum by Immunoassay 10/01/2023 21:08:09 Negative Final HEPATITIS B SURFACE ANTIBODY, INTERPRETATION 10/01/2023 21:08:09 NOT immune to Hepatitis B Virus Final POSITIVE: >=11.5 mIU/mL
INDETERMINATE: 8.5-<11.5 mIU/mL
NEGATIVE: <8.5 mIU/mL Performing Location LAB[facility]ATORY [facility] [place] - [facility] [address] [place] [address]
--- OUTSIDE RECORDS SUMMARY | 2024-02-29 00:21 | External Medical Summary ---
Author Name Unknown Address Unknown Organization [id number]:LABORATORY [facility] - [address] [place] [address] Laboratory Report Ordering Provider Test Date Status CRISTOBAL SMITH 10/01/2023 19:50:30 Final Observation Date Value Abnormality Reference (Units ) Status Color of Urine by Auto 10/01/2023 19:50:30 Yellow Light Yellow, Yellow, Dark Yellow Final Clarity, Urine 10/01/2023 19:50:30 Clear Clear Final Glucose [Mass/volume] in Urine by Automated test strip 10/01/2023 19:50:30 Negative Negative (mg/dL) Final Bilirubin.total [Presence] in Urine by Automated test strip 10/01/2023 19:50:30 Negative Negative Final Ketones [Mass/volume] in Urine by Automated test strip 10/01/2023 19:50:30 Negative Negative (mg/dL) Final Specific gravity, Urine 10/01/2023 19:50:30 1.028 1.003-1.030 Final Hemoglobin [Presence] in Urine by Automated test strip 10/01/2023 19:50:30 Negative Negative Final pH, Urine 10/01/2023 19:50:30 7.0 5.0-7.5 (Units) Final Protein [Mass/volume] in Urine by Automated test strip 10/01/2023 19:50:30 Negative Negative (mg/dL) Final Urobilinogen [Mass/volume] in Urine by Automated test strip 10/01/2023 19:50:30 0.2 0.2, 1.0 (mg/dL) Final Nitrite [Presence] in Urine by Automated test strip 10/01/2023 19:50:30 Negative Negative Final Leukocyte esterase [Presence] in Urine by Automated test strip 10/01/2023 19:50:30 Moderate Abnormal Negative Final Performing Location LABORATORY [facility] - [address] [place] [address]
--- OUTSIDE RECORDS SUMMARY | 2024-02-29 00:21 | External Medical Summary ---
Author Name Unknown Address Unknown Organization K1F:LABORATORY [facility] - [address] [place] [address] [address] [place] [address] Laboratory Report Ordering Provider Test Date Status CRISTOBAL SMITH 10/01/2023 19:50:30 Final Observation Date Value Abnormality Reference (Units ) Status RBC, Urine 10/01/2023 19:50:30 0-2 0-2 (/HPF) Final WBC, Urine 10/01/2023 19:50:30 30-49 Abnormal 0-2 (/HPF) Final Bacteria [#/area] in Urine sediment by Microscopy high power field 10/01/2023 19:50:30 101-150 Abnormal 0-25 (/HPF) Final Epithelial cells.squamous [#/area] in Urine sediment by Microscopy high power field 10/01/2023 19:50:30 Many Abnormal None (/HPF) Final Performing Location LABORATORY [facility] - [address] [place] [address]
--- OUTSIDE RECORDS SUMMARY | 2024-02-29 00:21 | External Medical Summary | Summary of Care ---
Author Name Unknown Organization [facility] Address [address] [place] [address] Phone [phone] Care Team Providers Care Stone Polisher Machine Name Role Phone Shannen Rizzo GELACIO Primary Care Provider Reason for Visit * Reason Comments Cold Symptoms * Auth/Cert Specialty Diagnoses / Procedures Referred By Rosanna stinson Referred To Contact Referral ID Status Reason Start Date Expiration Date Visits Re quested Visits Authorized [id number] Encounter Details Date Type Department Care Team (Late st Contact Info) Description 09/30/2023 11:44 PM EST - 10/01/2023 2:04 AM EST Emergency [facility] Emergency Department ([facility]) [address] [place] [address] Iron Fallon, [address] [place] [address] Nausea and vomiting, unspecified vomiting type (Primary Dx) Discharge Disposition: Home - Self [...] Emergency room. 2 Each 0 03/21/2023 Active [place]-3 Fish Oil 1000 MG Oral Capsule ([place]-3) Take 1 Capsule by mouth in the [...] on tongue. 2 Tablet 0 10/01/2023 Active documented as of [...] 28weeks, States she was being seen in [place] per discussions with [facility], she had only shown for anatomy US, cancelled/no showed all her visits Anemia of mother in , antepartum, third trimester 12/17/2022 Overview: Blood management referral for venofer Vitmain b12 1000mcg daily Trichomonal vulvovaginitis 12/17/2022 Overview: Treated 12/17/22 Positive 6/5/23 treated THANG due 39w Chlamydia infection affecting in secon d trimester 12/17/2022 Overview: Noted in labs from [place], unsure if she was treated. R/p completed [...] money to get more. Never true 03/19/2023 Liberty Depression Scale Answer Date Recorded Liberty Depression Scale Total 22 07/08/2023 The thought [...] Sign Reading Time Taken Comments Blood Pressure 109/74 10/01/2023 1:05 AM EST Pulse 64 10/01/2023 1:05 AM EST Temperature 36.2 C (97.2 F) 09/30/2023 9:56 PM ES T Respiratory Rate 18 10/01/2023 1:05 AM EST Oxygen Saturation 97% 09/30/2023 9:56 PM EST Inhaled Oxygen Concentration - - Weight 55.3 kg (122 lb) 09/30/2023 9:56 PM EST Height 149.9 cm (4' 11") 09/30/2023 9:56 PM EST Body Mass Index 24.64 09/30/2023 9:56 PM EST documented in this encounter Functional [...] this encounter Discharge Instructions * Discharge Instructions* Remedios Aguilar PA-C - 10/01/2023 1:58 AM EST Please continue to drink plenty of fluids stay well hydrated. Please use the Zofran that was provided for nausea and vomiting to make sure that you are orally hydrating. Please continue to follow up with your family physician as an outpatient. If any symptoms change or worsen return back to the ER for evaluation. documented in this encounter ED Notes * Iron Fallon DO - 10/01/2023 12:29 AM EST HISTORY OF PRESENT ILLNESS Yu Lopez is a 23 year old female who presents to the ED for evaluation of Cold Symptoms. Thepatient was seen at 09/30/23 9950. Patient is a 23 year old female who presents to the ER complaining of not feeling well. Has been experiencing several days of headache/nausea/occasional vomiting/cough and chills. Has not tried anything for symptoms. Denies chest pain, shortness of breath or abdominal pain. Denies chance of . Feels like nausea is the worst today, has not been able to tolerate much oral intake today. Motrin was given in triage. History provided by: patient bronzer used: No Cold Symptoms The patient's allergies, past history, and medications were reviewed. PHYSICAL EXAM Initial Vitals (see all): BP 117/56 | Pulse 78 | Resp 20 | Temp 97.2 | O2 97 %Weight 55.34 kg | Height 149.9 cm | BMI 24.64 kg/m2 Initial Pain Assessment (see all): 2 (mild pain)/100/10, location: headache ([facility] Adult Scale 0-10) Physical Exam Vitals and nursing note reviewed. Constitutional: General: She is not in acute distress. Appearance: Normal appearance. She is not ill-appearing. HENT: Head: Normocephalic and atraumatic. Mouth/Throat: Mouth: Mucous membranes are moist. Pharynx: Oropharynx is clear. No oropharyngeal exudate or posterior oropharyngeal erythema. Eyes: General: Right eye: No discharge. Left eye: No discharge. Conjunctiva/sclera: Conjunctivae normal. Cardiovascular: Rate and Rhythm: Normal rate and regular rhythm. Pulses: Normal pulses. Pulmonary: Effort: Pulmonary effort is normal. No respiratory distress. Breath sounds: Normal breath sounds. No stridor. No wheezing, rhonchi or rales. Abdominal: General: There is no distension. Palpations: Abdomen is soft. Tenderness: There is no abdominal tenderness. There is no right CVA tenderness, left CVA tenderness, guarding or rebound. Musculoskeletal: Right lower leg: No edema. Left lower leg: No edema. Skin: General: Skin is warm and dry. Neurological: Mental Status: She is alert and oriented to person, place, and time. Psychiatric: Mood and Affect: Mood normal. Behavior: Behavior normal. PROCEDURES AND TREATMENTS ED Orders | ED Results MEDICAL DECISION MAKING Nursing notes and vital signs were reviewed. ED Course as of 10/01/23 0249 [place] Oct 01, [id number] ED Triage Notes Headache/nausea/vomiting/cough/chills x several days. [MC] 0030 ED [place] Man Note Pt came to ED due to cold symptoms. States NV,cough, congestion, phlegm clear colored, denies BECKETT, dizziness. States CP with cough. Denies /GI abnormalities. Pt states inability to maintain fluids or food for 1 day approx. +PMS in all extremities. Inability to maintain OTC POSTAL CLERK. Given motrin in triage. No fever within ED. Call sánchez in reach. Denies needs. [place] given as per request [MC] 0045 D/w AP -- cough congestion nv, no gi/gu sx, no cp/sob -- plan for sx relief PO trial [TS] 0134 0126: pt tolerated water and cracker. States slight nausea still. Provider aware [MC] 0157 hCG Beta, Urine: Negative [MC] 0247 Patietn with nausea and vomiting with good skin turgor and moist mucuos membranes presented tothe ER with N/V. Viral panel negative. Vitals stable. Improvement with zofran, was able to tolerateoral intake. Dishcharged home with 2 doses of zofran and recommendations tot return to the ER if symptoms change/return or worsen. [MC] ED Course User Index [MC] Remedios Aguilar PA-C [TS] Iron Fallon DO I have reviewed the clinical lab, radiology, and other medical tests that were ordered during this encounter (see all). Differential Diagnoses Based on my history, physical exam, and evaluation, the differential includes, but is not limited, to the following diagnoses: gastroenteritis, influenza, nausea, URI, viral syndrome and vomiting. Amount and/or Complexity of Data Reviewed Labs: ordered. Decision-making details documented in ED Course. Risk Prescription drug management. Clinical Impressions Nausea and vomiting, unspecified vomiting type Disposition Discharged. The patient's condition at disposition was: stable. Discharge Medications Disp Refills Start End Ondansetron 4 MG Oral Tablet Disintegrating (Zofran) 2 Tablet 0 10/01/2023 -- Sig - Route: Place 1 Tablet on tongue every 8 hours as needed for Nausea. dissolve on tongue. - On Tongue Class: Site Administration Renewals Renewal requests to authorizing provider (Remedios Aguilar PA-C) <b>prohibited</b> I have personally dispensed to go medications to the patient for home use. These to go mediations are listed above with a class of site administration. These medications were labeled with the patient's name and instructions for use. Iron Fallon was the attending physician who supervised the care of this patient. Remedios Aguilar PA-C ATTENDING ATTESTATION I was readily available and reviewed care of this patient. I was available for immediate [id number] consultation and assistance. I have reviewed the care of the patient with the provider listed above. Consider viral even with negative panel, negative test. Symptoms improved. Advanced practitioner did not think labs/imaging was necessary at this time * Nacho Dunn RN - 09/30/2023 9:56 PM EST Headache/nausea/vomiting/cough/chills x several days. documented in this encounter Miscellaneous Notes * ED [facility] [facility] Note - Sury Ramirez RN - 10/01/2023 2:02 AM EST Patient provided with discharge instructions and educated on new prescription. Homar Aguilar PA-c provided patient with 2 tabs togo zofran. Patient verbalized understanding and has no further questions. * ED [facility] [facility] Note - Lisa Almodovar RN - 09/30/2023 11:54 PM EST Pt came to ED due to cold symptoms. States NV,cough, congestion, phlegm clear colored, denies BECKETT, dizziness. States CP with cough. Denies /GI abnormalities. Pt states inability to maintain fluids or food for 1 day approx. +PMS in all extremities. Inability to maintain OTC POSTAL CLERK. Given motrin in triage. No fever within ED. Call sánchez in reach. Denies needs. [place] given as per request 0034: pt sleeping in room. Awaken easily. Medicated and tolerated well. Call sánchez in reach. Denies needs 0126: pt tolerated water and cracker. States slight nausea still. Provider aware documented in this encounter Plan of Treatment Upcoming Encounters Date Type Department Care Team (Late st Contact Info) Description 10/08/2023 10:00 AM EST Office Visit Gynecology/Obstetrics [facility] [address] [place] [address] Willow Contreras PA-C [address] [place], [place] [phone] 10/22/2023 1:00 PM EST Office Visit Neurology, [place] [address] [place] [address] Gautam Bragg DO [address], [place] [phone] 03/24/2024 3:30 PM EDT Office Visit Oral Maxillofacial Surgery, [place] [address], [place] [phone] Eliseo Ram, [facility] [address] [place] [address] 09/19/2024 2:00 PM EST Office Visit [facility] [address] [place] [phone] Shannen Rizzo CRNP [address] [place], [place] [phone] Health Maintenance Due Date Last Done Comments [...] URINE SCREEN, POINT OF CARE (ENTER/EDIT) STAT 10/01/2023 1:38 AM EST RESPIRATORY PATHOGEN PANEL, PCR STAT 09/30/2023 10:00 PM EST documented in this encounter Results * URINE SCREEN, POINT OF CARE (ENTER/EDIT) (10/01/2023 1:38 AM EST) hCG Beta, Urine Negative Procedural Control Valid? Yes Lot Number [id number] Expiration Date 09/20/2024 Urine Remedios Aguilar PA-C LAB POINT OF CARE T EST ENTER/EDIT ORDERABLES * RESPIRATORY PATHOGEN PANEL, PCR (09/30/2023 10:00 PM EST) Adenovirus by PCR Negative Negative 024 11:19 PM EST LABORATORY [facility] Coronavirus 229E by PCR Negative Negative 09/30/2023 11:19 PM EST LAB[facility] Coronavirus HKU1 by PCR Negative Negative 09/30/2023 11:19 PM EST LAB[facility] Coronavirus NL63 by PCR Negative Negative 09/30/2023 11:19 PM EST LAB[facility] Coronavirus OC43 by PCR Negative Negative 09/30/2023 11:19 PM EST LAB[facility] Coronavirus SARS-CoV-2 by PCR Negative Negative 09/30/2023 11:19 PM EST LABORATORY [facility] Human Metapneumovirus by PCR Negative Negative 09/30/2023 11:19 PM EST LABORATORY [facility] Rhinovirus/Enterovi guanaco by PCR Negative Negative 09/30/2023 11:19 PM EST LABORATORY [facility] Influenza A Virus by PCR Negative Negative 09/30/2023 11:19 PM EST LABORATORY [facility] Influenza B Virus by PCR Negative Negative 09/30/2023 11:19 PM EST LABORATORY [facility] Parainfluenza Virus 1 by PCR Negative Negative 09/30/2023 11:19 PM EST LABORATORY [facility] Parainfluenza Virus 2 by PCR Negative Negative 09/30/2023 11:19 PM EST LABORATORY [facility] Parainfluenza Virus 3 by PCR Negative Negative 09/30/2023 11:19 PM EST LABORATORY [facility] Parainfluenza Virus 4 by PCR Negative Negative 09/30/2023 11:19 PM EST LABORATORY [facility] Respiratory Syncytial Virus by PCR Negative Negative 09/30/2023 11:19 PM EST LABORATORY [facility] Bordetella pertussis by PCR Negative Negative 09/30/2023 11:19 PM EST LABORATORY [facility] Chlamydia pneumoniae by PCR Negative Negative 09/30/2023 11:19 PM EST LABORATORY [facility] Mycoplasma pneumoniae by PCR Negative Negative 09/30/2023 11:19 PM EST LABORATORY [facility] Bordetella parapertussis by PCR Negative Negative 09/30/2023 11:19 PM EST LABORATORY [facility] Comment: The primers that detect Rhinovirus may cross react with some Enterorviruses. The validation of bronchial specimens, tracheal aspirates, and throats for this assay was developed and performance characteristics determined by [employer]. The validation of alternate specimen types has not been cleared or approved by the U.S. Food and Drug Administration (FDA). It has been determined that such clearance or approval is not necessary. Upper Respiratory Mid-turbinate nasal swab / Unknown Non-blood Collection / Unknown 09/30/2023 10:00 PM EST 09/30/2023 10:03 PM EST Luis Thompson DO LAB MICRO - GENERAL ORDERABLES LABORATORY [address] [address] documented in this encounter Visit Diagnoses Diagnosis Nausea and vomiting, unspecified vomiting type- Primary documented in this encounter Administered Medications Inactive Administered Medications - up to 3 most recent administrations Medication Order MAR Action Action Date Dose Rate Site Ibuprofen (Motrin) tab 400 mg 400 mg, Oral, ONCE, On Thu09/30/23 at 2230, For 1 dose Given 09/30/2023 10:51 PM EST 400 mg ondansetron ODT (Zofran) tab 4 mg 4 mg, On Tongue, ONCE, On [place] 10/01/23 at 0115, For 1 dose Given 10/01/2023 12:34 AM EST 4 mg documented in this encounter Active and Recently Administered Medications Times are shown in EST. Scheduled Medication Order 09/29/2023 09/30/2023 10/01/2023 Ibuprofen (Motrin) tab 400 mg (COMPLETED) 400 mg, Oral, ONCE, On Thu09/30/23 at 2230, For 1 dose 2251 (Given - Provider: Nacho Dunn RN) ondansetron ODT (Zofran) tab 4 mg (COMPLETED) 4 mg, On Tongue, ONCE, On Jewels 10/01/23 at 0115, For 1 dose 0034 (Given - Provid er: Lisa Almodovar RN) documented in this encounter Advance Directives [...] the patient have Health Care Power of Land Department Head? No Full Code 03/27/2023 10:31 PM 04/01/2023 5:17 PM This o rder reflects the patients wishes and were consensually agreed upon. Question Answer Comments Discussion of Advance Directives occurred with: Not Discussed due to patient's condition Does the patient have a Living Will? No Does the patient have Health Care Power of Land Department Head? No Full Code 02/22/2023 3:52 PM 02/24/2023 9:44 PM This or noa reflects the patients wishes and were consensually agreed upon. Question Answer Comments Discussion of Advance Directives occurred with: Not Discussed due to patient's condition Does the patient have a Living Will? No Does the patient have Health Care Power of Land Department Head? No Full Code 02/17/2023 12:08 AM 02/17/2023 1:32 PM This order reflects the patients wishes and were consensually agreed upon. Question Answer Comments Discussion of Advance Directives occurred with: Not Discussed due to patient's condition Care Teams Stone Polisher Machine Relationship Specialty Start Date End Date Shannen Rizzo CRNP [address] [address] PCP - General Nurse Practitioner 04/20/23 documented as of this encounter
--- OUTSIDE RECORDS SUMMARY | 2024-02-29 00:21 | External Medical Summary ---
Author Name Unknown Address Unknown Organization K01:LABORATORY [facility] [place] [facility] [address] [facility] [address] Laboratory Report Ordering Provider Test Date Status CRISTOBAL SMITH 10/01/2023 19:50:30 Final Observation Date Value Abnormality Reference (Units ) Status Chlamydia trachomatis rRNA [Presence] in Specimen by JORGE LUIS with probe detection 10/01/2023 19:50:30 Negative Negative Final No Chlamydia trachomatis det ected by speech instructor-mediated nucleic acid amplification. Neisseria gonorrhoeae rRNA [ Presence] in Specimen by JORGE LUIS with probe detection 10/01/2023 19:50:30 Negative Negative Final No Neisseria gonorrhoeae det ected by speech instructor-mediated nucleic acid amplification. Performing Location LABORATORY [facility] [place] - [address] [facility] [address]
--- OUTSIDE RECORDS SUMMARY | 2024-02-29 00:21 | External Medical Summary ---
Author Name Unknown Address Unknown Organization : Laboratory Report Ordering Provider Test Date Status FIDEL WALLS 10/01/2023 21:08:09 Final Observation Date Value Abnormality Reference (Units ) Status Treponema pallidum Ab [Presence] in Serum by Agglutination 10/01/2023 21:08:09 Reactive Abnormal Nonreactive Final The Treponema pallidum parti marine agglutination assay
is a treponemal assay that is intended to be used
with other tests (e.g., RPR) as part of a diagnostic
algorithm in the diagnosis of syphilis.

Test Performed at:
[facility]
[address]
[place] [address]
Luis Fernando Brambila M.D., Ph.D.,Director of Laboratories Performing Location
--- OUTSIDE RECORDS SUMMARY | 2024-02-29 00:21 | External Medical Summary ---
Author Name Unknown Address Unknown Organization K01:LABORATORY [facility] [place] - [address] [address] Laboratory Report Ordering Provider Test Date Status FIDEL WALLS 10/01/2023 21:08:09 Final Observation Date Value Abnormality Reference (Units ) Status Hep C Ab 10/01/2023 21:08:09 Negative Negative Final Further HCV quantitative christy ting not performed per protocol. Performing Location LABORATORY [facility] [place] - [address] [place] [address]
--- OUTSIDE RECORDS SUMMARY | 2024-02-29 00:21 | External Medical Summary ---
Author Name Unknown Address Unknown Organization K01:LABORATORY [place] [address] [place] [address] Laboratory Report Ordering Provider Test Date Status FIDEL WALLS 10/01/2023 21:08:09 Final Observation Date Value Abnormality Reference (Units ) Status HIV 1+2 Ab+HIV1 p24 Ag [Presence] in Serum or Plasma by Immunoassay 10/01/2023 21:08:09 Negative Negative Final Negative HIV-1/2 antigen and antibody screening tset results usually indicate the absence of HIV-1 and HIV-2 infection. However, such negative results do not rule-out acute HIV infection. If acute HIV-1 infection is highly suspected, it is recommended that a specimen be submitted for detection of HIV-1 RNA. Performing Location LABORATORY [facility] [place] - [address] [place] [address]
--- OUTSIDE RECORDS SUMMARY | 2024-02-29 00:21 | External Medical Summary ---
Author Name Unknown Address Unknown Organization K01:[place] [facility] [place] [address] [place] [address] Laboratory Report Ordering Provider Test Date Status FIDEL WALLS 10/01/2023 19:50:30 Final Observation Date Value Abnormality Reference (Units ) Status Trichomonas vaginalis rRNA [Presence] in Specimen by JORGE LUIS with probe detection 10/01/2023 19:50:30 Negative Negative Final No Trichomonas vaginalis det ected by manager group mediated nucleic acid amplification. Performing Location LABORATORY [facility] - [address] [place] [address]
--- OUTSIDE RECORDS SUMMARY | 2024-02-29 00:21 | External Medical Summary ---
Author Name Unknown Address Unknown Organization K1F:LABORATORY [facility] - [place] [address] Laboratory Report Ordering Provider Test Date Status FIDEL WALLS 10/01/2023 19:50:30 Final Observation Date Value Abnormality Reference (Units ) Status Screen, Urine 10/01/2023 19:50:30 Negative Negative Final Performing Location LABORATORY [facility] - [address] [address]
--- OUTSIDE RECORDS SUMMARY | 2024-02-29 00:21 | External Medical Summary ---
Author Name Unknown Address Unknown Organization K01:LABORATORY [facility] – [place] - [address] [address] Laboratory Report Ordering Provider Test Date Status FIDEL WALLS 10/01/2023 21:08:09 Final Observation Date Value Abnormality Reference (Units ) Status Treponema pallidum Ab [Presence] in Serum by Immunoassay 10/01/2023 21:08:09 Reactive Abnormal Nonreactive Final Per the CDC-approved reverse algorithm, RPR has been ordered. Performing Location LABORATORY [facility] – [place] - [address] [address]
--- OUTSIDE RECORDS SUMMARY | 2024-02-29 00:21 | External Medical Summary ---
Author Name Unknown Address Unknown Organization K01:LABORATORY [facility] [place] - [address] [place] [address] Laboratory Report Ordering Provider Test Date Status FIDEL WALLS 10/01/2023 21:08:09 Final Observation Date Value Abnormality Reference (Units ) Status Reagin Ab [Presence] in Serum by RPR 10/01/2023 21:08:09 Nonreactive Nonreactive Final Per the CDC-approved reverse algorithm, treponema pallidum antibody particle agglutination has been ordered. If there are any questions regarding interpretation, please contact the laboratory. Performing Location LABORATORY [facility] [place] - [address] [address]
--- OUTSIDE RECORDS SUMMARY | 2024-02-29 00:22 | External Medical Summary ---
Author Name Unknown Address Unknown Organization K1F:LABORATORY [facility] - [facility] [address] [place] [address] Laboratory Report Ordering Provider Test Date Status CRISTOBAL SMITH 10/01/2023 14:58:00 Final Observation Date Value Abnormality Reference (Units ) Status WBC, Total 10/01/2023 14:58:00 11.99 Above high normal 4.00-10.80 (K/uL) Final RBC 10/01/2023 14:58:00 4.71 3.85-5.15 (M/uL) Final Hemoglobin 10/01/2023 14:58:00 14.2 12.0-15.3 (g/dL) Final HCT 10/01/2023 14:58:00 41.5 36.0-45.2 (%) Final MCV 10/01/2023 14:58:00 88.1 81.5-97.5 (fL) Final MCH 10/01/2023 14:58:00 30.1 27.0-34.0 (pg) Final MCHC 10/01/2023 14:58:00 34.2 32.0-36.0 (g/dL) Final RDW 10/01/2023 14:58:00 12.1 11.5-15.5 (%) Final Platelets 10/01/2023 14:58:00 196 140-400 (K/uL) Final MPV 10/01/2023 14:58:00 9.5 6.6-11.1 (fL) Final Nucleated erythrocytes/100 leukocytes [Ratio] in Blood by Automated count 10/01/2023 14:58:00 0 <=0 (/100 WBCs) Final Performing Location LABORATORY [facility] - [address] [address]
--- OUTSIDE RECORDS SUMMARY | 2024-02-29 00:22 | External Medical Summary ---
Author Name Unknown Address Unknown Organization K1F:LABORATORY [facility] - [address] [facility] [place] [address] Laboratory Report Ordering Provider Test Date Status CRISTOBAL SMITH 10/01/2023 14:58:00 Final Observation Date Value Abnormality Reference (Units ) Status SYNC LEUKOCYTES IN BLOOD BY AUTOMATED COUNT 10/01/2023 14:58:00 11.99 Above high normal 4.00-10.80 (K/uL) Final Segs 10/01/2023 14:58:00 77.9 Above high normal 40.0-75.0 (%) Final Lymphs % 10/01/2023 14:58:00 16.4 Below low normal 18.0-42.0 (%) Final Monos 10/01/2023 14:58:00 4.3 1.0-11.0 (%) Final Eosinophils 10/01/2023 14:58:00 0.8 0.0-6.0 (%) Final Basos 10/01/2023 14:58:00 0.3 0.0-2.0 (%) Final Immature Granulocyte, Percent 10/01/2023 14:58:00 0.3 0.0-2.0 (%) Final Absolute Segs 10/01/2023 14:58:00 9.34 Above high normal 1.80-7.70 (K/uL) Final Lymphs, absolute 10/01/2023 14:58:00 1.97 1.00-4.80 (K/ul) Final Monos, Abs 10/01/2023 14:58:00 0.51 0.00-1.10 (K/uL) Final Eos, Abs 10/01/2023 14:58:00 0.10 0.00-0.70 (K/uL) Final Basos, Abs 10/01/2023 14:58:00 0.03 0.00-0.20 (K/uL) Final Immature Granulocytes, Number 10/01/2023 14:58:00 0.04 0.00-0.20 (K/uL) Final Performing Location LABORATORY [facility] - [address] [place] [address] [address] [place] [address]
--- OUTSIDE RECORDS SUMMARY | 2024-02-29 00:22 | External Medical Summary | Summary of Care ---
Author Name Unknown Organization [facility] Address [address] [place] [address] Phone [phone] Care Team Providers Care Bottom Liner Name Role Phone Shannen Rizzo Primary Care Provider Encounter Details Date Type Department Care Team (Late st Contact Info) Description 09/28/2023 Orders Only Outcomes Research Department [address], [place] [id number] Emily Ro [email or web address] [email or web address] Research Other*[id number] Allergies Active Allergy Reactions Criticality Noted Date Comments Bee Pollen 08/13/2020 Bee Venom 05/01/2015 Honey Anaphylaxis High 02/12/2019 Levetiracetam 01/14/2021 Other reaction(s): Vomiting Sulfa Antibiotics 12/17/2022 Bupropion 12/17/2022 documented as of this encounter (statuses as of 09/28/2023) Medications Medication Sig Dispensed Refills Start Date End Date Status EpiPen 2-Obie 0.3 MG/0.3ML Injection Solution Auto-injector For a severe reaction: Inject in outer thigh following instructions on package and go to the Emergency room. 2 Each 0 03/21/2023 Active Saint Johns-3 Fish Oil 1000 MG Oral Capsule (Saint Johns-3) Take 1 Capsule by mouth in the [...] THE EVENING. 40 Capsule 0 09/17/2023 Active documented as of this encounter (statuses as of 09/28/2023) Active Problems Problem Noted Date Diagnosed Date [...] being seen in [place] per discussions with [facility], she had only shown for anatomy US, cancelled/no showed all her visits Anemia of mother in , antepartum, third trimester 12/17/2022 Overview: Blood management referral for venofer Vitmain b12 1000mcg daily Trichomonal vulvovaginitis 12/17/2022 Overview: Treated 12/17/22 Positive 01/26/23 treated THANG due 39w Chlamydia infection affecting in secon d trimester 12/17/2022 Overview: Noted in labs from [place], unsure if she was treated. 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 Never true 03/19/2023 Hatfield Depression Scale Answer Date Recorded Hatfield Depression Scale Total 22 07/08/2023 The thought [...] 10/08/2023 10:00 AM EST Office Visit Gynecology/Obstetrics [facility] [address] [place] [address] Willow Contreras PA-C [address] [place], [place] [phone] 10/22/2023 1:00 PM EST Office Visit Neurology, [place] [address] [place] [address] Gautam Bragg, [address] [place] [address] 03/24/2024 3:30 PM EDT Office Visit Oral Maxillofacial Surgery, [place] [address], [place] [phone] Eliseo Ram, [facility] [address] [place], [place] [phone] 09/19/2024 2:00 PM EST Office Visit [facility] [address] [place] [phone] Shannen Rizzo CRNP [address] [place] [address] Scheduled Orders Name Type Priority Associated Diagnoses Orde r Schedule MYCODE SUBSEQUENT ADULT Lab Routine [employer] Other*[id number] Every 6 Months for 2 Occurrences starting 09/28/2023 until 10/17/2024 Health Maintenance Due Date Last Done Comments [...] as of this encounter Visit Diagnoses Diagnosis [employer] [facility] Other*[id number] documented in this encounter Advance Directives Latest [...] the patient have Health Care Power of Car Driver? No Full Code 03/27/2023 10:31 PM 04/01/2023 5:17 PM This o rder reflects the patients wishes and were consensually agreed upon. Question Answer Comments Discussion of Advance Directives occurred with: Not Discussed due to patient's condition Does the patient have a Living Will? No Does the patient have Health Care Power of Car Driver? No Full Code 02/22/2023 3:52 PM 02/24/2023 9:44 PM This or noa reflects the patients wishes and were consensually agreed upon. Question Answer Comments Discussion of Advance Directives occurred with: Not Discussed due to patient's condition Does the patient have a Living Will? No Does the patient have Health Care Power of Car Driver? No Full Code 02/17/2023 12:08 AM 02/17/2023 1:32 PM This order reflects the patients wishes and were consensually agreed upon. Question Answer Comments Discussion of Advance Directives occurred with: Not Discussed due to patient's condition Care Teams Bottom Liner Relationship Specialty Start Date End Date Shannen Rizzo CRNP [address] [id number] PCP - General Nurse Practitioner 04/20/23 documented as of this encounter
--- OUTSIDE RECORDS SUMMARY | 2024-02-29 00:22 | External Medical Summary ---
Author Name Unknown Address Unknown Organization K1F:LABORATORY [facility] - [place] [address] Laboratory Report Ordering Provider Test Date Status NANCY TENAJacqueline 09/28/2023 13:06:00 Final Collect NOW Observation Date Value Abnormality Reference (Units ) Status Troponin T 09/28/2023 13:06:00 <6 <=14 (ng/ L) Final Performing Location LABORATORY [facility] - [address] [address]
--- OUTSIDE RECORDS SUMMARY | 2024-02-29 00:22 | External Medical Summary ---
Author Name Unknown Address Unknown Organization K1F:LABORATORY [facility] - [address] [address] Laboratory Report Ordering Provider Test Date Status CRISTOBAL SMITH 10/01/2023 14:58:00 Final Observation Date Value Abnormality Reference (Units ) Status Lipase 10/01/2023 14:58:00 22 13-60 (U/L ) Final Performing Location LABORATORY [facility] - [address] [address]
--- OUTSIDE RECORDS SUMMARY | 2024-02-29 00:22 | External Medical Summary ---
Author Name Unknown Address Unknown Organization K1F:LABORATORY [facility] - [address] [place], [place] [address] [place] [address] Laboratory Report Ordering Provider Test Date Status WALDEMAR TENA 09/30/2023 22:00:13 Final ADMITTED patient Observation Date Value Abnormality Reference (Units ) Status Adenovirus DNA [Presence] in Nasopharynx by JORGE LUIS with non-probe detection 09/30/2023 22:00:13 Negative Negative Final Human coronavirus 229E RNA [Presence] in Nasopharynx by JORGE LUIS with non-probe detection 09/30/2023 22:00:13 Negative Negative Final Human coronavirus HKU1 RNA [Presence] in Nasopharynx by JORGE LUIS with non-probe detection 09/30/2023 22:00:13 Negative Negative Final Human coronavirus NL63 RNA [Presence] in Nasopharynx by JORGE LUIS with non-probe detection 09/30/2023 22:00:13 Negative Negative Final Human coronavirus OC43 RNA [Presence] in Nasopharynx by JORGE LUIS with non-probe detection 09/30/2023 22:00:13 Negative Negative Final SARS-CoV-2 (COVID-19) RNA [Presence] in Nasopharynx by JORGE LUIS with non-probe detection 09/30/2023 22:00:13 Negative Negative Final Human metapneumovirus RNA [Presence] in Nasopharynx by JORGE LUIS with non-probe detection 09/30/2023 22:00:13 Negative Negative Final Rhinovirus+Enterovirus RNA [Presence] in Nasopharynx by JORGE LUIS with non-probe detection 09/30/2023 22:00:13 Negative Negative Final Influenza virus A RNA [Presence] in Nasopharynx by JORGE LUIS with non-probe detection 09/30/2023 22:00:13 Negative Negative Final Influenza virus B RNA [Presence] in Nasopharynx by JORGE LUIS with non-probe detection 09/30/2023 22:00:13 Negative Negative Final Parainfluenza virus 1 RNA [Presence] in Nasopharynx by JORGE LUIS with non-probe detection 09/30/2023 22:00:13 Negative Negative Final Parainfluenza virus 2 RNA [Presence] in Nasopharynx by JORGE LUIS with non-probe detection 09/30/2023 22:00:13 Negative Negative Final Parainfluenza virus 3 RNA [Presence] in Nasopharynx by JORGE LUIS with non-probe detection 09/30/2023 22:00:13 Negative Negative Final Parainfluenza virus 4 RNA [Presence] in Nasopharynx by JORGE LUIS with non-probe detection 09/30/2023 22:00:13 Negative Negative Final Respiratory syncytial virus RNA [Presence] in Nasopharynx by JORGE LUIS with non-probe detection 09/30/2023 22:00:13 Negative Negative Final Bordetella pertussis.pertussis toxin promoter region [Presence] in Nasopharynx by JORGE LUIS with non-probe detection 09/30/2023 22:00:13 Negative Negative Final Chlamydophila pneumoniae DNA [Presence] in Nasopharynx by JORGE LUIS with non-probe detection 09/30/2023 22:00:13 Negative Negative Final Mycoplasma pneumoniae DNA [Presence] in Nasopharynx by JORGE LUIS with non-probe detection 09/30/2023 22:00:13 Negative Negative Final Bordetella parapertussis [id number] DNA [Presence] in Nasopharynx by JORGE LUIS with non-probe detection 09/30/2023 22:00:13 Negative Negative Final
The primers that detect Rhinovirus may cross react with some Enterorviruses. The validation of bronchial specimens, tracheal aspirates, and throats for this assay was developed and performance characteristics determined by [employer]. The validation of alternate specimen types has not been cleared or approved by the U.S. Food and Drug Administration (FDA). It has been determined that such clearance or approval is not necessary. [address] [facility] [facility] [address]
--- OUTSIDE RECORDS SUMMARY | 2024-02-29 00:22 | External Medical Summary | Summary of Care ---
Author Name Unknown Organization [facility] Address [address] [address] Phone [phone] Care Team Providers Care Atomizer Assembler Name Role Phone Matthias Shannenrena BRIZUELA Primary Care Provider Reason for Visit * Reason Comments Climate Change Analyst Return Nexplanon removal * Evaluate & Treat - Unlimited Visits (Within 10 days (routine)) - Authorized Specialty Diagnoses / Procedures Referred By Rosanna t Referred To Contact Obstetrics/Gynecology / Gynecology Obstetrics Diagnoses Nexplanon in place Spontaneous miscarriage Chuy Galvan MD [address] [place] [address] Referral ID Status Reason Start Date Expiration Date Visits Requested Visits Authorized [id number] Authorized Specialty Services Required 08/31/[phone] Encounter Details Date Type Department Care Team (Late st Contact Info) Description 09/24/2023 2:00 PM EST Office Visit Gynecology/Obstetric s [facility] [address] [facility] [place] [phone] Willow Contreras PA-C [address] [facility] [place] [phone] Encounter for counseling regarding contraception*; Initiation of Depo Provera Allergies Active Allergy Reactions Criticality Noted Date Comments Bee Pollen 08/13/2020 Bee Venom 05/01/2015 Honey Anaphylaxis High 02/12/2019 Levetiracetam 01/14/2021 Other reaction(s): Vomiting Sulfa Antibiotics 12/17/2022 Bupropion 12/17/2022 documented as of this encounter (statuses as of 09/24/2023) Medications Medication Sig Dispensed Refills Start Date End Date Status EpiPen 2-Obie 0.3 MG/0.3ML Injection Solution Auto-injector For a severe reaction: Inject in outer thigh following instructions on package and go to the Emergency room. 2 Each 0 03/21/2023 Active Mcandrews-3 Fish Oil 1000 MG Oral Capsule (Mcandrews-3) Take 1 Capsule by mouth in the [...] THE EVENING. 40 Capsule 0 09/17/2023 Active Doxycycline Hyclate 100 MG Oral CapsuleIndications :Chlamydia infection Take 1 Capsule by mouth in the morning and 1 Capsule before bedtime. Do all this for 7 days. Until gone.. 14 Capsule 0 09/18/2023 09/25/2023 Active Hospital, Clinic, or Other Facility Administered Medication Ordered Dose Route Frequency Start Date End Date Status medroxyPROGESTERone (contracep) (Depo-Provera) inj 150 mgIndications:Encounter for counseling regarding contraception 150 mg IM ONCE 09/24/2023 09/24/2023 Ended documented as of this encounter (statuses as of 09/24/2023) Active Problems Problem Noted Date Diagnosed Date [...] being seen in [place] per discussions with [facility], she had only shown for anatomy [...] as of this encounter (statuses as of 09/24/2023) Resolved Problems Problem Noted Date Diagnosed Date Resolved Date Suicidal ideation 09/04/2023 09/09/2023 History of substance abuse 09/04/2023 0 09/17/2023 Methamphetamine use 12/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 Never true 03/19/2023 [place] Depression Scale Answer Date Recorded [place] Depression Scale Total 22 07/08/2023 The [...] Sign Reading Time Taken Comments Blood Pressure 104/58 09/24/2023 1:46 PM EST Pulse - - Temperature 37.2 C (99 F) 09/24/2023 1:46 PM EST Respiratory Rate - - Oxygen Saturation - - Inhaled Oxygen Concentration - - Weight 56.4 kg (124 lb 6.4 oz) 09/24/2023 1:46 P M EST Height - - Body Mass Index 25.13 08/31/2023 2:14 PM EST documented in this encounter Functional [...] as of this encounter Progress Notes * Jayla Michael, TRAIN PLANNER - 09/24/2023 2:39 PM EST Pre-Administration Time Out Procedure Performed: Yes Patient Identified (Ask Name/Date of ): Yes Does the patient have a fever greater than 101 degrees today? No Patient allergic to latex? No Has the patient ever fainted after receiving an injection? No VFC Stock: No Injection(s) verified: Yes, Injection Name: Depo-provera Verified Side and Site: Yes Verified Shot(s) with Parent(s)/Patient: Yes * Willow Contreras PA-C - 09/24/2023 1:53 PM EST Yu Lopez 09/24/2023 CC: Nexplanon removal HPI: Yu Lopez is a 22 year-old female presenting to discuss Nexplanon removal. Her Nexplanon was placed 02/24/2023 at 1 day post . She is presenting to have the Nexplanon removed today dueto undesired side effects. She began throwing up 2-3 days ago. She also had an episode of vomiting last month. She states she has bruised down near her elbow, and her cousin told her that she could feel her Nexplanon in that area. Bruise has since resolved. She also has been having some occasional itching at her shoulder for the last 2 months. She is unsure what her periods are like with Nexplanon. Her first period PP started 07/26/2023. Period started 09/21 this month. Flow is regular, changing a pad/tampon every 3-4 hours with no intermenstrual bleeding. She is currently sexually active and has had new partners. She is currently being treated for Chlamydia. She is not planning on getting in the near future, but she is also not sure what her timeline for this looks like moving forward. Previous Control Method: She has previously been on OCPs and Depo for control. States she did not like Depo because it caused a strong, tar-like vaginal odor. OB History Para Term AB Living 3 1 1 2 1 SAB IAB Ectopic Multiple Live Births 2 0 1 # Outcome Date GA Lbr Henry/2nd Weight Sex Delivery Anes PTL Lv 3 Term 02/23/23 37w5d 21:22 / 01:03 3.23 kg (7 lb 1.9 oz) F Vag-Spont Spinal, EPI N KAROL 2 SAB 6w0d 1 SAB 6w0d Past Medical History: Diagnosis Date Asthma Autism Depression History of substance abuse ([facility]) 2023-09-17 Adding F19.11-History of substance abuse (HCC) Dx to History Mixed hearing loss, bilateral 09/10/2007 Other chronic serous otitis media Seizure (HCC) Past Surgical History: Procedure Laterality Date CREATE EARDRUM OPENING,GEN'L ANESTH 09/12/05 [address]MT [address] Schafer REMOVE TONSILS & ADENOIDS, UNDER 12 09/12/[address] Schafer [place] Family Hx: Family History Problem Relation Age of Onset Other (No hearing loss) Other Social History Socioeconomic History Marital status: Single Tobacco Use Smoking status: Former Packs/day: 1.00 Years: 0.25 Additional pack years: 0.00 Total pack years: 0.25 Types: Cigarettes Passive exposure: Current Smokeless tobacco: Former Vaping Use Vaping Use: Every day Substance and Sexual Activity Alcohol use: Yes Comment: leta 6 or more wine coolers "every once in a while" Drug use: Not Currently Types: Methamphetamines Comment: last use beginning of November Sexual activity: Yes Partners: Male Social Determinants of Health Food Insecurity: No Food Insecurity (03/19/2023) Hunger Vital Sign Worried About Running Out of Food in the Last Year: Never true Ran Out of Food in the Last Year: Never true Medications: Current Outpatient Medications Medication Sig Dispense Refill Escitalopram Oxalate 10 MG Oral Tablet (Lexapro) Take 1 Tablet by mouth in the morning. 10 Tablet 0 Phenytoin Sodium Extended 100 MG Oral Capsule (Dilantin) TAKE 2 CAPSULES BY MOUTH IN THE MORNING, ONE IN THE AFTERNOON, AND ONE IN THE EVENING. 40 Capsule 0 Doxycycline Hyclate 100 MG Oral Capsule Take 1 Capsule by mouth in the morning and 1 Capsule beforebedtime. Do all this for 7 days. Until gone.. 14 Capsule 0 EpiPen 2-Obie 0.3 MG/0.3ML Injection Solution Auto-injector For a severe reaction: Inject in outer thigh following instructions on package and go to the Emergency room. 2 Each 0 Mcandrews-3 Fish Oil 1000 MG Oral Capsule (Mcandrews-3) Take 1 Capsule by mouth in the morning. Do not start before June 12, 2023. (Patient not taking: Reported on 09/17/2023) 15 Capsule 0 Nitrofurantoin Monohyd Macro 100 MG Oral Capsule (Macrobid) Take 1 Capsule by mouth in the morning and 1 Capsule before bedtime. (Patient not taking: Reported on 09/17/2023) 1 Capsule 0 Nicotine 14 MG/24HR Transdermal Patch 24 Hour (Nicoderm CQ) Place 1 Patch over 24 hours topically on the skin in the morning. (Patient not taking: Reported on 09/17/2023) No current facility-administered medications for this visit. Allergies: Review of patient's allergies indicates: Allergen Reactions Honey Anaphylaxis Bee Pollen Bee Venom Levetiracetam Other reaction(s): Vomiting Sulfa Antibiotics Wellbutrin [Bupropion] ROS: See HPI for pertinent positives/negatives Physical Exam BP 104/58 | Temp 37.2 C (99 F) (Tympanic) | Wt 56.4 kg (124 lb 6.4 oz) | LMP 09/21/2023 (Approximate) | BMI 25.13 kg/m | BSA 1.53 m General: awake, alert, and oriented x 3, NAD Nexplanon palpated at appropriate position under the skin surface. Consulted with Debbi López PA-C and Dr. Lenora MD regarding contraception options due to patient'scurrent treatment with Dilantin for seizures. Assessment/Plan: Encounter for counseling regarding contraception (Primary) - medroxyPROGESTERone (contracep) (Depo-Provera) inj 150 mg - URINE SCREEN, POINT OF CARE (resulted NEGATIVE) - Patient reassured that her side effects are likely not due to Nexplanon and encouraged to continue with this method for a few more months. Patient expresses that she would like her Nexplanon removed at this time. - Discussed contraceptive options including abstinence, barriers, pills, DMPA, Nexplanon and IUDs. Educated patient on the effects of Dilantin and various control methods, specifically with regard to decreased effectiveness of control. - Patient agreeable to start Depo provera today, 2 weeks before removal of the Nexplanon. Strongly encouraged condoms as a backup method and always for STI prevention. Initiation of Depo Provera - URINE SCREEN, POINT OF CARE (resulted NEGATIVE) Follow Up: Return in 2 weeks (on 10/08/2023), or Follow-Up, for Clinic Visit - Nexplanon Removal. | For: Clinic Visit - Nexplanon Removal Willow Contreras PA-C documented in this encounter Nursing Notes * NeJayla corey CMA - 09/24/2023 1:44 PM EST Chief Complaint Patient presents with Climate Change Analyst Return Nexplanon removal Pt would like to have nexplanon removed. Having issues with arm being itchy, "device moving", and feeling sick to her stomach. Wants to discuss another BC option Inserted 02/24/2023. documented in this encounter Plan of Treatment Upcoming Encounters Date Type Department Care Team (Late st Contact Info) Description 10/08/2023 10:00 AM EST Office Visit Gynecology/Obstetrics [facility] [address] [place] [address] Willow Contreras PA-C [address] [place], [place] [phone] 10/22/2023 1:00 PM EST Office Visit Neurology, [facility] [address] [place] [phone] Gautam Bragg DO [address], [place] [phone] 03/24/2024 3:30 PM EDT Office Visit Oral Maxillofacial Surgery, [facility] [address], [place] [phone] Eliseo Ram, JOBY [address] [place], [place] [phone] 09/19/2024 2:00 PM EST Office Visit [facility] [address] [place] [phone] Shannen Rizzo CRNP [address], [place] [phone] Health Maintenance Due Date Last Done Comments [...] Comments URINE SCREEN, POINT OF CARE (ENTER/EDIT) Routine 09/24/2023 Encounter for counseling regarding contraception Initiation of Depo Provera documented in this encounter Results * URINE SCREEN, POINT OF CARE (ENTER/EDIT) (09/24/2023) hCG Beta, Urine Negative Negative Procedural Control Valid? Yes Lot Number [id number] Expiration Date 09/20/2024 Urine 09/24/2023 Willow Contreras PA-C LAB POINT OF CARE TEST ENTER/EDIT ORDERABLES documented in this encounter Visit Diagnoses Diagnosis Encounter for counseling regarding contraception- Primary Initiation of Depo Provera General counseling for initiation of other contraceptive measures documented in this encounter Administered Medications Inactive Administered Medications - up to 3 most recent administrations Medication Order MAR Action Action Date Dose Rate Site medroxyPROGESTERone (contracep) (Depo-Provera) inj 150 mg 150 mg, Intramuscular, ONCE, 1 dose, On [place] 09/24/23 at 1500 Given 09/24/2023 2:36 PM EST 150 mg Deltoid Left Upper documented in this encounter Advance Directives Latest [...] the patient have Health Care Power of Youth Corrections Officer? No Full Code 03/27/2023 10:31 PM 04/01/2023 5:17 PM This o rder reflects the patients wishes and were consensually agreed upon. Question Answer Comments Discussion of Advance Directives occurred with: Not Discussed due to patient's condition Does the patient have a Living Will? No Does the patient have Health Care Power of Youth Corrections Officer? No Full Code 02/22/2023 3:52 PM 02/24/2023 9:44 PM This or noa reflects the patients wishes and were consensually agreed upon. Question Answer Comments Discussion of Advance Directives occurred with: Not Discussed due to patient's condition Does the patient have a Living Will? No Does the patient have Health Care Power of Youth Corrections Officer? No Full Code 02/17/2023 12:08 AM 02/17/2023 1:32 PM This order reflects the patients wishes and were consensually agreed upon. Question Answer Comments Discussion of Advance Directives occurred with: Not Discussed due to patient's condition Care Teams Atomizer Assembler Relationship Specialty Start Date End Date Shannen Rizzo CRNP [address] [id number] PCP - General Nurse Practitioner 04/20/23 documented as of this encounter
--- OUTSIDE RECORDS SUMMARY | 2024-02-29 00:22 | External Medical Summary ---
Author Name Unknown Address Unknown Organization [facility] - [address] [facility] [place] [id number] Laboratory Report Ordering Provider Test Date Status CRISTOBAL SMITH 10/01/2023 14:58:00 Final Observation Date Value Abnormality Reference (Units ) Status BUN 10/01/2023 14:58:00 7 6-20 (mg/dL) Final Creatinine 10/01/2023 14:58:00 0.8 0.5-1.0 (mg/dL) Final Glomerular filtration rate/1.73 sq M.predicted [Volume Rate/Area] in Serum, Plasma or Blood by Creatinine-based formula (CKD-EPI) 10/01/2023 14:58:00 >90 >=60 (mL/min) Final eGFR is calculated based on the CKD-EPI 2020 equation SODIUM 10/01/2023 14:58:00 140 135-146 (m mol/L) Final Potassium 10/01/2023 14:58:00 3.4 Below low normal 3.5 -5.1 (mmol/L) Final Cl 10/01/2023 14:58:00 104 98-107 (mm ol/L) Final CO2 10/01/2023 14:58:00 25 22-32 (mmo l/L) Final Anion gap 10/01/2023 14:58:00 11 7-15 (mmol /L) Final Glucose 10/01/2023 14:58:00 94 70-120 (mg /dL) Final Albumin 10/01/2023 14:58:00 4.2 3.8-5.0 (g /dL) Final AST (Aspartate aminotransferase) 10/01/2023 14:58:00 25 10-35 (U/L) Fin al Alk Phos 10/01/2023 14:58:00 99 35-130 (U/ L) Final Bilirubin, Total 10/01/2023 14:58:00 0.6 <=1 .2 (mg/dL) Final Calcium 10/01/2023 14:58:00 9.0 8.4-10.2 ( mg/dL) Final Protein 10/01/2023 14:58:00 6.6 6.0-8.3 (g /dL) Final ALT (Alanine aminotransferase) 10/01/2023 14:58:00 48 Above high normal 10-35 (U/L) Final Performing Location [facility] [place] [address] [place] [place] [id number]
--- OUTSIDE RECORDS SUMMARY | 2024-02-29 00:22 | External Medical Summary | Summary of Care ---
Author Name Unknown Organization [facility] Address [address] [facility] [place] [address] Phone [phone] Care Team Providers Care Director Of Field Coordination Name Role Phone Shannen Rizzo GELACIO Primary Care Provider Reason for Visit * Reason Comments Syncope * Auth/Cert Specialty Diagnoses / Procedures Referred By Contac t Referred To Contact Referral ID Status Reason Start Date Expiration Date Visits Re quested Visits Authorized [id number] Encounter Details Date Type Department Care Team (Late st Contact Info) Description 09/28/2023 2:33 PM EST - 09/28/2023 2:34 PM EST Emergency [facility] Emergency Department (H) [address] [place] [address] Luis Thompson, DO [address] [place] [address] Kings Blevins MD [address] [place] [address] Chest pain Discharge Disposition: Left ED Without Being Seen Allergies Active Allergy Reactions Criticality Noted Date Comments Bee Pollen 08/13/2020 Bee Venom 05/01/2015 Honey Anaphylaxis High 02/12/2019 Levetiracetam 01/14/2021 Other reaction(s): Vomiting Sulfa Antibiotics 12/17/2022 Bupropion 12/17/2022 documented as of this encounter (statuses as of 09/29/2023) Medications Medication Sig Dispensed Refills Start Date End Date Status EpiPen 2-Obie 0.3 MG/0.3ML Injection Solution Auto-injector For a severe reaction: Inject in outer thigh following instructions on package and go to the Emergency room. 2 Each 0 03/21/2023 Active [place]-3 Fish Oil 1000 MG Oral Capsule ([place]-3) Take 1 Capsule by mouth in the [...] as of this encounter (statuses as of 09/29/2023) Active Problems Problem Noted Date Diagnosed Date [...] 28weeks, States she was being seen in [place] per discussions with [facility], she had only shown for anatomy US, [...] as of this encounter (statuses as of 09/29/2023) Resolved Problems Problem Noted Date Diagnosed Date Resolved Date Suicidal ideation 09/04/2023 09/09/2023 History of substance abuse 09/04/2023 0 09/17/2023 Methamphetamine use 12/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 Never true 03/19/2023 [place] Depression Scale Answer Date Recorded [place] Depression Scale Total 22 07/08/2023 The thought [...] Sign Reading Time Taken Comments Blood Pressure 115/66 09/28/2023 12:47 PM EST Pulse 88 09/28/2023 12:47 PM EST Temperature 36.9 C (98.4 F) 09/28/2023 12:[address] Respiratory Rate 18 09/28/2023 12:47 PM EST Oxygen Saturation 98% 09/28/2023 12:47 PM EST Inhaled Oxygen Concentration - - Weight 56.2 kg (124 lb) 09/28/2023 12:47 PM EST Height 149.9 cm (4' 11") 09/28/2023 12:47 PM EST Body Mass Index 25.04 09/28/2023 12:47 PM EST documented in this encounter Functional [...] No 05/20/2020 documented as of this encounter ED Notes * Shimon Carrera RN - 09/28/2023 12:44 PM EST Pt states she was sitting on a chair and her leg started shaking and then she laid down for a little bit and then she had a syncopal episode where she became clammy and slid off of a chair to the floor. Pt has not taken phenytoin in the past 3 days. * Suzan Owen RN - 09/28/2023 12:38 PM EST Was in a disagreement with her boyfriend's ex-girlfriend and had 3 episodes of "seizure-like activity." Pt states she is under stress. pt was not post-ictal en route. Allergic to keppra. Hasn't takenher lexapro or dilantin since Thursday AM documented in this encounter Miscellaneous Notes * ED Veterinary Anatomist Note - Shimon Carrera RN - 09/28/2023 2:32 PM EST Pt unwilling to wait any longer to be seen. documented in this encounter Plan of Treatment Upcoming Encounters Date Type Department Care Team (Late st Contact Info) Description 10/08/2023 10:00 AM EST Office Visit Gynecology/Obstetrics [facility] [address] [place], [place] [phone] Willow Contreras PA-C [address] [place], [place] [phone] 10/22/2023 1:00 PM EST Office Visit Neurology, [place] [address] [place] [address] Gautam Bragg DO [address], [place] [phone] 03/24/2024 3:30 PM EDT Office Visit Oral Maxillofacial Surgery, [place] [address], [place] [phone] Eliseo Ram, DDS [address] [place], [place] [phone] 09/19/2024 2:00 PM EST Office Visit [facility] [address] [facility] [phone] Shannen Rizzo CRNP [address] [place] [address] Scheduled Orders Name Type Priority Associated Diagnoses Orde r Schedule TROPONIN T, HIGH SENSITIVITY Lab STAT One Time for 1 Occurrences starting 09/28/2023 until 09/28/2023 Health Maintenance Due Date Last Done Comments [...] Procedure Name Priority Date/Time Associated Diagnosis Comments EXTRA LIGHT BLUE TOP STAT 09/28/2023 1:06 PM EST DIFFERENTIAL, AUTOMATED STAT 09/28/2023 1:06 PM EST TROPONIN T, HIGH SENSITIVITY STAT 09/28/2023 1:06 PM EST BETA-HCG, QUANTITATIVE STAT 1:06 PM EST COMPREHENSIVE METABOLIC PANEL STAT 09/28/2023 1:06 PM EST CBC STAT 09/28/2023 1:06 PM EST CBC STAT 09/28/2023 1:06 PM EST XR CHEST 2 VIEWS STAT 09/28/2023 1:01 PM EST documented in this encounter Results * DIFFERENTIAL, AUTOMATED (09/28/2023 1:06 PM EST) WBC 7.42 4.00 - 10.80 K/uL 09/28/2023 1:14 PM EST LABORATORY [facility] Neutrophils % 56.3 40.0 - 75.0 % 09/28/2023 1:14 PM EST LABORATORY [facility] Lymphocytes % 36.8 18.0 - 42.0 % 09/28/2023 1:14 PM EST LAB[facility]ORY [facility] Monocytes % 4.6 1.0 - 11.0 % 09/28/2023 1:14 PM EST LAB[facility]ORY [facility] Eosinophils % 1.5 0.0 - 6.0 % 09/28/2023 1:14 PM EST LAB[facility]ATORY [facility] Basophils % 0.5 0.0 - 2.0 % 09/28/2023 1:14 PM EST LAB[facility]ATORY [facility] Immature Granulocytes % 0.3 0.0 - 2.0 % 09/28/2023 1:14 PM EST LABORATORY [facility] Absolute Neutrophils 4.18 1.80 - 7.70 K/uL 09/28/2023 1:14 PM EST LABORATORY [facility] Absolute Lymphocytes 2.73 1.00 - 4.80 K/ul 09/28/2023 1:14 PM EST LABORATORY [facility] Absolute Monocytes 0.34 0.00 - 1.10 K/uL 09/28/2023 1:14 PM EST LABORATORY [facility] Absolute Eosinophils 0.11 0.00 - 0.70 K/uL 09/28/2023 1:14 PM EST LABORATORY [facility] Absolute Basophils 0.04 0.00 - 0.20 K/uL 09/28/2023 1:14 PM EST LABORATORY [facility] Absolute Immature Granulocytes 0.02 0.00 - 0.20 K/uL 09/28/2023 1:14 PM EST LABORATORY [facility] Blood Venous blood specimen / Unknown Venipuncture / Unknown 09/28/2023 1:06 PM EST 09/28/2023 1:11 PM EST Luis Thompson DO LAB BLOOD ORDERABLES LABORATORY [facility] [address] [place] [address] * CBC (09/28/2023 1:06 PM EST) WBC 7.42 4.00 - 10.80 K/uL 09/28/2023 1:14 PM EST LABORATORY [facility] RBC 4.94 3.85 - 5.15 M/uL 09/28/2023 1:14 PM EST LABORATORY [facility] HGB 14.8 12.0 - 15.3 g/dL 09/28/2023 1:14 PM EST LABORATORY [facility] HCT 42.9 36.0 - 45.2 % 09/28/2023 1:14 PM EST LABORATORY [facility] MCV 86.8 81.5 - 97.5 fL 09/28/2023 1:14 PM EST LABORATORY [facility] MCH 30.0 27.0 - 34.0 pg 09/28/2023 1:14 PM EST LABORATORY [facility] MCHC 34.5 32.0 - 36.0 g/dL 09/28/2023 1:14 PM EST LABORATORY [facility] RDW 12.4 11.5 - 15.5 % 09/28/2023 1:14 PM EST LABORATORY [facility] PLT 252 140 - 400 K/uL 09/28/2023 1:14 PM EST LABORATORY [facility] MPV 9.7 6.6 - 11.1 fL 09/28/2023 1:14 PM EST LABORATORY [facility] nRBCs 0 <=0 /100 WBCs 09/28/2023 1:14 PM EST LABORATORY [facility] Blood Venous blood specimen / Unknown Venipuncture / Unknown 09/28/2023 1:06 PM EST 09/28/2023 1:11 PM EST Luis Thompson DO LAB BLOOD ORDERABLES Performing Organization Address City/State/[facility] Co de Phone Number LABORATORY [address] [address] * BETA-HCG, QUANTITATIVE (09/28/2023 1:06 PM EST) Pathologist [facility] Beta-HCG, Quantitative <0.1 <=1.0 mIU/mL 09/28/2023 1:40 PM EST LABORATORY [facility] Blood Venous blood specimen / Unknown Venipuncture / Unknown 09/28/2023 1:06 PM EST 09/28/2023 1:11 PM EST Narrative LABORATORY [facility] - 09/28/2023 1:40 PM EST hCG can serve as a screening assay for . However, early may not give a positive hCG test result. In addition, some non- women may have a hCG result slightly higher than the reference limit. Careful interpretation of the hCG with clinical history is required to determine whether the patient may be . uLis Thompson DO LAB BLOOD ORDERABLES Performing Organization Address [facility] Co de Phone Number LABORATORY [address] [address] * EXTRA LIGHT BLUE TOP (09/28/2023 1:06 PM EST) Blood Venous blood specimen / Unknown Venipuncture / Unknown 09/28/2023 1:06 PM EST 09/28/2023 1:11 PM EST Luis Thompson LAB BLOOD ORDERABLES Performing Organization Address [facility] de Phone Number LABORATORY [address] [address] * TROPONIN T, HIGH SENSITIVITY (09/28/2023 1:06 PM EST) Pathologist [facility] Troponin T, High Sensitivity <6 <=14 ng/L 09/28/2023 1:33 PM EST LABORATORY [facility] Blood Venous blood specimen / Unknown Venipuncture / Unknown 09/28/2023 1:06 PM EST 09/28/2023 1:11 PM EST uLis Thompson LAB BLOOD ORDERABLES Performing Organization Address [facility] de Phone Number LABORATORY [address] [address] * COMPREHENSIVE METABOLIC PANEL (09/28/2023 1:06 PM EST) Pathologist [facility] BUN 11 6 - 20 mg/dL 09/28/2023 1:28 PM EST LABORATORY [facility] Creatinine 0.7 0.5 - 1.0 mg/dL 09/28/2023 1:28 PM EST LABORATORY [facility] Estimated Glomerular Filtration Rate >90 >=60 mL/min 09/28/2023 1:28 PM EST LABORATORY [facility] Comment:eGFR is calculated b ased on the CKD-EPI 2020 equation Sodium 141 135 - 146 mmol/L 09/28/2023 1:28 PM EST LAB[facility]ATORY [facility] Potassium 3.7 3.5 - 5.1 mmol/L 09/28/2023 1:28 PM EST LAB[facility]ORY [facility] Chloride 107 98 - 107 mmol/L 09/28/2023 1:28 PM EST LAB[facility]ORY [facility] CO2 23 22 - 32 mmol/L 09/28/2023 1:28 PM EST LAB[facility]ORY [facility] Anion Gap 11 7 - 15 mmol/L 09/28/2023 1:28 PM EST LAB[facility]ORY [facility] Glucose 107 70 - 120 mg/dL 09/28/2023 1:28 PM EST LAB[facility]ORY [facility] Albumin 4.3 3.8 - 5.0 g/dL 09/28/2023 1:28 PM EST LAB[facility]ORY [facility] AST 32 10 - 35 U/L 09/28/2023 1:28 PM EST LAB[facility]ORY [facility] Alkaline Phosphatase 104 35 - 130 U/L 09/28/2023 1:28 PM EST LAB[facility]ORY [facility] Bilirubin, Total 0.3 <=1.2 mg/dL 09/28/2023 1:28 PM EST LAB[facility]ORY [facility] Calcium 9.5 8.4 - 10.2 mg/dL 09/28/2023 1:28 PM EST LAB[facility]ORY [facility] Protein 6.8 6.0 - 8.3 g/dL 09/28/2023 1:28 PM EST LAB[facility]ORY [facility] ALT 31 10 - 35 U/L 09/28/2023 1:28 PM EST LAB[facility]ORY [facility] Blood Venous blood specimen / Unknown Venipuncture / Unknown 09/28/2023 1:06 PM EST 09/28/2023 1:11 PM EST Luis Thompson DO LAB BLOOD ORDERABLES LABORATORY [facility] [address] [place] [address] * XR CHEST 2 VIEWS (09/28/2023 1:01 PM EST) Anatomical Region Laterality Modality Chest Digital Radiogra phy 09/28/2023 12:5 4 PM EST Impressions 09/28/2023 1:17 PM EST IMPRESSION: No acute findings. THIS DOCUMENT HAS BEEN ELECTRONICALLY SIGNED BY JEANINE BROWN MD Narrative 09/28/2023 1:17 PM EST PROCEDURE INFORMATION: Exam: XR Chest Exam date and time: 09/28/2023 12:54 PM Age: 23 years old Clinical indication: Other: PT states she had 3 seizures today and now has chest pain TECHNIQUE: Imaging protocol: Radiologic exam of the chest. Views: 2 views. COMPARISON: DX XR CHEST 2 VIEWS 02/11/2023 2:57 PM FINDINGS: Lungs: Unremarkable. No consolidation. Pleural spaces: Unremarkable. No pleural effusion. No pneumothorax. Heart/Mediastinum: Unremarkable. No cardiomegaly. Bones/joints: Unremarkable. Procedure Note Jeanine Brown MD - 09/28/2023 PROCEDURE INFORMATION: Exam: XR Chest Exam date and time: 09/28/2023 12:54 PM Age: 23 years old Clinical indication: Other: PT states she had 3 seizures today and now has chest pain TECHNIQUE: Imaging protocol: Radiologic exam of the chest. Views: 2 views. COMPARISON: DX XR CHEST 2 VIEWS 02/11/2023 2:57 PM FINDINGS: Lungs: Unremarkable. No consolidation. Pleural spaces: Unremarkable. No pleural effusion. No pneumothorax. Heart/Mediastinum: Unremarkable. No cardiomegaly. Bones/joints: Unremarkable. IMPRESSION IMPRESSION: No acute findings. THIS DOCUMENT HAS BEEN ELECTRONICALLY SIGNED BY JEANINE BROWN MD Luis Thompson DO RADIOLOGY (RAD GENER AL) documented in this encounter Visit Diagnoses Diagnosis Chest pain Chest pain, unspecified documented in this encounter Advance Directives Latest [...] the patient have Health Care Power of Manager Sales And Marketing? No Full Code 03/27/2023 10:31 PM 04/01/2023 5:17 PM This o rder reflects the patients wishes and were consensually agreed upon. Question Answer Comments Discussion of Advance Directives occurred with: Not Discussed due to patient's condition Does the patient have a Living Will? No Does the patient have Health Care Power of Manager Sales And Marketing? No Full Code 02/22/2023 3:52 PM 02/24/2023 9:44 PM This or noa reflects the patients wishes and were consensually agreed upon. Question Answer Comments Discussion of Advance Directives occurred with: Not Discussed due to patient's condition Does the patient have a Living Will? No Does the patient have Health Care Power of Manager Sales And Marketing? No Full Code 02/17/2023 12:08 AM 02/17/2023 1:32 PM This order reflects the patients wishes and were consensually agreed upon. Question Answer Comments Discussion of Advance Directives occurred with: Not Discussed due to patient's condition Care Teams Director Of Field Coordination Relationship Specialty Start Date End Date Shannen Rizzo CRNP [address] [address] PCP - General Nurse Practitioner 04/20/23 documented as of this encounter
--- OUTSIDE RECORDS SUMMARY | 2024-02-29 00:22 | External Medical Summary ---
Author Name Unknown Address Unknown Organization K1F:LABORATORY [facility] - [address] [place] [address] Laboratory Report Ordering Provider Test Date Status WALDEMAR TENA 09/28/2023 13:06:00 Final Observation Date Value Abnormality Reference (Units ) Status WBC, Total 09/28/2023 13:06:00 7.42 4.00-10.80 (K/uL) Final RBC 09/28/2023 13:06:00 4.94 3.85-5.15 (M/uL) Final Hemoglobin 09/28/2023 13:06:00 14.8 12.0-15.3 (g/dL) Final HCT 09/28/2023 13:06:00 42.9 36.0-45.2 (%) Final MCV 09/28/2023 13:06:00 86.8 81.5-97.5 (fL) Final MCH 09/28/2023 13:06:00 30.0 27.0-34.0 (pg) Final MCHC 09/28/2023 13:06:00 34.5 32.0-36.0 (g/dL) Final RDW 09/28/2023 13:06:00 12.4 11.5-15.5 (%) Final Platelets 09/28/2023 13:06:00 252 140-400 (K/uL) Final MPV 09/28/2023 13:06:00 9.7 6.6-11.1 (fL) Final Nucleated erythrocytes/100 leukocytes [Ratio] in Blood by Automated count 09/28/2023 13:06:00 0 <=0 (/100 WBCs) Final Performing Location LABORATORY [facility] - [address] [address]
--- OUTSIDE RECORDS SUMMARY | 2024-02-29 00:22 | External Medical Summary ---
Author Name Unknown Address Unknown Organization K1F:LABORATORY [facility] - [address] [place] [address] Laboratory Report Ordering Provider Test Date Status WALDEMAR TENA 09/28/2023 13:06:00 Final hCG can serve as a screening [...] +Beta subunit [Units/volume] in Serum or Plasma 09/28/2023 13:06:00 <0.1 <=1.0 (mIU/mL) Final Performing Location LABORATORY [facility] - [address] [place] [address]
--- OUTSIDE RECORDS SUMMARY | 2024-02-29 00:22 | External Medical Summary ---
Author Name Unknown Address Unknown Organization K1F:LABORATORY [facility] - [address] [facility] [place] [address] Laboratory Report Ordering Provider Test Date Status WALDEMAR TENA 09/28/2023 13:06:00 Final Observation Date Value Abnormality Reference (Units ) Status BUN 09/28/2023 13:06:00 11 6-20 (mg/dL) Final Creatinine 09/28/2023 13:06:00 0.7 0.5-1.0 (mg/dL) Final Glomerular filtration rate/1.73 sq M.predicted [Volume Rate/Area] in Serum, Plasma or Blood by Creatinine-based formula (CKD-EPI) 09/28/2023 13:06:00 >90 >=60 (mL/min) Final eGFR is calculated based on the CKD-EPI 2020 equation SODIUM 09/28/2023 13:06:00 141 135-146 (m mol/L) Final Potassium 09/28/2023 13:06:00 3.7 3.5-5.1 (m mol/L) Final Cl 09/28/2023 13:06:00 107 98-107 (mm ol/L) Final CO2 09/28/2023 13:06:00 23 22-32 (mmo l/L) Final Anion gap 09/28/2023 13:06:00 11 7-15 (mmol /L) Final Glucose 09/28/2023 13:06:00 107 70-120 (mg /dL) Final Albumin 09/28/2023 13:06:00 4.3 3.8-5.0 (g /dL) Final AST (Aspartate aminotransferase) 09/28/2023 13:06:00 32 10-35 (U/L) Final Alk Phos 09/28/2023 13:06:00 104 35-130 (U/ L) Final Bilirubin, Total 09/28/2023 13:06:00 0.3 <=1 .2 (mg/dL) Final Calcium 09/28/2023 13:06:00 9.5 8.4-10.2 ( mg/dL) Final Protein 09/28/2023 13:06:00 6.8 6.0-8.3 (g /dL) Final ALT (Alanine aminotransferase) 09/28/2023 13:06:00 31 10-35 (U/L) Final Performing Location LABORATORY [facility] - [facility] [place] [address]
--- OUTSIDE RECORDS SUMMARY | 2024-02-29 00:22 | External Medical Summary ---
Author Name Unknown Address Unknown Organization K1F:LABORATORY [facility] - [address] [facility] [address] [place] [address] Laboratory Report Ordering Provider Test Date Status WALDEMAR TENA 09/28/2023 13:06:00 Final Observation Date Value Abnormality Reference (Units ) Status SYNC LEUKOCYTES IN BLOOD BY AUTOMATED COUNT 09/28/2023 13:06:00 7.42 4.00-10.80 (K/uL) Final Segs 09/28/2023 13:06:00 56.3 40.0-75.0 (%) Final Lymphs % 09/28/2023 13:06:00 36.8 18.0-42.0 (%) Final Monos 09/28/2023 13:06:00 4.6 1.0-11.0 (%) Final Eosinophils 09/28/2023 13:06:00 1.5 0.0-6.0 (%) Final Basos 09/28/2023 13:06:00 0.5 0.0-2.0 (%) Final Immature Granulocyte, Percent 09/28/2023 13:06:00 0.3 0.0-2.0 (%) Final Absolute Segs 09/28/2023 13:06:00 4.18 1.80-7.70 (K/uL) Final Lymphs, absolute 09/28/2023 13:06:00 2.73 1.00-4.80 (K/ul) Final Monos, Abs 09/28/2023 13:06:00 0.34 0.00-1.10 (K/uL) Final Eos, Abs 09/28/2023 13:06:00 0.11 0.00-0.70 (K/uL) Final Basos, Abs 09/28/2023 13:06:00 0.04 0.00-0.20 (K/uL) Final Immature Granulocytes, Number 09/28/2023 13:06:00 0.02 0.00-0.20 (K/uL) Final Performing Location LABORATORY [facility] - [address] [place] [address]
--- OUTSIDE RECORDS SUMMARY | 2024-02-29 00:23 | External Medical Summary | Summary of Care ---
Author Name Unknown Organization [facility] Address [address] [place] [address] Phone [phone] Care Team Providers Care [employer]is [employer] Instructor Name Role Phone Shannen Rizzo Primary Care Provider Reason for Visit * Reason Onset Date Comments Test Results 09/18/2023 Encounter Details Date Type Department Care Team ([facility] st Contact Info) Description 09/18[facility]2023 [facility] [address] [facility] [address] [place] [phone] Shannen Rizzo CRNP [facility] [place] [address] Test Results Allergies Active Allergy Reactions Criticality Noted Date Comments Bee Pollen 08/13/2020 Bee Venom 05/01/2015 Honey Anaphylaxis High 02/12/2019 Levetiracetam 01/14/2021 Other reaction(s): Vomiting Sulfa Antibiotics 12/17/2022 Bupropion 12/17/2022 documented as of this encounter (statuses as of 09/18/2023) Medications Medication Sig Dispensed Refills Start Date End Date Status EpiPen 2-Obie 0.3 MG/0.3ML Injection Solution Auto-injector For a severe reaction: Inject in outer thigh following instructions on package and go to the Emergency room. 2 Each 0 03/21/2023 Active [place]-3 Fish Oil 1000 MG Oral Capsule ([place]-3) Take 1 Capsule by mouth in the [...] gone.. 14 Capsule 0 09/18/2023 09/25/2023 Active documented as of this encounter (statuses as of 09/18/2023) Active Problems Problem Noted Date Diagnosed Date [...] being seen in [place] per discussions with [facility], she had only shown for anatomy US, cancelled/no showed all her visits Anemia of mother in , antepartum, third trimester 12/17/2022 Overview: Blood management referral for venofer Vitmain b12 1000mcg daily Trichomonal vulvovaginitis 12/17/2022 Overview: Treated 12/17/22 Positive 01/26/23 treated THANG due 39w Chlamydia infection affecting in secon d trimester 12/17/2022 Overview: Noted in labs from [place], unsure if she was treated. 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 Never true 03/19/2023 [place] Depression Scale Answer Date Recorded [place] Depression Scale Total 22 07/08/2023 The thought [...] encounter Miscellaneous Notes * Telephone Encounter - Irma Obrien NRCMA - 09/18/2023 12:09 PM EST Pt informed and will rock picker med. * Telephone Encounter - Shannen Rizzo CRNP - 09/18/2023 11:30 AM EST Shaq sent to pharmacy for positive chlamydia. Her significant other should also reach out to his PCP and be tested and treated so that they don't keep passing it back and forth. documented in this encounter Plan of Treatment Upcoming Encounters Date Type Department Care Team (Late st Contact Info) Description 09/24/2023 2:00 PM EST Office Visit Gynecology/Obstetrics [facility] [address] [place], [place] [phone] Willow Contreras PA-C [address] [place], [place] [phone] 10/22/2023 1:00 PM EST Office Visit Neurology, [place] [address] [place] [phone] Gautam Bragg DO [address] [place] [address] 03/24/2024 3:30 PM EDT Office Visit Oral Maxillofacial Surgery, [place] [address] [place] [address] Eliseo Ram DDS [address] [place] [address] 09/19/2024 2:00 PM EST Office Visit [facility] [place] [address] [phone] RizzoShannen TeressaEMILY rosarioNP [address] [address] Health Maintenance Due Date Last Done Comments [...] the patient have Health Care Power of Butt Welder? No Full Code 03/27/2023 10:31 PM 04/01/2023 5:17 PM This o rder reflects the patients wishes and were consensually agreed upon. Question Answer Comments Discussion of Advance Directives occurred with: Not Discussed due to patient's condition Does the patient have a Living Will? No Does the patient have Health Care Power of Butt Welder? No Full Code 02/22/2023 3:52 PM 02/24/2023 9:44 PM This or noa reflects the patients wishes and were consensually agreed upon. Question Answer Comments Discussion of Advance Directives occurred with: Not Discussed due to patient's condition Does the patient have a Living Will? No Does the patient have Health Care Power of Butt Welder? No Full Code 02/17/2023 12:08 AM 02/17/2023 1:32 PM This order reflects the patients wishes and were consensually agreed upon. Question Answer Comments Discussion of Advance Directives occurred with: Not Discussed due to patient's condition Care Teams Tennis [employer] Instructor Relationship Specialty Start Date End Date Shannen Rizzo CRNP [address] [address] PCP - General Nurse Practitioner 04/20/23 documented as of this encounter
--- OUTSIDE RECORDS SUMMARY | 2024-02-29 00:23 | External Medical Summary | Summary of Care ---
Author Name Unknown Organization [facility] Address [address] [place] [address] Phone [phone] Care Team Providers Care Php Programmer Name Role Phone Shannen Rizzo Primary Care Provider Reason for Visit * Reason Onset Date Comments Test Results 09/18/2023 Encounter Details Date Type Department Care Team ([facility] st Contact Info) Description [facility]/18[facility]2023 [facility] [place] [address] Shannen Rizzo CRNP [address] [place] [place] [address] Test Results Allergies Active Allergy Reactions [...] Emergency room. 2 Each 0 03/21/2023 Active [place]-3 Fish Oil 1000 MG Oral Capsule ([place]-3) Take 1 Capsule by mouth in the [...] 28weeks, States she was being seen in [place] per discussions with [facility], she had only shown for anatomy US, cancelled/no showed all her visits Anemia of mother in , antepartum, third trimester 12/17/2022 Overview: Blood management referral for venofer Vitmain b12 1000mcg daily Trichomonal vulvovaginitis 12/17/2022 Overview: Treated 12/17/22 Positive 01/26/23 treated THANG due 39w Chlamydia infection affecting in secon d trimester 12/17/2022 Overview: Noted in labs from [place], unsure if she was treated. R/p completed [...] money to get more. Never true 03/19/2023 [place] Depression Scale Answer Date Recorded [place] Depression Scale Total 22 07/08/2023 The thought [...] Miscellaneous Notes * Telephone Encounter - Shannen Rizzo CRNP [...] 09/24/2023 2:00 PM EST Office Visit Gynecology/Obstetrics [facility] [address] [place] [address] Willow Contreras PA-C [address] [place], [place] [phone] 10/22/2023 1:00 PM EST Office Visit Neurology, [place] [address] [place] [phone] Gautam Bragg DO [address], [place] [phone] 03/24/2024 3:30 PM EDT Office Visit Oral Maxillofacial Surgery, [place] [address] [place] [address] Eliseo Ram, JOBY [address] [place], [place] [phone] 09/19/2024 2:00 PM EST Office Visit [address] [place] [phone] Shannen Rizzo CRNP [address] [place] [address] Health Maintenance Due Date Last Done Comments [...] the patient have Health Care Power of Campaign Manager? No Full Code 03/27/2023 10:31 PM 04/01/2023 5:17 PM This o rder reflects the patients wishes and were consensually agreed upon. Question Answer Comments Discussion of Advance Directives occurred with: Not Discussed due to patient's condition Does the patient have a Living Will? No Does the patient have Health Care Power of Campaign Manager? No Full Code 02/22/2023 3:52 PM 02/24/2023 9:44 PM This or noa reflects the patients wishes and were consensually agreed upon. Question Answer Comments Discussion of Advance Directives occurred with: Not Discussed due to patient's condition Does the patient have a Living Will? No Does the patient have Health Care Power of Campaign Manager? No Full Code 02/17/2023 12:08 AM 02/17/2023 1:32 PM This order reflects the patients wishes and were consensually agreed upon. Question Answer Comments Discussion of Advance Directives occurred with: Not Discussed due to patient's condition Care Teams Php Programmer Relationship Specialty Start Date End Date Shannen Rizzo CRNP [address] [place] [address] PCP - General Nurse Practitioner 04/20/23 documented as of this encounter
--- OUTSIDE RECORDS SUMMARY | 2024-02-29 00:23 | External Medical Summary | Summary of Care ---
Author Name Unknown Organization [facility] Address [address] [place] [address] Phone [phone] Care Team Providers Care Manager Product Support Name Role Phone Shannen Rizzo Primary Care Provider Reason for Visit * Reason Onset Date Comments Hospital Follow-Up [facility] 09/03 - 7A Hospital Follow-Up 09/17/2023 Encounter Details Date Type Department Care Team (Late st Contact Info) Description 09/17/2023 2:00 PM EST Office Visit [facility] [address] [place] [address] Shannen Rizzo CRNP [facility] [place] [address] Hospital discharge follow-up*; Borderline personality disorder (HCC); Bipolar 2 disorder, major depressive episode (HCC); Major depressive disorder, recurrent severe without psychotic features (HCC); Major depressive disorder, recurrent, severe with psychotic symptoms (HCC); Nonintractable epilepsy without status epilepticus, unspecified epilepsy type (HCC); Vaginal discharge Allergies Active Allergy Reactions Criticality Noted Date Comments Bee Pollen 08/13/2020 Bee Venom 05/01/2015 Honey Anaphylaxis High 02/12/2019 Levetiracetam 01/14/2021 Other reaction(s): Vomiting Sulfa Antibiotics 12/17/2022 Bupropion 12/17/2022 documented as of this encounter (statuses as of 09/17/2023) Medications Medication Sig Dispensed Refills Start Date End Date Status EpiPen 2-Obie 0.3 MG/0.3ML Injection Solution Auto-injector For a severe reaction: Inject in outer thigh following instructions on package and go to the Emergency room. 2 Each 0 03/21/2023 Active Ebony-3 Fish Oil 1000 MG Oral Capsule (Ebony-3) Take 1 Capsule by mouth in the [...] THE EVENING. 40 Capsule 0 09/17/2023 Active Phenytoin Sodium Extended 100 MG Oral Capsule (Dilantin)Indicat ions:Nonintractab le epilepsy without status epilepticus, unspecified epilepsy type (HCC) TAKE 2 CAPSULES BY MOUTH IN THE MORNING, ONE IN THE AFTERNOON, AND ONE IN THE EVENING. 40 Capsule 0 09/09/2023 4 Discontinue d(Refill) documented as of this encounter (statuses as of 09/17/2023) Active Problems Problem Noted Date Diagnosed Date [...] being seen in [place] per discussions with [facility], she had only shown for [...] as of this encounter (statuses as of 09/17/2023) Resolved Problems Problem Noted Date Diagnosed Date Resolved Date Suicidal ideation 09/04/2023 09/09/2023 History of substance abuse 09/04/2023 0 09/17/2023 Methamphetamine use 12/17/2022 03/19/20 Overview: Last use 11/23/22 per patient Seizure 07/30/2020 03/19/2023 Recurrent major depressive disorder 02/12/2019 03/30/2023 CHR SEROUS OM NEC 05/25/2006 01/08/2023 documented as of this encounter (statuses as of 09/17/2023) Immunizations Name Administration Dates Next Due HPV [...] money to get more. Never true 03/19/2023 [place] Depression Scale Answer Date Recorded [place] Depression Scale Total 22 07/08/2023 The thought [...] Reading Time Taken Comments Blood Pressure 98/56 09/17/2023 2:02 PM EST Pulse 74 09/17/2023 2:02 PM EST Temperature 36.3 C (97.3 F) 09/17/2023 2:02 PM ES T Respiratory Rate 18 09/17/2023 2:02 PM EST Oxygen Saturation 97% 09/17/2023 2:02 PM EST Inhaled Oxygen Concentration - - Weight 57.4 kg (126 lb 9.6 oz) 09/17/2023 2:02 P M EST Height - - Body Mass Index 25.57 08/31/2023 2:14 PM EST documented in this [...] Progress Notes * Shannen Rizzo CRNP - 09/17/2023 2:10 PM EST SUBJECTIVE: Yu Lopez is a 22 year old female. Chief Complaint Patient presents with Hospital Follow-Up [facility] 09/03 - 09/09 7A Hospital Follow-Up Recent Admission: Patient was recently admitted to [facility]. The date of discharge was 09/09/23. Discharge report received and reviewed. HPI: Yu presents to the clinic for a hospital discharge follow up. She reports that on 09/03/23 she was depressed, didn't feel like herself, didn't feel like Abilify and Zoloft were helping. She was sleeping all the time. Her boyfriend and her cousin were very supportive of her going for help. She was admitted to and participated in groups and had medication changes done. She is now home and feeling much better. She and her boyfriend are getting ready to move into a new apartment. She does report increased vaginal drainage and was recently treated for UTI and did finish her antibiotics. Patient Active Problem List Diagnosis Code Mixed hearing loss, bilateral H90.6 Sensorineural hearing loss, bilateral H90.3 ADHD (attention deficit hyperactivity disorder), combined type F90.2 Tobacco use disorder F17.200 Limited care in third trimester O09.33 Anemia of mother in , antepartum, third trimester O99.013 Trichomonal vulvovaginitis A59.01 Chlamydia infection affecting in second trimester O98.812, A74.9 Opiate use F11.90 Borderline personality disorder (HCC) F60.3 Impulse control disorder in adult F63.9 Maternal gonorrhea in second trimester O98.212 Iron deficiency anemia D50.9 BV (bacterial vaginosis) N76.0, B96.89 Positive GBS test B95.1 Ultrasound for screening for growth restriction Z36.4 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) G40.909 Other psychoactive substance dependence, uncomplicated (HCC) F19.20 PTSD (post-traumatic stress disorder) F43.10 Autism spectrum disorder F84.0 Transient alteration of awareness R40.4 Abnormal electroencephalogram (EEG) R94.01 Severe episode of recurrent major depressive disorder, without psychotic features (HCC) F33.2 Depressed bipolar II disorder (HCC) F31.81 Tobacco use Z72.0 Major depressive disorder, recurrent, severe with psychotic symptoms (HCC) F33.3 Current Outpatient Medications Medication Sig Dispense Refill Escitalopram Oxalate 10 MG Oral Tablet (Lexapro) Take 1 Tablet by mouth in the morning. 10 Tablet 0 Phenytoin Sodium Extended 100 MG Oral Capsule (Dilantin) TAKE 2 CAPSULES BY MOUTH IN THE MORNING, ONE IN THE AFTERNOON, AND ONE IN THE EVENING. 40 Capsule 0 EpiPen 2-Obie 0.3 MG/0.3ML Injection Solution Auto-injector For a severe reaction: Inject in outer thigh following instructions on package and go to the Emergency room. 2 Each 0 Ebony-3 Fish Oil 1000 MG Oral Capsule (Ebony-3) Take 1 Capsule by mouth in the [...] Vomiting Sulfa Antibiotics Wellbutrin [Bupropion] OBJECTIVE: BP 98/56 | Pulse 74 | Temp 36.3 C (97.3 F) (Tympanic) | Resp 18 | Wt 57.4 kg (126 lb 9.6 oz) | LMP 07/26/2023 (Approximate) | SpO2 97% | BMI 25.57 kg/m | BSA 1.55 m REVIEW OF SYSTEMS: Review of Systems Constitutional: Negative for activity change. Respiratory: Negative for chest tightness. Cardiovascular: Negative for chest pain. Gastrointestinal: Negative for abdominal pain, diarrhea, nausea and vomiting. Genitourinary: Positive for vaginal discharge. Musculoskeletal: Negative for back pain. Psychiatric/Behavioral: Negative for agitation, behavioral problems and sleep disturbance. PHYSICAL EXAM: BP 98/56 | Pulse 74 | Temp 36.3 C (97.3 F) (Tympanic) | Resp 18 | Wt 57.4 kg (126 lb 9.6 oz) | LMP 07/26/2023 (Approximate) | SpO2 97% | BMI 25.57 kg/m | BSA 1.55 m Physical Exam Vitals and nursing note reviewed. Constitutional: Appearance: Normal appearance. HENT: Head: Normocephalic. Right Ear: External ear normal. Left Ear: External ear normal. Psychiatric: Attention and Perception: Attention and perception normal. Mood and Affect: Mood is elated. Comments: Yu is chatty, upbeat ASSESSMENT: Hospital discharge follow-up (Primary) - DISCH MED RECON CUR MED LIS Borderline personality disorder (HCC) -managed by psychiatry Bipolar 2 disorder, major depressive episode (HCC) -managed by psychiatry Major depressive disorder, recurrent severe without psychotic features (HCC) -managed by psychiatry Major depressive disorder, recurrent, severe with psychotic symptoms (HCC) -managed by psychiatry Nonintractable epilepsy without status epilepticus, unspecified epilepsy type (HCC) -follows with neurology Vaginal discharge - URINALYSIS, REFLEX TO MICROSCOPIC; Future; Expected date: 09/17/2023 - CHLAMYDIA TRACHOMATIS AND NEISSERIA GONORRHOEAE, AMPLIFIED PROBE; Future; Expected date: 09/17/2023 PLAN: Continue present medication(s): Follow up as needed. Continue following with psychiatry. I spent a total of 30-39 minutes (exact time 30 mins) minutes on the date of service in preparation, delivery, and documentation of the care provided to Yu Lopez excluding any time spent in performance of separately billed services. GELACIO Short documented in this encounter Nursing Notes * Larisa Sarah LPN - 09/17/2023 2:01 PM EST Chief Complaint Patient presents with Hospital Follow-Up [facility] 09/03 - 09/09 7A documented in this encounter Plan of Treatment Upcoming Encounters Date Type Department Care Team (Late st Contact Info) Description 09/24/2023 2:00 PM EST Office Visit Gynecology/Obstetrics [facility] [address] [place] [address] Willow Contreras PA-C [address] [place], [place] [phone] 10/22/2023 1:00 PM EST [facility] [address] [place] [address] Gautam Bragg DO [address], [place] [phone] 03/24/2024 3:30 PM EDT Office Visit Oral Maxillofacial Surgery, [place] [address] [place] [address] Eliseo Ram, Jc [address] [place] [address] 09/19/2024 2:00 PM EST Office Visit [facility] [address] [place] [place] [address] Shannen Rizzo CRNP [address] [place] [address] Pending Results Name Type Priority Associated Diagnoses Date /Time URINALYSIS, REFLEX TO MICROSCOPIC Lab Routine Vaginal discharge 09/17/2023 2:42 PM EST CHLAMYDIA TRACHOMATIS AND NEISSERIA GONORRHOEAE, AMPLIFIED PROBE Lab Routine Vaginal discharge 09/17/2023 2:42 PM EST Scheduled Orders Name Type Priority Associated Diagnoses Orde r Schedule URINALYSIS, REFLEX TO MICROSCOPIC Lab Routine Vaginal discharge Expected: 09/17/2023, Expires: 09/17/2024 CHLAMYDIA TRACHOMATIS AND NEISSERIA GONORRHOEAE, AMPLIFIED PROBE Lab Routine Vaginal discharge Expected: 09/17/2023, Expires: 09/17/2024 Health Maintenance Due Date Last Done Comments COVID-19 Vaccine (#1) 03/26/2000 Gonorrhea / Chlamydia Screen 08/19/2024, 04/08/2023, 02/09/2023, Additional history exists Depression Screening 09/09/2024 09/09/2023 Pap Smear 04/08/2026 04/08/2023 DTaP,Tdap,and Td Vaccines [...] Hospital discharge follow-up- Primary Other follow-up examination Borderline personality disorder (HCC) Borderline personality disorder Bipolar 2 disorder, major depressive episode (HCC) Other bipolar disorders Major depressive disorder, recurrent severe without psychotic features (HCC) Major depressive disorder, recurrent episode, severe, without mention of psychotic behavior Major depressive disorder, recurrent, 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 No Full Code 03/27/2023 10:31 PM 04/01/2023 5:17 PM This o rder reflects the patients wishes and were consensually agreed upon. Question Answer Comments Discussion of Advance Directives occurred with: Not Discussed due to patient's condition Does the patient have a Living Will? No Does the patient have Health Care Power of Special Services Coordinator? No Full Code 02/22/2023 3:52 PM 02/24/2023 9:44 PM This or noa reflects the patients wishes and were consensually agreed upon. Question Answer Comments Discussion of Advance Directives occurred with: Not Discussed due to patient's condition Does the patient have a Living Will? No Does the patient have Health Care Power of Special Services Coordinator? No Full Code 02/17/2023 12:08 AM 02/17/2023 1:32 PM This order reflects the patients wishes and were consensually agreed upon. Question Answer Comments Discussion of Advance Directives occurred with: Not Discussed due to patient's condition Care Teams Manager Product Support Relationship Specialty Start Date End Date Shannen Rizzo CRNP [address] [id number] PCP - General Nurse Practitioner 04/20/23 documented as of this encounter
--- OUTSIDE RECORDS SUMMARY | 2024-02-29 00:23 | External Medical Summary | Summary of Care ---
Author Name Unknown Organization [facility] Address [address] [place] [address] Phone [phone] Care Team Providers Care Nurse Healthcare Manager Name Role Phone Shannen Martinez Primary Care Provider Reason for Visit * Reason Onset Date Comments Hospital Follow-Up [facility] 09/03 - 7A Hospital Follow-Up 09/17/2023 Encounter Details Date Type Department Care Team (Late st Contact Info) Description 09/17/2023 2:00 PM EST Office Visit [facility] [address] [place] [address] Shannen Martinez CRNP [facility] [place] [address] Hospital discharge follow-up*; Borderline personality disorder (HCC); Bipolar 2 disorder, major depressive episode (HCC); Major depressive disorder, recurrent severe without psychotic features (HCC); Major depressive disorder, recurrent, severe with psychotic symptoms (HCC); Nonintractable epilepsy without status epilepticus, unspecified epilepsy type (HCC); Vaginal discharge; Chlamydia infection Allergies Active Allergy Reactions Criticality Noted Date [...] Emergency room. 2 Each 0 03/21/2023 Active [place]-3 Fish Oil 1000 MG Oral Capsule ([place]-3) Take 1 Capsule by mouth in the [...] 09/17/2023 Active Doxycycline Hyclate 100 MG Oral CapsuleIndication s:Chlamydia infection Take 1 Capsule by mouth in the morning and 1 Capsule before bedtime. Do all this for 7 days. Until gone.. 14 Capsule 0 09/18/2023 4 Active Phenytoin Sodium Extended 100 MG [...] being seen in [place] per discussions with [facility], she had only shown [...] money to get more. Never true 03/19/2023 [place] Depression Scale Answer Date Recorded [place] Depression Scale Total 22 07/08/2023 The thought [...] of this encounter Progress Notes * Shannen Martinez CRNP - 09/17/2023 2:10 PM EST SUBJECTIVE: Yu Lopez is a 22 year old female. Chief Complaint Patient presents with Hospital Follow-Up [facility] 09/03 - 09/09 7A Hospital Follow-Up Recent Admission: Patient was recently admitted to [facility]. The date of discharge was 09/09/23. Discharge [...] to the Emergency room. 2 Each 0 [place]-3 Fish Oil 1000 MG Oral Capsule ([place]-3) Take 1 Capsule by mouth in the [...] Mood is elated. Comments: Yu is chatty, mercybeluis ASSESSMENT: Hospital discharge follow-up (Primary) - DISCH [...] Chief Complaint Patient presents with Hospital Follow-Up [facility] 09/03 - 09/09 7A documented in this encounter Miscellaneous Notes * Addendum Note - Shannen Martinez CRNP - 09/18/2023 11:29 AM ESTAddended by: SHNANEN MARTINEZ on: 09/18/2023 11:29 AM Modules accepted: Orders documented in this encounter Plan of Treatment Upcoming Encounters Date Type Department Care Team (Late st Contact Info) Description 09/24/2023 2:00 PM EST Office Visit Gynecology/Obstetrics [facility] [address] [place], [place] [phone] Willow Contreras PA-C [address] [place], [place] [phone] 10/22/2023 1:00 PM EST Office Visit Neurology, [place] [address] [place] [phone] Gautam Bragg DO [address] [place], [place] [phone] 03/24/2024 3:30 PM EDT Office Visit Oral Maxillofacial Surgery, [place] [address] [place], [place] [phone] Eliseo Ram, [facility] [address] [place], [place] [phone] 09/19/2024 2:00 PM EST Office Visit Family [facility] [address] [place] [phone] Shannen Martinez CRNP [address] [place] [address] Health Maintenance Due Date Last [...] Procedure Name Priority Date/Time Associated Diagnosis Comments CHLAMYDIA TRACHOMATIS AND NEISSERIA GONORRHOEAE, AMPLIFIED PROBE Routine 09/17/2023 2:42 PM EST Vaginal discharge URINALYSIS, REFLEX TO MICROSCOPIC Routine 09/17/2023 2:42 PM EST Vaginal discharge documented in this encounter Results * (ABNORMAL) CHLAMYDIA TRACHOMATIS AND NEISSERIA GONORRHOEAE, AMPLIFIED PROBE (09/17/2023 2:42 PM EST) Chlamydia Trachomatis Result Positive(A) Negative 09/18/2023 10:38 AM EST [facility] Comment:Chlamydia trachomati s detected by chemical waste management technician-mediated nucleic acid amplification. Test results reported to [facility]. Neisseria Gonorrhoeae Result Negative Negative 09/18/2023 10:38 AM EST [facility] Comment:No Neisseria gonorrh oeae detected by chemical waste management technician-mediated nucleic acid amplification. Urine Urine specimen obtained by clean catch procedure / Unknown Non-blood Collection / Unknown 09/17/2023 2:42 PM EST 09/17/2023 2:42 PM EST Shannen BRIZUELA LAB MICRO - GEN ERAL ORDERABLES [facility]ORY [facility] [address] [place] [address] * URINALYSIS, REFLEX TO MICROSCOPIC (09/17/2023 2:42 PM EST) Color, Urine Yellow Colorless, Light Yellow, Yellow, Dark Yellow 09/17/2023 10:47 PM EST LABORATORY [facility] Clarity, Urine Clear Clear 09/17/2023 10:47 PM EST [facility] Glucose, Urine Negative Negative mg/dL 09/17/2023 10:47 PM EST LAB[facility]ATORY [facility] Bilirubin, Urine Negative Negative 09/17/2023 10:47 PM EST [facility] Ketone, Urine Negative Negative mg/dL 09/17/2023 10:47 PM EST [facility] Specific [place], Urine 1.027 1.003 - 1.030 09/17/2023 10:47 PM EST [facility] Blood, Urine Negative Negative 09/17/2023 10:47 PM EST [facility] pH, Urine 5.5 5.0 - 7.5 Units 09/17/2023 10:47 PM EST [facility] Protein, Urine Negative Negative mg/dL 09/17/2023 10:47 PM EST [facility] Urobilinogen, Urine Normal Normal mg/dL 09/17/2023 10:47 PM EST [facility] Nitrite, Urine Negative Negative 09/17/2023 10:47 PM EST [facility] Esterase, Urine Negative Negative 10:47 PM EST [facility] Comment, Urine 09/17/2023 10:47 PM EST [facility] Comment:Screen negative - Mi croscopic not performed. Urine Non-blood Collection / Unknown 09/17/2023 2:42 PM EST 09/17/2023 2:42 PM EST Shannen BRIZUELA LAB URINE ORDER [facility] [address] [place] [address] documented in this encounter Visit Diagnoses Diagnosis Hospital discharge [...] Vaginal discharge Leukorrhea, not specified as infective Chlamydia infection Unspecified chlamydial infection, in conditions classified elsewhere and of unspecified site documented in this encounter Advance Directives Latest [...] the patient have Health Care Power of Exhaust Emissions Automotive Technician? No Full Code 03/27/2023 10:31 PM 04/01/2023 5:17 PM This o rder reflects the patients wishes and were consensually agreed upon. Question Answer Comments Discussion of Advance Directives occurred with: Not Discussed due to patient's condition Does the patient have a Living Will? No Does the patient have Health Care Power of Exhaust Emissions Automotive Technician? No Full Code 02/22/2023 3:52 PM 02/24/2023 9:44 PM This or noa reflects the patients wishes and were consensually agreed upon. Question Answer Comments Discussion of Advance Directives occurred with: Not Discussed due to patient's condition Does the patient have a Living Will? No Does the patient have Health Care Power of Exhaust Emissions Automotive Technician? No Full Code 02/17/2023 12:08 AM 02/17/2023 1:32 PM This order reflects the patients wishes and were consensually agreed upon. Question Answer Comments Discussion of Advance Directives occurred with: Not Discussed due to patient's condition Care Teams Nurse Healthcare Manager Relationship Specialty Start Date End Date Shannen Martinez CRNP [address] [id number] PCP - General Nurse Practitioner 04/20/23 documented as of this encounter
--- OUTSIDE RECORDS SUMMARY | 2024-02-29 00:23 | External Medical Summary | Summary of Care ---
Author Name Unknown Organization [facility] Address [address] [place] [address] Phone [phone] Care Team Providers Care Spanish Language Lecturer Name Role Phone Shannen Rizzo Primary Care Provider Reason for Visit * Reason Onset Date Comments Test Results 09/18/2023 Encounter Details Date Type Department Care Team ([facility] st Contact Info) Description [facility] [address] [place] [phone] Shannen Rizzo CRNP [address] [place] [address] Test Results Allergies Active Allergy Reactions [...] Emergency room. 2 Each 0 03/21/2023 Active Pittsburgh-3 Fish Oil 1000 MG Oral Capsule ([place]-3) Take 1 Capsule by mouth in the [...] 28weeks, States she was being seen in [place] per discussions with [email or web address]], she had only shown for anatomy US, cancelled/no showed all her visits Anemia of mother in , antepartum, third trimester 12/17/2022 Overview: Blood management referral for venofer Vitmain b12 1000mcg daily Trichomonal vulvovaginitis 12/17/2022 Overview: Treated 12/17/22 Positive 01/26/23 treated THANG due 39w Chlamydia infection affecting in secon d trimester 12/17/2022 Overview: Noted in labs from [place], unsure if she was treated. R/p completed [...] money to get more. Never true 03/19/2023 Hollywood Depression Scale Answer Date Recorded Hollywood Depression Scale Total 22 07/08/2023 The thought [...] 09/24/2023 2:00 PM EST Office Visit Gynecology/Obstetrics [facility] [address] [place] [address] Willow Contreras PA-C [address] [place], [place] [phone] 10/22/2023 1:00 PM EST Office Visit Neurology, [place] [address] [place] [phone] Gautam Bragg DO [address] [place], [place] [phone] 03/24/2024 3:30 PM EDT Office Visit Oral Maxillofacial Surgery, [place] [address] [place] [address] Eliseo Ram, JOBY [address] [place], [place] [phone] 09/19/2024 2:00 PM EST Office Visit [address] [place] [phone] Shannen Rizzo CRNP [address] [place] [address] Health Maintenance Due Date Last Done Comments [...] the patient have Health Care Power of Nail Feeder? No Full Code 03/27/2023 10:31 PM 04/01/2023 5:17 PM This o rder reflects the patients wishes and were consensually agreed upon. Question Answer Comments Discussion of Advance Directives occurred with: Not Discussed due to patient's condition Does the patient have a Living Will? No Does the patient have Health Care Power of Nail Feeder? No Full Code 02/22/2023 3:52 PM 02/24/2023 9:44 PM This or noa reflects the patients wishes and were consensually agreed upon. Question Answer Comments Discussion of Advance Directives occurred with: Not Discussed due to patient's condition Does the patient have a Living Will? No Does the patient have Health Care Power of Nail Feeder? No Full Code 02/17/2023 12:08 AM 02/17/2023 1:32 PM This order reflects the patients wishes and were consensually agreed upon. Question Answer Comments Discussion of Advance Directives occurred with: Not Discussed due to patient's condition Care Teams Spanish Language Lecturer Relationship Specialty Start Date End Date Shannen Rizzo CRNP [address] [id number] PCP - General Nurse Practitioner 04/20/23 documented as of this encounter
--- OUTSIDE RECORDS SUMMARY | 2024-02-29 00:24 | External Medical Summary ---
Author Name Unknown Address Unknown Organization K01:[facility] [place] [address] [facility] [address] Laboratory Report Ordering Provider Test Date Status JUAN ISLAS 09/17/2023 14:42:20 Final Observation Date Value Abnormality Reference (Units ) Status Color of Urine by Auto 09/17/2023 14:42:20 Yellow Colorless, Light Yellow, Yellow, Dark Yellow Final Clarity, Urine 09/17/2023 14:42:20 Clear Clear Final Glucose [Mass/volume] in Urine by Automated test strip 09/17/2023 14:42:20 Negative Negative (mg/dL) Final Bilirubin.total [Presence] in Urine by Automated test strip 09/17/2023 14:42:20 Negative Negative Final Ketones [Mass/volume] in Urine by Automated test strip 09/17/2023 14:42:20 Negative Negative (mg/dL) Final Specific gravity, Urine 09/17/2023 14:42:20 1.027 1.003-1.030 Final Hemoglobin [Presence] in Urine by Automated test strip 09/17/2023 14:42:20 Negative Negative Final pH, Urine 09/17/2023 14:42:20 5.5 5.0-7.5 (Units) Final Protein [Mass/volume] in Urine by Automated test strip 09/17/2023 14:42:20 Negative Negative (mg/dL) Final Urobilinogen [Mass/volume] in Urine by Automated test strip 09/17/2023 14:42:20 Normal Normal (mg/dL) Final Nitrite [Presence] in Urine by Automated test strip 09/17/2023 14:42:20 Negative Negative Final Leukocyte esterase [Presence] in Urine by Automated test strip 09/17/2023 14:42:20 Negative Negative Final Annotation Comment 09/17/2023 14:42:20 Final Screen negative - Microscopi c not performed. Performing Location [facility] [place] [address] [facility] [address]
--- OUTSIDE RECORDS SUMMARY | 2024-02-29 00:24 | External Medical Summary ---
Author Name Unknown Address Unknown Organization K01:[facility] [place] [address] [facility] [address] Laboratory Report Ordering Provider Test Date Status JUAN ISLAS 09/17/2023 14:42:20 Final Observation Date Value Abnormality Reference (Units ) Status Chlamydia trachomatis rRNA [Presence] in Specimen by JORGE LUIS with probe detection 09/17/2023 14:42:20 Positive Abnormal Negative Final Chlamydia trachomatis detect ed by director ehs-mediated nucleic acid amplification. Test results reported to [facility]. Neisseria gonorrhoeae rRNA [ Presence] in Specimen by JORGE LUIS with probe detection 09/17/2023 14:42:20 Negative Negative Final No Neisseria gonorrhoeae det ected by director ehs-mediated nucleic acid amplification. Performing Location [facility] [place] - [address] [facility] [address]
--- OUTSIDE RECORDS SUMMARY | 2024-02-29 00:24 | External Medical Summary | Summary of Care ---
Author Name Unknown Organization [facility] Address [address] [place] [address] Phone [phone] Care Team Providers Care Rn Care Transition Name Role Phone Shannen Rizzo Primary Care Provider Reason for Visit * Reason Onset Date Comments Hospital Follow-Up [facility] 09/03 - 7A Hospital Follow-Up 09/17/2023 Encounter Details Date Type Department Care Team (Late st Contact Info) Description 09/17/2023 2:00 PM EST Office Visit [facility] [address] [place] [address] Shannen Rizzo CRNP [address] [place] [address] Hospital discharge follow-up*; Borderline personality disorder [...] Emergency room. 2 Each 0 03/21/2023 Active Cedar-3 Fish Oil 1000 MG Oral Capsule (Cedar-3) Take 1 Capsule by mouth in the [...] 28weeks, States she was being seen in [place] per discussions with [facility], she had only shown for anatomy US, cancelled/no showed all her visits Anemia of mother in , antepartum, third trimester 12/17/2022 Overview: Blood management referral for venofer Vitmain b12 1000mcg daily Trichomonal vulvovaginitis 12/17/2022 Overview: Treated 12/17/22 Positive 01/26/23 treated THANG due 39w Chlamydia infection affecting in secon d trimester 12/17/2022 Overview: Noted in labs from [place], unsure if she was treated. R/p completed [...] money to get more. Never true 03/19/2023 [place] Depression Scale Answer Date Recorded [place] Depression Scale Total 22 07/08/2023 The thought [...] Chief Complaint Patient presents with Hospital Follow-Up [facility] 09/03 - 09/09 7A Hospital Follow-Up Recent Admission: Patient was recently admitted to [facility]. The date of discharge was 09/09/23. [...] to the Emergency room. 2 Each 0 Cedar-3 Fish Oil 1000 MG Oral Capsule (Cedar-3) Take 1 Capsule by mouth in the [...] Chief Complaint Patient presents with Hospital Follow-Up [facility] 09/03 - 09/09 7A documented in this encounter Plan of Treatment Upcoming Encounters Date Type Department Care Team (Late st Contact Info) Description 09/24/2023 2:00 PM EST Office Visit Gynecology/Obstetrics [facility] [address] [place] [address] Willow Contreras PA-C [address] [place], [place] [phone] 10/22/2023 1:00 PM EST [facility] [address] [place] [address] Gautam Bragg DO [address], [place] [phone] 03/24/2024 3:30 PM EDT Office Visit Oral Maxillofacial Surgery, [place] [address] [place] [address] Eliseo Ram, Jc [address] [place] [address] 09/19/2024 2:00 PM EST Office Visit [facility] [address] [place] [address] Shannen Rizzo CRNP [address] [place] [address] Pending Results Name Type Priority [...] the patient have Health Care Power of Wire Bender? No Full Code 03/27/2023 10:31 PM 04/01/2023 5:17 PM This o rder reflects the patients wishes and were consensually agreed upon. Question Answer Comments Discussion of Advance Directives occurred with: Not Discussed due to patient's condition Does the patient have a Living Will? No Does the patient have Health Care Power of Wire Bender? No Full Code 02/22/2023 3:52 PM 02/24/2023 9:44 PM This or noa reflects the patients wishes and were consensually agreed upon. Question Answer Comments Discussion of Advance Directives occurred with: Not Discussed due to patient's condition Does the patient have a Living Will? No Does the patient have Health Care Power of Wire Bender? No Full Code 02/17/2023 12:08 AM 02/17/2023 1:32 PM This order reflects the patients wishes and were consensually agreed upon. Question Answer Comments Discussion of Advance Directives occurred with: Not Discussed due to patient's condition Care Teams Rn Care Transition Relationship Specialty Start Date End Date Shannen Rizzo CRNP [address] [phone] PCP - General Nurse Practitioner 04/20/23 documented as of this encounter
--- OUTSIDE RECORDS SUMMARY | 2024-02-29 00:24 | External Medical Summary | Summary of Care ---
Author Name Unknown Organization [facility] Address [address] [place] [address] Phone [phone] Care Team Providers Care Museum Exhibit Designer Name Role Phone Shannen RizzoNP Primary Care Provider Reason for Visit * Reason Comments Evaluation Psychiatric * Auth/Cert Specialty Diagnoses / Procedures Referred By Rosanna t Referred To Contact Referral ID Status Reason Start Date Expiration Date Visits Re quested Visits Authorized [id number] Encounter Details Date Type Department Care Team (Latest Contact Info) Description 09/03/2023 12:56 PM EST - 09/09/2023 11:03 AM EST Hospital Encounter 7A [facility], [facility] 7th Floor [address] [place] [address] Luis Thompson, DO [address] [place] [address] Emerson Oliver MD [address] [place] [address] Abeba Mcmahan MD [address] [place] [address] EKG Report Discharge Disposition: Home - Self Care Allergies Active Allergy Reactions Criticality Noted Date Comments Bee Pollen 08/13/2020 Bee Venom 05/01/2015 Honey Anaphylaxis High 02/12/2019 Levetiracetam 01/14/2021 Other reaction(s): Vomiting Sulfa Antibiotics 12/17/2022 Bupropion 12/17/2022 documented as of this encounter (statuses as of 09/09/2023) Medications Medication Sig Dispensed Refills Start Date End Date Status EpiPen 2-Obie 0.3 MG/0.3ML Injection Solution Auto-injector For a severe reaction: Inject in outer thigh following instructions on package and go to the Emergency room. 2 Each 0 3 Active Clearlake-3 Fish Oil 1000 MG Oral Capsule (Clearlake-3) Take 1 Capsule by mouth in the morning. Do not start before June 12, 2023. 15 Capsule 0 3 Active Nitrofurantoin Monohyd Macro 100 MG Oral Capsule (Macrobid) Take 1 Capsule by mouth in the morning and 1 Capsule before bedtime. 1 Capsule 0 4 Active Phenytoin Sodium Extended 100 MG Oral Capsule (Dilantin)Indic ations:Nonintra ctable epilepsy without status epilepticus, unspecified epilepsy type (HCC) TAKE 2 CAPSULES BY MOUTH IN THE MORNING, ONE IN THE AFTERNOON, AND ONE IN THE EVENING. 40 Capsule 0 4 Active Escitalopram Oxalate 10 MG Oral Tablet (Lexapro) Take 1 Tablet by mouth in the morning. 10 Tablet 0 4 Active Nicotine 14 MG/24HR Transdermal Patch 24 Hour (Nicoderm CQ) Place 1 Patch over 24 hours topically on the skin in the morning. 0 4 Active Vitamin B-12 1000 MCG Oral Tablet (Cyanocobalamin ) Take 1 Tablet by mouth in the morning. 30 Tablet 5 3 09/09/19 24 Discontinued Phenytoin Sodium Extended 100 MG Oral Capsule (Dilantin)Indic ations:Nonintra ctable epilepsy without status epilepticus, unspecified epilepsy type (HCC) TAKE 2 CAPSULES BY MOUTH IN THE MORNING, ONE IN THE AFTERNOON, AND ONE IN THE EVENING. 120 Capsule 3 3 09/09/19 24 Discontinued(Ref ill) Polyethylene Glycol 3350 17 GM Oral Packet (Miralax) Mix 1 Packet in 4 to 8 ounces of any beverage and drink by mouth in the morning. Do not start before June 12, 2023. 14 Each 0 3 09/09/19 24 Discontinued ARIPiprazole 10 MG Oral Tablet (Abilify)Indica tions:Major depressive disorder, recurrent, severe with psychotic features (HCC) Take 1 Tablet by mouth every night at bedtime. 15 Tablet 0 3 09/09/19 24 Discontinued Sertraline HCl 100 MG Oral Tablet (Zoloft)Indicat ions:Major depressive disorder, recurrent, severe with psychotic features (HCC) Take 2 Tablets by mouth in the morning. 30 Tablet 0 3 09/09/19 24 Discontinued Nitrofurantoin Monohyd Macro 100 MG Oral Capsule (Macrobid) Take 1 Capsule by mouth in the morning and 1 Capsule before bedtime. Do all this for 5 days. With food.. 10 Capsule 0 3 09/09/19 24 Discontinued Potassium Chloride Lelo ER 20 MEQ Oral Tablet Extended Release Take 1 Tablet by mouth in the morning and 1 Tablet before bedtime. 10 Tablet 0 3 09/09/19 24 Discontinued Cephalexin 500 MG Oral Capsule Take 1 Capsule by mouth in the morning and 1 Capsule at noon and 1 Capsule in the evening and 1 Capsule before bedtime. Do all this for 10 days. 40 Capsule 0 3 09/09/19 24 Discontinued Doxycycline Hyclate 100 MG Oral Capsule Take 1 Capsule by mouth in the morning and 1 Capsule before bedtime. Do all this for 7 days. 14 Capsule 0 3 09/09/19 24 Discontinued metroNIDAZOLE 500 MG Oral Tablet (Flagyl) Take 1 Tablet by mouth in the morning and 1 Tablet before bedtime. Do all this for 7 days. 14 Tablet 0 3 09/09/19 24 Discontinued Sertraline HCl 50 MG Oral Tablet (Zoloft) TAKE 1 TABLET BY MOUTH EVERY DAY IN THE MORNING DIRECTED 0 3 09/09/19 24 Discontinued hydrOXYzine HCl 10 MG Oral Tablet (Atarax) Take 1 Tablet by mouth at bedtime as needed. 0 3 09/09/19 24 Discontinued documented as of this encounter (statuses as of 09/09/2023) Active Problems Problem Noted Date Diagnosed Date History of substance abuse 09/04/2023 Depressed bipolar [...] 28weeks, States she was being seen in [place] per discussions with [facility], she had only shown for [...] as of this encounter (statuses as of 09/09/2023) Resolved Problems Problem Noted Date Diagnosed Date Resolved Date Suicidal ideation 09/04/2023 09/09/2023 Methamphetamine use 12/17/2022 03/19/20 Overview: Last use 11/23/22 per patient Seizure 07/30/2020 03/19/2023 Recurrent major depressive disorder 02/12/2019 03/30/2023 CHR SEROUS OM NEC 05/25/2006 01/08/2023 documented as of this encounter (statuses as of 09/09/2023) Immunizations Name Administration Dates Next Due HPV [...] money to get more. Never true 03/19/2023 Courtenay Depression Scale Answer Date Recorded Court[place]ay Depression Scale Total 22 07/08/2023 The thought [...] Sign Reading Time Taken Comments Blood Pressure 100/64 09/09/2023 7:00 AM EST Pulse 77 09/09/2023 7:00 AM EST Temperature 36.8 C (98.2 F) 09/09/2023 7:00 AM ES T Respiratory Rate 18 09/09/2023 7:00 AM EST Oxygen Saturation 98% 09/08/2023 6:00 AM EST Inhaled Oxygen Concentration - - Weight - [...] Instr - AVS* Trinity Meyers Med - 09/08/2023 2:03 PM EST Admit Date: 09/03/2023 Discharge Date: 09/09/2023 If the condition for which you were treated on the psychiatric unit worsens, fails to improve or you feel suicidal or homicidal, please call [facility]: or go to the nearest emergency [...] test results, you can reach us at [phone] Inpatient Behavioral Health Unit at [facility]. Destination: [facility]. [address] [place], [place] [id number] Primary Diagnosis at discharge: Depressed bipolar II Brief summary of your inpatient care: Brief summary of your inpatient care: The reason you were admitted to inpatient psychiatric treatment was due to change in mental status and decline in overall functioning. During your hospitalization, you were treated with a combination of medication and psycho-education therapy. Follow up treatment appointments have been scheduled for you and are noted below . Please attend scheduled appointments after discharge. Inpatient test results pending: None Operations & Procedures: None Complications: none applicable Diet: regular Activity: regular Driving: You resume driving Date you may return to work or school: N/A See your primary care physician (GELACIO Short) as needed. [employer] SECTION: Analog Ic Design Architect Instructions: Analog Ic Design Architect Instructions: - Go to all scheduled follow-up [...] and worsening depression. Additional Follow Up Appointments: [facility] [address] [place] [id number] Referral submitted by [facility]; [facility] will contact you with date and time of intake appointment for mental health case management. [facility] [address] [place] [address] Phone #: [phone] Primary Care Provider appointment is scheduled with GELACIO Emery, on 09/17/2023 at 2:00PM. [facility] [address] [facility] [address] Please call between the hours of 8:00 am and 4:00 pm on Thursday-Thursday to schedule or cancel a ride.You must call to schedule a ride before noon on the day before appointment, or cancel within 2 hours of appointment. [facility] [address] [place] [address] Psychiatry appointment is scheduled with DENNIS Gray, 09/17/2023 @ [facility]. [facility] [address], [place] [address] Phone #: [phone] Fax #: [phone] Referral submitted by [facility] to be assessed for Psych Rehab / Mobile Psych Rehab / Peer to Peer Program; start date to be coordinated with assistance from [employer] Patient being discharged to another Inpatient Facility: No [employer] Section Completed By: Homar HuertaEd Patient is a tobacco user: yes Nicotine replacement prescription given at discharge: No Patient scheduled for tobacco use treatment appointment: no, patient declined outpatient tobacco use program referral at this time documented in this encounter Progress Notes * Nhi Musa PA-C - 09/08/2023 8:06 AM EST PHYSICIAN PROGRESS NOTE INPATIENT PSYCHIATRY [facility] [place] [address] Name: Yu Lopez Location: [facility] [id number] Date: 09/08/2023 Time: 8:06 AM Commitment Status: 201 Review: Case Reviewed in Treatment Team and Nursing Notes Past 24 Hours Reviewed SUBJECTIVE: Yu Lopez is seen for follow up today. Chart reviewed. No acute events through the night. Yu was told by her fiance that their relationship had ended yesterday. She was very upset by this, but processed it overnight and "just want to move on" today. Denies symptoms of depression or anxiety. Denies suicidal ideation, homicidal ideation, auditory or visual hallucinations, or delusions. Tolerating medications well. Denies medication side effects such as fatigue, headache, dizziness, changes in vision, chest pain, shortness of breath, nausea, vomiting, dysuria, diarrhea, constipation, abdominal pain, tremors, abnormal facial movements, or restlessness. Sleep and appetite are WNL. She advocates for discharge and feels her medications are effective. Medication Compliance: compliant with all prescribed medicines PRN Medication Utilization: Trazodone 50mg x1 on 09/06 for insomnia Hydroxyzine 50mg x1 on 09/07 for anxiety Participating in Treatment: Attends programs, groups and activities Current Medication List: Current Facility-Administered Medications Medication Dose Route Frequency Provider escitalopram (Lexapro) tab 10 mg 10 mg Oral Daily(AM) Emerson Oliver MD Nitrofurantoin Monohydrate Macrocrystals (Macrobid) cap 100 mg 100 mg Oral BID(AM/PM) Emerson Oliver MD ondansetron (Zofran) tab 4 mg 4 mg Oral BID(AM/PM) Emerson Oliver MD Nicotine (Nicoderm CQ) 14 MG/24HR patch 1 Patch 1 Patch Transdermal Daily(AM) Nhi Musa PA-C phenytoin ER (Dilantin) cap 100 mg 100 mg Oral BID (Noon, 1700) Nhi Musa PA-C phenytoin ER (Dilantin) cap 200 mg 200 mg Oral Daily(AM) Nhi Musa PA-C Haloperidol (Haldol) tab 5 mg 5 mg Oral Q6H PRN Emerson Oliver MD Or Haloperidol Lactate (Haldol) 5 MG/ML inj 5 mg 5 mg Intramuscular Q6H PRN Emerson Oliver MD house antacid (Mi-Acid II) oral susp 15 mL 15 mL Oral Q4H PRN Emerson Oliver MD hydrOXYzine HCl tab 50 mg 50 mg Oral Q6H PRN Emerson Oliver MD Ibuprofen (Motrin) tab 200 mg 200 mg Oral Q4H PRN Emerson Oliver MD Or Ibuprofen (Motrin) tab 400 mg 400 mg Oral Q4H PRN Emerson Oliver MD Or Ibuprofen (Motrin) tab 600 mg 600 mg Oral Q6H PRN Emerson Oliver MD milk of magnesia (Mom) oral susp 30 mL 30 mL Oral Daily PRN Emerson Oliver MD traZODone (Desyrel) tab 50 mg 50 mg Oral QHS PRN MRx1 Emerson Oliver MD MENTAL STATUS EVALUATION: Appearance: age-appropriate, casually dressed, and adequate personal hygiene Muscle strength and tone: normal muscle strength and tone Gait and Station: no abnormalities noted Personal Presentation: open and friendly Behavior: appropriate within the milieu and cooperative Speech: normal, rate, tone and volume Mood: "good" Affect: type - euthymic; range - constricted; lability - no Associations: intact Thought Process: goal directed and concrete Abstract Reasoning: not tested Thought Content: (-) SI, (-) HI, no paranoia/delusional thinking Perception: (-) AH, (-) VH, no disturbances noted during encounter Orientation: alert and oriented to person, place, time and situation Recent and remote memory as evidenced by recall of recent circumstances and remote life events: intact Language: intact per interview Fund of knowledge as evidenced by vocabulary and current/historical events: intact Attention span/concentration as evidenced by: ability to sustain attention to examiner - intact Insight: fair as evidenced by help-seeking behaviors, but lacks understanding of extent/severity ofpsychiatric illness Judgment: impaired due to chronic impulsivity PHYSICAL/CONSULT/LAB FINDINGS: BP: 104 mmHg/70 mmHg (09/08/23599) Pulse: 68 (09/08/23599) Temp: 36.17 C (09/08/23599) Resp: 14 (09/08/23599) SpO2: 98 % (09/08/23599) Labs reviewed as indicated below: Recent Results (from the past 48 hour(s)) BETA-HCG, QUANTITATIVE Collection Time: 09/07/23 9:06 AM Result Value Ref Range Beta-HCG, Quantitative <0.1 <=1.0 mIU/mL DANGEROUSNESS TO SELF/OTHERS ASSESSMENT UPDATE: medication changes per Treatment Plan PATIENT REPORTED DEPRESSION SCREENING (PHQ9): PHQ9 Survey Results Last 24hours (since 09/07/2023) None DIAGNOSIS: Principal Problem: Depressed bipolar II disorder (HCC) Active Problems: Borderline personality disorder (HCC) 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 * ASSESSMENT: Yu Lopez is a 22 year old female with a past psychiatric history of depression, PTSD, borderline personality disorder, Autism & polysubstance abuse who was admitted to the Inpatient Psychiatric Unit at [facility] ([facility]) on 09/03/2023 on a 201 (voluntary) commitment fordepression and suicidal ideation. Recent psychosocial stressors include spontaneous , custody sanches for daughter, and finding a new apartment. Amenable to medications changes d/t ineffectiveness. Lexapro started and cross-titrated to replace Zoloft. Vraylar started for mood, but discontinued d/t nausea and vomiting. [place] [facility] [place] [facility]. PLAN: Reviewed with Dr. Mcmahan and treatment team. Inpatient psychiatric care is necessary because of of suicidal potential and potential for complications due to medication management that precludes outpatient approach . Plan of care includes: 1) 201 (voluntary) commitment 2) Safety Q15 minute checks 3) Supportive milieu and group therapy 4) Safe discharge planning Anticipated duration of admission: 7-10 days Current length of stay: 5 days 5) Psychotropic Medications Discontinued Abilify d/t ineffectiveness and OD Discontinued Zoloft d/t ineffectiveness Discontinued Vraylar 1.5mg Daily d/t nausea/vomiting Continue Lexapro 10mg Daily Titrate to effect - last increased 09/07/23 6) Medical Medications Continue home medications as prescribed based on the medication reconciliation. 7) Labs Medically cleared prior to psychiatric admission. Pertinent review of labs as indicated below: (-) HCG TSH - 0.96 (-) FLU, COVID (-) UDS, ETOH On antipsychotic therapy: HgbA1C 07/08/23: 5.1% Lipid pane 07/08/23: Mixed hyperlipidemia 8) Substance Use/Withdrawal Management Tobacco Use: Nicotine patch prescribed Alcohol Withdrawal: N/A Treatment options and alternatives reviewed with patient and they agree with the above plan. Information about current medications was provided to the patient including reasons why medicationsare being used, risks, benefits, side effects and alternatives to treatment (including no treatment). Signature: Nhi Musa PA-C 09/08/2023 3:10 PM * Nhi Musa PA-C - 09/07/2023 8:20 AM EST PHYSICIAN PROGRESS NOTE INPATIENT PSYCHIATRY [address] [address] Name: Yu Lopez Location: [facility] [id number] Date: 09/07/2023 Time: 8:20 AM Commitment Status: 201 Review: Case Reviewed in Treatment Team and Nursing Notes Past 24 Hours Reviewed SUBJECTIVE: Yu Lopez is seen for follow up today. Chart reviewed. No acute events through the night. Yu reports feeling sad yesterday because she misses her daughter and fiance, but today she is "better". She misses [facility] and is looking forward to this upon discharge. Depression is rated a 0/10 (with 10 being the worst). Anxiety is rated a 2/10 (with 10 being the worst). Denies suicidal ideation, homicidal ideation, auditory or visual hallucinations, or delusions. Sleep is "good". Appetite is "better". Continues to report nausea and vomiting. Says she vomited 7 times yesterday. Believes this to be from Vraylar. Agreeable to discontinue. Denies other medication side effects such as fatigue, headache, dizziness, changes in vision, chest pain, shortness of breath, dysuria, diarrhea, constipation, abdominal pain, tremors, abnormal facial movements, or restlessness. Would like a repeat test as she is worried based on abdominal pain, vaginal discharge, and craving candy. Medication Compliance: compliant with all prescribed medicines PRN Medication Utilization: Trazodone 50mg x1 on 09/06 for insomnia Hydroxyzine 50mg x1 on 09/07 for anxiety Participating in Treatment: Attends programs, groups and activities Current Medication List: Current Facility-Administered Medications Medication Dose Route Frequency Provider escitalopram (Lexapro) tab 10 mg 10 mg Oral Daily(AM) Emerson Oliver MD Nitrofurantoin Monohydrate Macrocrystals (Macrobid) cap 100 mg 100 mg Oral BID(AM/PM) Emerson Oliver MD ondansetron (Zofran) tab 4 mg 4 mg Oral BID(AM/PM) Emerson Oilver MD Cariprazine HCl (Vraylar) cap 1.5 mg 1.5 mg Oral Daily(AM) Nhi Musa PA-C Nicotine (Nicoderm CQ) 14 MG/24HR patch 1 Patch 1 Patch Transdermal Daily(AM) Nhi Musa PA-C phenytoin ER (Dilantin) cap 100 mg 100 mg Oral BID (Noon, 1700) Nhi Musa PA-C phenytoin ER (Dilantin) cap 200 mg 200 mg Oral Daily(AM) Nhi Musa PA-C Haloperidol (Haldol) tab 5 mg 5 mg Oral Q6H PRN Emerson Oliver MD Or Haloperidol Lactate (Haldol) 5 MG/ML inj 5 mg 5 mg Intramuscular Q6H PRN Emerson Oliver MD house antacid (Mi-Acid II) oral susp 15 mL 15 mL Oral Q4H PRN Emerson Oliver MD hydrOXYzine HCl tab 50 mg 50 mg Oral Q6H PRN Emerson Oliver MD Ibuprofen (Motrin) tab 200 mg 200 mg Oral Q4H PRN Emerson Oliver MD Or Ibuprofen (Motrin) tab 400 mg 400 mg Oral Q4H PRN Emerson Oliver MD Or Ibuprofen (Motrin) tab 600 mg 600 mg Oral Q6H PRN Emerson Oliver MD milk of magnesia (Mom) oral susp 30 mL 30 mL Oral Daily PRN Emerson Oliver MD traZODone (Desyrel) tab 50 mg 50 mg Oral QHS PRN MRx1 Emerson Oliver MD MENTAL STATUS EVALUATION: Appearance: age-appropriate, casually dressed, and poor personal hygiene Muscle strength and tone: normal muscle strength and tone Gait and Station: no abnormalities noted Personal Presentation: open and friendly Behavior: appropriate within the milieu and cooperative Speech: normal, rate, tone and volume Mood: "good" Affect: type - euthymic; range - constricted; lability - no Associations: intact Thought Process: goal directed and concrete Abstract Reasoning: not tested Thought Content: (-) SI, (-) HI, no paranoia/delusional thinking Perception: (-) AH, (-) VH, no disturbances noted during encounter Orientation: alert and oriented to person, place, time and situation Recent and remote memory as evidenced by recall of recent circumstances and remote life events: intact Language: intact per interview Fund of knowledge as evidenced by vocabulary and current/historical events: intact Attention span/concentration as evidenced by: ability to sustain attention to examiner - intact Insight: fair as evidenced by help-seeking behaviors, but lacks understanding of extent/severity ofpsychiatric illness Judgment: impaired due to chronic impulsivity PHYSICAL/CONSULT/LAB FINDINGS: BP: 89 mmHg/55 mmHg (09/07/23 0600) Pulse: 68 (09/07/23 0600) Temp: 36.78 C (09/07/23 06) Resp: 18 (09/07/23 0600) SpO2: 98 % (09/03/23 1258) Labs reviewed as indicated below: No results found for this or any previous visit (from the past 48 hour(s)). 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 * ASSESSMENT: Yu Lopez is a 22 year old female with a past psychiatric history of depression, PTSD, borderline personality disorder, Autism & polysubstance abuse who was admitted to the Inpatient Psychiatric Unit at [facility] ([facility]) on 09/03/2023 on a 201 (voluntary) commitment fordepression and suicidal ideation. Recent psychosocial stressors include spontaneous , custody sanches for daughter, and finding a new apartment. Amenable to medications changes d/t ineffectiveness. Lexapro started and cross-titrated to replace Zoloft. Vraylar started for mood, but discontinue d/t nausea and vomiting. PLAN: Reviewed with Dr. Oliver and treatment team. Inpatient psychiatric care is necessary because of of suicidal potential and potential for complications due to medication management that precludes outpatient approach . Plan of care includes: 1) 201 (voluntary) commitment 2) Safety Q15 minute checks 3) Supportive milieu and group therapy 4) Safe discharge planning Anticipated duration of admission: 7-10 days Current length of stay: 4 days 5) Psychotropic Medications Discontinue Abilify d/t ineffectiveness and OD Discontinue Zoloft d/t ineffectiveness Discontinue Vraylar 1.5mg Daily d/t nausea/vomiting Continue Lexapro 10mg Daily Titrate to effect - last increased 09/07/23 6) Medical Medications Continue home medications as prescribed based on the medication reconciliation. 7) Labs Medically cleared prior to psychiatric admission. Pertinent review of labs as indicated below: (-) HCG TSH - 0.96 (-) FLU, COVID (-) UDS, ETOH On antipsychotic therapy: HgbA1C 07/08/23: 5.1% Lipid pane 07/08/23: Mixed hyperlipidemia 8) Substance Use/Withdrawal Management Tobacco Use: Nicotine patch prescribed Alcohol Withdrawal: N/A Treatment options and alternatives reviewed with patient and they agree with the above plan. Information about current medications was provided to the patient including reasons why medicationsare being used, risks, benefits, side effects and alternatives to treatment (including no treatment). Signature: Nhi Musa PA-C 09/07/2023 3:43 PM Associated attestation - Abeba Mcmahan MD - 09/07/2023 4:21 PM EST I have reviewed the advanced practitioner's documentation and agree with the plan of care. Abeba Mcmahan MD 09/07/2023 4:21 PM * Emerson Oliver MD - 09/06/2023 7:39 AM EST PHYSICIAN PROGRESS NOTE DEPARTMENT OF PSYCHIATRY & BEHAVIORAL HEALTH Patient location: HOSPITAL. I was not in a hospital or clinic location. After connecting through [employer], patient was identified by name and date of and/or wristband checked. Patient (or authorized legal outside energy sales representatives) was then informed that this was a Telemedicine visit and was being conducted confidentially over secure lines. My office door was closed. No one else was in the room with me.. Patient acknowledged consent and understanding of privacy and security of the Telemedicine visit and gave permission to have a telemedicine presenter stay in the room in order to assist with the history and to conduct the exam as needed. I informed the patient that I have reviewed their record in [facility] and presented the opportunity for them to ask any questions regarding the visit today. The patient agreed to participate. COMMITMENT STATUS: 201 Patient seen in Treatment Team: seen by psychiatrist/physician Review: Case Reviewed in Treatment Team and Nursing Notes Past 24 Hours Reviewed SUBJECTIVE: Patient was seen and discussed with the care team. The patient's chart was reviewed. She reported feeling sad overnight and thinking about her child. This AM she describes events from last night, stating that she woke up feeling very sad because shemissed her fiance and child. She requested Trazodone which helped her go back to sleep. She journaled about her feelings. She is tolerating Vraylar. She continues to experience some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 mIU/mL 09/07/2023 9:39 AM EST LABORATORY [facility] Blood Venous blood specimen / Unknown Venipuncture / Unknown 09/07/2023 9:06 AM EST 09/07/2023 9:11 AM EST Narrative LABORATORY [facility] - 09/07/2023 9:39 AM EST hCG can serve as a screening assay for . However, early may not give a positive hCG test result. In addition, some non- women may have a hCG result slightly higher than the reference limit. Careful interpretation of the hCG with clinical history is required to determine whether the patient may be . Nhi Musa PA-C LAB BLOOD ORDERABL ES LABORATORY [address] [address] * (ABNORMAL) MICROSCOPIC EXAM, URINE (09/04/2023 2:13 PM EST) RBC, Urine 0-2 0 - 2 /HPF 09/04/2023 2:41 PM EST LABORATORY GL WBC, Urine 10-19(A) 0 - 2 /HPF 09/04/2023 2:41 PM EST LABORATORY GL Bacteria, Urine 51-100(A) 0 - 25 /HPF 09/04/2023 2:41 PM EST LABORATORY GL Squamous Epithelial Cells, Urine Many(A) None /HPF 09/04/2023 2:41 PM EST LABORATORY GL Yeast, Urine Present(A) None /HPF 09/04/2023 2:41 PM EST LABORATORY GL Urine Urine specimen obtained by clean catch procedure / Unknown Non-blood Collection / Unknown 09/04/2023 2:13 PM EST 09/04/2023 2:20 PM EST Nhi Musa PA-C LAB URINE ORDERABL ES LABORATORY [facility] [address] [facility] [address] * (ABNORMAL) URINALYSIS, REFLEX TO MICROSCOPIC (09/04/2023 2:13 PM EST) Color, Urine Yellow Light Yellow, Yellow, Dark Yellow 09/04/2023 2:29 PM EST LABORATORY GL Clarity, Urine Clear Clear 09/04/2023 2:29 PM EST LABORATORY GL Glucose, Urine Negative Negative mg/dL 09/04/2023 2:29 PM EST LABORATORY GL Bilirubin, Urine Negative Negative 09/04/2023 2:29 PM EST LABORATORY GL Ketone, Urine Negative Negative mg/dL 09/04/2023 2:29 PM EST LABORATORY GL Specific [place], Urine 1.006 1.003 - 1.030 09/04/2023 2:29 PM EST LABORATORY GL Blood, Urine Negative Negative 09/04/2023 2:29 PM EST LABORATORY GL pH, Urine 7.0 5.0 - 7.5 Units 09/04/2023 2:29 PM EST LABORATORY GL Protein, Urine Negative Negative mg/dL 09/04/2023 2:29 PM EST LABORATORY [facility] Urobilinogen, Urine 0.2 0.2, 1.0 mg/dL 09/04/2023 2:29 PM EST LABORATORY [facility] Nitrite, Urine Negative Negative 09/04/2023 2:29 PM EST LABORATORY GL Esterase, Urine Moderate(A) Negative 09/04/2023 2:29 PM EST LABORATORY [facility] Urine Urine specimen obtained by clean catch procedure / Unknown Non-blood Collection / Unknown 09/04/2023 2:13 PM EST 09/04/2023 2:20 PM EST Nhi Musa PA-C LAB URINE ORDERABL ES Performing Organization Address [facility] Co de Phone Number LABORATORY [address] [address] * EKG (09/03/2023 1:59 PM EST) 09/03/2023 1:59 PM EST Narrative Procedure Note BriseydaKya, DO - 09/03/2023 1:59 PM EST REASON FOR STUDY: EVAL CONCLUSIONS: Normal sinus rhythm Normal ECG When compared with ECG of 05-AUG-2023 19:11, No significant change was found Ventricular Rate: 70 Atrial Rate: 70 WV Interval: 176 QRS Duration: 88 QT/QTc: 372/401 ms P-R-T [place]: 46 : 30 : 53 degrees Elmer Lagos PA-C EKG Performing Organization Address City/[facility] Co de Phone Number [facility] * HEMOGLOBIN A1C (09/03/2023 1:35 PM EST) Pathologist [facility] Hemoglobin A1C 5.1 4.0 - 5.6 % 09/05/2023 5:05 AM EST LABORATORY [facility] Comment:The use of HbA1c to monitor glycemic status is based on normal hemoglobin and HbA composition. This test should not be used in patients with abnormal hemoglobin that affects the half life of the red blood cell or the in vivo glycation rates. Estimated Average Glucose 100 <126 mg/dL 09/05/2023 5:05 AM EST LABORATORY [facility] Blood Venous blood specimen / Unknown Venipuncture / Unknown 09/03/2023 1:35 PM EST 09/03/2023 1:45 PM EST Peter Clay Jr., MD LAB BLOOD ORDERABLES LABORATORY [facility] [address] [place] [address] * (ABNORMAL) LIPID PANEL WITH DIRECT LDL IF TG IS HIGH (09/03/2023 1:35 PM EST) Triglycerides 260(H) <=174 mg/dL 09/05/2023 4:53 AM EST LABORATORY [facility] Comment: Triglyceride Reference Ranges (mg/dL): <150 Acceptable 150-174 Borderline high 175-499 High >=500 Very high Cholesterol 203(H) <200 mg/dL 09/05/2023 4:53 AM EST LABORATORY [facility] Comment: Total Cholesterol Reference Ranges (mg/dL): <200 Desirable 200-239 Borderline high >=240 High HDL Cholesterol 38(L) >49 mg/dL 4:53 AM EST LABORATORY [facility] Comment: HDL Cholesterol Reference Ranges (mg/dL): >=60 High (Desirable) <50 Low (Undesirable) For Females <40 Low (Undesirable) For Males Non-HDL Cholesterol 165(H) <=159 mg/dL 09/05/2023 4:53 AM EST LABORATORY [facility] Comment: Non-HDL Cholesterol Reference Range (mg/dL): <100 Target level for high risk ASCVD patient <130 Optimal for general population 130-159 Near optimal for general population 160-189 Borderline High 190-219 High >=220 Very High LDL Cholesterol 113 <=129 mg/dL 09/05/2023 4:53 AM EST LABORATORY [facility] Comment: LDL Cholesterol Reference Ranges (mg/dL): <70 Target level for high risk ASCVD patient <100 Optimal for general population 100-129 Near optimal for general population 130-159 Borderline high 160-189 High >=190 Very high Blood Venous blood specimen / Unknown Venipuncture / Unknown 09/03/2023 1:35 PM EST 09/03/2023 1:45 PM EST Peter Clay Jr., MD LAB BLOOD ORDERABLES LABORATORY [address] [address] * DIFFERENTIAL, AUTOMATED (09/03/2023 1:35 PM EST) WBC 6.73 4.00 - 10.80 K/uL 09/03/2023 1:50 PM EST LABORATORY [facility] Neutrophils % 53.7 40.0 - 75.0 % 09/03/2023 1:50 PM EST LABORATORY [facility] Lymphocytes % 37.4 18.0 - 42.0 % 09/03/2023 1:50 PM EST LABORATORY [facility] Monocytes % 6.1 1.0 - 11.0 % 09/03/2023 1:50 PM EST LABORATORY [facility] Eosinophils % 2.4 0.0 - 6.0 % 09/03/2023 1:50 PM EST LABORATORY [facility] Basophils % 0.3 0.0 - 2.0 % 09/03/2023 1:50 PM EST LABORATORY [facility] Immature Granulocytes % 0.1 0.0 - 2.0 % 09/03/2023 1:50 PM EST LABORATORY [facility] Absolute Neutrophils 3.61 1.80 - 7.70 K/uL 09/03/2023 1:50 PM EST LABORATORY [facility] Absolute Lymphocytes 2.52 1.00 - 4.80 K/ul 09/03/2023 1:50 PM EST LABORATORY [facility] Absolute Monocytes 0.41 0.00 - 1.10 K/uL 09/03/2023 1:50 PM EST LABORATORY [facility] Absolute Eosinophils 0.16 0.00 - 0.70 K/uL 09/03/2023 1:50 PM EST LABORATORY [facility] Absolute Basophils 0.02 0.00 - 0.20 K/uL 09/03/2023 1:50 PM EST LABORATORY [facility] Absolute Immature Granulocytes 0.01 0.00 - 0.20 K/uL 09/03/2023 1:50 PM EST LABORATORY [facility] Blood Venous blood specimen / Unknown Venipuncture / Unknown 09/03/2023 1:35 PM EST 09/03/2023 1:45 PM EST Elmer Lagos PA-C LAB BLOOD ORDERA BLES LABORATORY [address] [address] * CBC (09/03/2023 1:35 PM EST) [facility] WBC 6.73 4.00 - 10.80 K/uL 09/03/2023 1:50 PM EST LABORATORY [facility] RBC 4.89 3.85 - 5.15 M/uL 09/03/2023 1:50 PM EST LABORATORY [facility] HGB 14.8 12.0 - 15.3 g/dL 09/03/2023 1:50 PM EST LABORATORY [facility] HCT 42.4 36.0 - 45.2 % 09/03/2023 1:50 PM EST LABORATORY [facility] MCV 86.7 81.5 - 97.5 fL 09/03/2023 1:50 PM EST LABORATORY [facility] MCH 30.3 27.0 - 34.0 pg 09/03/2023 1:50 PM EST LABORATORY [facility] MCHC 34.9 32.0 - 36.0 g/dL 09/03/2023 1:50 PM EST LABORATORY [facility] RDW 12.1 11.5 - 15.5 % 09/03/2023 1:50 PM EST LABORATORY [facility] PLT 251 140 - 400 K/uL 09/03/2023 1:50 PM EST LABORATORY [facility] MPV 9.5 6.6 - 11.1 fL 09/03/2023 1:50 PM EST LABORATORY [facility] nRBCs 0 <=0 /100 WBCs 09/03/2023 1:50 PM EST LABORATORY [facility] Blood Venous blood specimen / Unknown Venipuncture / Unknown 09/03/2023 1:35 PM EST 09/03/2023 1:45 PM EST Elmer Lagos PA-C LAB BLOOD ORDERA BLES LABORATORY [address] [address] * TSH (09/03/2023 1:35 PM EST) TSH 0.96 0.27 - 4.20 uIU/mL 09/03/2023 2:19 PM EST LABORATORY [facility] Blood Venous blood specimen / Unknown Venipuncture / Unknown 09/03/2023 1:35 PM EST 09/03/2023 1:45 PM EST Elmer Lagos PA-C LAB BLOOD ORDERA BLES Performing Organization Address City/[facility]/ZIP Co de Phone Number LABORATORY [address] [address] * (ABNORMAL) SALICYLATES LEVEL (09/03/2023 1:35 PM EST) Salicylates Level <0.3(L) 5.0 - 30.0 mg/dL 09/03/2023 2:46 PM EST LABORATORY [facility] Blood Venous blood specimen / Unknown Venipuncture / Unknown 09/03/2023 1:35 PM EST 09/03/2023 1:45 PM EST Elmer Lagos PA-C LAB BLOOD ORDERA BLES Performing Organization Address [facility] de Phone Number LABORATORY [address] [address] * (ABNORMAL) ACETAMINOPHEN LEVEL (09/03/2023 1:35 PM EST) Acetaminophen Level <5.0(L) 10.0 - 30.0 ug/mL 09/03/2023 2:46 PM EST LABORATORY [facility] Blood Venous blood specimen / Unknown Venipuncture / Unknown 09/03/2023 1:35 PM EST 09/03/2023 1:45 PM EST Elmer Lagos PA-C LAB BLOOD ORDERA BLES Performing Organization Address City/[facility] Co de Phone Number LABORATORY [address] [address] * BETA-HCG, QUANTITATIVE (09/03/2023 1:35 PM EST) [facility] Beta-HCG, Quantitative <0.1 <=1.0 mIU/mL 09/03/2023 2:16 PM EST LABORATORY [facility] Blood Venous blood specimen / Unknown Venipuncture / Unknown 09/03/2023 1:35 PM EST 09/03/2023 1:45 PM EST Narrative LABORATORY GL - 09/03/2023 2:16 PM EST hCG can serve as a screening assay for . However, early may not give a positive hCG test result. In addition, some non- women may have a hCG result slightly higher than the reference limit. Careful interpretation of the hCG with clinical history is required to determine whether the patient may be . Elmer Lagos PA-C LAB BLOOD ORDERA BLES Performing Organization Address City/[facility]/ZIP Co de Phone Number LABORATORY [address] [address] * ETHANOL, MEDICAL (09/03/2023 1:35 PM EST) [facility] ETHANOL, MEDICAL Negative Negative 09/03/2023 2:19 PM EST LABORATORY [facility] Blood Venous blood specimen / Unknown Venipuncture / Unknown 09/03/2023 1:35 PM EST 09/03/2023 1:45 PM EST Elmer Lagos PA-C LAB BLOOD ORDERA BLES Performing Organization Address City/[facility]/ZIP Co de Phone Number LABORATORY [address] [phone] * COMPREHENSIVE METABOLIC PANEL (09/03/2023 1:35 PM EST) [facility] BUN 11 6 - 20 mg/dL 09/03/2023 2:19 PM EST LABORATORY [facility] Creatinine 0.6 0.5 - 1.0 mg/dL 09/03/2023 2:19 PM EST LABORATORY GL Estimated Glomerular Filtration Rate >90 >=60 mL/min 09/03/2023 2:19 PM EST LABORATORY GL Comment:eGFR is calculated b ased on the CKD-EPI 2020 equation Sodium 139 135 - 146 mmol/L 09/03/2023 2:19 PM EST LABORATORY [facility] Potassium 3.8 3.5 - 5.1 mmol/L 09/03/2023 2:19 PM EST LABORATORY [facility] Chloride 104 98 - 107 mmol/L 09/03/2023 2:19 PM EST LABORATORY [facility] CO2 24 22 - 32 mmol/L 09/03/2023 2:19 PM EST LABORATORY [facility] Anion Gap 11 7 - 15 mmol/L 09/03/2023 2:19 PM EST LABORATORY [facility] Glucose 108 70 - 120 mg/dL 09/03/2023 2:19 PM EST LABORATORY [facility] Albumin 4.2 3.8 - 5.0 g/dL 09/03/2023 2:19 PM EST LABORATORY [facility] AST 21 10 - 35 U/L 09/03/2023 2:19 PM EST LABORATORY [facility] Alkaline Phosphatase 101 35 - 130 U/L 09/03/2023 2:19 PM EST LABORATORY GL Bilirubin, Total 0.2 <=1.2 mg/dL 09/03/2023 2:19 PM EST LABORATORY [facility] Calcium 9.3 8.4 - 10.2 mg/dL 09/03/2023 2:19 PM EST LABORATORY [facility] Protein 6.7 6.0 - 8.3 g/dL 09/03/2023 2:19 PM EST LABORATORY [facility] ALT 19 10 - 35 U/L 09/03/2023 2:19 PM EST LABORATORY GL Blood Venous blood specimen / Unknown Venipuncture / Unknown 09/03/2023 1:35 PM EST 09/03/2023 1:45 PM EST Elmer Lagos PA-C LAB BLOOD ORDERA BLES LABORATORY GL [address] [place] [address] * INFLUENZA A/B RSV SARS-COV2,PCR (09/03/2023 1:31 PM EST) [facility] Signature SARS-CoV-2 (COVID-19) Result Negative Negative 09/03/2023 2:37 PM EST LABORATORY GL Comment: No SARS-CoV2 Coronavirus RNA detected by PCR (amplified probe). This express test was developed and its performance characteristics determined by [facility]. It has not been cleared or approved [...] was developed and performance characteristics determined by [facility]. The validation of alternate specimen types has not been cleared or approved by the U.S. Food and Drug Administration (FDA). It has been determined that such clearance is not necessary. Influenza A PCR Result Negative Negative 09/03/2023 2:37 PM EST LABORATORY [facility] Comment:No Influenza A RNA d etected by PCR (amplified probe) Influenza B PCR Result Negative Negative 09/03/2023 2:37 PM EST LABORATORY [facility] Comment:No Influenza B RNA d etected by PCR (amplified probe) RSV PCR Result Negative Negative 09/03/2023 2:37 PM EST LABORATORY [facility] Comment:No Respiratory Syncy tial Virus RNA detected by PCR (amplified probe) Upper Respiratory Mid-turbinate nasal swab / Unknown Non-blood Collection / Unknown 09/03/2023 1:31 PM EST 09/03/2023 1:46 PM EST Elmer Lagos PA-C LAB MICRO - GENE RAL ORDERABLES LABORATORY [address] [address] * TOXICOLOGY, URINESCREEN W/O CONFIRMATION (09/03/2023 1:26 PM EST) Amphetamines Screen, U Negative Negative 09/03/2023 2:16 PM EST LABORATORY GL Benzodiazepines Screen, U Negative Negative 09/03/2023 2:16 PM EST LABORATORY GL Cannabinoids Screen, U Negative Negative 09/03/2023 2:16 PM EST LABORATORY GL Cocaine Metabolite Screen, U Negative Negative 09/03/2023 2:16 PM EST LABORATORY GL Fentanyl Screen, U Negative Negative 2023 2:16 PM EST LABORATORY GL Hydrocodone Screen, U Negative Negative 09/03/2023 2:16 PM EST LABORATORY [facility] Methadone Metabolite Screen, U Negative Negative 09/03/2023 2:16 PM EST LABORATORY GL Morphine/Codeine Screen, U Negative Negative 09/03/2023 2:16 PM EST LABORATORY GL Oxycodone Screen, U Negative Negative 09/03 2:16 PM EST LABORATORY [facility] Urine Non-blood Collection / Unknown 09/03/2023 1:26 PM EST 09/03/2023 1:50 PM EST Narrative LABORATORY [facility] - 09/03/2023 2:16 PM EST Cutoff Concentrations: Drug Level Amphetamines 500 ng/mL Benzodiazepines 100 ng/mL Cannabinoids 50 ng/mL Cocaine Metabolite 150 ng/mL Fentanyl 1 ng/mL Hydrocodone / Hydromorphone 300 ng/mL Methadone Metabolite 100 ng/mL Morphine / Codeine 300 ng/mL Oxycodone / Oxymorphone 100 ng/mL Screening results are presumptive and can only be used for medical purposes. Confirmatory testing is available upon request. Elmer Lagos PA-C LAB URINE CAT RICO LABORATORY [facility] [address] [place] [address] documented in this encounter Visit Diagnoses Diagnosis Depressed bipolar II disorder (HCC)- Primary Other bipolar disorders Overdose Poisoning by unspecified drug or medicinal substance Suicidal ideations Suicidal ideation Depression with anxiety Dysthymic disorder Suicidal behavior Unspecified nonpsychotic mental disorder Nonintractable epilepsy without status epilepticus, unspecified epilepsy type (HCC) Suicidal ideation History of substance abuse (HCC) Other, mixed, or unspecified nondependent drug abuse, unspecified Tobacco use Tobacco use disorder 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) Borderline personality disorder (HCC) Borderline personality disorder PTSD (post-traumatic stress disorder) Posttraumatic stress disorder Autism spectrum disorder Autistic disorder, current or active state documented in this encounter Administered Medications Inactive Administered Medications - up to 3 most recent administrations Medication Order MAR Action Action Date Dose Rate Site Cariprazine HCl (Vraylar) cap 1.5 mg 1.5 mg, Oral, Daily(AM), First dose on Thu09/04/23 at 0900, Until Discontinued Given 09/06/2023 8:09 AM EST 1.5 mg Given 09/05/2023 8:07 AM EST 1.5 mg Given 09/04/2023 9:34 AM EST 1.5 mg diphenhydrAMINE (Benadryl) cap 50 mg 50 mg, Oral, ONCE, On Thu09/07/23 at 2045, For 1 dose Given 09/07/2023 8:24 PM EST 50 mg escitalopram (Lexapro) tab 10 mg 10 mg, Oral, Daily(AM), First dose (after last modification) on Thu09/07/23 at 0900, Until Discontinued Given 09/09/2023 8:17 AM EST 10 mg Given 09/08/2023 8:32 AM EST 10 mg Given 09/07/2023 8:44 AM EST 10 mg Escitalopram Oxalate (Lexapro) 5 mg tab 5 mg, Oral, Daily(AM), First dose on Thu09/04/23 at 0900, Until Discontinued Given 09/06/2023 8:09 AM EST 5 mg Given 09/05/2023 8:07 AM EST 5 mg Given 09/04/2023 9:27 AM EST 5 mg Haloperidol (Haldol) tab 5 mg 5 mg, Oral, Q6H PRN Other, Psychosis, Starting on Thu09/03/23 at 1743, Until Thu09/09/23 at 1503 Haloperidol (Haldol) tab 5 mg 5 mg, Oral, ONCE, On Thu09/07/23 at 2045, For 1 dose Given 09/07/2023 8:25 PM EST 5 mg Haloperidol Lactate (Haldol) 5 MG/ML inj 5 mg 5 mg, Intramuscular, Q6H PRN Other, Psychosis, unable to take PO, Starting on Thu09/03/23 at 1743, Until Thu09/09/23 at 1503 house antacid (Mi-Acid II) oral susp 15 mL 15 mL, Oral, Q4H PRN Indigestion, Nausea, Starting on Thu09/03/23 at 1743, Until Thu09/09/23 at 1503, SHAKE WELL Given 09/06/2023 8:14 PM EST 15 mL Given 09/06/2023 4:13 PM EST 15 mL Given 09/04/2023 4:52 PM EST 15 mL hydrOXYzine HCl tab 50 mg 50 mg, Oral, Q6H PRN Anxiety, Starting on Thu09/03/23 at 1743, Until Thu09/09/23 at 1503 Given 09/07/2023 1:17 PM EST 5 0 mg Ibuprofen (Motrin) tab 200 mg 200 mg, Oral, Q4H PRN Pain, Mild, Starting on Thu09/03/23 at 1743, Until Thu09/09/23 at 1503 Ibuprofen (Motrin) tab 400 mg 400 mg, Oral, Q4H PRN Pain, Moderate, Fever >38C(100.5F), Starting on Thu09/03/23 at 1743, Until Thu09/09/23 at 1503 Ibuprofen (Motrin) tab 600 mg 600 mg, Oral, Q6H PRN Pain, Severe, Starting on Thu09/03/23 at 1743, Until Thu09/09/23 at 1503 Given 09/06/2023 7:31 AM EST 600 mg Given 09/05/2023 2:31 PM EST 600 mg LORAzepam (Ativan) tab 2 mg 2 mg, Oral, ONCE, On Thu09/07/23 at 2045, For 1 dose Given 09/07/2023 8:25 PM EST 2 mg milk of magnesia (Mom) oral susp 30 mL 30 mL, Oral, DAILY PRN Constipation, Starting on Thu09/03/23 at 1743, Until Thu09/09/23 at 1503 Nicotine (Nicoderm CQ) 14 MG/24HR patch 1 Patch 1 Patch, Transdermal, Daily(AM), First dose on Thu09/04/23 at 0900, Until Discontinued, Do NOT cut the patch. Remove any Nicotine patches the patient may currently be wearing prior to applying the new patch. Place on clean hairless area. Remove for patient showers. WASTE INFO: Return packaging and waste medication in zip lock bag to pharmacy - [facility] container. Patch Applied 09/08/2023 8:32 AM EST 1 Patch Arm Left Upper Patch Applied 09/07/2023 8:43 AM EST 1 Patch Arm Right Upper Patch Applied 09/06/2023 8:10 AM EST 1 Patch Abdomen Right Upper nicotine (Nicorette) gum 2 mg 2 mg (1 Each), Oral, Q1H PRN Withdrawal symptoms, Desire to Smoke, Starting on Thu09/03/23 at 1743, Until Thu09/04/23 at 0805, Do not eat or drink for 15 min before and during use; Do not exceed 24 pieces/24 hours WASTE INFO: Return packaging and waste medication in zip lock bag to pharmacy - [facility] container. Given 09/03/2023 6:03 PM EST 2 mg Nitrofurantoin Monohydrate Macrocrystals (Macrobid) cap 100 mg 100 mg, Oral, BID (.AM/PM), First dose on Thu09/05/23 at 1130, Last dose on Thu09/09/23 at 2100, For 5 days, Administer with food. The capsules should not be opened. Given 09/09/2023 8:15 AM EST 100 mg Given 09/08/2023 8:35 PM EST 100 mg Given 09/08/2023 8:32 AM EST 100 mg ondansetron (Zofran) tab 4 mg 4 mg, Oral, BID (.AM/PM), First dose on Thu09/05/23 at 0930, Until Discontinued Given 09/09/2023 8:16 AM EST 4 mg Given 09/08/2023 8:35 PM EST 4 mg Given 09/08/2023 8:32 AM EST 4 mg phenytoin ER (Dilantin) cap 100 mg 100 mg, Oral, BID (NOON, 1700), First dose on Thu09/04/23 at 1200, Until Discontinued Given 09/08/2023 8:36 PM EST 100 mg Given 09/08/2023 12:12 PM EST 100 mg Given 09/07/2023 8:25 PM EST 100 mg phenytoin ER (Dilantin) cap 200 mg 200 mg, Oral, Daily(AM), First dose on Thu09/04/23 at 0900, Until Discontinued Given 09/09/2023 8:15 AM EST 200 mg Given 09/08/2023 8:32 AM EST 200 mg Given 09/07/2023 8:44 AM EST 200 mg sertraline (Zoloft) tab 100 mg 100 mg, Oral, Daily(AM), First dose on 09/05/23 at 0900, Last dose on 09/05/23 at 0900, For 1 dose Given 09/05/2023 8:07 AM EST 100 mg sertraline (Zoloft) tab 150 mg 150 mg, Oral, Daily(AM), First dose on Thu09/04/23 at 0900, Last dose on Thu09/04/23 at 0900, For 1 dose Given 09/04/2023 9:27 AM EST 150 mg traZODone (Desyrel) tab 50 mg 50 mg, Oral, QHS PRN MRX1 Insomnia, Starting on Jew[place] 09/03/23 at 1743, Until 09/09/23 at 1503, May repeat one dose if not effective within 60 minutes Given 09/06/2023 1:42 AM EST 50 mg documented in this encounter Active and Recently Administered Medications Times are shown in EST. Scheduled Medication Order 09/07/2023 09/08/2023 09/09/2023 diphenhydrAMINE (Benadryl) cap 50 mg (COMPLETED) 50 mg, Oral, ONCE, On Thu09/07/23 at 2044, For 1 dose 2023 (Given - Provider: Giorgi Jurado, VERO) escitalopram (Lexapro) tab 10 mg 10 mg, Oral, Daily(AM), First dose (after last modification) on Thu09/07/23 at 0900, Until Discontinued 0844 (Given - Provider: Sara North, VERO) 0832 (Given - Provider: Sara North, VERO) 0817 (Given - Provider: Matthieu Blackmon RN) Haloperidol (Haldol) tab 5 mg (COMPLETED) 5 mg, Oral, ONCE, On Thu09/07/23 at 2044, For 1 dose 2024 (Given - Provider: Giorgi Jurado, VERO) LORAzepam (Ativan) tab 2 mg (COMPLETED) 2 mg, Oral, ONCE, On Thu09/07/23 at 2044, For 1 dose 2024 (Given - Provider: Giorgi Jurado RN) Nicotine (Nicoderm CQ) 14 MG/24HR patch 1 Patch 1 Patch, Transdermal, Daily(AM), First dose on Thu09/04/23 at 0900, Until Discontinued, Do NOT cut the patch. Remove any Nicotine patches the patient may currently be wearing prior to applying the new patch. Place on clean hairless area. Remove for patient showers. WASTE INFO: Return packaging and waste medication in zip lock bag to pharmacy - [facility] container. 0810 (Patch Removed - Provider: Sara North RN)[id number] (Patch Applied - Provider: Sara North RN) 0832 (Patch Applied - Provider: Sara North RN) 0832 (Patch Removed - Provider: Matthieu Blackmon, RN)0900 (Not Given - Provider: Matthieu Blackmon RN - Reason: Refused-Notify Provider) Nitrofurantoin Monohydrate Macrocrystals (Macrobid) cap 100 mg 100 mg, Oral, BID (.AM/PM), First dose on Thu09/05/23 at 1130, Last dose on Thu09/09/23 at 2100, For 5 days, Administer with food. The capsules should not be opened. 0844 (Given - Provider: Sara North RN)2024 (Given - Provider: Giorgi Jurado RN) 0832 (Given - Provider: Sara North RN)2034 (Given - Provider: Willow Stovall, VERO) 0815 (Given - Provider: Matthieu Blackmon, VERO) ondansetron (Zofran) tab 4 mg 4 mg, Oral, BID (.AM/PM), First dose on Thu09/05/23 at 0930, Until Discontinued 0844 (Given - Provider: Sara North RN)2024 (Given - Provider: Giorgi Jurado RN) 0832 (Given - Provider: Sara North RN)2034 (Given - Provider: Willow Stovall, VERO) 0816 (Given - Provider: Matthieu Blackmon, VERO) phenytoin ER (Dilantin) cap 100 mg 100 mg, Oral, BID (NOON, 1700), First dose on Thu09/04/23 at 1200, Until Discontinued 122 (Given - Provider: Sara North, VERO)2024 (Given - Provider: Giorgi Jurado RN) 121 (Given - Provider: Sara North RN)2035 (Given - Provider: Willow Stovall RN) phenytoin ER (Dilantin) cap 200 mg 200 mg, Oral, Daily(AM), First dose on Thu09/04/23 at 0900, Until Discontinued 0844 (Given - Provider: Sara North RN) 0832 (Given - Provider: Sara North RN) 0815 (Given - Provider: Matthieu Blackmon RN) PRN Medication Order 09/07/2023 09/08/2023 09/09/2023 Haloperidol (Haldol) tab 5 mg(Linked Group 1) 5 mg, Oral, Q6H PRN Other, Psychosis, Starting on Thu09/03/23 at 1743, Until Thu09/09/23 at 1503 Haloperidol Lactate (Haldol) 5 MG/ML inj 5 mg(Linked Group 1) 5 mg, Intramuscular, Q6H PRN Other, Psychosis, unable to take PO, Starting on Thu09/03/23 at 1743, Until Thu09/09/23 at 1503 house antacid (Mi-Acid II) oral susp 15 mL 15 mL, Oral, Q4H PRN Indigestion, Nausea, Starting on Thu09/03/23 at 1743, Until Thu09/09/23 at 1503, SHAKE WELL hydrOXYzine HCl tab 50 mg 50 mg, Oral, Q6H PRN Anxiety, Starting on Thu09/03/23 at 1743, Until Thu09/09/23 at 1503 1317 (Given - Provider: Sara North RN) Ibuprofen (Motrin) tab 200 mg(Linked Group 2) 200 mg, Oral, Q4H PRN Pain, Mild, Starting on Thu09/03/23 at 1743, Until Thu09/09/23 at 1503 Ibuprofen (Motrin) tab 400 mg(Linked Group 2) 400 mg, Oral, Q4H PRN Pain, Moderate, Fever >38C(100.5F), Starting on Jewels 09/03/23 at 1743, Until Thu09/09/23 at 1503 Ibuprofen (Motrin) tab 600 mg(Linked Group 2) 600 mg, Oral, Q6H PRN Pain, Severe, Starting on Jewels 09/03/23 at 1743, Until Thu09/09/23 at 1503 milk of magnesia (Mom) oral susp 30 mL 30 mL, Oral, DAILY PRN Constipation, Starting on Jewels 09/03/23 at 1743, Until Thu09/09/23 at 1503 traZODone (Desyrel) tab 50 mg 50 mg, Oral, QHS PRN MRX1 Insomnia, Starting on Jewels 09/03/23 at 1743, Until Thu09/09/23 at 1503, May repeat one dose if not effective within 60 minutes Linked Groups Order Group 1: Haloperidol (Haldol) tab 5 mgJump to med 5 mg, Oral, Q6H PRN Other, Psychosis, Starting on Jewels 09/03/23 at 1743, Until Thu09/09/23 at 1503 Or Haloperidol Lactate (Haldol) 5 MG/ML inj 5 mgJump to med 5 mg, Intramuscular, Q6H PRN Other, Psychosis, unable to take PO, Starting on Jewels 09/03/23 at 1743, Until Thu09/09/23 at 1503 Group 2: Ibuprofen (Motrin) tab 200 mgJump to med 200 mg, Oral, Q4H PRN Pain, Mild, Starting on Jewels 09/03/23 at 1743, Until Thu09/09/23 at 1503 Or Ibuprofen (Motrin) tab 400 mgJump to med 400 mg, Oral, Q4H PRN Pain, Moderate, Fever >38C(100.5F), Starting on Jewels 09/03/23 at 1743, Until Thu09/09/23 at 1503 Or Ibuprofen (Motrin) tab 600 mgJump to med 600 mg, Oral, Q6H PRN Pain, Severe, Starting on Jewels 09/03/23 at 1743, Until Thu09/09/23 at 1503 documented in this encounter Advance Directives Latest [...] the patient have Health Care Power of Clockmaker? No Full Code 03/27/2023 10:31 PM 04/01/2023 5:17 PM This o rder reflects the patients wishes and were consensually agreed upon. Question Answer Comments Discussion of Advance Directives occurred with: Not Discussed due to patient's condition Does the patient have a Living Will? No Does the patient have Health Care Power of Clockmaker? No Full Code 02/22/2023 3:52 PM 02/24/2023 9:44 PM This or noa reflects the patients wishes and were consensually agreed upon. Question Answer Comments Discussion of Advance Directives occurred with: Not Discussed due to patient's condition Does the patient have a Living Will? No Does the patient have Health Care Power of Clockmaker? No Full Code 02/17/2023 12:08 AM 02/17/2023 1:32 PM This order reflects the patients wishes and were consensually agreed upon. Question Answer Comments Discussion of Advance Directives occurred with: Not Discussed due to patient's condition Care Teams Museum Exhibit Designer Relationship Specialty Start Date End Date Shannen Rizzo CRNP [address] [id number] PCP - General Nurse Practitioner 04/20/23 documented as of this encounter
--- OUTSIDE RECORDS SUMMARY | 2024-02-29 00:24 | External Medical Summary | Summary of Care ---
Author Name Unknown Organization [facility] Address [address] [place] [address] Phone [phone] Care Team Providers Care Perennial House Manager Name Role Phone Shannen Rizzo GELACIO Primary Care Provider Reason for Referral * Evaluate & Treat - Unlimited Visits (Within 10 days (routine)) - Authorized Specialty Diagnoses / Procedures Referred By Rosanna stinson Referred To Contact Obstetrics/Gynecology / Gynecology Obstetrics Diagnoses Nexplanon in place Spontaneous miscarriage Chuy Galvan MD [address] [id number] Referral ID Status Reason Start Date Expiration Date Visits Requested Visits Authorized [id number] Authorized Specialty Services Required 08/31/2023 999 999 Question Answer Referral Priority Within 10 days (routine) Where should this appointment be scheduled? [place] What condition is the patient being seen for? control Comments Nexplanon removal Reason for Visit * Reason Comments Emergency Department Follow-Up Encounter Details Date Type Department Care Team ([facility] st Contact Info) Description 08/31/2023 2:40 PM EST Office Visit [facility] Vasiliy [address]wn [address] [phone] Chuy Galvan MD [address] [id number] Spontaneous miscarriage*; Nexplanon in place Allergies Active Allergy Reactions Criticality Noted Date Comments Bee Pollen 08/13/2020 Bee Venom 05/01/2015 Honey Anaphylaxis High 02/12/2019 Levetiracetam 01/14/2021 Other reaction(s): Vomiting Sulfa Antibiotics 12/17/2022 Bupropion 12/17/2022 documented as of this encounter (statuses as of 09/14/2023) Medications Medication Sig Dispensed Refills Start Date End Date Status EpiPen 2-Boie 0.3 MG/0.3ML Injection Solution Auto-injector For a severe reaction: Inject in outer thigh following instructions on package and go to the Emergency room. 2 Each 0 3 Active Loving-3 Fish Oil 1000 MG Oral Capsule (Loving-3) Take 1 Capsule by mouth in the morning. Do not start before June 12, 2023. 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 Never true 03/19/2023 Rio Depression Scale Answer Date Recorded Rio Depression Scale Total 22 07/08/2023 The thought [...] Sign Reading Time Taken Comments Blood Pressure 94/64 08/31/2023 2:14 PM EST Pulse 83 08/31/2023 2:14 PM EST Temperature 36.4 C (97.5 F) 08/31/2023 2:14 PM ES T Respiratory Rate 16 08/31/2023 2:14 PM EST Oxygen Saturation 97% 08/31/2023 2:14 PM EST Inhaled Oxygen Concentration - - Weight 58.5 kg (129 lb) 08/31/2023 2:14 PM EST Height 149.9 cm (4' 11") 08/31/2023 2:14 PM EST Body Mass Index 26.05 08/31/2023 2:14 PM EST documented in this [...] No 05/20/2020 documented as of this encounter Patient Instructions * Patient Instructions* Chuy Galvan MD - 08/31/2023 2:24 PM EST Images from the original note were not included. Bedsider.org is a great website to learn more about control options and to compare which method might be best for you. documented in this encounter Progress Notes * Chuy Galvan MD - 08/31/2023 2:18 PM EST Images from the original note were not included. History of Present Illness Yu Lopez is a 22 year old female that presents for Emergency Department Follow-Up Yesterday seen in ED for nausea, vaginal bleeding, and diagnosed with spontaneous miscarraige. Has weird cravings, so states she must still be . Ate koch on lays potato chips for breakfast. Blamed a for this. Has new boyfriend, here with her today. Together since britton (2 weeks). They would possibly like a child, but she has a nexplanon. States it slides up and down her arm, so she wants it out javier. No bleeding today. Did have heavy bleeding yesterday in Ed, but now back to normal. Physical Exam Vitals: 08/31/23 1414 Temp: 36.4 C (97.5 F) Pulse: 83 Resp: 16 SpO2: 97% BP: 94/64 BMI: 26.04 Physical Exam Constitutional: Comments: Poor hygiene Abdominal: General: There is no distension. Tenderness: There is no abdominal tenderness. Musculoskeletal: Comments: Nexplanon palpable distal left tricipital groove, in appropriate place, unable to move inlocaton Psychiatric: Comments: Wide array of emotions, childlike affect I have reviewed the following results: hcg Assessment and Plan Spontaneous miscarriage Discussed that this is very common. She has had no chemical on our labs, and does report she had two positive home test, although this cannot be confirmed. - HEALTH PHYSICIST REFERRAL OP Nexplanon in place She wants this removed. Two weeks after meeting her current boyfriend, she refes to him as fiance, plan to in 5 weeks, and want a kid. Currently in custody sanches for her 4 month old. Advised she needs to have another control option in place before this is removed, as she needs to focuson her own health before she be responsible for another being. - HEALTH PHYSICIST REFERRAL OP Wrap-Up Follow-up: Return if symptoms worsen or fail to improve. | Check-out note: Manager Demand for nexplanon removal or 40 min procedure with me Time: I spent a total of 20-29 minutes (exact time 24 mins) on the date of service in preparation, delivery, and documentation of the care provided to Yu Lopez excluding any time spent in the performance of separately billed services. * Makayla Rosado MED ASSIST - 08/31/2023 2:09 PM EST Chief Complaint Patient presents with Emergency Department Follow-Up Pt here for ER follow up today of miscarriage 08/30/23. Pt reports she still is having nausea today. documented in this encounter Plan of Treatment Upcoming Encounters Date Type Department Care Team (Late st Contact Info) Description 09/17/2023 2:00 PM EST Office Visit [facility] [address] [place] [phone] Shannen Rizzo CRNP [address] [place] [address] 09/24/2023 2:00 PM EST Office Visit Gynecology/Obstetrics [facility] [address], [place] [phone] Willow Contreras PA-C [address] [place], [place] [phone] 10/22/2023 1:00 PM EST Office Visit Neurology, [place] [address] [place] [address] Gautam Bragg DO [address] [place] [address] 03/24/2024 3:30 PM EDT Office Visit Oral Maxillofacial Surgery, [place] [address] [place] [address] Eliseo Ram DDS [address] [place] [address] Scheduled Referrals Name Type Priority Associated Diagnoses Orde r Schedule HEALTH PHYSICIST REFERRAL OP Referral Within 10 days (routine) Nexplanon in place Spontaneous miscarriage Ordered: 08/31/2023 Health Maintenance Due Date Last Done Comments [...] as of this encounter Visit Diagnoses Diagnosis Spontaneous miscarriage- Primary Unspecified spontaneous without mention of complication Nexplanon in place Presence of subdermal contraceptive device documented in this encounter Advance Directives Latest [...] the patient have Health Care Power of Billet Inspector? No Full Code 03/27/2023 10:31 PM 04/01/2023 5:17 PM This o rder reflects the patients wishes and were consensually agreed upon. Question Answer Comments Discussion of Advance Directives occurred with: Not Discussed due to patient's condition Does the patient have a Living Will? No Does the patient have Health Care Power of Billet Inspector? No Full Code 02/22/2023 3:52 PM 02/24/2023 9:44 PM This or noa reflects the patients wishes and were consensually agreed upon. Question Answer Comments Discussion of Advance Directives occurred with: Not Discussed due to patient's condition Does the patient have a Living Will? No Does the patient have Health Care Power of Billet Inspector? No Full Code 02/17/2023 12:08 AM 02/17/2023 1:32 PM This order reflects the patients wishes and were consensually agreed upon. Question Answer Comments Discussion of Advance Directives occurred with: Not Discussed due to patient's condition Care Teams Perennial House Manager Relationship Specialty Start Date End Date Shannen Rizzo CRNP [address] [id number] PCP - General Nurse Practitioner 04/20/23 documented as of this encounter
--- OUTSIDE RECORDS SUMMARY | 2024-02-29 00:25 | External Medical Summary ---
Author Name Unknown Address Unknown Organization K1F:LABORATORY [facility] - [address] [facility]. [facility] [address] Laboratory Report Ordering Provider Test Date Status COLTEN NEWMAN 09/03/2023 13:35:00 Final hCG can serve as a screening [...] +Beta subunit [Units/volume] in Serum or Plasma 09/03/2023 13:35:00 <0.1 <=1.0 (mIU/mL) Final Performing Location LABORATORY [facility] - [address] [facility] [address] [facility] [address]
--- OUTSIDE RECORDS SUMMARY | 2024-02-29 00:25 | External Medical Summary ---
Author Name Unknown Address Unknown Organization K1F:LABORATORY [facility] - [address] [facility] [address] Laboratory Report Ordering Provider Test Date Status VISHAL FONSECA 09/07/2023 09:06:00 Final hCG can serve as a screening [...] +Beta subunit [Units/volume] in Serum or Plasma 09/07/2023 09:06:00 <0.1 <=1.0 (mIU/mL) Final Performing Location LAB[facility]ATORY [facility] - [address] [facility] [address] [facility] [address]
--- OUTSIDE RECORDS SUMMARY | 2024-02-29 00:25 | External Medical Summary ---
Author Name Unknown Address Unknown Organization K1F:LABORATORY [facility] - [address] [place] [address] Laboratory Report Ordering Provider Test Date Status COLTEN NEWMAN 09/03/2023 13:35:00 Final Observation Date Value Abnormality Reference (Units ) Status Ethanol 09/03/2023 13:35:00 Negative Negative Final Performing Location LABORATORY [facility] - [address] [address]
--- OUTSIDE RECORDS SUMMARY | 2024-02-29 00:25 | External Medical Summary ---
Author Name Unknown Address Unknown Organization K1F:LABORATORY [facility] - [address] [place] [address] [address] [place] [address] Laboratory Report Ordering Provider Test Date Status COLTEN NEWMAN 09/03/2023 13:35:00 Final Observation Date Value Abnormality Reference (Units ) Status WBC, Total 09/03/2023 13:35:00 6.73 4.00-10.80 (K/uL) Final RBC 09/03/2023 13:35:00 4.89 3.85-5.15 (M/uL) Final Hemoglobin 09/03/2023 13:35:00 14.8 12.0-15.3 (g/dL) Final HCT 09/03/2023 13:35:00 42.4 36.0-45.2 (%) Final MCV 09/03/2023 13:35:00 86.7 81.5-97.5 (fL) Final MCH 09/03/2023 13:35:00 30.3 27.0-34.0 (pg) Final MCHC 09/03/2023 13:35:00 34.9 32.0-36.0 (g/dL) Final RDW 09/03/2023 13:35:00 12.1 11.5-15.5 (%) Final Platelets 09/03/2023 13:35:00 251 140-400 (K/uL) Final MPV 09/03/2023 13:35:00 9.5 6.6-11.1 (fL) Final Nucleated erythrocytes/100 leukocytes [Ratio] in Blood by Automated count 09/03/2023 13:35:00 0 <=0 (/100 WBCs) Final Performing Location LABORATORY [facility] - [address] [address]
--- OUTSIDE RECORDS SUMMARY | 2024-02-29 00:25 | External Medical Summary ---
Author Name Unknown Address Unknown Organization K1F:LABORATORY [facility] - [address] [facility] [address] [place] [address] Laboratory Report Ordering Provider Test Date Status COLTEN NEWMAN 09/03/2023 13:35:00 Final Observation Date Value Abnormality Reference (Units ) Status BUN 09/03/2023 13:35:00 11 6-20 (mg/dL) Final Creatinine 09/03/2023 13:35:00 0.6 0.5-1.0 (mg/dL) Final Glomerular filtration rate/1.73 sq M.predicted [Volume Rate/Area] in Serum, Plasma or Blood by Creatinine-based formula (CKD-EPI) 09/03/2023 13:35:00 >90 >=60 (mL/min) Final eGFR is calculated based on the CKD-EPI 2020 equation SODIUM 09/03/2023 13:35:00 139 135-146 (m mol/L) Final Potassium 09/03/2023 13:35:00 3.8 3.5-5.1 (m mol/L) Final Cl 09/03/2023 13:35:00 104 98-107 (mm ol/L) Final CO2 09/03/2023 13:35:00 24 22-32 (mmo l/L) Final Anion gap 09/03/2023 13:35:00 11 7-15 (mmol /L) Final Glucose 09/03/2023 13:35:00 108 70-120 (mg /dL) Final Albumin 09/03/2023 13:35:00 4.2 3.8-5.0 (g /dL) Final AST (Aspartate aminotransferase) 09/03/2023 13:35:00 21 10-35 (U/L) Final Alk Phos 09/03/2023 13:35:00 101 35-130 (U/ L) Final Bilirubin, Total 09/03/2023 13:35:00 0.2 <=1 .2 (mg/dL) Final Calcium 09/03/2023 13:35:00 9.3 8.4-10.2 ( mg/dL) Final Protein 09/03/2023 13:35:00 6.7 6.0-8.3 (g /dL) Final ALT (Alanine aminotransferase) 09/03/2023 13:35:00 19 10-35 (U/L) Final Performing Location LABORATORY [facility] - [facility] [address] [place] [address]
--- OUTSIDE RECORDS SUMMARY | 2024-02-29 00:25 | External Medical Summary ---
Author Name Unknown Address Unknown Organization K1F:LABORATORY [facility] - [address] [place] [address] Laboratory Report Ordering Provider Test Date Status TRENTABEL 09/03/2023 13:35:00 Final Observation Date Value Abnormality Reference (Units ) Status Salicylates 09/03/2023 13:35:00 <0.3 Below low normal 5 .0-30.0 (mg/dL) Final Performing Location LABORATORY [facility] - [address] [address]
--- OUTSIDE RECORDS SUMMARY | 2024-02-29 00:25 | External Medical Summary ---
Author Name Unknown Address Unknown Organization K01:LABORATORY [facility] - [address] [place] [address] Laboratory Report Ordering Provider Test Date Status NITZA SHARPE JR 09/03/2023 13:35:00 Final Observation Date Value Abnormality Reference (Units ) Status Triglyceride 09/03/2023 13:35:00 260 Above high normal <=174 (mg/dL) Final Triglyceride Reference Range s (mg/dL):
<150 Acceptable
150-174 Borderline high
175-499 High
>=500 Very high Cholesterol 09/03/2023 13:35:00 203 Above high normal <200 (mg/dL) Final Total Cholesterol Reference Ranges (mg/dL):
<200 Desirable
200-239 Borderline high
>=240 High HDL 09/03/2023 13:35:00 38 Below low normal >49 (mg/dL) Final HDL Cholesterol Reference Ra nges (mg/dL):
>=60 High (Desirable)
<50 Low (Undesirable) For Females
<40 Low (Undesirable) For Males NON-HDL CHOLESTEROL 09/03/2023 13:35:00 165 Above high normal <=159 (mg/dL) Final Non-HDL Cholesterol Referenc e Range (mg/dL):
<100 Target level for high risk ASCVD patient
<130 Optimal for general population
130-159 Near optimal for general population
160-189 Borderline High
190-219 High
>=220 Very High LDL, (calculated) 09/03/2023 13:35:00 113 <= 129 (mg/dL) Final LDL Cholesterol Reference Ra nges (mg/dL):
<70 Target level for high risk ASCVD patient
<100 Optimal for general population
100-129 Near optimal for general population
130-159 Borderline high
160-189 High
>=190 Very high Performing Location LABORATORY [facility] - [address] [facility] [address]
--- OUTSIDE RECORDS SUMMARY | 2024-02-29 00:25 | External Medical Summary ---
Author Name Unknown Address Unknown Organization K1F:[facility]ATORY [facility] - [address] [facility] [address] [place] [address] Laboratory Report Ordering Provider Test Date Status COLTEN NEWMAN 09/03/2023 13:35:00 Final Observation Date Value Abnormality Reference (Units ) Status SYNC LEUKOCYTES IN BLOOD BY AUTOMATED COUNT 09/03/2023 13:35:00 6.73 4.00-10.80 (K/uL) Final Segs 09/03/2023 13:35:00 53.7 40.0-75.0 (%) Final Lymphs % 09/03/2023 13:35:00 37.4 18.0-42.0 (%) Final Monos 09/03/2023 13:35:00 6.1 1.0-11.0 (%) Final Eosinophils 09/03/2023 13:35:00 2.4 0.0-6.0 (%) Final Basos 09/03/2023 13:35:00 0.3 0.0-2.0 (%) Final Immature Granulocyte, Percent 09/03/2023 13:35:00 0.1 0.0-2.0 (%) Final Absolute Segs 09/03/2023 13:35:00 3.61 1.80-7.70 (K/uL) Final Lymphs, absolute 09/03/2023 13:35:00 2.52 1.00-4.80 (K/ul) Final Monos, Abs 09/03/2023 13:35:00 0.41 0.00-1.10 (K/uL) Final Eos, Abs 09/03/2023 13:35:00 0.16 0.00-0.70 (K/uL) Final Basos, Abs 09/03/2023 13:35:00 0.02 0.00-0.20 (K/uL) Final Immature Granulocytes, Number 09/03/2023 13:35:00 0.01 0.00-0.20 (K/uL) Final Performing Location LAB[facility]ORY [facility] - [address] [facility] [place] [address]
--- OUTSIDE RECORDS SUMMARY | 2024-02-29 00:25 | External Medical Summary ---
Author Name Unknown Address Unknown Organization K1F:LABORATORY [address] [address] Laboratory Report Ordering Provider Test Date Status COLTEN NEWMAN 09/03/2023 13:31:02 Final RAPID SURVEILLANCE Observation Date Value Abnormality Reference (Units ) Status SARS Coronavirus 2 09/03/2023 13:31:02 Negative N egative Final No SARS-CoV2 Coronavirus RNA detected by PCR (amplified probe).
This express test was developed and its performance characteristics determined by [employer]. It has not been cleared or approved [...] SARS-CoV-2 diagnosis, surveillance, and travel within the [place] and to most countries. Please check with local testing authorities about requirements before travel.

The validation of bronchial specimens, tracheal aspirates, and sputum for this assay was developed and performance characteristics determined by [facility]. The validation of alternate specimen types has not been cleared or approved by the U.S. Food and Drug Administration (FDA). It has been determined that such clearance is not necessary. Influenza virus A RNA [Prese nce] in Specimen by JORGE LUIS with probe detection 09/03/2023 13:31:02 Negative Negative Final No Influenza A RNA detected by PCR (amplified probe) Influenza virus B RNA [Prese nce] in Specimen by JORGE LUIS with probe detection 09/03/2023 13:31:02 Negative Negative Final No Influenza B RNA detected by PCR (amplified probe) Respiratory syncytial virus RNA [Identifier] in Specimen by JORGE LUIS with probe detection 09/03/2023 13:31:02 Negative Negative Final No Respiratory Syncytial Vir us RNA detected by PCR (amplified probe) Performing Location [address]ATORY [address] [place] [address]
--- OUTSIDE RECORDS SUMMARY | 2024-02-29 00:25 | External Medical Summary ---
Author Name Unknown Address Unknown Organization K1F:LABORATORY [facility] - [address] [address] Laboratory Report Ordering Provider Test Date Status COLTEN NEWMAN 09/03/2023 13:35:00 Final Observation Date Value Abnormality Reference (Units ) Status Acetaminophen 09/03/2023 13:35:00 <5.0 Below low normal 10.0-30.0 (ug/mL) Final Performing Location LABORATORY [facility] - [address] [address]
--- OUTSIDE RECORDS SUMMARY | 2024-02-29 00:25 | External Medical Summary ---
Author Name Unknown Address Unknown Organization K1F:[facility] [address] [facility] [place] [address] Laboratory Report Ordering Provider Test Date Status RAYMUNDOVISHAL 09/04/2023 14:13:35 Final Observation Date Value Abnormality Reference (Units ) Status Color of Urine by Auto 09/04/2023 14:13:35 Yellow Light Yellow, Yellow, Dark Yellow Final Clarity, Urine 09/04/2023 14:13:35 Clear Clear Final Glucose [Mass/volume] in Urine by Automated test strip 09/04/2023 14:13:35 Negative Negative (mg/dL) Final Bilirubin.total [Presence] in Urine by Automated test strip 09/04/2023 14:13:35 Negative Negative Final Ketones [Mass/volume] in Urine by Automated test strip 09/04/2023 14:13:35 Negative Negative (mg/dL) Final Specific gravity, Urine 09/04/2023 14:13:35 1.006 1.003-1.030 Final Hemoglobin [Presence] in Urine by Automated test strip 09/04/2023 14:13:35 Negative Negative Final pH, Urine 09/04/2023 14:13:35 7.0 5.0-7.5 (Units) Final Protein [Mass/volume] in Urine by Automated test strip 09/04/2023 14:13:35 Negative Negative (mg/dL) Final Urobilinogen [Mass/volume] in Urine by Automated test strip 09/04/2023 14:13:35 0.2 0.2, 1.0 (mg/dL) Final Nitrite [Presence] in Urine by Automated test strip 09/04/2023 14:13:35 Negative Negative Final Leukocyte esterase [Presence] in Urine by Automated test strip 09/04/2023 14:13:35 Moderate Abnormal Negative Final Performing Location LABORATORY [facility] - [address] [facility] joellen [place] [address]
--- OUTSIDE RECORDS SUMMARY | 2024-02-29 00:25 | External Medical Summary ---
Author Name Unknown Address Unknown Organization K1F:LABORATORY [facility] - [address] [place] [address] [facility] [address] Laboratory Report Ordering Provider Test Date Status VISHAL FONSECA 09/04/2023 14:13:35 Final Observation Date Value Abnormality Reference (Units ) Status RBC, Urine 09/04/2023 14:13:35 0-2 0-2 (/HPF) Final WBC, Urine 09/04/2023 14:13:35 10-19 Abnormal 0-2 (/HPF) Final Bacteria [#/area] in Urine sediment by Microscopy high power field 09/04/2023 14:13:35 51-100 Abnormal 0-25 (/HPF) Final Epithelial cells.squamous [#/area] in Urine sediment by Microscopy high power field 09/04/2023 14:13:35 Many Abnormal None (/HPF) Final Yeast [#/area] in Urine sediment by Microscopy high power field 09/04/2023 14:13:35 Present Abnormal None (/HPF) Final Performing Location [facility] [address] [facility] [place] [address]
--- OUTSIDE RECORDS SUMMARY | 2024-02-29 00:25 | External Medical Summary ---
Author Name Unknown Address Unknown Organization K1F:LABORATORY [facility] - [address] [place] [address] Laboratory Report Ordering Provider Test Date Status TRENTABEL 09/03/2023 13:35:00 Final Observation Date Value Abnormality Reference (Units ) Status TSH 09/03/2023 13:35:00 0.96 0.27-4.20 (uIU/mL) Final Performing Location LABORATORY [facility] - [address] [address]
--- OUTSIDE RECORDS SUMMARY | 2024-02-29 00:25 | External Medical Summary | Summary of Care ---
Author Name Unknown Organization [facility] Address [address] [place] [address] Phone [phone] Care Team Providers Care Biology Faculty Member Name Role Phone Shannen Rizzo Primary Care Provider Reason for Visit * Reason Onset Date Comments Appointment 09/01/2023 Encounter Details Date Type Department Care Team (Late st Contact Info) Description 09/01/2023 Telephone Gynecology/Obstetrics [facility] [address], [place] [phone] Jodie Thomas PA-C [address] [place] [address] Appointment Allergies Active Allergy Reactions Criticality Noted Date Comments Bee Pollen 08/13/2020 Bee Venom 05/01/2015 Honey Anaphylaxis High 02/12/2019 Levetiracetam 01/14/2021 Other reaction(s): Vomiting Sulfa Antibiotics 12/17/2022 Bupropion 12/17/2022 documented as of this encounter (statuses as of 09/02/2023) Medications Medication Sig Dispensed Refills Start Date End Date Status Vitamin B-12 1000 MCG Oral Tablet (Cyanocobalamin) Take 1 Tablet by mouth in the morning. 30 Tablet 5 12/22/2022 Active EpiPen 2-Obie 0.3 MG/0.3ML Injection Solution Auto-injector For a severe reaction: Inject in outer thigh following instructions on package and go to the Emergency room. 2 Each 0 03/21/2023 Active Phenytoin Sodium Extended 100 MG Oral Capsule (Dilantin)Indicati ons:Nonintractable epilepsy without status epilepticus, unspecified epilepsy type (HCC) TAKE 2 CAPSULES BY MOUTH IN THE MORNING, ONE IN THE AFTERNOON, AND ONE IN THE EVENING. 120 Capsule 3 06/03/2023 Active Castor-3 Fish Oil 1000 MG Oral Capsule (Castor-3) Take 1 Capsule by mouth in the morning. Do not start before June 12, 2023. 15 Capsule 0 06/12/2023 Active Polyethylene Glycol 3350 17 GM Oral Packet (Miralax) Mix 1 Packet in 4 to 8 ounces of any beverage and drink by mouth in the morning. Do not start before June 12, 2023. 14 Each 0 06/12/2023 Active Additional Information Patient not taking.Reported on 08/31/2023 ARIPiprazole 10 MG Oral Tablet (Abilify)Indicatio ns:Major depressive disorder, recurrent, severe with psychotic features (HCC) Take 1 Tablet by mouth every night at bedtime. 15 Tablet 0 06/11/2023 Active Sertraline HCl 100 MG Oral Tablet (Zoloft)Indication s:Major depressive disorder, recurrent, severe with psychotic features (HCC) Take 2 Tablets by mouth in the morning. 30 Tablet 0 06/11/2023 Active Additional Information Patient taking differently: 100 mgOral Daily(AM), Reported on 08/31/2023 Potassium Chloride Lelo ER 20 MEQ Oral Tablet Extended Release Take 1 Tablet by mouth in the morning and 1 Tablet before bedtime. 10 Tablet 0 08/06/2023 Active Additional Information Patient not taking.Reported on 08/31/2023 Sertraline HCl 50 MG Oral Tablet (Zoloft) TAKE 1 TABLET BY MOUTH EVERY DAY IN THE MORNING DIRECTED 0 07/07/2023 Active hydrOXYzine HCl 10 MG Oral Tablet (Atarax) Take 1 Tablet by mouth at bedtime as needed. 0 08/07/2023 Active documented as of this encounter (statuses as of 09/02/2023) Active Problems Problem Noted Date Diagnosed Date Transient alteration of awareness 06/09/2023 Abnormal electroencephalogram (EEG) 06/09/2023 Autism spectrum disorder 06/08/2023 Bipolar 2 disorder, major depressive episode PTSD (post-traumatic stress disorder) 03/30/2023 Nonintractable epilepsy [...] being seen in [place] per discussions with [facility], she had only shown for anatomy US, cancelled/no showed all her visits Anemia of mother in , antepartum, third trimester 12/17/2022 Overview: Blood management referral for venofer Vitmain b12 1000mcg daily Trichomonal vulvovaginitis 12/17/2022 Overview: Treated 12/17/22 Positive 01/26/23 treated THANG due 39w Chlamydia infection affecting in secon d trimester 12/17/2022 Overview: Noted in labs from [place], unsure if she was treated. 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 Never true 03/19/20 23 Within the past 12 months, t he food you bought just didn't last and you didn't have money to get more. Never true 03/19/2023 [place] Depression Scale Answer Date Recorded [place] Depression Scale Total 22 07/08/2023 The thought [...] encounter Miscellaneous Notes * Telephone Encounter - Maryam Estrada LPN - 09/02/2023 11:14 AM EST Phone call to pt pt scheduled. Maryam Estrada LPN 09/02/2023 11:14 AM * Telephone Encounter - Vianey Weldon OSA - 09/01/2023 9:29 AM EST Pt called in she had to cancel appointment today due to weather, pt would like to get another appointment sometime this month if possible documented in this encounter Plan of Treatment Upcoming Encounters Date Type Department Care Team (Late st Contact Info) Description 09/24/2023 2:00 PM EST Office Visit Gynecology/Obstetrics [facility] [address] [place] [address] Willow Contreras PA-C [address] [place] [address] 10/22/2023 1:00 PM EST [facility] [address] [place] [phone] Gautam Bragg DO [address] [place] [address] 03/24/2024 3:30 PM EDT Office Visit Oral Maxillofacial Surgery, [place] [address] [place] [address] Yo Eliseo Luis Fernando, S [address] [place] [address] Health Maintenance Due Date Last Done Comments COVID-19 Vaccine (#1) 03/26/2000 Depression Screening 06/12/2024 06/12/2023 Gonorrhea / Chlamydia Screen 08/19/2024, 04/08/2023, 02/09/2023, Additional history exists Pap Smear 04/08/2026 04/08/2023 [...] the patient have Health Care Power of Web Site Administrator? No Code Status History Code Status Date Activated Date Inactivated Comments Full Code 03/27/2023 10:31 PM 04/01/2023 5:17 PM This o rder reflects the patients wishes and were consensually agreed upon. Question Answer Comments Discussion of Advance Directives occurred with: Not Discussed due to patient's condition Does the patient have a Living Will? No Does the patient have Health Care Power of Web Site Administrator? No Full Code 02/22/2023 3:52 PM 02/24/2023 9:44 PM This or noa reflects the patients wishes and were consensually agreed upon. Question Answer Comments Discussion of Advance Directives occurred with: Not Discussed due to patient's condition Does the patient have a Living Will? No Does the patient have Health Care Power of Web Site Administrator? No Full Code 02/17/2023 12:08 AM 02/17/2023 1:32 PM This order reflects the patients wishes and were consensually agreed upon. Question Answer Comments Discussion of Advance Directives occurred with: Not Discussed due to patient's condition Full Code 02/03/2023 2:58 PM 02/09/2023 7:55 PM This order reflects the patients wishes and were consensually agreed upon. Question Answer Comments Discussion of Advance Directives occurred with: Not Discussed due to patient's condition Care Teams Biology Faculty Member Relationship Specialty Start Date End Date Shannen Rizzo CRNP [address] [id number] PCP - General Nurse Practitioner 04/20/23 documented as of this encounter
--- OUTSIDE RECORDS SUMMARY | 2024-02-29 00:25 | External Medical Summary ---
Author Name Unknown Address Unknown Organization K01:[facility] [place] - [address] [facility] [address] Laboratory Report Ordering Provider Test Date Status NITZA SHARPE JR 09/03/2023 13:35:00 Final Observation Date Value Abnormality Reference (Units ) Status HbA1C 09/03/2023 13:35:00 5.1 4.0-5.6 (% ) Final The use of HbA1c to monitor glycemic status is based on normal hemoglobin and HbA composition. This test should not be used in patients with abnormal hemoglobin that affects the half life of the red blood cell or the in vivo glycation rates. Glucose, estimated average 09/03/2023 13:35:00 100 <126 (mg/dL) Final Performing Location LABORATORY [facility] - [address] [facility] [address]
--- OUTSIDE RECORDS SUMMARY | 2024-02-29 00:25 | External Medical Summary ---
Author Name Unknown Address Unknown Organization K1F:LABORATORY [facility] - [address] [facility] [address] Laboratory Report Ordering Provider Test Date Status COLTEN NEWMAN 09/03/2023 13:26:49 Final Cutoff Concentrations:
Drug Level
Amphetamines 500 [...] Reference (Units ) Status Amphetamines, Urine screen 09/03/2023 13:26:49 Negative Negative Final Benzodiazepines, Urine screen 09/03/2023 13:26:49 Negative Negative Final Cannabinoids, Urine screen 09/03/2023 13:26:49 Negative Negative Final Cocaine Metabolite, Urine screen 09/03/2023 13:26:49 Negative Negative Final fentaNYL [Presence] in Urine by Screen method 09/03/2023 13:26:49 Negative Negative Final HYDROcodone [Presence] in Urine by Screen method 09/03/2023 13:26:49 Negative Negative Final 2-Oghuflkvux-0,5-Dimeth yl-3,3-Diphenylpyrrolid ine (EDDP) [Presence] in Urine 09/03/2023 13:26:49 Negative Negative Final Opiates, Urine screen 09/03/2023 13:26:49 Negative Negative Final oxyCODONE [Presence] in Urine by Screen method 09/03/2023 13:26:49 Negative Negative Final Performing Location LABORATORY [facility] - [address] [facility] [address] [facility] [address]
[2024-02-29] MEDS: PHENYTOIN SODIUM ER 100 MG CAP PO STA (00:52)
[2024-02-29] MEDS: traZODone HCL 50 MG TAB PO SCH (00:52)
[2024-02-29] MEDS: SODIUM CHLORIDE 0.9% 1,000 ML IV SCH (00:54)
[2024-02-29] MEDS: Patient's HEIGHT &/or WEIGHT Needed ONE (03:43)
[2024-02-29 06:31] LABS: Hematocrit (blood only) 35.4 % (37.0-47.0); Hemoglobin 11.7 g/dl (12.0-16.0); Mean Corpuscular Hemoglobin 29.3 pg (25.0-34.0); Mean Corpuscular Hgb Conc 33.1 g/dL (32.0-36.0); Mean Corpuscular Volume 88.5 fL (80.0-100.0); Platelet Count 182 K/uL (130-400); RDW Coefficient of Variation 11.9 % (11.5-14.5); RDW Standard Deviation 38.2 fL (36.4-46.3)
[2024-02-29 06:42] LABS: Anion Gap 5 (3-11); Blood Urea Nitrogen 8 mg/dl (6-23); Carbon Dioxide 25 mmol/L (21-32); Chloride 113 mmol/L (98-107); Creatinine Clr Calc Pharmacy 114.7 ml/min; Est GFR (African American) > 150.0 ml/min; Est GFR (Non-African American) 129.8 ml/min; Glucose 92 mg/dl (70-99(Fasting)); Magnesium 1.8 mg/dl (1.7-2.4); Potassium 3.4 mmol/L (3.5-5.1); Sodium 143 mmol/L (136-145)
[2024-02-29 06:51] LABS: Basophils # (auto) 0.03 K/uL (0.00-0.20); Basophils % (auto) 0.5 %; Eosinophils # (auto) 0.43 K/uL (0.00-0.50); Eosinophils % (auto) 7.3 %; Immature Granulocytes # (auto) 0.01 K/uL (0.01-0.20); Immature Granulocytes % (auto) 0.2 %; Lymphocytes # (auto) 2.97 K/uL (1.20-3.40); Lymphocytes % (auto) 50.3 %; Monocytes # (auto) 0.34 K/uL (0.11-0.59); Monocytes % (auto) 5.8 %; Neutrophils # (auto) 2.12 K/uL (1.40-6.50); Neutrophils % (auto) 35.9 %
--- NOTE | 2024-02-29 08:42 | XRay Report ---
XR chest 1V portable HISTORY: 23 years-old Female seizure like activity COMPARISON: None TECHNIQUE: AP view of the chest FINDINGS: Cardiomediastinal and hilar silhouettes are within normal limits. No pneumothorax, pleural effusion o r airspace consolidation. The bones appear intact. IMPRESSION: No acute process. ACT 112: Negative or not required by law. The above report was generated using voice recognition software. It may contain grammatical, syntax o r spelling errors. Electronically signed by: Fausto Crespo M.D. 02/29/2024 8:41 AM
[2024-02-29] MEDS: PHENYTOIN SODIUM ER 100 MG CAP PO SCH (08:52)
[2024-02-29] MEDS: ESCITALOPRAM OXALATE 10 MG TAB PO SCH (08:52)
[2024-02-29] MEDS: POTASSIUM CHLORIDE CRTAB 20 MEQ TABCR PO SCH (08:52)
--- NOTE | 2024-02-29 10:34 | Electroencephalogram ---
EEG Procedure Note Date of Service February 29, 2024 Start / End Times Start Time: 08:02 End Time: 08:[address] Jeremi Aviles History A 23-year-old female with a history of epilepsy transferred for breakthrough seizure. EEG performed for evaluation of epileptiform activity. Home Medication List Medication Instructions Recorded Confirmed Type albuterol sulfate 90 mcg/actuation 2 puff inhalation Q4 PRN 02/28/24 02/28/24 History aerosol inhaler cough,wheezing or SOB epinephrine 0.3 mg/0.3 mL 0.3 mg IM UD PRN severe reaction 02/28/24 02/28/24 History injection, auto-injector (EpiPen 2-Obie) escitalopram oxalate 5 mg tablet 5 mg PO QAM 02/28/24 02/28/24 History ondansetron HCl 4 mg tablet 4 mg PO Q6H PRN Nausea 02/28/24 02/28/24 History phenytoin sodium extended 100 mg 200 mg PO TID 02/28/24 02/28/24 History capsule potassium chloride 20 mEq 20 meq PO AMHS 02/28/24 02/28/24 History tablet,extended release(part/cryst) trazodone 50 mg tablet 50 mg PO HS 02/28/24 02/28/24 History Inpatient Medication List Escitalopram Oxalate (Escitalopram Oxalate 10 Mg Tab) 5 mg PO QAM AMI Stop: 03/30/24 08:59 Last Admin: 02/29/24 08:52 Dose: 5 mg Documented By: CC Sodium Chloride (Nss) 1,000 mls @ 100 mls/hr IV .Q10H AMI Stop: 03/30/24 00:10 Last Admin: 02/29/24 00:54 Dose: 100 mls/hr Documented By: JR Phenytoin Sodium (Phenytoin Sodium Er 100 Mg Cap) 200 mg PO TID AMI Stop: 03/30/24 08:59 Last Admin: 02/29/24 08:52 Dose: 200 mg Documented By: CC Potassium Chloride (Potassium Chloride Crtab 20 Meq Tabcr) 20 meq PO BID AMI Stop: 03/30/24 08:59 Last Admin: 02/29/24 08:52 Dose: 20 meq Documented By: CC Trazodone HCl (Trazodone Hcl 50 Mg Tab) 50 mg PO HS AMI Stop: 03/30/24 00:10 Last Admin: 02/29/24 00:52 Dose: 50 mg Documented By: Discontinued Medications Sodium Chloride (Nss) 1,000 mls @ 999 mls/hr IV .Q1H1M ONE Stop: 02/28/24 22:25 Last Infusion: 02/28/24 22:27 Dose: Infused Documented By: Admin: 02/28/24 21:46 Dose: 999 mls/hr Documented By: Ceftriaxone Sodium (Rocephin) 2,000 mg in 50 mls @ 100 mls/hr IV NOW STA Stop: 02/28/24 21:54 Last Infusion: 02/28/24 22:27 Dose: Infused Documented By: Admin: 02/28/24 21:50 Dose: 100 mls/hr Documented By: Potassium Chloride (K Víctor / Wtr) 10 meq in 100 mls @ 100 mls/hr IV Q1H AIM Stop: 02/29/24 00:59 Last Infusion: 02/29/24 03:30 Dose: Infused Documented By: Admin: 02/29/24 01:08 Dose: 70 mls/hr Documented By: Infusion: 02/29/24 01:08 Dose: Infused Documented By: Infusion: 02/29/24 00:24 Dose: 70 mls/hr Documented By: Admin: 02/29/24 00:05 Dose: 100 mls/hr Documented By: Miscellaneous (Patient's Height &/Or Weight Needed) 1 each N/A NOW ONE Stop: 02/29/24 00:31 Last Admin: 02/29/24 03:43 Dose: 1 each Documented By: ROSE Phenytoin Sodium (Phenytoin Sodium Er 100 Mg Cap) 200 mg PO NOW STA Stop: 02/28/24 23:50 Last Admin: 02/29/24 00:52 Dose: 200 mg Documented By: Description This is a 21 electrode EEG with a single channel dedicated to limited EKG. The electrodes were placed in accordance with the International 10-20 system. Report: At the onset of the EEG the patient appears to be drowsy or an altered mental state. The background appears symmetric with a posterior dominant rhythm of 9 hertz which is poorly sustained. the background predominantly consists of an admixture polymorphic theta delta activity. stage 2 sleep is characterized by sleep spindles and K complexes. Photic stimulation does not induce any additional abnormalities. Hyperventilation was not performed. Interpretation Impression: This is an abnormal awake and asleep routine EEG due to intermittent generalized background slowing suggestive of a mild nonspecific encephalopathy. No electrographic seizures or epileptiform discharges are seen.
--- NOTE | 2024-02-29 14:54 | Neurology Consultation ---
Date of Consultation February 29, 2024 Assessment & Plan (1) Recurrent seizures: Suspect this may be related to medication noncompliance. Suspect possible seizures versus pseudoseizures. Recent low phenytoin level at [facility] on 02/24 Plan Recommend to continue phenytoin 200 mg 3 times daily. Will follow phenytoin level The patient will need an outpatient evaluation by an epilepsy specialist to see determine if these events are seizures versus pseudoseizures. Continue to treat her due to her UTI which can be a precipitating factor. Continue with seizure precautions Telehealth Consultation Telehealth Information Telehealth Information: I performed this visit using a real-time telehealth connection between my location and the patients location ([facility]). After connecting through interactive tele-video, patient was identified by name and date of and/or wristband check.Patient (or authorized healthcare repr esentative) was informed that this was a telemedicine visit and it was being conducted confidentially over secure lines. My office door was closed and no one else was present in the room with me.Patient (or authorized healthcare printing sales representative) provided consent to proceed with the visit, expressed an understanding of privacy and security of the telemedicine visit, and gave permission to have a hospital printing sales representative in the room in order to assist with the visit and to conduct portions of the visit, as needed. I informed the patient (or authorized healthcare printing sales representative) that I reviewed their record and presented the opportunity for them to ask any questions regarding the visit today. The patient agreed to participate. History of Present Illness Reason for Consultation: seizures Requesting Physician: Dr Wells Attending Physician: Jm Wells MD History of Present Illness The patient is a 23-year-old female patient with PMH of seizure disorder, histo ry of multiple psychiatric diagnoses including bipolar disorder, borderline personality disorder, autism spectrum disorder, PTSD the patient presented to the ED reporting that she has had multiple seizure events of multiple semiologies mainly involving shaking of upper and lower extremities present without losing consciousness with that without memory of the events. She reports being compliant with her medications, she has a visit that does agree. Hospital due to the same events, she has been taking phenytoin 200 mg in the morning and 100 mg at noon and 100 mg in the evening her phenytoin level on 02/24 was 8.6(low) also phenytoin level was noted to be on the lower side on multiple occasions. She denies any recent illnesses, she had only 1 event ever since she came to the hospital. This was unwitnessed, short-lived. During this hospitalization she was noted to have a UTI and she is being treated for that. Allergies Allergy/AdvReac Type Severity Reaction Status Date / Time honey Allergy Severe Anaphylaxis Verified 02/28/24 21:51 bee pollen Allergy Unknown Verified 02/28/24 21:51 bee venom protein (honey bee) Allergy Unknown Verified 02/28/24 21:51 bupropion [From Wellbutrin] Allergy Unknown Verified 02/28/24 21:51 Sulfa (Sulfonamide Allergy Unknown Verified 02/28/24 21:51 Antibiotics) levetiracetam AdvReac Vomiting Verified 02/28/24 21:51 Home Medications Medication Instructions Recorded Confirmed Type albuterol sulfate 90 mcg/actuation 2 puff inhalation Q4 PRN 02/28/24 02/28/24 History aerosol inhaler cough,wheezing or SOB epinephrine 0.3 mg/0.3 mL 0.3 mg IM UD PRN severe reaction 02/28/24 02/28/24 History injection, auto-injector (EpiPen 2-Obie) escitalopram oxalate 5 mg tablet 5 mg PO QAM 02/28/24 02/28/24 History ondansetron HCl 4 mg tablet 4 mg PO Q6H PRN Nausea 02/28/24 02/28/24 History phenytoin sodium extended 100 mg 200 mg PO TID 02/28/24 02/28/24 History capsule potassium chloride 20 mEq 20 meq PO AMHS 02/28/24 02/28/24 History tablet,extended release(part/cryst) trazodone 50 mg tablet 50 mg PO HS 02/28/24 02/28/24 History Patient History Social History Smoking Status: Current every day smoker Tobacco Type: E-cigarettes / Vaping Second Hand Exposure: Yes; Do You Dip or Chew Tobacco: No; Hx Alcohol Use: No Hx Substance Use: No Preferred Language: Portuguese Communication Ability: Effective [employer] Build[employer] Supervisor Required: No Beliefs That Will Affect Care: None Current Living Situation: Significant Other Other Information That Helps Us Care for You: No Feels Safe at Home: Yes Safety Concerns: Feels Safe At This Time Assistive Devices: None Review of Systems Constitutional: Patient denies weight loss, fever, chills, and night sweats Eyes: Patient denies change in vision, tearing, pain, and redness ENT: Patient denies pain, bleeding, rhinorrhea, and dysphagia Cardiovascular: Patient denies chest pain, palpitation, dyspnea at rest, and dyspnea with exertion Respiratory: Patient denies shortness of breath, cough, wheezing, and productive cough GI: Patient denies reflux, pain, constipation, and diarrhea Skin: Patient denies rash, dryness, and itching Allergies/Immune System: Patient denies rhinorrhea, seasonal allergies, reaction to current MEDS, and joint swelling Endocrine: Patient denies weight loss, weight gain, temperature intolerance, and excessive thirst Neurological: All negative unless mentioned in the HPI Physical Exam General Constitutional: Appearance normally developed Head and face: normocephalic and atraumatic Eyes: no ptosis, no anisocoria, and no dysconjugate gaze Respiratory: normal effort Cardiovascular: regular rhythm and regular rate Abdomen: non distended Skin: no rashes, lesions, or ulcers noted Psychiatric: normal judgement and insight, normal mood, and normal affect NEUROLOGIC EXAMINATION: Mental Status:alert, oriented to time, place, person, normal recent memory, normal remote memory, normal attention span, normal concentration, normal language and normal fund of knowledge Cranial Nerves: CN 2 - no visual defect on confrontation and pupils round, equal, reactive to light CN 3, 4, 6 - extra-ocular movements intact and no nystagmus CN 5 - facial sensation intact CN 7 - no facial asymmetry CN 8 - intact hearing CN 9, 10 - palate symmetric, normal gag CN 11 - good shoulder shrug CN 12 - tongue midline MOTOR: Strength was at least antigravity throughout, Pronator drift was absent and There were no abnormal movements SENSATION: intact and symmetric to pinprick, light touch, vibration and joint position GAIT: stable, no ataxia and can perform tandem walking COORDINATION: no ataxia with finger to nose testing and heel to shrestha testing REFLEXES: cannot assess over telemedicine Results & Data Vital Signs (Past 12 Hours) Vital Signs Temp Pulse Pulse Resp BP Pulse Ox O2 Del Method 02/29/24 13:01 36.6 C 64 28 H 101/58 L 97 Room Air 02/29/24 11:00 37.0 C 65 18 98/66 L 98 Room Air 02/29/24 10:18 93 H 17 93/62 L 97 Room Air 02/29/24 07:24 79 02/29/24 06:00 65 15 89/62 L 97 Room Air 02/29/24 05:00 75 16 98/67 L 99 Room Air 02/29/24 04:30 65 14 84/60 L 99 Room Air Laboratory Results Laboratory Results - last 24 hr 02/28/24 02/28/24 02/28/24 20:35 20:47 21:33 WBC 7.61 RBC 4.92 Hgb 14.2 Hct 42.3 MCV 86.0 MCH 28.9 MCHC 33.6 RDW Std Deviation 37.3 RDW Coeff of Denisa 11.9 Plt Count 233 MPV 10.3 Immature Gran % (Auto) 0.1 Neut % (Auto) 42.6 Lymph % (Auto) 45.3 Ada % (Auto) 5.7 Eos % (Auto) 5.8 Baso % (Auto) 0.5 Neut # (Auto) 3.24 Lymph # (Auto) 3.45 H Ada # (Auto) 0.43 Eos # (Auto) 0.44 Baso # (Auto) 0.04 Immature Gran # (Auto) 0.01 PT Cancelled 10.9 INR Cancelled 1.0 VBG pH 7.38 VBG pCO2 44 VBG pO2 50 VBG HCO3 26 VBG O2 Saturation 83.0 VBG Base Excess 0.5 Sodium 142 Potassium TNP 3.1 L Chloride 107 Carbon Dioxide 26 Anion Gap 9 BUN 8 Creatinine 0.71 Est Cr Clr Drug Dosing Not Reportable Est GFR ( Amer) 138.2 Est GFR (Non-Af Amer) 119.2 BUN/Creatinine Ratio 11.3 Glucose 110 H Lactate 2.1 H* Calcium 9.5 Magnesium 2.0 Total Bilirubin 0.2 AST TNP 18 ALT 23 Alkaline Phosphatase 89 Troponin I High Sens < 2.3 Total Protein 7.2 Albumin 4.6 Globulin 2.6 Albumin/Globulin Ratio 1.8 Lipase 26 HCG, Qual Negative Urine Color Dark Yellow Urine Appearance Cloudy A Urine pH 5.5 Ur Specific [place] 1.028 Urine Protein Trace H Urine Glucose (UA) Negative Urine Ketones 1+ H Urine Blood Negative Urine Nitrite Negative Urine Bilirubin 1+ H Urine Urobilinogen Negative Ur Leukocyte Esterase Trace H Urine WBC (Auto) 6-10 H Urine RBC (Auto) 0-2 U Hyaline Cast (Auto) 0-2 U Epithel Cells (Auto) 6-10 H Urine Bacteria (Auto) 2+ H Urine Opiates Screen Neg Ur Methadone, Qual Neg Urine Fentanyl Screen Neg Urine Barbiturates Neg Phenytoin Ur Phencyclidine (PCP) Neg U Amphetamin/Meth Scrn Neg MDMA (Ecstasy) Screen Neg U Benzodiazepines Scrn Neg Ur Cocaine Metabolite Neg U Marijuana (THC) Screen Neg 02/29/24 02/29/24 02/29/24 00:32 05:51 05:51 WBC 5.90 RBC 4.00 L Hgb 11.7 L Hct 35.4 L MCV 88.5 MCH 29.3 MCHC 33.1 RDW Std Deviation 38.2 RDW Coeff of Denisa 11.9 Plt Count 182 MPV 10.0 Immature Gran % (Auto) 0.2 Neut % (Auto) 35.9 Lymph % (Auto) 50.3 Ada % (Auto) 5.8 Eos % (Auto) 7.3 Baso % (Auto) 0.5 Neut # (Auto) 2.12 Lymph # (Auto) 2.97 Ada # (Auto) 0.34 Eos # (Auto) 0.43 Baso # (Auto) 0.03 Immature Gran # (Auto) 0.01 PT INR VBG pH VBG pCO2 VBG pO2 VBG HCO3 VBG O2 Saturation VBG Base Excess Sodium 143 Potassium 3.4 L Chloride 113 H Carbon Dioxide 25 Anion Gap 5 BUN 8 Creatinine 0.57 L Est Cr Clr Drug Dosing 114.7 Est GFR ( Amer) > 150.0 Est GFR (Non-Af Amer) 129.8 BUN/Creatinine Ratio 14.0 Glucose 92 Lactate 1.2 Calcium 8.0 L Magnesium 1.8 Total Bilirubin AST ALT Alkaline Phosphatase Troponin I High Sens Total Protein Albumin Globulin Albumin/Globulin Ratio Lipase HCG, Qual Urine Color Urine Appearance Urine pH Ur Specific [place] Urine Protein Urine Glucose (UA) Urine Ketones Urine Blood Urine Nitrite Urine Bilirubin Urine Urobilinogen Ur Leukocyte Esterase Urine WBC (Auto) Urine RBC (Auto) U Hyaline Cast (Auto) U Epithel Cells (Auto) Urine Bacteria (Auto) Urine Opiates Screen Ur Methadone, Qual Urine Fentanyl Screen Urine Barbiturates Phenytoin Cancelled Cancelled Ur Phencyclidine (PCP) U Amphetamin/Meth Scrn MDMA (Ecstasy) Screen U Benzodiazepines Scrn Ur Cocaine Metabolite U Marijuana (THC) Screen 02/29/24 05:51 WBC RBC Hgb Hct MCV MCH MCHC RDW Std Deviation RDW Coeff of Denisa Plt Count MPV Immature Gran % (Auto) Neut % (Auto) Lymph % (Auto) Ada % (Auto) Eos % (Auto) Baso % (Auto) Neut # (Auto) Lymph # (Auto) Ada # (Auto) Eos # (Auto) Baso # (Auto) Immature Gran # (Auto) PT INR VBG pH VBG pCO2 VBG pO2 VBG HCO3 VBG O2 Saturation VBG Base Excess Sodium Potassium Chloride Carbon Dioxide Anion Gap BUN Creatinine Est Cr Clr Drug Dosing Est GFR ( Amer) Est GFR (Non-Af Amer) BUN/Creatinine Ratio Glucose Lactate Calcium Magnesium Total Bilirubin AST ALT Alkaline Phosphatase Troponin I High Sens Total Protein Albumin Globulin Albumin/Globulin Ratio Lipase HCG, Qual Urine Color Urine Appearance Urine pH Ur Specific [place] Urine Protein Urine Glucose (UA) Urine Ketones Urine Blood Urine Nitrite Urine Bilirubin Urine Urobilinogen Ur Leukocyte Esterase Urine WBC (Auto) Urine RBC (Auto) U Hyaline Cast (Auto) U Epithel Cells (Auto) Urine Bacteria (Auto) Urine Opiates Screen Ur Methadone, Qual Urine Fentanyl Screen Urine Barbiturates Phenytoin Pending Ur Phencyclidine (PCP) U Amphetamin/Meth Scrn MDMA (Ecstasy) Screen U Benzodiazepines Scrn Ur Cocaine Metabolite U Marijuana (THC) Screen Diagnostic Findings Chest X-Ray 02/28/24 20:27 XR chest 1V portable HISTORY: 23 years-old Female seizure like activity COMPARISON: None TECHNIQUE: AP view of the chest FINDINGS: Cardiomediastinal and hilar silhouettes are within normal limits. No pneumothorax, pleural effusion or airspace consolidation. The bones appear intact. IMPRESSION: No acute process. ACT 112: Negative or not required by law. The above report was generated using voice recognition software. It may contain grammatical, syntax or spelling errors. Electronically signed by: Fausto Crespo M.D. 02/29/2024 8:41 AM
--- NOTE | 2024-02-29 16:00 | Electrocardiogram Report ---
Test Reason : Blood Pressure : / mmHG Vent. Rate : 071 BPM Atrial Rate : 071 BPM P-R Int : 182 ms QRS Dur : 084 ms QT Int : 370 ms P-R-T Axes : 008 030 010 degrees QTc Int : 402 ms Normal sinus rhythm with sinus arrhythmia Nonspecific T wave abnormality Abnormal ECG No previous ECGs available Confirmed by Leon Madera [id number]) on 02/29/2024 4:00:24 PM Referred By: REFERRED SELF Confirmed By:Fer Madera
--- NOTE | 2024-02-29 16:55 | Hospitalist Progress Note ---
Date of Service February 29, 2024 Assessment & Plan (1) Recurrent seizures: Plan: 23 yo F with past medical history significant for malnutrition of moderate degree, non-intractable epilepsy, mixed hearing loss bilateral, iron deficiency anemia, attention deficit hyperactive disorder, tobacco disorder, opiate use, borderline personal disorder, PTSD, autism spectrum disorder, history of substance abuse, depression bipolar 2 disorder, presents with seizure episodes. Patient states recently having lot of seizures. She was yesterday in [facility] after she experienced seizure during fireworks.She was discharged home from ER. Family States she was in the ER 3 times in last 1 week. Today she she had 15-20 seizures as per family. Seems shakes her extremities and head during the episodes. No biting of tongue or incontinence during episode. As per f dylan after seizure is over she comes back to normal then again she goes back to another seizure episode. En route to the hospital she had couple episodes.Patient says sometimes she looses consciousness and sometimes not during the episodes She did not take her tonight Dilantin dose. States otherwise she is taking her medications regularly. Currently alert and oriented. Family in the room. Has some headache. Denies any dizziness. No blurred visions. Has some stuffy nose. Currently no cough. No difficulty swallowing. Appetite is not great. Denies any shortness of breath. Currently no chest pain. No nausea. No abdominal pain. Normal bowel and bladder movements. Hemodynamics are okay. Recurrent seizures currently alert and oriented continue home Dilantin for now IV Ativan as needed for breakthrough seizures check Dilantin levels - pending seizure precautions EEG - Impression: This is an abnormal awake and asleep routine EEG due to inter mittent generalized background slowing suggestive of a mild nonspecific encephalopathy. No electrographic seizures or epileptiform discharges are seen. Neurology consulted - (1) Recurrent seizures: Suspect this may be related to medication noncompliance. Suspect possible seizures versus pseudoseizures. Recent low phenytoin level at [facility] on 02/24 Plan Recommend to continue phenytoin 200 mg 3 times daily. Will follow phenytoin level The patient will need an outpatient evaluation by an epilepsy specialist to see determine if these events are seizures versus pseudoseizures. Continue to treat her due to her UTI which can be a precipitating factor. Continue with seizure precautions Elevated lactic acid repeat levels improved after IVF Poss. UTI UA concerning for poss. UTI Pt denies any dysuria , but reports having some "pressure" (she believes she is - bHCG negative) Rocephin started on admission - will cont. for now will follow cultures. Nausea/vomiting - reports she has been having n/v for a week - believes she is (beta HCG in [place] and here are negative) - reports she is able to eat while in the hospital but gets nausea when she takes her meds - on empty stomach - recommend to take meds with food and cont. to observe if this improves vs needs further eval. bipolar depression PTSD continue home Lexapro and trazodone follow-up with psychiatry DVT prophylaxis SCDs disposition telemetry full code Admission and Anticipated Discharge Date Admission Date: February 28, 2024 Subjective Pt seen in follow up of seizures Reports having multiple seizures, and being seen in [place] in ED previously Currently laying in bed in [facility], able to answer simple questions appropriately Denies fever, chills, chest pain, abd. pain. However states that for the past week she has had nausea and vomiting and she believes she is . test negative in [place]. Also test negative here. She tells me she is able to eat here in the hospital. Seems like she gets nausea when she takes her pills on an empty stomach. EEG obtained this AM and neurology was consulted. Review of Systems Review of Systems: All systems reviewed & are unremarkable except as noted in Subjective Physical Exam Physical Exam: General- WD/WN young F in [facility] Head- atraumatic Eyes- PERRL. Neck- supple, no JVD. Lungs- clear to auscultation no wheezing or crackles. Heart- regular rate and rhythm; no murmur, no gallop. Abdomen- normal bowel sounds, soft, nontender, no distension. Extremities- no pretibial edema, no erythema seen. Neuro- alert, oriented x 3; PERRL, no facial palsy; no dysarthria; moves extremities. Results & Data Results & Data Vital Signs (Past 12 Hours) Vital Signs Temp Pulse Pulse Resp BP Pulse Ox O2 Del Method 02/29/24 13:01 36.6 C 64 28 H 101/58 L 97 Room Air 02/29/24 11:00 37.0 C 65 18 98/66 L 98 Room Air 07/08/24 10:18 93 H 17 93/62 L 97 Room Air 02/29/24 07:24 79 02/29/24 06:00 65 15 89/62 L 97 Room Air 02/29/24 05:00 75 16 98/67 L 99 Room Air Laboratory Results 02/29/24 02/29/24 02/29/24 Range/Units 05:51 05:51 05:51 WBC 5.90 (4.8-10.8) K/ul RBC 4.00 L (4.20-5.40) M/uL Hgb 11.7 L (12.0-16.0) g/dl Hct 35.4 L (37.0-47.0) % MCV 88.5 (80.0-100.0) fL MCH 29.3 (25.0-34.0) pg MCHC 33.1 (32.0-36.0) g/dL RDW Std Deviation 38.2 (36.4-46.3) fL RDW Coeff of Denisa 11.9 (11.5-14.5) % Plt Count 182 (130-400) K/uL MPV 10.0 (9.4-12.4) fL Immature Gran % (Auto) 0.2 % Neut % (Auto) 35.9 % Lymph % (Auto) 50.3 % [place] % (Auto) 5.8 % Eos % (Auto) 7.3 % Baso % (Auto) 0.5 % Neut # (Auto) 2.12 (1.40-6.50) K/uL Lymph # (Auto) 2.97 (1.20-3.40) K/uL [place] # (Auto) 0.34 (0.11-0.59) K/uL Eos # (Auto) 0.43 (0.00-0.50) K/uL Baso # (Auto) 0.03 (0.00-0.20) K/uL Immature Gran # (Auto) 0.01 (0.01-0.20) K/uL PT INR VBG pH (7.36-7.41) VBG pCO2 (38-50) mmHg VBG pO2 mmHg VBG HCO3 mmol/L VBG O2 Saturation % VBG Base Excess mEq/L Sodium 143 (136-145) mmol/L Potassium 3.4 L Chloride 113 H (98-107) mmol/L Carbon Dioxide 25 (21-32) mmol/L Anion Gap 5 (3-11) BUN 8 (6-23) mg/dl Creatinine 0.57 L (0.6-1.2) mg/dl Est Cr Clr Drug Dosing 114.7 Est GFR ( Amer) > 150.0 ml/min Est GFR (Non-Af Amer) 129.8 ml/min BUN/Creatinine Ratio 14.0 (10-20) Glucose 92 (70-99(Fasting)) mg/dl Lactate (0.4-2.0) mmol/L Calcium 8.0 L (8.6-10.3) mg/dl Magnesium 1.8 (1.7-2.4) mg/dl Total Bilirubin (0.2-1.0) mg/dl AST ALT (7-52) U/L Alkaline Phosphatase (34-104) U/L Troponin I High Sens (0-14) pg/ml Total Protein (6.0-8.3) gm/dl Albumin (3.4-5.0) gm/dl Globulin (2.5-4.0) gm/dl Albumin/Globulin Ratio (0.9-2) Lipase (11-82) U/L HCG, Qual (Negative) Urine Color Urine Appearance (Clear) Urine pH (4.5-7.5) Ur Specific [place] (1.000-1.030) Urine Protein (Negative) Urine Glucose (UA) (Negative) Urine Ketones (Negative) Urine Blood (Negative) Urine Nitrite (Negative) Urine Bilirubin (Negative) Urine Urobilinogen (Negative) Ur Leukocyte Esterase (Negative) Urine WBC (Auto) (0-5) /hpf Urine RBC (Auto) (0-2) /hpf U Hyaline Cast (Auto) (0-2) /lpf U Epithel Cells (Auto) (0-2) /hpf Urine Bacteria (Auto) (None Seen) Urine Opiates Screen (Neg) Ur Methadone, Qual (Neg) Urine Fentanyl Screen (Neg) Urine Barbiturates (Neg) Phenytoin Pending Cancelled Cancelled Ur Phencyclidine (PCP) (Neg) U Amphetamin/Meth Scrn (Neg) MDMA (Ecstasy) Screen (Neg) U Benzodiazepines Scrn (Neg) Ur Cocaine Metabolite (Neg) U Marijuana (THC) Screen (Neg) 02/29/24 02/28/24 02/28/24 Range/Units 00:32 21:33 20:47 WBC (4.8-10.8) K/ul RBC (4.20-5.40) M/uL Hgb (12.0-16.0) g/dl Hct (37.0-47.0) % MCV (80.0-100.0) fL MCH (25.0-34.0) pg MCHC (32.0-36.0) g/dL RDW Std Deviation (36.4-46.3) fL RDW Coeff of Denisa (11.5-14.5) % Plt Count (130-400) K/uL MPV (9.4-12.4) fL Immature Gran % (Auto) % Neut % (Auto) % Lymph % (Auto) % [place] % (Auto) % Eos % (Auto) % Baso % (Auto) % Neut # (Auto) (1.40-6.50) K/uL Lymph # (Auto) (1.20-3.40) K/uL [place] # (Auto) (0.11-0.59) K/uL Eos # (Auto) (0.00-0.50) K/uL Baso # (Auto) (0.00-0.20) K/uL Immature Gran # (Auto) (0.01-0.20) K/uL PT 10.9 INR 1.0 VBG pH 7.38 (7.36-7.41) VBG pCO2 44 (38-50) mmHg VBG pO2 50 mmHg VBG HCO3 26 mmol/L VBG O2 Saturation 83.0 % VBG Base Excess 0.5 mEq/L Sodium (136-145) mmol/L Potassium 3.1 L Chloride (98-107) mmol/L Carbon Dioxide (21-32) mmol/L Anion Gap (3-11) BUN (6-23) mg/dl Creatinine (0.6-1.2) mg/dl Est Cr Clr Drug Dosing Est GFR ( Amer) ml/min Est GFR (Non-Af Amer) ml/min BUN/Creatinine Ratio (10-20) Glucose (70-99(Fasting)) mg/dl Lactate 1.2 2.1 H* (0.4-2.0) mmol/L Calcium (8.6-10.3) mg/dl Magnesium (1.7-2.4) mg/dl Total Bilirubin (0.2-1.0) mg/dl AST 18 ALT (7-52) U/L Alkaline Phosphatase (34-104) U/L Troponin I High Sens (0-14) pg/ml Total Protein (6.0-8.3) gm/dl Albumin (3.4-5.0) gm/dl Globulin (2.5-4.0) gm/dl Albumin/Globulin Ratio (0.9-2) Lipase (11-82) U/L HCG, Qual (Negative) Urine Color Dark Yellow Urine Appearance Cloudy A (Clear) Urine pH 5.5 (4.5-7.5) Ur Specific [place] 1.028 (1.000-1.030) Urine Protein Trace H (Negative) Urine Glucose (UA) Negative (Negative) Urine Ketones 1+ H (Negative) Urine Blood Negative (Negative) Urine Nitrite Negative (Negative) Urine Bilirubin 1+ H (Negative) Urine Urobilinogen Negative (Negative) Ur Leukocyte Esterase Trace H (Negative) Urine WBC (Auto) 6-10 H (0-5) /hpf Urine RBC (Auto) 0-2 (0-2) /hpf U Hyaline Cast (Auto) 0-2 (0-2) /lpf U Epithel Cells (Auto) 6-10 H (0-2) /hpf Urine Bacteria (Auto) 2+ H (None Seen) Urine Opiates Screen Neg (Neg) Ur Methadone, Qual Neg (Neg) Urine Fentanyl Screen Neg (Neg) Urine Barbiturates Neg (Neg) Phenytoin Ur Phencyclidine (PCP) Neg (Neg) U Amphetamin/Meth Scrn Neg (Neg) MDMA (Ecstasy) Screen Neg (Neg) U Benzodiazepines Scrn Neg (Neg) Ur Cocaine Metabolite Neg (Neg) U Marijuana (THC) Screen Neg (Neg) 02/28/24 Range/Units 20:35 WBC 7.61 (4.8-10.8) K/ul RBC 4.92 (4.20-5.40) M/uL Hgb 14.2 (12.0-16.0) g/dl Hct 42.3 (37.0-47.0) % MCV 86.0 (80.0-100.0) fL MCH 28.9 (25.0-34.0) pg MCHC 33.6 (32.0-36.0) g/dL RDW Std Deviation 37.3 (36.4-46.3) fL RDW Coeff of Denisa 11.9 (11.5-14.5) % Plt Count 233 (130-400) K/uL MPV 10.3 (9.4-12.4) fL Immature Gran % (Auto) 0.1 % Neut % (Auto) 42.6 % Lymph % (Auto) 45.3 % [place] % (Auto) 5.7 % Eos % (Auto) 5.8 % Baso % (Auto) 0.5 % Neut # (Auto) 3.24 (1.40-6.50) K/uL Lymph # (Auto) 3.45 H (1.20-3.40) K/uL [place] # (Auto) 0.43 (0.11-0.59) K/uL Eos # (Auto) 0.44 (0.00-0.50) K/uL Baso # (Auto) 0.04 (0.00-0.20) K/uL Immature Gran # (Auto) 0.01 (0.01-0.20) K/uL PT Cancelled INR Cancelled VBG pH (7.36-7.41) VBG pCO2 (38-50) mmHg VBG pO2 mmHg VBG HCO3 mmol/L VBG O2 Saturation % VBG Base Excess mEq/L Sodium 142 (136-145) mmol/L Potassium TNP Chloride 107 (98-107) mmol/L Carbon Dioxide 26 (21-32) mmol/L Anion Gap 9 (3-11) BUN 8 (6-23) mg/dl Creatinine 0.71 (0.6-1.2) mg/dl Est Cr Clr Drug Dosing Not Reportable Est GFR ( Amer) 138.2 ml/min Est GFR (Non-Af Amer) 119.2 ml/min BUN/Creatinine Ratio 11.3 (10-20) Glucose 110 H (70-99(Fasting)) mg/dl Lactate (0.4-2.0) mmol/L Calcium 9.5 (8.6-10.3) mg/dl Magnesium 2.0 (1.7-2.4) mg/dl Total Bilirubin 0.2 (0.2-1.0) mg/dl AST TNP ALT 23 (7-52) U/L Alkaline Phosphatase 89 (34-104) U/L Troponin I High Sens < 2.3 (0-14) pg/ml Total Protein 7.2 (6.0-8.3) gm/dl Albumin 4.6 (3.4-5.0) gm/dl Globulin 2.6 (2.5-4.0) gm/dl Albumin/Globulin Ratio 1.8 (0.9-2) Lipase 26 (11-82) U/L HCG, Qual Negative (Negative) Urine Color Urine Appearance (Clear) Urine pH (4.5-7.5) Ur Specific [place] (1.000-1.030) Urine Protein (Negative) Urine Glucose (UA) (Negative) Urine Ketones (Negative) Urine Blood (Negative) Urine Nitrite (Negative) Urine Bilirubin (Negative) Urine Urobilinogen (Negative) Ur Leukocyte Esterase (Negative) Urine WBC (Auto) (0-5) /hpf Urine RBC (Auto) (0-2) /hpf U Hyaline Cast (Auto) (0-2) /lpf U Epithel Cells (Auto) (0-2) /hpf Urine Bacteria (Auto) (None Seen) Urine Opiates Screen (Neg) Ur Methadone, Qual (Neg) Urine Fentanyl Screen (Neg) Urine Barbiturates (Neg) Phenytoin Ur Phencyclidine (PCP) (Neg) U Amphetamin/Meth Scrn (Neg) MDMA (Ecstasy) Screen (Neg) U Benzodiazepines Scrn (Neg) Ur Cocaine Metabolite (Neg) U Marijuana (THC) Screen (Neg) Medications Administered Current Inpatient Medications Acetaminophen (Acetaminophen 325 Mg Tab) 650 mg PO Q4H PRN PRN Reason: Pain or Fever Stop: 03/30/24 00:10 Albuterol (Albuterol Hfa 8 Gm Inhaler) 2 puffs INH Q4 PRN PRN Reason: cough,wheezing or SOB Stop: 03/30/24 00:10 Escitalopram Oxalate (Escitalopram Oxalate 10 Mg Tab) 5 mg PO QAM AMI Stop: 03/30/24 08:59 Last Admin: 02/29/24 08:52 Dose: 5 mg Sodium Chloride (Nss) 1,000 mls @ 100 mls/hr IV .Q10H AMI Stop: 03/30/24 00:10 Last Admin: 02/29/24 12:56 Dose: 100 mls/hr Lorazepam 1 mg/ Syringe 1 mls @ 2 mls/min IV Q2H PRN PRN Reason: Breakthrough Seizures Stop: 03/30/24 00:10 Ceftriaxone Sodium (Rocephin) 2,000 mg in 50 mls @ 100 mls/hr IV Q24H AMI Stop: 03/10/24 20:59 Nitroglycerin (Nitroglycerin Sl 0.4 Mg/Tab Tab) 0.4 mg SL Q5M PRN PRN Reason: Chest Pain Stop: 03/30/24 00:10 Phenytoin Sodium (Phenytoin Sodium Er 100 Mg Cap) 200 mg PO TID AMI Stop: 03/30/24 08:59 Last Admin: 02/29/24 15:16 Dose: 200 mg Polyethylene Glycol (Polyethylene (Miralax) 17 Gm Pack) 17 gm PO DAILY PRN PRN Reason: Constipation Stop: 03/30/24 00:10 Potassium Chloride (Potassium Chloride Crtab 20 Meq Tabcr) 20 meq PO BID AMI Stop: 03/30/24 08:59 Last Admin: 02/29/24 08:52 Dose: 20 meq Trazodone HCl (Trazodone Hcl 50 Mg Tab) 50 mg PO HS [facility] Stop: 03/30/24 00:10 Last Admin: 02/29/24 00:52 Dose: 50 mg
[2024-02-29] MEDS: cefTRIAXone SODIUM 2,000 MG/50 ML BAG IV SCH (20:11)
[2024-03-01 06:40] LABS: Hemoglobin 12.4 g/dl (12.0-16.0); Mean Corpuscular Hemoglobin 28.8 pg (25.0-34.0); Mean Corpuscular Hgb Conc 32.6 g/dL (32.0-36.0); Mean Corpuscular Volume 88.2 fL (80.0-100.0); Mean Platelet Volume 10.1 fL (9.4-12.4); Platelet Count 188 K/uL (130-400); RDW Standard Deviation 38.8 fL (36.4-46.3); Red Blood Count 4.31 M/uL (4.20-5.40); White Blood Count 6.23 K/ul (4.8-10.8)
[2024-03-01 07:04] LABS: Albumin Globulin Ratio 1.8 (0.9-2); Albumin Level 3.5 gm/dl (3.4-5.0); BUN Creatinine Ratio 6.6 (10-20); Bilirubin,Total 0.2 mg/dl (0.2-1.0); Calcium 8.3 mg/dl (8.6-10.3); Creatinine Clr Calc Pharmacy 106.6 ml/min; Est GFR (African American) 147.1 ml/min; Est GFR (Non-African American) 126.9 ml/min; Magnesium 1.8 mg/dl (1.7-2.4); Phosphorus 3.9 mg/dl (2.5-4.9); Potassium 3.7 mmol/L (3.5-5.1); Total Protein 5.5 gm/dl (6.0-8.3)
--- NOTE | 2024-03-01 07:50 | Discharge Summary ---
Discharge Summary Date of Service March 01, 2024 Principal Dx & Hospital Course #1 = Principal Diagnosis (1) Recurrent seizures: Plan 23 yo F with past medical history significant for malnutrition of moderate degree, non-intractable epilepsy, mixed hearing loss bilateral, iron deficiency anemia, attention deficit hyperactive disorder, tobacco disorder, opiate use, borderline personal disorder, PTSD, autism spectrum disorder, history of substance abuse, depression, and bipolar 2 disorder who presented with multiple seizure episodes. Patient states recently having lot of seizures. She was seen the day prior to admission at [facility] after she experienced a seizure during fireworks. She was discharged home from the ER. Family states she was in the ER 3 times in last 1 week. On day of admission, she had 15-20 seizures as per family. Appears to shake her extremities and head during the episodes. No biting of tongue or incontinence during the episode. As per family after the seizure is over she comes back to normal, then she goes back to another seizure episode. En route to the hospital she had a couple of episodes. Patient says sometimes she loses consciousness and sometimes not during the episodes. She did not take her Dilantin dose on the day of admission. States otherwise she is taking her medications regularly. Currently alert and oriented. Recurrent seizures Alert and oriented on admission EEG with the following Impression: "This is an abnormal awake and asleep routine EEG due to intermittent generalized background slowing suggestive of a mild nonspecific encephalopathy. No electrographic seizures or epileptiform discharges are seen." Neurology was consulted for further recommendations. Recommended the following: -Recommend to continue phenytoin 200 mg 3 times daily. -Will follow phenytoin level -The patient will need an outpatient evaluation by an epilepsy specialist to see determine if these events are seizures versus pseudoseizures. -Continue to treat her due to her UTI which can be a precipitating factor. -Continue with seizure precautions IV Ativan as needed for breakthrough seizures Discharged on home phenytoin dose, 200mg TID Close Neurology followup (Inpt Neurology recommended f/u with Epilepsy specialist at some point) and PCP follow up after discharge Urinary tract infection UA was suggestive of infection However urine culture with no significant growth Treated with IV rocephin and transitioned to po cefdinir for 4 more days on discharge per Neuro recs Lactic Acidosis Lactic acid elevated at 2.1 on arrival, downtrended to 1.2 after fluids Likely in setting of above Currently resolved Bipolar depression PTSD Continue home Lexapro and trazodone Follow-up with psychiatry- Neuro concern for possible pseudoseizures Close PCP followup as well Notes For Next Care Provider Per Neurology: Please ensure followup with an Epilepsy specialist to rule out pseudoseizures Medication Changes From Visit cefdinir 300mg BID x 4 more days Continue phenytoin at home dose Admission HPI Per Admitting Provider 23-year-old female with past medical history significant for malnutrition of moderate degree, non-intractable epilepsy, mixed hearing loss bilateral, iron deficiency anemia, attention deficit hyperactive disorder, tobacco disorder, opiate use, borderline personal disorder, PTSD, autism spectrum disorder, history of substance abuse, depression bipolar 2 disorder, presents with seizure episodes. Patient states recently having lot of seizures. She was yesterday in [facility] after she experienced seizure during fireworks.She was discharged home from ER. Family States she was in the ER 3 times in last 1 week. Today she she had 15-20 seizures as per family. Seems shakes her extremities and head during the episodes. No biting of tongue or incontinence during episode. As per family after seizure is over she comes back to normal then again she goes back to another seizure episode. En route to the hospital she had couple episodes.Patient says sometimes she looses consciousness and sometimes not during the episodes She did not take her tonight Dilantin dose. States otherwise she is taking her medications regularly. Currently alert and oriented. Family in the room. Has some headache. Denies any dizziness. No blurred visions. Has some stuffy nose. Currently no cough. No difficulty swallowing. Appetite is not great. Denies any shortness of breath. Currently no chest pain. No nausea. No abdominal pain. Normal bowel and bladder movements. Hemodynamics are okay. Past medical history. As mentioned above past surgical history. Tonsillectomy and adenoidectomy. Social history. Former smoker smoked 1 pack a day for 0.3 years. Not drinking alcohol currently. History of methamphetamines and marijuana. Currently not using. As per recent PCP Notes 2 years clean from methamphetamine. Admission Exam Per Admitting Provider General- Not in distress Head- atraumatic Eyes- PERRL. ENT- oropharynx clear Neck- supple, no JVD. Lungs- clear to auscultation no wheezing or crackles. Heart- regular rate and rhythm; no murmur, no gallop. Abdomen- normal bowel sounds, soft, nontender, no distension. Extremities- no pretibial edema, no erythema seen. Neuro- alert, oriented x 3; PERRL, no facial palsy; no dysarthria; co ordination of movements normal. moves extremities. Discharge Exam General: Alert, oriented. No acute distress Skin: No noted rashes or bruises Psych: Appropriate mood and affect Neuro: No gross deficits HEENT: NC/AT Chest: Nontender to palpation. CV: RRR, Normal s1, s2 Resp: Breath sounds clear bilaterally, no increased effort of breathing. Abdomen:Soft, nontender, nondistended Extremities: No edema in lower extremities bilaterally. Updated Medication List Medication Instructions Recorded Confirmed Type albuterol sulfate 90 mcg/actuation 2 puff inhalation Q4 PRN 02/28/24 02/28/24 History aerosol inhaler cough,wheezing or SOB epinephrine 0.3 mg/0.3 mL 0.3 mg IM UD PRN severe reaction 02/28/24 02/28/24 History injection, auto-injector (EpiPen 2-Obie) escitalopram oxalate 5 mg tablet 5 mg PO QAM 02/28/24 02/28/24 History ondansetron HCl 4 mg tablet 4 mg PO Q6H PRN Nausea 02/28/24 02/28/24 History phenytoin sodium extended 100 mg 200 mg PO TID 02/28/24 02/28/24 History capsule potassium chloride 20 mEq 20 meq PO AMHS 02/28/24 02/28/24 History tablet,extended release(part/cryst) trazodone 50 mg tablet 50 mg PO HS 02/28/24 02/28/24 History cefdinir 300 mg capsule 300 mg PO BID #8 caps 03/01/24 Rx Hospital Stay Data Consultations 02/28/24 22:50 ED Decision to Admit Stat 02/29/24 08:00 Consult Neurology Routine Diagnostic Imagining Performed Chest X-Ray 02/28/24 20:27 XR chest 1V portable HISTORY: 23 years-old Female seizure like activity COMPARISON: None TECHNIQUE: AP view of the chest FINDINGS: Cardiomediastinal and hilar silhouettes are within normal limits. No pneumothorax, pleural effusion or airspace consolidation. The bones appear intact. IMPRESSION: No acute process. ACT 112: Negative or not required by law. The above report was generated using voice recognition software. It may contain grammatical, syntax or spelling errors. Electronically signed by: Fausto Crespo M.D. 02/29/2024 8:41 AM Discharge Instructions Given to Patient (Per Discharging Provider) Yu, You are being discharged home. You were seen by the neurologist who recommended the following: -continue your home phenytoin as prescribed (be sure to take it everyday on schedule) -follow up with an epilepsy specialist -continue with UTI treatment We are discharging you with 4 more days of the oral antibiotic cefdinir to treat a urinary tract infection. Please take it as prescribed. Please keep close follow up with your primary care provider and your neurologist after discharge. Please do not hesitate to come back to the emergency room if your symptoms worsen or return. It was a pleasure taking care of you while you were here. Total Time Total Time Spent Total Time Spent (In Minutes): 65
== END 2024-03-01 13:41 | disposition home or self-care (01) | DRG 101 ==
LOC: ED 20:05 → EDINP 23:49 → SUATTDRO 23:49 → 2E 02-29 00:12